=== PATIENT | female | born 1970 | race Caucasian/White ===

== ENCOUNTER 2022-05-09 20:48 | Emergency (ER) | payer BC, SELFPAY ==
[2022-05-09 20:58] VITALS: BP 167/104; PULSE 127; RESP 22; TEMP 38.8; O2SAT 99; BMI 32.3
--- NOTE | 2022-05-09 21:10 | CRLHL7_ITS ---
For Patients: As a result of the Cures Act, medical imaging exams and procedure reports are released immediately into your electronic medical record. You may view this report before your referring provider. If you have questions, please contact your health care provider. INDICATION: Shortness of breath, COVID positive.. TECHNIQUE: Chest 1 view. COMPARISON: None. FINDINGS: Cardiovascular and mediastinum: Cardiomediastinal silhouette is within normal limits. Lungs and pleural spaces: Mild bilateral interstitial opacities. No evidence of pleural effusion. No pneumothorax identified. Bones and soft tissues: Unremarkable. IMPRESSION: Mild bilateral interstitial opacities, consistent with provided history of COVID. Dictated by Akil Ashby MD @ 05/09/2022 10:47:45 PM (Electronically Signed)
[2022-05-09] MEDS: 0.9 % SODIUM CHLORIDE 500 ML 500 ML IV (21:30)
--- NOTE | 2022-05-09 21:55 | ED_ITS ---
HPI - SOB/Dyspnea General Date Seen: 05/09/22 Chief Complaint: Shortness of Breath/Dyspnea Stated Complaint: tested covid +/chills, rapid heartbeat Time Seen by Provider: 05/09/22 20:53 Source: patient and family Mode of arrival: ambulatory Limitations: no limitations History of Present Illness HPI Narrative: Patient is a miguel 51-year-old female presents here with 2 day history of a shortness of breath cough, and feeling of shortness of breath when she walks up and down the stairs she tested herself today she was positive for COVID. At home twice. She took some NyQuil at 4:00 a.m., but is not taking anything else, she talked to her friend and she has come in for an assessment. She is on no chronic medications of any sort, she has no known drug allergies she is a nonsmoker lifetime, there possibly was a history of asthma when she was young, but she has not used inhaler for many years. She finds going up the stairs worse when she will feel shortness of breath, she has no chest pain no syncope no leg swelling, no hemoptysis. MD elicited complaint: shortness of breath Related Data Previous Rx's Medication Instructions Recorded nirmatrelvir 300 mg (150 mg See Rx Instructions PO .COMPLEX 05/09/22 x2)-ritonavir 100 mg tablet,dose #30 ea pack(EUA) (Paxlovid) Allergies Allergy/AdvReac Type Severity Reaction Status Date / Time No Known Drug Allergies Allergy Verified 05/09/22 21:00 Review of Systems Status of ROS: Reports: 10 or more systems reviewed and unremarkable except as noted in History and below [facility] Social History Smoking Status: Current some day smoker What tobacco products do you use: cigarettes Do you use any of these nicotine containing products: None How often do you have a drink containing alcohol: monthly or less AUDIT-C Alcohol total score: 1 Non-prescribed substance use: denies use Exam Narrative: Exam Narrative: Patient is peaking normally, problem with slurring words, oriented x3. Head eyes ears nose and throat exam show equal pupils, no scleral icterus, extraocular muscles are normal, no facial droop, speech is normal, trachea normal and midline. Thyroid normal midline palpable not enlarged. Chest shows symmetrical rise bilaterally, normal auscultation with no wheezes, no increased work of breathing, no overt bruising or lesions seen, no tenderness is noted on auscultation. Heart sounds normal with no S3-S4 no murmurs clicks or gallops. Abdomen shows no obvious masses or hepatosplenomegaly, no organomegaly, bowel sounds are normal in all quadrants. No tenderness is noted also in all qu adrants. Upper and lower extremities show normal power, normal range of motion, pulses are normal, sensations normal, fine motor movements are normal, pelvis is stable to rocking. Cervical spine shows normal range of motion, and palpably not tender. Thoracic spine shows normal range of motion, and palpably not tender, lumbar spine shows no tenderness to palpation percussion and is otherwise normal range of motion. Skin shows no rashes, petechiae or eccymosis. No evidence of any swelling of her lower extremities, and her Homans signs are negative. Const: Vital Signs, click to edit/add: Vital Signs - 24 hr 05/09/22 20:58 05/09/22 22:02 Temperature 102 F H 102.5 F H Pulse Rate [Right Pulse Oximeter] 127 H 109 H Respiratory Rate 22 22 Blood Pressure [Le ft Upper Arm] 167/104 H 158/87 H Pulse Oximetry 99 98 Oxygen Delivery Me thod Room Air Room Air Documenting provider has reviewed patient's vital signs: yes Course Course Hospital Course: Patient is negative on the D-dimer, her chest x-ray by my review shows no acute findings, her EKG looks normal troponins normal, given she is at increased risk of complications secondary to COVID with her elevated BMI, and potential history of did asthma in the past, I discussed with her Paxlovid, the risks benefits and side effects and she would like to try it, prescription sent to the pharmacy of her choice. Vital Signs Vital signs: Initial Vital Signs Temperature 102 F H 05/09/22 20:58 Temperature Source Temporal Artery Scan 05/09/22 20:58 Pulse Rate 127 H 05/09/22 20:58 Respiratory Rate 22 05/09/22 20:58 Blood Pressure 167/104 H 05/09/22 20:58 Blood Pressure Mean 125 05/09/22 20:58 Blood Pressure Position Sitting 05/09/22 20:58 Pulse Oximetry 99 05/09/22 20:58 Oxygen Delivery Method 05/09/22 20:58 Vital Signs Temperature 102 F H 05/09/22 20:58 Pulse Rate 127 H 05/09/22 20:58 Respiratory Rate 22 05/09/22 20:58 Blood Pressure 167/104 H 05/09/22 20:58 Pulse Oximetry 99 05/09/22 20:58 Oxygen Delivery Method 05/09/22 20:58 Temperature 102.5 F H 05/09/22 22:02 Pulse Rate 109 H 05/09/22 22:02 Respiratory Rate 22 05/09/22 22:02 Blood Pressure 158/87 H 05/09/22 22:02 Pulse Oximetry 98 05/09/22 22:02 Oxygen Delivery Method 05/09/22 22:02 MDM - SOB/Dyspnea MDM Narrative Medical decision making narrative: Life-threatening differential diagnosis includes occluded COPD exacerbation, pulmonary edema, acute coronary syndromes, pulmonary embolism, pneumonia, and pneumothorax. Other differential diagnosis considerations include asthma, bronchitis as well as other etiologies Medical Records Attestation: I reviewed the patient's medical records. Lab Data Attestation: I reviewed the patient's lab results. Labs: Lab Results 05/09/22 05/09/22 05/09/22 Range/Units 21:32 21:32 21:32 D-Dimer Quant (PE/DVT) < 0.27 (0.00-0.50) ug/ml Sodium 136 (135-149) mmol/L Potassium 3.8 (3.6-5.1) mmol/L Chloride 106 (96-114) mmol/L Carbon Dioxide 21 (20-32) mmol/L BUN 7 (5-24) mg/dL Creatinine 0.6 (0.5-1.5) mg/dL Estimated Creat Clear 106.18 Estimated GFR 110 ml/min Glucose 117 H (60-115) mg/dL Calcium 8.7 (8.4-10.6) mg/dL POC Troponin I 0.00 L (0.01-0.04) ng/ml ECG Data Attestation: I personally reviewed and interpreted this ECG as follows: ECG interpretation date: 05/09/22 Prior ECG tracings: not available for review Interpretation: EKG shows sinus tachycardia, no acute ST wave changes, otherwise normal. Discharge Plan Discharge Clinical Impression: COVID-19 Patient Disposition: Home w/ Parent or Adult Condition: Stable Instructions: COVID-19 (Coronavirus Disease 2019) (ED) Additional Instructions: Use of Tylenol 1 g p.o. t.i.d. and or ibuprofen 800 mg p.o. t.i.d. for the fevers and chills and feeling otherwise crappy, prescription given for Paxlovid I would suggest taking this as were in increased risk category. Increasing chest pain, shortness of breath, then he should follow up, a TeleMed patient is to by an oxygen saturation monitor to monitor their oxygen, return here if less than 90%. Prescriptions: New Paxlovid (EUA) 300 mg (150 mg x 2)-100 mg tablets,dose pack See Rx Instructions .ROUTE .COMPLEX Qty: 30 0RF Rx Instructions: take TWO 150 mg tablets of nirmatrelvir with ONE 100 mg tablet of ritonavir twice daily for 5 days Follow Up/Referrals: Devi Rubin DO [Primary Care Provider] - Stand Alone Forms: [facility] Info Instructions
[2022-05-09 21:58] LABS: Chloride* 106 mmol/L (96-114); Potassium* 3.8 mmol/L (3.6-5.1); Sodium* 136 mmol/L (135-149)
[2022-05-09 22:01] LABS: Blood Urea Nitrogen* 7 mg/dL (5-24); Calcium* 8.7 mg/dL (8.4-10.6); Carbon Dioxide* 21 mmol/L (20-32); Creatinine* 0.6 mg/dL (0.5-1.5); Est. Creatinine Clearance* 106.18; Estimated Glomerular Filt Rate 110 ml/min; Glucose* 117 mg/dL (60-115)
[2022-05-09] MEDS: IBUPROFEN 400 MG TABLET 800 MG PO (22:01)
[2022-05-09 22:02] VITALS: BP 158/87; PULSE 109; RESP 22; TEMP 39.2; O2SAT 98
[2022-05-09 22:04] LABS: D Dimer Quantitative* < 0.27 ug/ml (0.00-0.50)
[2022-05-09 22:25] VITALS: BP 158/87; PULSE 109; RESP 22
== END 2022-05-09 22:49 | disposition home or self-care (01) ==
PROVIDERS: Emergency Provider Family Medicine; PCP Family Medicine
DX: U07.1 COVID-19 (principal)
CPT/HCPCS: 36415; 71045; 80048; 84484; 85379; 93005; 99284; 99285; A9270; J7120

== ENCOUNTER 2023-04-20 09:56 | Outpatient (CLI) | payer BC, SELFPAY ==
--- NOTE | 2023-04-20 10:15 | CRLHL7_ITS ---
For Patients: As a result of the Century Cures Act, medical imaging exams and procedure reports are released immediately into your electronic medical record. You may view this report before your referring provider. If you have questions, please contact your health care provider. ULTRASOUND-GUIDED BREAST BIOPSY AND POST-BIOPSY DIGITAL MAMMOGRAM FOR BIOPSY MARKER PLACEMENT CLINICAL HISTORY: Suspicious mass. COMPARISON STUDIES: 04/13/2023. TECHNIQUE: Real-time ultrasound with image documentation was used for targeting the breast lesion. Core biopsy specimens were obtained using an automated gun with a 18-gauge biopsy needle. Post-biopsy CC and ML digital mammograms were obtained to document position of the biopsy marker. CONSENT and TIME OUT: The procedure, risks, and alternatives were explained to the patient and a consent was signed. [place] Protocol was followed including pre-procedure verification that relevant information/documentation was available, reviewed and properly matched to the patient; consent accurate and complete; and equipment and supplies available. Time Out was conducted just prior to starting procedure to verify the four required elements: patient identity, correct side/site marked (if applicable), procedure, relevant images/results properly labeled and displayed (if applicable). PROCEDURE: The patient was positioned supine on the ultrasound table. The breast was prepped with Betadine or ChloraPrep. 8 cc of 1 percent lidocaine used for local anesthesia. Core samples were obtained. A sterile metal biopsy clip was placed percutaneously to yuriy the lesion position within the breast. The specimens were placed in 10% formalin and sent to the pathology department. Pressure was held on the biopsy site until all bleeding subsided. The skin incision was closed with Steri-Strips. An ice pack was positioned over the biopsy site. Post-biopsy instructions were reviewed with the patient, and a written copy was given to her. LATERALITY: LEFT breast. LESION: Hypoechoic angular solid mass measuring 9 x 10 x 10 millimeters at 1 o`clock 13 cm from the nipple. SUSPICION FOR MALIGNANCY: High. NUMBER OF SAMPLES: 5. BIOPSY CLIP SHAPE: Oval. PROXIMITY OF CLIP TO TARGET: Within the lesion. IMPRESSION: Ultrasound-guided breast biopsy. When the pathology report is available, an addendum to this report will be made. ACR not applicable Dictated by Kelvin Galo MD @ 04/20/2023 11:34:45 AM jj/Dictated by: Kelvin Galo MD @ 04/20/2023 11:34:00 AM ADDENDUM: Pathology consistent with grade II/III invasive ductal carcinoma. This is concordant. Appropriate action recommended. Dictated by: Kelvin Galo MD @04/22/2023 12:17:59 PM / [email or web address] (Electronically Signed)
--- NOTE | 2023-04-20 10:15 | CRLHL7_ITS ---
For Patients: As a result of the Century Cures Act, medical imaging exams and procedure reports are released immediately into your electronic medical record. You may view this report before your referring provider. If you have questions, please contact your health care provider. ULTRASOUND-GUIDED LEFT AXILLARY LYMPH NODE BIOPSY AND MARKER PLACEMENT CLINICAL HISTORY: ENLARGED LEFT AXILLARY LYMPH NODE COMPARISON STUDIES: 04/13/2023 TECHNIQUE: Real-time ultrasound with image documentation was used for targeting the left axillary lesion. Core biopsy specimens were obtained using an automated gun with a 18-gauge biopsy needle. CONSENT and TIME OUT: The procedure, risks, and alternatives were explained to the patient and a consent was signed. [place] Protocol was followed including pre-procedure verification that relevant information/documentation was available, reviewed and properly matched to the patient; consent accurate and complete; and equipment and supplies available. Time Out was conducted just prior to starting procedure to verify the four required elements: patient identity, correct side/site marked (if applicable), procedure, relevant images/results properly labeled and displayed (if applicable). PROCEDURE: The patient was positioned supine on the ultrasound table. The left axilla was prepped with ChloraPrep. 6 cc of 1 percent lidocaine used for local anesthesia. Core samples were obtained. A sterile metal biopsy clip was placed percutaneously to yuriy the lesion position within the left axilla. The specimens were placed in 10% formalin and sent to the pathology department. Pressure was held on the biopsy site until all bleeding subsided. The skin incision was closed with Steri-Strips. An ice pack was positioned over the biopsy site. Post-biopsy instructions were reviewed with the patient, and a written copy was given to her. LATERALITY: Left axilla LESION: Enlarged hypoechoic lymph node measuring 2.0 x 1.5 x 2.5 cm in the left axilla. SUSPICION FOR MALIGNANCY: High NUMBER OF SAMPLES: 5 BIOPSY CLIP SHAPE: HydroMARK PROXIMITY OF CLIP TO TARGET: Within the lesion IMPRESSION: Ultrasound-guided left axillary lymph node biopsy. When the pathology report is available, an addendum to this report will be made. ACR not applicable Dictated by Kelvin Galo MD @ 04/20/2023 11:37:02 AM ADDENDUM: Pathology consistent with metastatic carcinoma. This is concordant. Appropriate action recommended. Dictated by: Kelvin Galo MD @04/22/2023 12:18:42 PM / [email or web address] (Electronically Signed)
--- NOTE | 2023-04-20 11:00 | CRLHL7_ITS ---
For Patients: As a result of the Century Cures Act, medical imaging exams and procedure reports are released immediately into your electronic medical record. You may view this report before your referring provider. If you have questions, please contact your health care provider. PLEASE SEE ULTRASOUND-GUIDED LEFT BREAST BIOPSY PERFORMED SAME DAY [email or web address] groves/Dictated by: Kelvin Galo MD @ 04/20/2023 11:34:00 AM (Electronically Signed)
== END 2023-04-20 09:57 | disposition home or self-care (01) ==
LOC: US 09:57
PROVIDERS: PCP Family Medicine; Visit Provider Family Medicine
DX: N63.20 Unspecified lump in the left breast, unspecified quadrant (principal); C50.912 Malignant neoplasm of unspecified site of left female breast; R92.8 Other abnormal and inconclusive findings on diagnostic imaging of breast
CPT/HCPCS: 19083; 38505; 76942; 77065; 88305; 88360; 88361; 88377; A4648; A4649

== ENCOUNTER 2023-04-27 14:07 | Outpatient (CLI) | payer BC, SELFPAY ==
--- NOTE | 2023-04-27 14:30 | CRLHL7_ITS ---
For Patients: As a result of the 21st Century Cures Act, medical imaging exams and procedure reports are released immediately into your electronic medical record. You may view this report before your referring provider. If you have questions, please contact your health care provider. BILATERAL BREAST MRI WITHOUT AND WITH GADOLINIUM, 04/27/2023 CLINICAL HISTORY: 52-year-old female with recently diagnosed LEFT breast cancer. INDICATION FOR BREAST MRI: Staging of newly diagnosed breast cancer and screening of contralateral breast. Regional lymph nodes will also be assessed. COMPARISON STUDIES: Mammogram 03/30/2023, additional mammographic views of the LEFT breast, LEFT breast ultrasound an axillary ultrasound 04/13/2023. CONTRAST: 18 cc of Dotarem. TECHNIQUE: The patient was positioned prone using a breast coil. Multiple imaging sequences were obtained using 1-1.5 mm thick slices with no gap. The image sequences include T2-weighted STIR in the axial plane, T1-weighted nonfat-saturated gradient echo in the axial plane, pre- and post-contrast T1-weighted FLASH 3D with fat suppression in the axial plane, and T1-weighted FLASH high resolution 3D with fat suppression in the sagittal plane. Image post-processing was performed on a [employer] workstation. Complex 3D rendering including maximum intensity projections (MIPS) and volumetric renderings were obtained to optimize visualization of the extent of pathology and relationship to the nipple, skin, and chest wall. This aids in determining feasibility of breast conservation surgery. Subtraction, multiplanar reconstruction, mean curve determination, and angiogenesis mapping were also performed. The study was technically adequate. FINDINGS: Amount of Fibroglandular Tissue: Scattered fibroglandular tissue. Breast Background Enhancement: Mild. RIGHT Breast: No suspicious areas of enhancement. LEFT Breast: At 1 o`clock, posterior depth, approximately 11 cm from the nipple there is an irregular mass with irregular margins and heterogeneous internal enhancement measuring 2.0 x 1.4 x 2.5 cm. This demonstrates fast initial enhancement with washout. Artifact from a biopsy marker clip is seen within the mass. This is consistent with the site of biopsy-proven malignancy. Lymph Nodes: There is an abnormal level 1 LEFT axillary lymph node with eccentric cortical thickening, measuring up to 1.5 cm, which is consistent with the biopsy-proven filiberto metastasis. There are at least two additional deeper level 1 lymph nodes with cortical thickening. Normal RIGHT axillary lymph nodes. IMPRESSIONS AND RECOMMENDATIONS: LEFT Breast: 1. Mass at 1 o`clock, posterior depth measuring up to 2.5 cm on MRI is consistent with the biopsy-proven malignancy. No additional suspicious areas of enhancement. Surgical/oncologic follow-up for continued management. 2. Abnormal LEFT axillary lymph nodes, consistent with biopsy-proven filiberto metastasis. RIGHT Breast: Negative, there is no MRI evidence of contralateral malignancy. BI-RADS Category 6: Known Biopsy-Proven Malignancy Dictated by Elisa Nolan MD @ 04/29/2023 4:30:57 PM /Dictated by: Elisa Nolan MD @ 04/29/2023 4:30:00 PM (Electronically Signed)
== END 2023-04-27 14:08 | disposition home or self-care (01) ==
LOC: MRI 14:07
PROVIDERS: PCP Family Medicine; Visit Provider Surgery
DX: C50.912 Malignant neoplasm of unspecified site of left female breast (principal); C77.3 Secondary and unspecified malignant neoplasm of axilla and upper limb lymph nodes
CPT/HCPCS: 77049; A9575

== ENCOUNTER 2023-05-04 10:54 | Day surgery (SDC) | payer BC, SELFPAY ==
[2023-05-04] MEDS: SODIUM CHLORIDE 0.9 % (FLUSH) 10 ML SYRINGE IVF (11:15)
[2023-05-04] MEDS: LACTATED RINGERS 1000 ML 1,000 ML 100 ML IV (11:15)
[2023-05-04 11:19] VITALS: BP 148/91; PULSE 89; RESP 20; TEMP 36.6; O2SAT 96; BMI 30.5
--- NOTE | 2023-05-04 12:42 | W.PM.H&PU ---
History & Physical Update History & Physical Update H&P Reviewed and patient assessed: No changes noted
[2023-05-04] MEDS: CEFAZOLIN 2 GM INJ IVP (12:51)
--- NOTE | 2023-05-04 12:53 | CRLHL7_ITS ---
For Patients: As a result of the Century Cures Act, medical imaging exams and procedure reports are released immediately into your electronic medical record. You may view this report before your referring provider. If you have questions, please contact your health care provider. Fluoroscopy was provided intraoperatively during Port-A-Cath placement by the surgical service. Please see their report for full procedural details. 40.7 seconds fluoroscopy time was utilized. Chest radiograph reported separately. Dictated by Jamal Harris MD @ 05/05/2023 6:38:29 AM (Electronically Signed)
[2023-05-04] MEDS: BUPIVACAINE 0.5% 30 ML INJECTION (13:13)
[2023-05-04] MEDS: LIDOCAINE 1% MDV 20 ML INJECTION (13:13)
--- NOTE | 2023-05-04 13:19 | CRLHL7_ITS ---
For Patients: As a result of the Century Cures Act, medical imaging exams and procedure reports are released immediately into your electronic medical record. You may view this report before your referring provider. If you have questions, please contact your health care provider. INDICATION: Port placement. TECHNIQUE: Chest 1 views. COMPARISON: None. FINDINGS: Cardiovascular and mediastinum: Heart size and vasculature are normal in caliber and appearance. Right chest wall port with catheter terminating in the lower SVC. Lungs and pleural spaces: Lungs are clear. No sign of infiltrate or mass. No sign of pleural effusion. No pneumothorax. Bones and soft tissues: No significant findings. IMPRESSION: Right chest wall port with catheter terminating in the lower SVC. Dictated by Dimitri Feng MD @ 05/04/2023 3:20:13 PM (Electronically Signed)
[2023-05-04] MEDS: 0.9% SODIUM CHL 50 ML VIAL INJECTION (13:30)
[2023-05-04] MEDS: HEPARIN 500 UNIT/5 ML SYRINGE IVF (13:34)
--- NOTE | 2023-05-04 13:46 | PM.GSPRC ---
Operative Note Pre-op diagnosis: Left triple positive, invasive ductal carcinoma breast cancer metastatic to axillary lymph node Post-op diagnosis: Same Type of Procedure: Right IJ power port placement with ultrasound and fluoroscopic guided Indications: The patient is a 52-year-old female who was found on routine screening mammogram to have an invasive ductal carcinoma of the left breast. There was also a suspicious lymph node in the left axilla. These were both biopsied and found to be positive for invasive ductal carcinoma. She was recommended to undergo neoadjuvant chemotherapy. She presents today for port placement. Procedure Description: After discussing the risks and benefits of the procedure, the patient signed informed consent.? The operative site was marked and the patient was brought to the operating room and placed on the operating table in supine position.? Care was taken to pad the patient's pressure points.?? The patient was then given sedation by anesthesia.?? The operative site was then prepped and draped in the usual sterile fashion.? A time-out was then performed. The patient's right internal jugular vein was visualized using ultrasound. Local anesthetic was injected into the skin overlying the vein. This was accessed percutaneously using ultrasound guidance. Using Seldinger technique, a guidewire was threaded through the needle. A skin jelena was made around the wire. Next, local anesthetic was injected into the skin below the clavicle and along the proposed tract to the neck incision. A skin incision was then made with a 15 blade and a pocket created in the subcutaneous tissue with cautery. A tunneler was then used to thread the catheter from the chest wall pocket to the neck incision. Once this was done fluoroscopy was brought into the field. Over the wire the tract was dilated using fluoroscopy. The wire and the dilator were then removed leaving the sheath in the vein. Through this, the catheter was threaded. Using fluoroscopy, the catheter was positioned into the distal SVC. The catheter was noted to flush and aspirate easily. The catheter was then connected to the port. The port was placed in the pocket and secured in place with 2 0 Prolene sutures. It was noted to flush and aspirate easily. This was then locked with heparinized saline. The skin was closed with absorbable suture. Sterile dressings were applied. Instrument sponge and needle counts were correct at the end of the case. The patient was woken and taken to the PACU in stable condition. The patient tolerated the procedure well. Findings: Right IJ power port placed in the low SVC Implants: PowerPort Anesthesia: MAC Surgeon: Oriana Davis MD Estimated blood loss (mL): 5 Condition: stable Disposition: same day Date of procedure: 05/04/23
[2023-05-04 13:50] VITALS: BP 113/72; PULSE 96; RESP 16; TEMP 36.6; O2SAT 98
--- NOTE | 2023-05-04 13:54 | W.ANESCHARGE ---
Anesthesia Charges Start Date/Time Anesthesia Start Date: 05/04/23 Anesthesia Start Time: 12:42 Stop Date/Time Anesthesia Stop Date: 05/04/23 Anesthesia Stop Time: 13:52
[2023-05-04 14:00] VITALS: BP 123/82; PULSE 79; RESP 16; O2SAT 100
[2023-05-04 14:15] VITALS: BP 145/97; PULSE 72; RESP 16; O2SAT 100
--- NOTE | 2023-05-04 14:53 | W.ANESCHARGE ---
Anesthesia Charges Start Date/Time Anesthesia Start Date: 05/04/23 Anesthesia Start Time: 12:42 Stop Date/Time Anesthesia Stop Date: 05/04/23 Anesthesia Stop Time: 13:52
== END 2023-05-04 14:37 | disposition home or self-care (01) ==
PROVIDERS: PCP Family Medicine; Visit Provider Surgery
PROC: (CPT 36561; principal; 2023-05-04 13:15)
DX: Z45.2 Encounter for adjustment and management of vascular access device (principal); C50.412 Malignant neoplasm of upper-outer quadrant of left female breast; C77.3 Secondary and unspecified malignant neoplasm of axilla and upper limb lymph nodes; Z17.0 Estrogen receptor positive status [ER+]
CPT/HCPCS: 36561; 00532; 71045; 76000; C1788; J0665; J0690; J1642; J2250; J2405; J2704; J3010; J7120

== ENCOUNTER 2023-05-11 07:05 | Outpatient (CLI) | payer BC, SELFPAY ==
--- NOTE | 2023-05-11 07:15 | CRLHL7_ITS ---
For Patients: As a result of the Century Cures Act, medical imaging exams and procedure reports are released immediately into your electronic medical record. You may view this report before your referring provider. If you have questions, please contact your health care provider. INDICATION: Breast cancer. TECHNIQUE: Multiplanar multisequence MR images acquired through the brain prior to and following intravenous contrast. COMPARISON: None. FINDINGS: Prominence of the ventricles and sulci compatible with minimal diffuse cerebral volume loss. No mass effect or midline shift. No parenchymal signal abnormalities. No intracranial hemorrhage or pathologic extra-axial fluid collection. No diffusion restriction to suggest acute infarction. No pathologic intracranial enhancement. Partially empty sella may represent an anatomic variant. The major arterial flow voids of the skullbase are the globes are symmetric. Mgef-it-mmwemlud left and mild right maxillary sinus mucosal thickening. Trace right mastoid fluid. IMPRESSION: No acute intracranial abnormality or evidence for intracranial metastatic disease. Dictated by Kareem Peres MD @ 05/11/2023 11:35:38 AM (Electronically Signed)
[2023-05-11] MEDS: PERFLUTREN LIPID MICROSPHERES 2 ML VIAL IV (16:21)
== END 2023-05-11 07:06 | disposition home or self-care (01) ==
PROVIDERS: PCP Family Medicine; Visit Provider Internal Medicine Hematology & Oncology
DX: C50.919 Malignant neoplasm of unspecified site of unspecified female breast (principal)
CPT/HCPCS: 70553; 93306; A9575; Q9957

== ENCOUNTER 2023-06-08 12:52 | Outpatient (CLI) | payer BC, SELFPAY ==
--- OUTSIDE RECORDS SUMMARY | 2023-06-08 12:58 | XMS_ITS | Clinical Summary ---
Author Name Unknown Organization [facility] Address [place], [place] [address] Care Team Providers Care Vice President Of Compliance Name Role Phone Devi Rubin Primary Care Provider [phone] Allergies No known active allergies Medications Medication Sig Dispensed Refills Start Date End Date Status Graduated Compression StockingsIndica tions:Uncomplic ated varicose veins For personal use. Length: thigh Strength: 20-30 mmHg Circumference in cm: For thigh: Ankle 25cm, Calf 37cm, Thigh 51cm, Thigh to Ankle length 54cm. 1 Packet 0 3 Active folic acid 1 mg tabletIndicatio ns:Low folic acid Take 1 Tablet (1 mg) by mouth once daily. 90 Tablet 3 3 Active hydrOXYzine HCL (ATARAX) 25 mg tabletIndicatio ns:Anxiety Take 1 Tablet (25 mg) by mouth every 6 hours if needed for Anxiety. 30 Tablet 0 3 Active LORazepam (ATIVAN) 0.5 mg tabIndications: REYNALDO (generalized anxiety disorder),Diffi culty sleeping,Feelin g worried Take 1 Tablet (0.5 mg) by mouth at bedtime if needed for Anxiety. 20 Tablet 0 3 Active multivitamin capsule Take 1 Capsule by mouth once daily. 0 Active escitalopram oxalate (LEXAPRO) 5 mg tabletIndicatio ns:REYNALDO (generalized anxiety disorder) Take 1 Tablet (5 mg) by mouth every morning. 30 Tablet 0 4 Active cyanocobalamin (Vitamin B-12) 1,000 mcg tabletIndicatio ns:Vitamin B12 deficiency Take 1 Tablet (1,000 mcg) by mouth once daily. 90 Tablet 3 3 06/04/19 24 Discontinued(*P atient states no longer taking) FLUoxetine 10 mg tabletIndicatio ns:REYNALDO (generalized anxiety disorder) Take 0.5 Tablets (5 mg) by mouth every morning for 7 days, THEN 1 Tablet (10 mg) every morning. 33.5 Tablet 0 3 05/26/20 23 Discontinued FLUoxetine 10 mg tabletIndicatio ns:REYNALDO (generalized anxiety disorder) Take 1 Tablet (10 mg) by mouth every morning. Needs appointment for refills. 30 Tablet 0 3 06/04/19 24 Discontinued(*P atient states no longer taking) Active Problems Problem Noted Date Diagnosed Date REYNALDO (generalized anxiety disorder) 06/04/2023 Invasive ductal carcinoma of breast, left 2022 Pap smear for cervical cancer screening 03/31/20 Overview: 03/2023 NIL/HPV negative Plan: Pap/HPV due 03/2028 Anxiety 04/28/2021 Hypertriglyceridemia 04/28/2021 Overview: ASCVD 10 year risk 5%. Alcohol abuse 03/19/2019 Overview: 8-10 beers weekends Uncomplicated varicose veins 09/16/2013 Overview: Identified By: Mariya Paul Resolved Problems Problem Noted Date Diagnosed Date Resolved Date Abdominal pain, RUQ (right upper quadrant) 09/17/2017 04/28/2021 ETOH abuse 03/16/2009 09/17/2017 Major depressive disorder, r ecurrent episode, unspecified 09/08/2008 09/17/2017 Overview: On celexa and effexor in the past Encounters Date Type Department Care Team Description 06/04/2023 3:00 PM SHOTGUN SHELL REPRINTING UNIT OPERATOR [place] [facility] [address] [place] [address] Devi Rubin, Concerns (Discuss daily anxiety medication and care during chemo. If she has a fever will need an antibiotic) 06/04/2023 Travel 06/03/2023 Telephone [facility] [address] [place] [phone] Susie Cuellar, MS, CGC Results 06/03/2023 Telephone [facility] [address] [place] [address] Susie Cuellar, MS, CGC Results 05/24/2023 Telephone [facility] [address] [place] [address] Marina Harris PA Refill Request (Fluoxetine) 05/20/2023 3:30 PM SHOTGUN SHELL REPRINTING UNIT OPERATOR Orders Only [facility] [address] [place] [address] Lab, [facility] 05/20/2023 Travel 05/18/2023 1:00 PM SHOTGUN SHELL REPRINTING UNIT OPERATOR Telemedicine [facility] [address] [place] [address] Susie Cuellar MS, [facility] Counseling (Cancer genetic counseling); Telehealth 05/18/2023 Telephone [facility] [address] [place] [address] Vera Carrasco Cancer Genetics 05/18/2023 Telephone [facility] [address] [place] [address] Vera Carrasco Cancer Genetics 05/11/2023 3:00 PM SHOTGUN SHELL REPRINTING UNIT OPERATOR Orders Only [facility] [address] [place] [address] 2 scans: (2-Ord) ECHO TTE COMPLETE W CONTRAST ([id number]) 05/11/2023 Orders Only [facility] Scanner 1 scan: (1-Ord) [facility], HEAD/BRAIN WO/W CON, 05/11/2023 05/11/2023 Travel 05/08/2023 6:27 AM SHOTGUN SHELL REPRINTING UNIT OPERATOR - 05/08/2023 11:59 PM SHOTGUN SHELL REPRINTING UNIT OPERATOR Hospital Encounter [facility] [address] [place] [address] Dina Quigley MD Breast cancer (HC); Malignant neoplasm of upper-outer quadrant of right female breast (HC) 05/08/2023 Travel 05/04/2023 8:00 AM SHOTGUN SHELL REPRINTING UNIT OPERATOR Office Visit [facility] [address] [place] [address] Oriana Davis MD 05/04/2023 Orders Only [facility] Scanner 1 scan: (1-Ord) [facility], CHEST IV, 05/04/2023 05/04/2023 Orders Only [facility] Scanner 1 scan: (1-Ord) [facility], CHEST 1VIEW, 05/04/2023 05/04/2023 Orders Only [facility] Scanner 1 scan: (1-Ord) [facility], PORT PLACEMENT, 05/04/2023 05/04/2023 Travel 04/30/2023 Chart Update [facility] [address] [place] [address] Bishnu Segura MD 04/29/2023 Telephone [facility] [address] [place] [address] Vera Carrasco Cancer Genetics 04/29/2023 Telephone [facility] [address] [place] [phone] Vera Carrasco Cancer Genetics 04/27/2023 12:15 PM SHOTGUN SHELL REPRINTING UNIT OPERATOR Office Visit [facility] [address] [place] [address] Bishnu Segura MD Consult (Left breast cancer) 04/27/2023 8:45 AM SHOTGUN SHELL REPRINTING UNIT OPERATOR Office [place] [facility] [address] [place] [address] Marina Harris PA Anxiety; Depression 04/27/2023 Orders Only [facility] Scanner 1 scan: (1-Ord) [facility], BREAST MEHUL W/WO CONTRAST, 04/27/2023 04/27/2023 Travel 04/21/2023 Telephone [facility] [address] [place] [address] Marina Harris PA Appointment (APPT REQUEST ) 04/21/2023 Orders Only [facility] [address] [facility] [address] Devi Rubin, 1 scan: (1-Ord) [facility], US GUIDED BREAST BIOPSY LT, 04/20/2023 04/20/2023 Orders Only [facility] Scanner 1 scan: (1-Ord) [place], US GUIDED BREAST BIOPSY LT, 04/20/2023 04/20/2023 Orders Only [facility] Scanner 1 scan: (1-Ord) [place], US GIUDED LEFT AXILLARY LYMPH NODE BIOPSY AND MARKER PLACEMENT, 04/20/2023 04/20/2023 Orders Only [facility] Scanner 1 scan: (1-Ord) [facility], MM CLIP PLACEMENT LT, 04/20/2023 04/20/2023 Lab Requisition [facility] [phone] Unknown, Doctor 04/20/2023 Lab Requisition [facility] [phone] Unknown, Doctor 04/16/2023 3:50 PM SHOTGUN SHELL REPRINTING UNIT OPERATOR Telemedicine [facility] [address] [place] [address] Marina Harris PA Anxiety 04/15/2023 Travel 04/13/2023 2:30 PM SHOTGUN SHELL REPRINTING UNIT OPERATOR Ancillary Procedure [facility] [address] [facility] [place] [address] 04/13/2023 2:00 PM SHOTGUN SHELL REPRINTING UNIT OPERATOR Ancillary Procedure [facility] [address] [facility] [address] 04/13/2023 Telephone [facility] [address] [place] [address] Devi Rubin, New Med Request 04/13/2023 Travel 03/30/2023 11:00 AM CDT Ancillary Procedure [facility] [address] [place] [address] 03/30/2023 Travel 03/23/2023 10:50 AM CDT Office [place] [facility] [address] [place] [address] Devi Rubin, Physical; Immunization/Injec tion (COVID-19 vaccine) 03/23/2023 Travel from Last 3 Months Immunizations Name Administration Dates Next Due COVID-19 vaccine (Moderna 100mcg/0.5mL) PF, MDV 09/28/2020,08/20/2020 COVID-19 vaccine (Moderna 50 mcg/0.5mL) 12YO+ BIVALENT PF, MDV 08/25/2022 Pneumococcal Conj 20-valent (Prevnar 20) 023 Tdap 10/25/2021 Zoster (Shingrix-RZV, recombinant) 03/23/2023 Family History Medical History Relation Name Comments Heart Disease Father Cancer-breast Maternal Aunt 1 x4 Cancer-colon Maternal Aunt 2 Dx ~ 70 Alcoholism Mother Hypertension Mother Other Mother CEA bilaterally - 2t clog Unknown Paternal Grandfather Unknown Paternal Grandmother Cancer-ovarian No Family History Relation Name Status Comments Father Maternal Aunt 1 Maternal Aunt 2 Mother Paternal Grandfather Paternal Grandmother Social History Tobacco Use Types Packs/Day Years Used Date Smoking Tobacco: Former Cigarettes 0.3 24 S tarted: 06/01/1999 Smokeless Tobacco: Never Tobacco Cessation:Counseling Given: Not Answered Comments:some on weekends, 1/2 pack Alcohol Use Standard Drinks/Week Comments Yes 0 (1 standard drink = 0.6 oz pur e alcohol) 6-16 drinks on weekends PHQ-2 Answer Date Recorded PHQ-2 TOTAL SCORE 2 06/04/2023 Social Connections Answer Date Recorded Frequency of Communication with Friends and Fami ly 0 08/25/2022 Financial Resource Strain Answer Date R ecorded Difficulty of Paying Living Expenses 3 08/25/2022 Difficulty of Paying Living Expenses Not on file 08/25/2022 Food Insecurity Answer Date Recorded Worried About Running Out of Food in the Last Ye ar 1 08/25/2022 Transportation Needs Answer Date Record ed Lack of Transportation (Medical) 1 08/25/2022 Housing Stability Answer Date Recorded Unable to Pay for Housing in the Last Year 1 08/25/2022 Sex and Gender Information Value Date Recorded Sex Assigned at Not on file Gender Identity Not on file Sexual Orientation Not on file Obstetrics History Para Term AB IAB SAB Ectopic Multiple Livin g Live Births 0 0 0 0 0 0 0 0 0 0 0 Last Filed Vital Signs Vital Sign Reading Time Taken Comments Blood Pressure 128/72 06/04/2023 3:06 PM SHOTGUN SHELL REPRINTING UNIT OPERATOR Pulse 96 06/04/2023 3:06 PM SHOTGUN SHELL REPRINTING UNIT OPERATOR Temperature 36.8 ??C (98.3 ??F) 07/30/2021 8:21 AM CS T Respiratory Rate 16 04/27/2023 8:52 AM SHOTGUN SHELL REPRINTING UNIT OPERATOR Oxygen Saturation 99% 04/27/2023 12:13 PM SHOTGUN SHELL REPRINTING UNIT OPERATOR Inhaled Oxygen Concentration - - Weight 87.6 kg (193 lb 3.2 oz) 06/04/2023 3:06 P M SHOTGUN SHELL REPRINTING UNIT OPERATOR Height 170.2 cm (5' 7) 06/04/2023 3:06 PM SHOTGUN SHELL REPRINTING UNIT OPERATOR Body Mass Index 30.26 06/04/2023 3:06 PM SHOTGUN SHELL REPRINTING UNIT OPERATOR Plan of Treatment Upcoming Encounters Date Type Department Care Team (Late st Contact Info) Description 06/29/2023 11:15 AM SHOTGUN SHELL REPRINTING UNIT OPERATOR Telemedicine [facility] [address] [place], [place] [phone] [place] [address] [place] [address] Health Maintenance Due Date Last Done Comments HIV for age 15-65 11/25/1987 Colonoscopy through age 75 2017 Influenza for age 50-64 01/30/2023 Zoster (shingles) series for age 50+ (2 of 2) 05/18/2023 03/23/2023 COVID-19 vaccine series (2022- season) 2023 05/02/2023, 08/25/2022, 05/23/2021, Additional history exists Mammogram for age 45-75 04/13/2024 04/13/2023, 03/30 BMI (ht and wt on same day) for age 18+ 06/04/2024 06/04/2023, 03/23/2023, 08/25/2022, Additional history exists Depression screening for age 12+ 06/04/2024 06/04/2023, 05/08/2023, 04/30/2023, Additional history exists Lipids for age 45-75 03/23/2028 03/23/2023, 04/26/20 Pap test for age 21-65 03/23/2028 03/23/2023, 2022 Tetanus booster 10/26/2031 10/25/2021 Tdap Completed 10/25/2021 Hepatitis C screening for ag e 18-79 Completed 03/23/2023 Pneumococcal series for age 6-64 Completed 03/23/20 23 Procedures Procedure Name Priority Date/Time Associated Diagnosis Comments ECHO TTE COMPLETE W CONTRAST Routine 05/11/2023 4:25 PM SHOTGUN SHELL REPRINTING UNIT OPERATOR Encounter for therapeutic drug level monitoring SCAN-MRI INTERPRETATION 05/11/2023 12:00 AM SHOTGUN SHELL REPRINTING UNIT OPERATOR PET CT SKULL BASE TO MID THIGH INITIAL TREAT Routine 05/08/2023 8:00 AM SHOTGUN SHELL REPRINTING UNIT OPERATOR Breast cancer (HC) Malignant neoplasm of upper-outer quadrant of right female breast (HC) GLUCOSE METER Routine 05/08/2023 6:48 AM SHOTGUN SHELL REPRINTING UNIT OPERATOR SCAN-RADIOLOGY REPORT 05/04/2023 12:00 AM SHOTGUN SHELL REPRINTING UNIT OPERATOR SCAN-RADIOLOGY REPORT 05/04/2023 12:00 AM SHOTGUN SHELL REPRINTING UNIT OPERATOR SCAN-OPERATIVE/PROCEDU RE REPORT 05/04/2023 12:00 AM SHOTGUN SHELL REPRINTING UNIT OPERATOR SCAN-MRI INTERPRETATION 04/27/2023 12:00 AM SHOTGUN SHELL REPRINTING UNIT OPERATOR LAB TRACKING EVENT Routine 04/20/2023 10 :50 AM SHOTGUN SHELL REPRINTING UNIT OPERATOR LAB TRACKING EVENT Routine 04/20/2023 10 :45 AM SHOTGUN SHELL REPRINTING UNIT OPERATOR PATH BREAST CORE BIOPSY Routine 04/20/2023 10:45 AM SHOTGUN SHELL REPRINTING UNIT OPERATOR CG HER2 BREAST Routine 04/20/2023 10:45 AM SHOTGUN SHELL REPRINTING UNIT OPERATOR CYTOGENETICS MALIGNANT TISSUE Routine 04/20/2023 10:45 AM SHOTGUN SHELL REPRINTING UNIT OPERATOR US BIOPSY BREAST NEEDLE W WINDY W GUIDE LEFT ALESSANDRA 04/20/2023 12:00 AM SHOTGUN SHELL REPRINTING UNIT OPERATOR Abnormal mammogram SCAN-OPERATIVE/PROCEDU RE REPORT 04/20/2023 12:00 AM SHOTGUN SHELL REPRINTING UNIT OPERATOR SCAN-OPERATIVE/PROCEDU RE REPORT 04/20/2023 12:00 AM SHOTGUN SHELL REPRINTING UNIT OPERATOR SCAN-OPERATIVE/PROCEDU RE REPORT 04/20/2023 12:00 AM SHOTGUN SHELL REPRINTING UNIT OPERATOR US BREAST UNILATERAL LEFT LIMITED ALESSANDRA 04/13/2023 2:21 PM SHOTGUN SHELL REPRINTING UNIT OPERATOR Abnormal mammogram XR MAMMO JASIEL UNI ADDL VIEWS LEFT ALESSANDRA 04/13/2023 2:09 PM SHOTGUN SHELL REPRINTING UNIT OPERATOR Abnormal mammogram XR MAMMO BILAT SCREENING Routine 03/30/2023 11:10 AM CDT Visit for screening mammogram ANTI HCV Routine 03/23/2023 11:48 AM CDT Need for hepatitis C screening test LIPID PANEL W REFLEX MEASURED LDL Routine 03/23/2023 11:48 AM CDT Screening cholesterol level FOLIC ACID Routine 03/23/2023 11:48 AM CDT Low folic acid VITAMIN B12 Routine 03/23/2023 11:48 AM CDT Vitamin B12 deficiency LOGISTICS MANAGER THIN PREP PAP SCREEN IMAGED Routine 03/23/2023 11:19 AM CDT Screening for cervical cancer HPV THIN PREP Routine 03/23/2023 11:19 AM CDT Screening for cervical cancer from Last 3 Months Results * ECHO TTE COMPLETE W CONTRAST (05/11/2023 4:25 PM SHOTGUN SHELL REPRINTING UNIT OPERATOR) AORTIC VALVE MEAN PG 4 mmHg EJECTION FRACTION 60 % LVEDD 4.2 cm EJECTION FRACTION 65 - 70% Anatomical Region Laterality Modality Ultrasound 05/11/2023 3:16 PM SHOTGUN SHELL REPRINTING UNIT OPERATOR Narrative 05/11/2023 4:39 PM SHOTGUN SHELL REPRINTING UNIT OPERATOR ECHOCARDIOGRAM ALANIS LORA ? Accession#: ?? [id number] : ?1970 52 years Study Date: ?? 05/11/2023 3:16:07 PM Gender: F ?BP: ? 149/86 mmHg Height: 170.00 cm ?BSA: ?2.01 m? ? ? Weight: 90.00 kg ? Tech: ? MTS ? Referring MD: DINA QUIGLEY Site: ? [facility] Reading Location: MOBILE OP Patient Location: Outpatient. Procedure: 2D w/ Contrast, Color Doppler and Spectral Doppler. Indication for study: Encounter for therapeutic drug level monitoring Cardiac Rhythm: Normal sinus.Study quality: Fair. Imaging limitations: This study was subject to imaging limitations due to a prominent lung artifact and body habitus. Final Impressions: 1. Echo contrast was administered to enhance visualization of all left ventricular segments. 2. Normal LV size, normal wall thickness, normal global systolic function with an estimated EF of 65 - 70%. 3. Right ventricular cavity size is normal, global systolic RV function is normal. 4. No significant functional valve disease detected. Chamber Sizes and Function Normal left ventricular size, normal wall thickness, normal global systolic function with an estimated EF of 65 - 70%. Left atrial size is normal. Right ventricular cavity size is normal, global systolic RV function is normal. RV wall thickness is normal. The right atrium is normal. The pulmonary artery is of normal size and origin. The sinus of Valsalva is normal sized. The ascending aorta is normal sized. Valves, RV Pressures and Diastolic Function The aortic valve is trileaflet, no stenosis and no regurgitation. The mitral valve is normal in structure, no mitral regurgitation. Normal diastolic function. The tricuspid valve is normal in structure. Tricuspid regurgitation is regurgitation is not evident. Unable to assess right ventricular systolic pressure. The pulmonic valve is normal. No pulmonary regurgitation. Masses, Effusion, Shunts There is no pericardial effusion. The inferior vena cava is normal sized, respiratory size variation greater than 50%. No left to right shunting was detected by limited color flow Doppler interrogation of the interatrial septum. MEASUREMENTS AND CALCULATIONS 2-D Measurements and LV Function: LVID (d) 4.2 cm LV FS% (2D) ?? 34 % LVID (s) 2.7 cm LVOT diameter 2.0 cm IVS (d) ??1.0 cm HR ?66 bpm LVPW (d) 1.0 cm Ao Sinus 3.7 cm Asc Ao ?? 3.0 cm LA ? 3.6 cm Diastology: Mitral ?Tissue Doppler ?Pulmonary veins E Peak 1.0 m/s ??e', Septum ? 0.09 m/s Pulm s ?64.5 cm/s A Peak 0.9 m/s ??e', Lateral ?0.13 m/s Pulm d ?52.3 cm/s E/A ?1.1 ?E/e' Average ?? 9.24 ? Pulm s/d ratio ??1.23 DT ? 202 msec Aortic Valve: Vmax ? 1.4 m/s ??PRISCILA (V) ?? 2.34 cm? ? ? VTI ?0.30 m ?? PRISCILA (I) ?? 2.40 cm? ? ? LVOT V max 1.0 m/s ??Max PG ?8 mmHg LVOT VTI ?? 0.22 m ?? Mean PG ?? 4 mmHg SV ? 71 ml ?Dim Index 0.73 SV index ?? 35 ml/m? ? ? CO ?4.7 l/min ?CI ?2.3 l/min/m? ? ? Mitral Valve: MVA ?3.8 cm? ? ? MV P 1/2 59 msec Contrast documentation: 4 ml diluted Definity, lot #[id number], [facility]# [id number] was administered peripherally to enhance visualization of all left ventricular segments. . This study was interpreted by an [facility] accredited facility. CC: HIM (med records) [facility]. ??Final ?? Procedure Note Arsalan Jang MD - 05/11/2023 ECHOCARDIOGRAM ALANIS LORA : 1970 52 years Study Date: 05/11/2023 3:16:07 PM Gender: F BP: 149/86 mmHg Height: 170.00 cm BSA: 2.01 m? ? ? Weight: 90.00 kg Tech: [facility] Referring MD: DINA QUIGLEY Site: [facility] Reading Location: MOBILE OP Patient Location: Outpatient. Procedure: 2D w/ Contrast, Color Doppler and Spectral Doppler. Indication for study: Encounter for therapeutic drug level monitoring Cardiac Rhythm: Normal sinus.Study quality: Fair. Imaging limitations: This study was subject to imaging limitations due toa prominent lung artifact and body habitus. Final Impressions: 1. Echo contrast was administered to enhance visualization of all leftventricular segments. 2. Normal LV size, normal wall thickness, normal global systolic functionwith an estimated EF of 65 - 70%. 3. Right ventricular cavity size is normal, global systolic RV functionis normal. 4. No significant functional valve disease detected. Chamber Sizes and Function Normal left ventricular size, normal wall thickness, normal globalsystolic function with an estimated EF of 65 - 70%. Left atrial size isnormal. Right ventricular cavity size is normal, global systolic RVfunction is normal. RV wall thickness is normal. The right atrium isnormal. The pulmonary artery is of normal size and origin. The sinus ofValsalva is normal sized. The ascending aorta is normal sized. Valves, RV Pressures and Diastolic Function The aortic valve is trileaflet, no stenosis and no regurgitation. Themitral valve is normal in structure, no mitral regurgitation. Normaldiastolic function. The tricuspid valve is normal in structure. Tricuspidregurgitation is regurgitation is not evident. Unable to assess rightventricular systolic pressure. The pulmonic valve is normal. No pulmonaryregurgitation. Masses, Effusion, Shunts There is no pericardial effusion. The inferior vena cava is normal sized,respiratory size variation greater than 50%. No left to right shunting wasdetected by limited color flow Doppler interrogation of the interatrialseptum. MEASUREMENTS AND CALCULATIONS 2-D Measurements and LV Function: LVID (d) 4.2 cm LV FS% (2D) 34 % LVID (s) 2.7 cm LVOT diameter 2.0 cm IVS (d) 1.0 cm HR 66 bpm LVPW (d) 1.0 cm Ao Sinus 3.7 cm Asc Ao 3.0 cm LA 3.6 cm Diastology: Mitral Tissue Doppler Pulmonary veins E Peak 1.0 m/s e', Septum 0.09 m/s Pulm s 64.5 cm/s A Peak 0.9 m/s e', Lateral 0.13 m/s Pulm d 52.3 cm/s E/A 1.1 E/e' Average 9.24 Pulm s/d ratio 1.23 DT 202 msec Aortic Valve: Vmax 1.4 m/s PRISCILA (V) 2.34 cm? ? ? VTI 0.30 m PRISCILA (I) 2.40 cm? ? ? LVOT V max 1.0 m/s Max PG 8 mmHg LVOT VTI 0.22 m Mean PG 4 mmHg SV 71 ml Dim Index 0.73 SV index 35 ml/m? ? ? CO 4.7 l/min CI 2.3 l/min/m? ? ? Mitral Valve: MVA 3.8 cm? ? ? MV P 1/2 59 msec Contrast documentation: 4 ml diluted Definity, lot #[id number], [facility]#[id number] was administered peripherally to enhance visualization of allleft ventricular segments. . This study was interpreted by an [facility] accredited facility. CC: [facility] ([facility]) [facility]. Final Dina Quigley MD ECHO ORD * SCAN-MRI INTERPRETATION (05/11/2023 12:00 AM SHOTGUN SHELL REPRINTING UNIT OPERATOR) Only the most recent of2 resultswithin the time period is included. Anatomical Region Laterality Modality Other Scanner OTHER * PET CT SKULL BASE TO MID THIGH INITIAL TREAT (05/08/2023 8:00 AM SHOTGUN SHELL REPRINTING UNIT OPERATOR) Anatomical Region Laterality Modality Positron Emissio n Tomography (PET) 05/11/2023 11:1 0 AM SHOTGUN SHELL REPRINTING UNIT OPERATOR Impressions 05/11/2023 11:10 AM SHOTGUN SHELL REPRINTING UNIT OPERATOR 1. Small avid mass upper outer quadrant left breast with irregular margins and moderate uptake is consistent with biopsy proven primary breast malignancy. Enlarged, moderately avid left axillary lymph node with asymmetric cortical thickening is consistent with biopsy-proven metastatic filiberto disease. Smaller less avid left axillary lymph nodes with mild uptake are considered nonspecific. 2. Partially calcified right lower lobe nodule with mild uptake is nonspecific. Not likely secondary to metastatic disease. ??Comparison with prior cross-sectional imaging of the chest could confirm stability. No enlarged or hypermetabolic mediastinal lymphadenopathy. Attention on follow-up. 3. No abnormal uptake within the neck, solid organs of the upper abdomen or abdominopelvic lymph nodes. Small lymph node/nodule left upper quadrant bordering the tail of the pancreas demonstrates no suspicious uptake. 4. Small bilateral parotid/periparotid nodules or lymph nodes with very mild uptake. Attention on follow-up. 5. Left adnexal cyst with no suspicious uptake may represent a small ovarian or paratubal cyst. Consider directed ultrasound for further characterization as indicated. 6. Other nonacute findings as detailed in the body of the report . Dictated by Nitin King MD @ 05/11/2023 11:10:58 AM (Electronically Signed) Narrative 05/11/2023 11:10 AM SHOTGUN SHELL REPRINTING UNIT OPERATOR For Patients: ??As a result of the 21st Century Cures Act, medical imaging exams and procedure reports are released immediately into your electronic medical record. ??You may view this report before your referring provider. ??If you have questions, please contact your health care provider. EXAM: PET-CT SKULL BASE TO THIGH CLINICAL INFORMATION: 52-yo female with newly diagnosed invasive ductal carcinoma of the upper outer left breast. Positive left axillary lymph node biopsy. Patient is referred for further characterization. TECHNIQUE: Radiopharmaceutical: 9.6 mCi of 18F-FDG Intravenous injection site: LAC Uptake time: 50 minutes Blood glucose level at the time of injection: 101 mg/dL Field of view: Skull base to mid-thighs CT protocol: The low-dose, free-breathing, noncontrast CT performed as part of this study is designed for the purposes of attenuation correction and lesion localization, and it is neither sufficient, nor it should be substituted for diagnostic purposes. COMPARISON: Diagnostic left breast mammogram and ultrasound 04/13/2023. FINDINGS: Physiologic background liver standardized uptake value (SUV mean and SUV max) reported for comparison between PET studies: 3.2 and 4.4. Visualized head and neck: Physiologic uptake in the visualized portions of the brain. Small bilateral parotid/periparotid lymph nodes or nodules demonstrate mild uptake. For example: Right parotid nodule/lymph node, 0.7 cm, SUV max 1.7 (fused image 218). Left parotid nodule/lymph node, 0.6 cm, SUV max 1.2 (fused image 219). Head and neck lymph nodes: Nonenlarged bilateral upper cervical chain lymph nodes with mild uptake are nonspecific, possibly reactive/inflammatory. For example: Left level 2 lymph node, 0.7 cm short axis, SUV max 2.2. Lungs: Right lower lobe partially calcified nodule demonstrates very mild uptake, 1.2 cm, SUV max 1.4 (fused image 164). No hypermetabolic left lung nodules. Tiny micro nodules in the posterior right lower lobe (fused image 167) and posteromedial left upper lobe nodule (fused image 184) are considered too small to definitively characterize. Thoracic lymph nodes: No enlarged or hypermetabolic mediastinal or right axillary lymph nodes. Mild uptake in nonenlarged right hilar/perihilar lymph nodes evident. Variable uptake within left axillary lymph nodes. For example: Right perihilar lymph node, 0.5 cm short axis, SUV max 3.4. Left axillary lymph node with asymmetric cortical thickening, 1.1 cm short axis, SUV max 7.0 (fused image 169). Most likely represents biopsy-proven filiberto metastasis. Less avid superior left axillary lymph node, 0.6 cm short axis, SUV max 2.0 (fused image 180). Nonspecific. Other chest findings: Physiologic myocardial uptake. Right chest port with central catheter tip positioned at the caval atrial junction. -Upper-outer quadrant left breast mass with biopsy clip is moderately avid, 1.1 cm, SUV max 4.9 (fused image 160). Biopsy-proven malignancy. Tiny nodular opacity posterior inferior right breast posterior depth with mild uptake is nonspecific, 0.6 cm, SUV max 1.5 (fused image 144). Too small to characterize. Hepatobiliary: Background heterogeneous hepatic activity with no definite tracer avid liver lesions or measurable noncontrast CT abnormality. Spleen: No abnormal uptake. No splenomegaly. Pancreas: No abnormal uptake. Adrenal glands: No abnormal uptake. Kidneys and bladder: No abnormal uptake or obstruction. Distended urinary bladder. Bowel and peritoneum: No suspicious gastric, small bowel or colon uptake. Unremarkable appendix. Distal colonic diverticulosis without inflammatory change. Pelvic organs: No abnormal uptake. Left adnexal/ovarian cyst with no suspicious uptake, 2.8 cm, SUV max 1.1 (fused image 70). Nonspecific, possible ovarian or paratubal cyst. Abdominopelvic lymph nodes: No enlarged or hypermetabolic abdominal, retroperitoneal or pelvic lymphadenopathy. Small lymph node/nodule left upper quadrant borders the tail the pancreas with no suspicious uptake, 0.6 cm short axis, SUV max 1.2 (fused image 135). Musculoskeletal, soft tissues, skin: No suspicious tracer avid osseous lesions. Degenerative type uptake within the spine. Bilateral soft tissue uptake bordering each greater trochanter with no associated bony changes is nonspecific, possibly reactive/inflammatory or posttraumatic. Procedure Note Nitin King, DO - 05/11/2023 For Patients: As a result of the 21st Century Cures Act, medical imagingexams and procedure reports are released immediately into your electronicmedical record. You may view this report before your referring provider.If you have questions, please contact your health care provider. EXAM: PET-CT SKULL BASE TO THIGH CLINICAL INFORMATION: 52-yo female with newly diagnosed invasive ductal carcinoma of the upperouter left breast. Positive left axillary lymph node biopsy. Patient isreferred for further characterization. TECHNIQUE: Radiopharmaceutical: 9.6 mCi of 18F-FDG Intravenous injection site: LAC Uptake time: 50 minutes Blood glucose level at the time of injection: 101 mg/dL Field of view: Skull base to mid-thighs CT protocol: The low-dose, free-breathing, noncontrast CT performed aspart of this study is designed for the purposes of attenuation correctionand lesion localization, and it is neither sufficient, nor it should besubstituted for diagnostic purposes. COMPARISON: Diagnostic left breast mammogram and ultrasound 04/13/2023. FINDINGS: Physiologic background liver standardized uptake value (SUV mean and SUVmax) reported for comparison between PET studies: 3.2 and 4.4. Visualized head and neck: Physiologic uptake in the visualized portions ofthe brain. Small bilateral parotid/periparotid lymph nodes or nodulesdemonstrate mild uptake. For example: Right parotid nodule/lymph node, 0.7cm, SUV max 1.7 (fused image 218). Left parotid nodule/lymph node, 0.6 cm,SUV max 1.2 (fused image 219). Head and neck lymph nodes: Nonenlarged bilateral upper cervical chainlymph nodes with mild uptake are nonspecific, possiblyreactive/inflammatory. For example: Left level 2 lymph node, 0.7 cm shortaxis, SUV max 2.2. Lungs: Right lower lobe partially calcified nodule demonstrates very milduptake, 1.2 cm, SUV max 1.4 (fused image 164). No hypermetabolic left lungnodules. Tiny micro nodules in the posterior right lower lobe (fused [id number]) and posteromedial left upper lobe nodule (fused image 184) areconsidered too small to definitively characterize. Thoracic lymph nodes: No enlarged or hypermetabolic mediastinal or rightaxillary lymph nodes. Mild uptake in nonenlarged right hilar/perihilarlymph nodes evident. Variable uptake within left axillary lymph nodes. Forexample: Right perihilar lymph node, 0.5 cm short axis, SUV max 3.4. Leftaxillary lymph node with asymmetric cortical thickening, 1.1 cm shortaxis, SUV max 7.0 (fused image 169). Most likely represents biopsy-provennodal metastasis. Less avid superior left axillary lymph node, 0.6 cmshort axis, SUV max 2.0 (fused image 180). Nonspecific. Other chest findings: Physiologic myocardial uptake. Right chest port withcentral catheter tip positioned at the caval atrial junction. -Upper-outer quadrant left breast mass with biopsy clip is moderatelyavid, 1.1 cm, SUV max 4.9 (fused image 160). Biopsy-proven malignancy.Tiny nodular opacity posterior inferior right breast posterior depth withmild uptake is nonspecific, 0.6 cm, SUV max 1.5 (fused image 144). Toosmall to characterize. Hepatobiliary: Background heterogeneous hepatic activity with no definitetracer avid liver lesions or measurable noncontrast CT abnormality. Spleen: No abnormal uptake. No splenomegaly. Pancreas: No abnormal uptake. Adrenal glands: No abnormal uptake. Kidneys and bladder: No abnormal uptake or obstruction. Distended urinarybladder. Bowel and peritoneum: No suspicious gastric, small bowel or colon uptake.Unremarkable appendix. Distal colonic diverticulosis without inflammatorychange. Pelvic organs: No abnormal uptake. Left adnexal/ovarian cyst with nosuspicious uptake, 2.8 cm, SUV max 1.1 (fused image 70). Nonspecific,possible ovarian or paratubal cyst. Abdominopelvic lymph nodes: No enlarged or hypermetabolic abdominal,retroperitoneal or pelvic lymphadenopathy. Small lymph node/nodule leftupper quadrant borders the tail the pancreas with no suspicious uptake,0.6 cm short axis, SUV max 1.2 (fused image 135). Musculoskeletal, soft tissues, skin: No suspicious tracer avid osseouslesions. Degenerative type uptake within the spine. Bilateral soft tissueuptake bordering each greater trochanter with no associated bony changesis nonspecific, possibly reactive/inflammatory or posttraumatic. IMPRESSION: 1. Small avid mass upper outer quadrant left breast with irregular marginsand moderate uptake is consistent with biopsy proven primary breastmalignancy. Enlarged, moderately avid left axillary lymph node withasymmetric cortical thickening is consistent with biopsy-proven metastaticnodal disease. Smaller less avid left axillary lymph nodes with milduptake are considered nonspecific. 2. Partially calcified right lower lobe nodule with mild uptake isnonspecific. Not likely secondary to metastatic disease. Comparison withprior cross-sectional imaging of the chest could confirm stability. Noenlarged or hypermetabolic mediastinal lymphadenopathy. Attention onfollow-up. 3. No abnormal uptake within the neck, solid organs of the upper abdomenor abdominopelvic lymph nodes. Small lymph node/nodule left upper quadrantbordering the tail of the pancreas demonstrates no suspicious uptake. 4. Small bilateral parotid/periparotid nodules or lymph nodes with verymild uptake. Attention on follow-up. 5. Left adnexal cyst with no suspicious uptake may represent a smallovarian or paratubal cyst. Consider directed ultrasound for furthercharacterization as indicated. 6. Other nonacute findings as detailed in the body of the report . Dictated by Nitin King MD @ 05/11/2023 11:10:58 AM (Electronically Signed) Dina Quigley MD PET * (ABNORMAL) GLUCOSE METER (05/08/2023 6:48 AM SHOTGUN SHELL REPRINTING UNIT OPERATOR) GLUCOSE METER 101(H) 65 - 100 mg/dL 05/08/2023 6:53 AM [employer]OTGUN SHE[employer] REPRINTING UNIT OPERATOR [facility] Blood BLOOD SPECIMEN / Unknown 05/08/2023 6:48 AM [employer] SHE[employer] REPRINTING UNIT OPERATOR 05/08/2023 6:53 AM [employer] SHE[employer] REPRINTING UNIT OPERATOR Dina Quigley MD CHEMISTRY Performing Organization Address City/[facility]/ZIP Co de Phone Number [facility] [address] [place] [address], [place] * SCAN-RADIOLOGY REPORT (05/04/2023 12:00 AM [employer] SHE[employer] REPRINTING UNIT OPERATOR) Only the most recent of2 resultswithin the time period is included. Anatomical Region Laterality Modality Other Scanner OTHER * SCAN-OPERATIVE/PROCEDURE REPORT (05/04/2023 12:00 AM [employer]GUN SHE[employer] REPRINTING UNIT OPERATOR) Scanner OTHER * LAB TRACKING EVENT (04/20/2023 10:50 AM [employer] SHE[employer] REPRINTING UNIT OPERATOR) Only the most recent of2 resultswithin the time period is included. Other (Other) Client Collect / Unknown 04/20/2023 10:50 AM [employer] SHE[employer] REPRINTING UNIT OPERATOR 04/20/2023 9:27 PM [employer] SHE[employer] REPRINTING UNIT OPERATOR Doctor Unknown LAB BILL ONLY Performing Organization Address City/[facility]/ZIP Co de Phone Number [facility] [address] [place] [address], * PATH BREAST CORE BIOPSY (04/20/2023 10:45 AM SHOTGUN SHE[employer] REPRINTING UNIT OPERATOR) Case Report Pathology Report ?Case: [id number] ? Authorizing Provider: ??Unknown, Doctor ?Collected: ? 04/20/2023 1045 ? Ordering Location: ? [facility] ?Received: ?04/21/2023 0544 ? Pathologist: ? Allyssa Bolden MD ? Specimens: ?? A) - Left Breast Core Ultrasound Biopsy ? B) - Left Axillary Lymph Node ? 04/27/2023 5:05 PM SHOTGUN SHE[employer] REPRINTING UNIT OPERATOR Owned it LABORATORY-C [facility] Amendment 04/22/2023 - Amendment issued to incorporate ancillary studies. 04/27/2023 - Amendment issued to incorporate ancillary HER2 FISH studies. 04/27/2023 5:05 PM SHOTGUN SHELL REPRINTING UNIT OPERATOR Owned it LABORATORY-C [facility] Final Diagnosis A) LEFT BREAST, 1:00, 13 CM FROM NIPPLE, ULTRASOUND-GUIDED CORE BIOPSY: 1. Invasive ductal carcinoma ?? a. Mirian grade: II of III; Mirian score: 7 of 9 ?? b. Angio-lymphatic invasion: Absent ?? c. Associated DCIS: Focally present ?? d. Subtype: Solid ? e. Grade of DCIS: 3 of 3 2. Breast Ancillary Testing: ?a. Hormone Receptors: ?Estrogen receptor: Positive (98%, strong staining) ?Progesterone receptor: Positive (68%, moderate staining) ?b. HER2 by IHC: Positive (3+), by manual morphometry, confirmed with FISH ?c. HER2 by FISH: Positive ?HER2/CEP17 ratio: 4.28 ?HER2 signals/cell: 6.86 ?CEP17 signals/cell: 1.60 B) LEFT AXILLA, LYMPH NODE, ULTRASOUND-GUIDED CORE BIOPSY: 1. Metastatic carcinoma to a lymph node, characterized by: ?? a. Metastatic carcinoma measures at least 6 mm ?? b. Negative for extracapsular extension in this biopsy 04/27/2023 5:05 PM SHOTGUN SHELL REPRINTING UNIT OPERATOR [facility] Amendment electronically signed by Allyssa Bolden MD on 04/27/2023 at 5:05 PM Amendment electronically signed by Allyssa Bolden MD on 04/22/2023 at 1:23 PM Comment B) The metastatic carcinoma is morphologically similar to the patient's primary breast carcinoma (Part A) so breast ancillary testing is performed only on Part A, but can also be performed on the metastatic tumor, upon clinical request. A,B) These are image-guided breast biopsies. The pathologic findings should be correlated with radiologic and clinical findings prior to treatment decisions. Case seen in consultation with Dr. Goodson. 04/27/2023 5:05 PM [email or web address] Clinical Information A) 1.2 cm, irregular, circumscribed, spiculated, solid and hypoechoic left breast mass at 1:00, 13 cm from the nipple. B) 2.5 cm, oval, circumscribed, solid and hypoechoic left axillary mass. 04/27/2023 5:05 PM [facility] Gross Description A) Label: Patient's name and Left Description: 4 fibrofatty core biopsies Size: 2.4 cm in length by 0.2 cm in diameter Ink color: Green The specimen is submitted in toto in one cassette. Cold ischemic time: Less than 60 minutes, meets current ASCO/CAP guidelines. ?? The specimen was fixed in formalin for a minimum of 6 hours and not longer than 72 hours. TRS 04/21/2023 B) Label: Patient's name and Left Description: 4 Fibrofatty core biopsies Size: 1.8 cm in length by 0.2 cm in diameter Ink color: Black The specimen is submitted in toto in one cassette. Cold ischemic time: Less than 60 minutes, meets current ASCO/CAP guidelines. ?? The specimen was fixed in formalin for a minimum of 6 hours and not longer than 72 hours. TRS 04/21/2023 04/27/2023 5:05 PM [facility] Microscopic Description The final diagnosis is based on microscopic examination of appropriate sections of all specimens. A) The presence of green ink is confirmed on tissue sections. B) The presence of black ink is confirmed on tissue sections. 04/27/2023 5:05 PM [facility] [employer] [facility] Cytogenetics Summary Cytogenetic testing has been ordered and will be reported separately. 04/27/2023 5:05 PM [facility] [employer] [facility] SYNOPTIC REPORTING Breast Biomarker Reporting Template BREAST: BIOMARKER REPORTING TEMPLATE - A Protocol posted: 08/20/2022 ?? Test(s) Performed: ? Estrogen Receptor (ER) Status: ?Positive (greater than 10% of cells demonstrate nuclear positivity) ? Percentage of Cells with Nuclear Positivity: ?98 % ? Average Intensity of Staining: ?Strong ? Test Type: ?Laboratory-deve loped test ? Primary Antibody: ?SP1 ?? Test(s) Performed: ? Progesterone Receptor (PgR) Status: ?Positive ? Percentage of Cells with Nuclear Positivity: ?68 % ? Average Intensity of Staining: ?Moderate ? Test Type: ?Laboratory-deve loped test ? Primary Antibody: ?636 ?? Test(s) Performed: ? HER2 by Immunohistochemis try: ?Positive (Score 3+) ? Percentage of Cells with Uniform Intense Complete Membrane Staining: ?60 % ? Test Type: ?Food and Drug Administration (FDA) cleared (test / vendor): [employer] ? Primary Antibody: ?4B5 ?? Test(s) Performed: ? HER2 by in situ Hybridization: ?Positive (amplified) ? Number of Observers: ?2 ? Number of Invasive Tumor Cells Counted: ?25 cells ? Method: ?Dual probe assay ? Average Number of HER2 Signals per Cell: ?6.86 ? Average Number of CEP17 Signals per Cell: ?1.6 ? HER2 / CEP17 Ratio: ?4.28 ? Aneusomy: ?Not identified ? Heterogeneous Signals: ?Not identified ? Test Type: ?Food and Drug Administration (FDA) cleared (test / vendor): [employer] HER2/Kaila ?? Cold Ischemia and Fixation Times: ?Meet requirements specified in latest version of the ASCO / CAP Guidelines ?? Testing Performed on Block Number(s): ?A1 METHODS ?? Fixative: ?Formalin ?? Image Analysis: ?Performed ? Method: ?[employer]io morphometric analysis ? Biomarkers Scored by Image Analysis: ?ER ? Biomarkers Scored by Image Analysis: ?PgR ?? Comment(s): ?The FDA approved Vysis PathVysion DNA Probe Kit was developed and its performance characteristics determined by [employer]. ??This test incorporates minor modifications to protocol and validated by the [employer] [facility] and [facility] to yield equivocal or superior performance. This FISH test uses a multiplex probe stain procedure. 04/27/2023 5:05 PM SHOTGUN SHELL REPRINTING UNIT OPERATOR Owned it LABORATORY-C [facility] Additional Information Patients with breast cancers that are HER2 IHC 3+ or IHC 2+/CHRISTINA amplified may be eligible for several therapies that disrupt HER2 signaling pathways. Invasive breast cancers that test 'HER2-negative' (IHC 0, 1+ or 2+/CHRISTINA not-amplified) are more specifically considered 'HER2-negative for protein overexpression/ge ne amplification' since non-overexpressed levels of the HER2 protein may be present in these cases. Patients with breast cancers that are HER2 IHC 1+ or IHC 2+/CHRISTINA not amplified may be eligible for a treatment that targets non-amplified/non -overexpressed levels of HER2 expression for cytotoxic drug delivery (IHC 0 results do not result in eligibility currently). Interpreted at 1,2,3 [facility], [facility] - [address] [place] [address] 04/27/2023 5:05 PM SHOTGUN SHELL REPRINTING UNIT OPERATOR [facility] Other (Left Breast Core Ultrasound Biopsy) 04/20/2023 10:45 AM SHOTGUN SHELL REPRINTING UNIT OPERATOR 04/21/2023 5:44 AM SHOTGUN SHELL REPRINTING UNIT OPERATOR Specimen (specimen) (Left Axillary Lymph Node) 04/20/2023 10:50 AM SHOTGUN SHELL REPRINTING UNIT OPERATOR 04/21/2023 7:56 AM SHOTGUN SHELL REPRINTING UNIT OPERATOR Doctor Unknown PATHOLOGY/CYTOLOGY Performing Organization Address [facility] Co de Phone Number [facility] [address] [place] [address], [place] * CG HER2 BREAST (04/20/2023 10:45 AM SHOTGUN SHELL REPRINTING UNIT OPERATOR) Other (Left Breast Core Ultrasound Biopsy) 04/20/2023 10:45 AM SHOTGUN SHELL REPRINTING UNIT OPERATOR 04/22/2023 1:22 PM SHOTGUN SHELL REPRINTING UNIT OPERATOR Doctor Unknown LABORATORY [facility] [address] [place] [address], [place] * CYTOGENETICS MALIGNANT TISSUE STUDIES (04/20/2023 10:45 AM SHOTGUN SHELL REPRINTING UNIT OPERATOR) RFR Breast Cancer 04/27/2023 1:27 PM SHOTGUN SHELL REPRINTING UNIT OPERATOR [facility]AT[facility] TEST & RESULT SUMMARY HER2 FISH Breast: See pathology report [id number]. See comments. 04/27/2023 1:27 PM SHOTGUN SHELL REPRINTING UNIT OPERATOR [facility] _ 04/27/2023 1:27 PM SHOTGUN SHELL REPRINTING UNIT OPERATOR [facility] COMMENTS This record is used as an internal laboratory test designed for workflow purposes only. 04/27/2023 1:27 PM SHOTGUN SHELL REPRINTING UNIT OPERATOR [facility] NTRAL LABORATORY SOURCE Left Breast Core Ultrasound Biopsy (Paraffin Slides, 2 uns A1) [id number] 04/27/2023 1:27 PM SHOTGUN SHELL REPRINTING UNIT OPERATOR [facility] Other (Left Breast Core Ultrasound Biopsy) 04/20/2023 10:45 AM SHOTGUN SHELL REPRINTING UNIT OPERATOR 04/22/2023 1:22 PM SHOTGUN SHELL REPRINTING UNIT OPERATOR Doctor Unknown LABORATORY [facility] [address] [place] [id number], [place] * US BIOPSY BREAST NEEDLE W WINDY W GUIDE LEFT (04/20/2023 12:00 AM SHOTGUN SHELL REPRINTING UNIT OPERATOR) Anatomical Region Laterality Modality Breast Left Left Ultrasound Devi Rubin DO US * SCAN-OPERATIVE/PROCEDURE REPORT (04/20/2023 12:00 AM SHOTGUN SHELL REPRINTING UNIT OPERATOR) Scanner OTHER * SCAN-OPERATIVE/PROCEDURE REPORT (04/20/2023 12:00 AM SHOTGUN SHELL REPRINTING UNIT OPERATOR) Scanner OTHER * SCAN-OPERATIVE/PROCEDURE REPORT (04/20/2023 12:00 AM SHOTGUN SHELL REPRINTING UNIT OPERATOR) Scanner OTHER * US BREAST UNILATERAL LEFT LIMITED (04/13/2023 2:21 PM SHOTGUN SHELL REPRINTING UNIT OPERATOR) Anatomical Region Laterality Modality BREASTS, Breast Left, Breast Right Left Ultrasound Narrative 04/13/2023 4:00 PM SHOTGUN SHELL REPRINTING UNIT OPERATOR For Patients: As a result of the Century Cures Act, medical imaging exams and procedure reports are released immediately into your electronic medical record. ??You may view this report before your referring provider. ?? If you have questions, please contact your health care provider. LEFT BREAST ULTRASOUND, 04/13/2023 PLEASE SEE [id number] FOR DIGITAL LEFT MAMMOGRAM SAME DAY. Devi Rubin DO US * XR MAMMO JASIEL UNI ADDL VIEWS LEFT (04/13/2023 2:09 PM SHOTGUN SHELL REPRINTING UNIT OPERATOR) Anatomical Region Laterality Modality BREASTS, Breast Left Mammography 04/13/2023 2:28 PM SHOTGUN SHELL REPRINTING UNIT OPERATOR Impressions 04/13/2023 4:00 PM SHOTGUN SHELL REPRINTING UNIT OPERATOR Suspicious mass LEFT breast 1 o'clock 13 cm from the nipple measuring 1 cm and suspicious LEFT axillary lymph node measuring 2.5 cm. RECOMMENDATIONS: Ultrasound-guided biopsy of both lesions. Results and recommendations discussed with the patient. BI-RADS Category 4: Suspicious Dictated by: Kelvin Galo MD @04/13/2023 2:28:34 PM / CHAPITO:yaneli PATIENTS: You will also receive a letter with your examination results in an easy to read format. ??If you have questions about your results, please contact your referring provider. Narrative 04/13/2023 4:00 PM SHOTGUN SHELL REPRINTING UNIT OPERATOR For Patients: As a result of the Century Cures Act, medical imaging exams and procedure reports are released immediately into your electronic medical record. ??You may view this report before your referring provider. ?? If you have questions, please contact your health care provider. ADDITIONAL VIEWS LEFT DIGITAL MAMMOGRAM USING TOMOSYNTHESIS, 04/13/2023 LEFT BREAST ULTRASOUND, 04/13/2023 CLINICAL HISTORY: LEFT breast mass/asymmetry. COMPARISON: 03/30/2023. TECHNIQUE: Digital LEFT mammogram in two projections. ??Tomosynthesis utilized. Real-time ultrasound imaging of LEFT breast with imaging documentation. BREAST COMPOSITION: There are areas of scattered fibroglandular density. FINDINGS: 3D spot compression CC/MLO LEFT breast mammogram images submitted. Persistent irregular density within the upper outer quadrant LEFT breast. No suspicious calcifications. Targeted LEFT breast ultrasound performed. At 1 o'clock 13 cm from the nipple, there is an irregular hypoechoic solid nodule measuring 10 x 9 x 10 millimeters. An enlarged LEFT axillary lymph node is present measuring 2.0 x 1.6 x 2.5 cm. Devi Kinseyrandi DO MAMMO * XR MAMMO BILAT SCREENING (03/30/2023 11:10 AM CDT) Anatomical Region Laterality Modality BREASTS, Breast Left, Breast Right Bilateral Mammography 03/30/2023 1:50 PM CDT Impressions 03/30/2023 3:52 PM CDT LEFT breast asymmetry/mass. RECOMMENDATIONS: Additional mammographic views of the LEFT breast including 3D spot compression CC/MLO. LEFT breast ultrasound may also be required. BI-RADS Category 0: Incomplete: Need Additional Imaging Evaluation and/or Prior Mammograms for Comparison A member of the breast health care team will contact the patient to schedule the required additional imaging appointment(s). Dictated by: Kelvin Galo MD @03/30/2023 1:50:17 PM / [place] PATIENTS: You will also receive a letter with your examination results in an easy to read format. ??If you have questions about your results, please contact your referring provider. Narrative 03/30/2023 3:52 PM CDT For Patients: As a result of the Century Cures Act, medical imaging exams and procedure reports are released immediately into your electronic medical record. ??You may view this report before your referring provider. ?? If you have questions, please contact your health care provider. BILATERAL DIGITAL SCREENING MAMMOGRAM WITH COMPUTER-AIDED DETECTION, 03/30/2023 CLINICAL HISTORY: Routine screening exam. COMPARISON: None. TECHNIQUE: Digital mammogram in CC and MLO projections including computer-aided detection (CAD). BREAST COMPOSITION: There are areas of scattered fibroglandular density. FINDINGS: RIGHT Breast: No suspicious findings. LEFT Breast: Focal asymmetric density upper outer quadrant 13 cm from the nipple. Devi Kinseycomfortingrid DO MAMMO * (ABNORMAL) LIPID PANEL W REFLEX MEASURED LDL (03/23/2023 11:48 AM CDT) CHOLESTEROL,TOTAL 219(H) 100 - 199 mg/dL 03/23/2023 5:09 PM CDT [facility] Comment: Cholesterol, Total Reference Ranges Desirable <200 mg/dL Borderline 200-239 mg/dL High >=240 mg/dL TRIGLYCERIDES 163(H) <150 mg/dL 03/23/2023 5:09 PM CDT [facility] HDL CHOLESTEROL 60 >40 mg/dL 5:09 PM CDT [facility] NON-HDL CHOLESTEROL 159(H) <145 mg/dl 03/23/2023 5:09 PM CDT [facility] CHOL/HDL RATIO 3.65 <4.50 03/23/2023 5:09 PM CDT [facility] LDL CHOLESTEROL 126 <=130 mg/dL 03/23/2023 5:09 PM CDT [facility] VLDL CHOLESTEROL 33(H) <=30 mg/dL 03/23/2023 5:09 PM CDT [facility] PROVIDER ORDERED STATUS RANDOM 03/23/2023 5:09 PM CDT [facility] Blood BLOOD SPECIMEN / Unknown Venipuncture / Unknown 03/23/2023 11:48 AM CDT 03/23/2023 11:48 AM CDT Devi Rubin DO CHEMISTRY [facility] [address] [place] [address], * ANTI HCV (03/23/2023 11:48 AM CDT) HEPATITIS C ANTIBODY Non-Reacti ve Non-React mckay 03/23/2023 5:08 PM CDT [facility] Comment:Please note, per www .CDC.gov: If a patient is known to be at high risk of HCV infection, or is symptomatic, and the physician's suspicion of HCV infection is high, HCV RNA testing is often employed and is of diagnostic value, even after an initial negative anti-HCV test result. Blood BLOOD SPECIMEN / Unknown Venipuncture / Unknown 03/23/2023 11:48 AM CDT 03/23/2023 11:48 AM CDT Devi Rubin DO SEND OUTS Performing Organization Address City/[facility]/ZIP Co de Phone Number [facility] [address] [place] [address], [place] * FOLIC ACID (03/23/2023 11:48 AM CDT) FOLIC ACID 28.1 4.6 - 34.8 ng/mL 03/23/2023 5:42 PM CDT [facility] Blood BLOOD SPECIMEN / Unknown Venipuncture / Unknown 03/23/2023 11:48 AM CDT 03/23/2023 11:48 AM CDT Narrative [facility] - 03/23/2023 5:42 PM CDT Biotin supplements may cause clinically significant interference for this test assay. ??If interference is suspected, it is strongly recommended that biotin is discontinued for at least one week prior to retesting. Devi Rubin DO CHEMISTRY Performing Organization Address [facility] Co de Phone Number [facility] [address] [place], [place] [id number], [place] * VITAMIN B12 (03/23/2023 11:48 AM CDT) VITAMIN B12 658 232 - 1,245 pg/mL 03/23/2023 5:09 PM CDT [facility] Blood BLOOD SPECIMEN / Unknown Venipuncture / Unknown 03/23/2023 11:48 AM CDT 03/23/2023 11:48 AM CDT Narrative [facility] - 03/23/2023 5:09 PM CDT Biotin supplements may cause clinically significant interference for this test assay. ??If interference is suspected, it is strongly recommended that biotin is discontinued for at least one week prior to retesting. Devi Rubin DO CHEMISTRY Performing Organization Address City/[facility]/ZIP Co de Phone Number [facility] [address] [place] [address], [place] * LOGISTICS MANAGER THIN PREP PAP SCREEN IMAGED [[id number]] (03/23/2023 11:19 AM CDT) Case Report Gynecologic Cytology Report ? Case: [id number] ? Authorizing Provider: ??Devi Rubin, ? Collected: ? 03/23/2023 1119 ? [facility] ?? Received: ?03/23/2023 1146 ? Clinic ? First Screen: ?Jhonatan Tsang ? Specimen: ?LOGISTICS MANAGER ThinPrep Vial Screening, Cervical ? 03/30/2023 12:53 PM CDT Owned it LABORATORY-[facility] ENTRAL LABORATORY INTERPRETATION/ RESULT NEGATIVE FOR INTRAEPITHELIAL LESION OR MALIGNANCY (NIL) (none) 03/30/2023 12:53 PM CDT Owned [facility] IMEN ADEQUACY Satisfactory for evaluation Endocervical component present 03/30/2023 12:53 PM CDT [facility] HPV REQUEST HPV and PAP 03/30/2023 12:53 PM CDT [facility] Date of LMP 03/12/2023 03/30/2023 12:53 PM CDT [facility] Last Pap Date 03/13/23 03/30/2023 12:53 PM CDT [facility] Last Pap Result NIL 12:53 PM CDT [facility] Abnormal Pap or [place] Bx in last 5 years No 03/30/2023 12:53 PM CDT [facility] Menstrual Status Regular Periods 03/30/2023 12:53 PM CDT [facility] [place] Bx Done Today No 03/30/2023 12:53 PM CDT [facility] Additional Information None given 03/30/2023 12:53 PM CDT [facility] Comment: Cytology is screened at [facility] - [address], [place] [address] and [facility] - [address], [place] [address] and [facility] - [address] [place] [id number] Interpreted at [facility] - [address] [place] [id number] Automated Review Successful 03/30/2023 12:53 PM CDT [facility] Comment:Specimen processed s uccessfully by automated customer service dispatcher device, ThinPrep Imaging System, [employer] ANCILLARY TESTING LOGISTICS MANAGER HPV Ordered, Please see separate report 03/30/2023 12:53 PM CDT [facility] Note The pap test is a screening technique, not a diagnostic procedure. It is used primarily to screen for squamous cancers and precursor lesions. Published studies have shown that it is subject to both false negative and false positive results. The pap test should not be used as the sole means to diagnose or exclude pre-malignant and malignant lesions. 03/30/2023 12:53 PM CDT [facility] Other (Cervical) Non-Blood / Unknown 03/23/2023 11:19 AM CDT 03/23/2023 11:46 AM CDT Devi Bird Johningrid DO PATHOLOGY/CYTOLOGY Performing Organization Address [facility]/ZIP Co de Phone Number [facility] [address] [address], * HPV HIGH RISK (03/23/2023 11:19 AM CDT) TYPE 16 Negative Negative 03/25/2023 2:07 PM CDT [facility] TYPE 18 Negative Negative 03/25/2023 2:07 PM CDT [facility] OTHER HIGH RISK TYPES Negative Negative 03/25/2023 2:07 PM CDT [facility] Other (Cervical) Non-Blood / Unknown 03/23/2023 11:19 AM CDT 03/23/2023 4:26 PM CDT Narrative [facility] - 03/25/2023 2:07 PM CDT HPV types 16, 18, 31, 33, 35, 39, 45, 51, 52, 56, 58, 59, 66 and 68 DNA were undetectable or below the pre-set threshold. Methodology: Laly Reji 4800 HPV Test Devielana Rubin DO MICROBIOLOGY Performing Organization Address City/[facility] Co de Phone Number [facility] [address] [place] [address], from Last 3 Months Care Teams Vice President Of Compliance Relationship Specialty [place] [address] [place] [address] PCP - General Family Practice 03/30/23
--- NOTE | 2023-06-08 13:00 | CRLHL7_ITS ---
For Patients: As a result of the Century Cures Act, medical imaging exams and procedure reports are released immediately into your electronic medical record. You may view this report before your referring provider. If you have questions, please contact your health care provider. INDICATION: Left adnexal cyst seen on PET-CT TECHNIQUE: Transabdominal and transvaginal scanning was performed. Transvaginal scanning was performed to optimally evaluate the endometrium and adnexa. Ovarian blood flow was evaluated with color-flow and pulsed Doppler. COMPARISON: PET-CT of 05/08/2023 performed at [facility] FINDINGS: The uterus is normal in size and shape. The uterus measures 6.8 x 3.5 x 4.7 cm. A 9 mm intramural left uterine body fibroid is noted. The endometrial stripe is normal in thickness at 4 mm. A simple 1.8 cm left ovarian follicle is noted. The right ovary measures 2.8 x 2.0 x 1.7 cm and left 3.3 x 2.8 x 2.1 cm. Ovarian blood flow is demonstrated with color-flow and pulsed Doppler. No adnexal mass is evident. No free fluid is demonstrated. IMPRESSION: 1. Simple 1.8 cm left ovarian follicle. 2. 9 mm intramural left uterine body fibroid. Dictated by Ruddy Wu MD @ 06/11/2023 12:10:52 PM (Electronically Signed)
== END 2023-06-08 12:53 | disposition home or self-care (01) ==
LOC: US 12:54
PROVIDERS: PCP Family Medicine; Visit Provider Internal Medicine Hematology & Oncology
DX: N83.202 Unspecified ovarian cyst, left side (principal); D25.1 Intramural leiomyoma of uterus; C50.919 Malignant neoplasm of unspecified site of unspecified female breast
CPT/HCPCS: 76830; 76856

== ENCOUNTER 2023-06-15 10:32 | Emergency (ER) | payer BC, SELFPAY ==
[2023-06-15 10:49] VITALS: BP 147/96; PULSE 76; RESP 18; TEMP 36.6; O2SAT 97; BMI 29.8
--- NOTE | 2023-06-15 11:03 | CRLHL7_ITS ---
For Patients: As a result of the 21st Century Cures Act, medical imaging exams and procedure reports are released immediately into your electronic medical record. You may view this report before your referring provider. If you have questions, please contact your health care provider. INDICATION: shortness of breath for couple months since first chemo treatment, hx: breast cancer TECHNIQUE: CT chest PE was acquired with 95 cc Isovue 370 IV contrast. COMPARISON: PET-CT on 05/11/2023 FINDINGS: Heart and vasculature: Contrast opacification of the pulmonary arterial tree is adequate. No sign of pulmonary embolism. Mild cardiomegaly. Thoracic aorta and pulmonary artery are normal in caliber. Right IJ approach port catheter with tip in the right atrium. Lungs and pleura: No focal airspace consolidation, pleural effusion, or pneumothorax. Partially calcified nodule in the right lower lobe measuring 1.5 centimeters. Lymph nodes/mediastinum: No pathologically enlarged mediastinal, hilar, or axillary lymph nodes. There are few prominent right hilar lymph nodes. Chest wall: Biopsy clip in the left breast with the adjacent soft tissue density. Upper abdomen: No acute findings. Bones: Unremarkable for age. IMPRESSION: 1. No pulmonary embolism. 2. Partially calcified right lower lobe pulmonary nodule measuring 1.5 centimeters, similar in appearance compared to prior exam. Please note that all CT scans at this facility use dose modulation, iterative reconstruction, and/or weight-based dosing when appropriate to reduce radiation dose to as low as reasonably achievable. Dictated by Juarez Ha MD @ 06/15/2023 12:56:54 PM (Electronically Signed)
--- NOTE | 2023-06-15 11:06 | ED.SOB ---
HPI - SOB/Dyspnea General Chief Complaint: Shortness of Breath/Dyspnea Stated Complaint: From [facility]- rule out PE Time Seen by Provider: 06/15/23 10:34 History of Present Illness HPI Narrative: This 52-year-old female is sent over here from the infusion clinic because of her report of some shortness of breath. She is scheduled to have her 2nd dose of chemotherapy today but was sent here to rule out a pulmonary embolism. The patient arrives with normal vital signs. She did have some shortness of breath when lifting a package of water. She does not report any limb pain or swelling. She does not have any other symptoms other than that which is related to her breast cancer and chemotherapy. Related Data Home Medications Medication Instructions Recorded Confirmed ibuprofen 800 mg tablet 800 - 1,000 mg PO Q8H PRN 04/29/23 06/15/23 multivitamin 1 tab PO QAM 04/29/23 06/15/23 docusate sodium 100 mg capsule 100 mg PO DAILY PRN 05/21/23 06/15/23 (Colace) loperamide 2 mg capsule (Imodium 2 - 4 mg PO Q2-3H PRN 05/21/23 06/15/23 A-D) escitalopram oxalate 5 mg tablet 5 mg PO QDAY anxiety 06/05/23 06/15/23 (Lexapro) loratadine 10 mg tablet (Claritin) 10 mg PO DAILY PRN 06/15/23 06/15/23 Previous Rx's Medication Instructions Recorded ondansetron HCl 4 mg tablet 4 mg PO Q8H PRN nausea and 05/13/23 vomiting #60 tabs prochlorperazine maleate 10 mg 10 mg PO Q8H PRN nausea and 05/13/23 tablet (Compazine) vomiting #60 tabs lorazepam 0.5 mg tablet (Ativan) 0.5 mg PO QDAY PRN anxiety, 05/15/23 anticipatory nausea #20 tabs Allergies Allergy/AdvReac Type Severity Reaction Status Date / Time No Known Drug Allergies Allergy Verified 06/15/23 10:56 Review of Systems Status of ROS: Reports: 10 or more systems reviewed and unremarkable except as noted in History and below Narrative: Constitutional: No fevers, no weight gain or loss. Eyes: No discharge. No vision changes. HENT: No congestion, no sore throat, no ear pain. Cardiovascular: No chest pain, no palpitations. Respiratory: No wheezes, no cough. She reports some shortness of breath with exertion. Gastrointestinal: No abdominal pain, no vomiting, no diarrhea. Genitourinary: No dysuria, no hematuria. Musculoskeletal: Normal range of motion. Skin: No rashes, no pruritis. Neurological: No dizziness, weakness, sensory change, speech change. Endo/Heme/Allergies: No bruising or bleeding. No polydipsia. Pysch: no suicidality, no anxiety, no insomnia. All other systems reviewed and are negative. [facility] Medical History (Updated 06/15/23 @ 13:09 by Abhay Peacock MD) History of tobacco use disorder ?Z87.891 - Personal history of nicotine dependence (ICD-10) History of alcohol abuse ?F10.11 - Alcohol abuse, in remission (ICD-10) History of depression ?Z86.59 - Personal history of other mental and behavioral disorders (ICD-10) Social History (Updated 04/29/23 @ 11:28 by Tomasa Britt MD) Smoking Status: Former smoker What tobacco products do you use: cigarettes Smoking quit date/years: <= 15 years ago Do you use any of these nicotine containing products: None How often do you have a drink containing alcohol: monthly or less How often do you have six or more drinks on one occasion: Never AUDIT-C Alcohol total score: 1 Non-prescribed substance use: denies use Caffeine: Yes Exam Narrative: Exam Narrative: Constitutional: Well-developed, well-nourished, no acute distress. HEENT: Normocephalic, atraumatic. Neck: Normal range of motion. Nontender. Supple. Heart: Regular. No murmurs. Normal rate. Intact distal pulses. Lungs: Clear to auscultation. No chest discomfort. No wheezes, rhonchi, or rales. Abdomen: Normal bowel sounds. Nontender. No rebound tenderness. Genitalia: Deferred. Back: No midline tenderness. Normal range of motion. Extremities: Normal range of motion. No injury. Skin: Intact. No rash. Warm. No erythema or pallor. Neurologic: No altered sensation. No weakness. Alert and oriented. Psychiatric: No suicidality. No anxiety or depression. No insomnia. Nursing notes and vitals signs are reviewed. Const: Vital Signs, click to edit/add: Vital Signs - 24 hr 06/15/23 10:49 Temperature 97.9 F Pulse Rate [Right Pulse Oximeter] 76 Respiratory Rate 18 Blood Pressure [Ri ght Upper Arm] 147/96 H Pulse Oximetry 97 Oxygen Delivery Me thod Room Air Course Vital Signs Vital signs: Initial Vital Signs Temperature 97.9 F 06/15/23 10:49 Temperature Source Temporal Artery Scan 06/15/23 10:49 Pulse Rate 76 06/15/23 10:49 Respiratory Rate 18 06/15/23 10:49 Blood Pressure 147/96 H 06/15/23 10:49 Blood Pressure Mean 113 H 06/15/23 10:49 Blood Pressure Position Sitting 06/15/23 10:49 Pulse Oximetry 97 06/15/23 10:49 Oxygen Delivery Method Room Air 06/15/23 10:49 Vital Signs Temperature 97.9 F 06/15/23 10:49 Pulse Rate 76 06/15/23 10:49 Respiratory Rate 18 06/15/23 10:49 Blood Pressure 147/96 H 06/15/23 10:49 Pulse Oximetry 97 06/15/23 10:49 Oxygen Delivery Method Room Air 06/15/23 10:49 Temperature 97.9 F 06/15/23 10:49 Pulse Rate 76 06/15/23 10:49 Respiratory Rate 18 06/15/23 10:49 Blood Pressure 147/96 H 06/15/23 10:49 Pulse Oximetry 97 06/15/23 10:49 Oxygen Delivery Method Room Air 06/15/23 10:49 MDM - SOB/Dyspnea MDM Narrative Medical decision making narrative: This 52-year-old female was sent here to have a CT scan to rule out pulmonary embolism. She does have breast cancer and reported some shortness of breath with activity. She states that she has not been very active over the past few weeks and also has been undergoing chemotherapy. This probably explains some deconditioning and perhaps adverse effects of chemotherapy she causing her feeling of short of breath with exertion. CT imaging is obtained here and shows no evidence of pulmonary embolism or other new finding. She is okay to be discharged to resume current plans with the infusion clinic. Imaging Data CT scan - chest: Radiologist's impression: 1. No pulmonary embolism. 2. Partially calcified right lower lobe pulmonary nodule measuring 1.5 centimeters, similar in appearance compared to prior exam. Discharge Plan Discharge Clinical Impression: Feared condition not demonstrated, Breast cancer Patient Disposition: Home, Self-Care Condition: Stable Additional Instructions: Continue current plans. Follow up with MD return if worsening. Prescriptions: No Action ibuprofen 800 mg tablet 800 - 1,000 mg PO Q8H PRN multivitamin Tablet 1 tab PO QAM prochlorperazine maleate [Compazine] 10 mg tablet 10 mg PO Q8H PRN (Reason: nausea and vomiting) Qty: 60 0RF ondansetron HCl 4 mg tablet 4 mg PO Q8H PRN (Reason: nausea and vomiting) Qty: 60 0RF docusate sodium [Colace] 100 mg capsule 100 mg PO DAILY PRN loperamide [Imodium A-D] 2 mg capsule 2 - 4 mg PO Q2-3H PRN Rx Instructions: administer after each loose stool until symptoms controlled; do not exceed 8 mg per 24 hrs loratadine [Claritin] 10 mg tablet 10 mg PO DAILY PRN lorazepam [Ativan] 0.5 mg tablet 0.5 mg PO QDAY PRN (Reason: anxiety, anticipatory nausea) Qty: 20 0RF escitalopram oxalate [Lexapro] 5 mg tablet 5 mg PO QDAY Follow Up/Referrals: Devi Rubin DO [Primary Care Provider] - Stand Alone Forms: [employer] Info Instructions
--- OUTSIDE RECORDS SUMMARY | 2023-06-15 11:30 | XMS_ITS | Clinical Summary ---
Author Name Unknown Organization [employer] [facility] Address [place], [place] [address] Care Team Providers Care Fundraising Consultant Name Role Phone Devi Rubin Primary Care Provider [phone] Allergies No known active allergies Medications Medication [...] Encounters Date Type Department Care Team Description 06/08/2023 Orders Only [facility] Scanner 1 scan: (1-Ord) [facility], PELVIC TA AND TV, 06/08/2023 06/04/2023 3:00 PM ANTENNA RIGGER Office Visit [facility] [address] [place] [address] Devi Rubin, DO Concerns (Discuss daily anxiety medication and care during chemo. If she has a fever will need an antibiotic) 06/04/2023 Travel 06/03/2023 Telephone [facility] [address] [place] [address] Susie Cuellar, MS, CGC Results 06/03/2023 Telephone [facility] [address] [place] [address] Susie Cuellar, MS, CGC Results 05/24/2023 Telephone [facility] [address] [facility] [place] [address] Marina Harris PA Refill Request (Fluoxetine) 05/20/2023 3:30 PM ANTENNA RIGGER Orders Only [facility] [address] [place] [address] Lab, Farm [facility] 05/20/2023 Travel 05/18/2023 1:00 PM ANTENNA RIGGER Telemedicine [facility] [address] [place] [address] Susie Cuellar, MS, CGC Counseling (Cancer genetic counseling); Telehealth 05/18/2023 Telephone [facility] [address] [place] [address] Vera Carrasco Cancer Genetics 05/18/2023 Telephone [place] [address] [place] [address] Vera Carrasco Cancer Genetics 05/11/2023 3:00 PM ANTENNA RIGGER Orders Only [facility] [address] [place] [address] 2 scans: (2-Ord) ECHO TTE COMPLETE W CONTRAST ([id number]) 05/11/2023 Orders Only [facility] Scanner 1 scan: (1-Ord) [facility], MR HEAD/BRAIN WO/W CON, 05/11/2023 05/11/2023 Travel 05/08/2023 6:27 AM ANTENNA RIGGER - 05/08/2023 11:59 PM ANTENNA RIGGER Hospital Encounter [facility] Outpatient Medical Imaging [address] [place] [address] Dina Quigley MD Breast cancer (HC); Malignant neoplasm of upper-outer quadrant of right female breast (HC) 05/08/2023 Travel 05/04/2023 8:00 AM ANTENNA RIGGER Office Visit [facility] [address] [place] [address] Oriana Davis MD 05/04/2023 Orders Only [facility] Scanner 1 scan: (1-Ord) [facility], CHEST IV, 05/04/2023 05/04/2023 Orders Only [facility] Scanner 1 scan: (1-Ord) [facility], CHEST 1VIEW, 05/04/2023 05/04/2023 Orders Only [facility] Scanner 1 scan: (1-Ord) [facility], PORT PLACEMENT, 05/04/2023 05/04/2023 Travel 04/30/2023 Chart Update [facility] [address] [place] [address] Bishnu Segura MD 04/29/2023 Telephone [facility] [address] [place] [address] Vera Carrasco Cancer Genetics 04/29/2023 Telephone [facility] [address] [place] [address] Vera Carrasco Cancer Genetics 04/27/2023 12:15 PM ANTENNA RIGGER Office Visit [facility] [address] [place] [address] Bishnu Segura MD Consult (Left breast cancer) 04/27/2023 8:45 AM ANTENNA RIGGER Office Visit [facility] [address] [place] [address] Marina Harris PA Anxiety; Depression 04/27/2023 Orders Only [facility] Scanner 1 scan: (1-Ord) [facility], BREAST MEHUL W/WO CONTRAST, 04/27/2023 04/27/2023 Travel 04/21/2023 Telephone [facility] [address] [place] [address] Marina Harris PA Appointment (APPT REQUEST ) 04/21/2023 Orders Only [facility] [address] [place] [address] Devi Rubin, 1 scan: (1-Ord) [facility] US GUIDED BREAST BIOPSY LT, 04/20/2023 04/20/2023 Orders Only [facility] Scanner 1 scan: (1-Ord) [facility] GUIDED BREAST BIOPSY LT, 04/20/2023 04/20/2023 Orders Only [facility] Scanner 1 scan: (1-Ord) [facility] GIUDED LEFT AXILLARY LYMPH NODE BIOPSY AND MARKER PLACEMENT, 04/20/2023 04/20/2023 Orders Only [facility] Scanner 1 scan: (1-Ord) [facility], MM CLIP PLACEMENT LT, 04/20/2023 04/20/2023 Lab Requisition [facility] C[facility] [phone] Unknown, Doctor 04/20/2023 Lab Requisition L CENTRAL LAB [phone] Unknown, Doctor 04/16/2023 3:50 PM ANTENNA RIGGER Telemedicine [facility] [address] [place] [address] Marina Harris PA Anxiety 04/15/2023 Travel 04/13/2023 2:30 PM ANTENNA RIGGER Ancillary Procedure [facility] [address] [place] [address] 04/13/2023 2:00 PM ANTENNA RIGGER Ancillary Procedure [facility] [address] [place] [address] 04/13/2023 Telephone [facility] [address] [place] [address] Devi Rubin, New Med Request 04/13/2023 Travel 03/30/2023 11:00 AM CDT Ancillary Procedure [facility] [address] [place] [address] 03/30/2023 Travel 03/23/2023 10:50 AM CDT Office Visit [facility] [address] [place] [address] Devi Rubin, Physical; Immunization/Injec tion (COVID-19 vaccine) [...] Comments Blood Pressure 128/72 06/04/2023 3:06 PM ANTENNA RIGGER Pulse 96 06/04/2023 3:06 PM ANTENNA RIGGER Temperature 36.8 ??C (98.3 ??F) 07/30/2021 8:21 AM CS T Respiratory Rate 16 04/27/2023 8:52 AM ANTENNA RIGGER Oxygen Saturation 99% 04/27/2023 12:13 PM ANTENNA RIGGER Inhaled Oxygen Concentration - - Weight 87.6 kg (193 lb 3.2 oz) 06/04/2023 3:06 P M ANTENNA RIGGER Height 170.2 cm (5' 7) 06/04/2023 3:06 PM ANTENNA RIGGER Body Mass Index 30.26 06/04/2023 3:06 PM ANTENNA RIGGER Plan of Treatment Upcoming Encounters Date Type Department Care Team (Late st Contact Info) Description 06/29/2023 11:15 AM ANTENNA RIGGER Telemedicine [facility] [address] [facility], [place] [phone] [place] [address] [place] [address] Health Maintenance Due Date Last Done Comments HIV for age 15-65 11/25/1987 Colonoscopy through age 75 2017 Influenza for age 50-64 01/30/2023 Zoster (shingles) series for age 50+ (2 of 2) 05/18/2023 03/23/2023 COVID-19 vaccine series ( season) 2023 05/02/2023, 08/25/2022, 05/23/2021, Additional history [...] Procedure Name Priority Date/Time Associated Diagnosis Comments SCAN-ULTRASOUND REPORT 12:00 AM ANTENNA RIGGER ECHO TTE COMPLETE W CONTRAST Routine 05/11/2023 4:25 PM ANTENNA RIGGER Encounter for therapeutic drug level monitoring SCAN-MRI INTERPRETATION 05/11/2023 12:[address] PET CT SKULL BASE TO MID THIGH INITIAL TREAT Routine 05/08/2023 8:00 AM ANTENNA RIGGER Breast cancer (HC) Malignant neoplasm of upper-outer quadrant of right female breast (HC) GLUCOSE METER Routine 05/08/2023 6:48 AM ANTENNA RIGGER SCAN-RADIOLOGY REPORT 05/04/2023 12:00 AM ANTENNA RIGGER SCAN-RADIOLOGY REPORT 05/04/2023 12:00 AM ANTENNA RIGGER SCAN-OPERATIVE/PROCEDU RE REPORT 05/04/2023 12:00 AM ANTENNA RIGGER SCAN-MRI INTERPRETATION 04/27/2023 12:00 AM ANTENNA RIGGER LAB TRACKING EVENT Routine 04/20/2023 10 :50 AM ANTENNA RIGGER LAB TRACKING EVENT Routine 04/20/2023 10 :45 AM ANTENNA RIGGER PATH BREAST CORE BIOPSY Routine 04/20/2023 10:45 AM ANTENNA RIGGER CG HER2 BREAST Routine 04/20/2023 10:45 AM ANTENNA RIGGER CYTOGENETICS MALIGNANT TISSUE Routine 04/20/2023 10:45 AM ANTENNA RIGGER US BIOPSY BREAST NEEDLE W WINDY W GUIDE LEFT ALESSANDRA 04/20/2023 12:00 AM ANTENNA RIGGER Abnormal mammogram SCAN-OPERATIVE/PROCEDU RE REPORT 04/20/2023 12:00 AM ANTENNA RIGGER SCAN-OPERATIVE/PROCEDU RE REPORT 04/20/2023 12:00 AM ANTENNA RIGGER SCAN-OPERATIVE/PROCEDU RE REPORT 04/20/2023 12:00 AM ANTENNA RIGGER US BREAST UNILATERAL LEFT LIMITED ALESSANDRA 04/13/2023 2:21 PM ANTENNA RIGGER Abnormal mammogram XR MAMMO JASIEL UNI ADDL VIEWS LEFT ALESSANDRA 04/13/2023 2:09 PM ANTENNA RIGGER Abnormal mammogram XR MAMMO BILAT SCREENING Routine 03/30/2023 11:10 AM CDT Visit for screening mammogram ANTI HCV Routine 03/23/2023 11:48 AM CDT Need for hepatitis C screening test LIPID PANEL W REFLEX MEASURED LDL Routine 03/23/2023 11:48 AM CDT Screening cholesterol level FOLIC ACID Routine 03/23/2023 11:48 AM CDT Low folic acid VITAMIN B12 Routine 03/23/2023 11:48 AM CDT Vitamin B12 deficiency ANTHROPOLOGY FACULTY MEMBER THIN PREP PAP SCREEN IMAGED Routine 03/23/2023 11:19 AM CDT Screening for cervical cancer HPV THIN PREP Routine 03/23/2023 11:19 AM CDT Screening for cervical cancer from Last 3 Months Results * SCAN-ULTRASOUND REPORT (06/08/2023 12:00 AM ANTENNA RIGGER) Anatomical Region Laterality Modality Other Scanner OTHER * ECHO TTE COMPLETE W CONTRAST (05/11/2023 4:25 PM ANTENNA RIGGER) AORTIC VALVE MEAN PG 4 mmHg EJECTION FRACTION 60 % LVEDD 4.2 cm EJECTION FRACTION 65 - 70% Anatomical Region Laterality Modality Ultrasound 05/11/2023 3:16 PM ANTENNA RIGGER Narrative 05/11/2023 4:39 PM ANTENNA RIGGER ECHOCARDIOGRAM ALANIS LORA ? Accession#: ?? [id number] : ?1970 52 years Study Date: ?? 05/11/2023 3:16:07 PM Gender: F ?BP: ? 149/86 mmHg Height: 170.00 cm ?BSA: ?2.01 m? ? ? Weight: 90.00 kg ? Tech: ? MTS ? Referring MD: DINA QUIGLEY Site: ? [facility] Reading Location: MOBILE OP Patient Location: Outpatient. [...] Definity, lot #[id number], [facility]# [id number] was administered peripherally to enhance visualization of all left ventricular segments. . This study was interpreted by an [facility] accredited facility. CC: [facility] ([facility]) [facility]. ??Final ?? Procedure Note Arsalan Jang MD - 05/11/2023 ECHOCARDIOGRAM ALANIS LORA : 1970 52 years Study Date: 05/11/2023 3:16:07 PM Gender: F BP: 149/86 mmHg Height: 170.00 cm BSA: 2.01 m? ? ? Weight: 90.00 kg Tech: [facility] Referring MD: DINA QUIGLEY Site: [facility] Reading Location: MOBILE OP Patient [...] diluted Definity, lot #[id number], [facility]#[id number] was administered peripherally to enhance visualization of allleft ventricular segments. . This study was interpreted by an [facility] accredited facility. CC: [facility] ([facility]) [facility]. Final Dina Quigley MD ECHO ORD * SCAN-MRI INTERPRETATION (05/11/2023 12:00 AM ANTENNA RIGGER) Only the most recent of2 resultswithin the time period is included. Anatomical Region Laterality Modality Other Scanner OTHER * PET CT SKULL BASE TO MID THIGH INITIAL TREAT (05/08/2023 8:00 AM ANTENNA RIGGER) Anatomical Region Laterality Modality Positron Emissio n Tomography (PET) 05/11/2023 11:1 0 AM ANTENNA RIGGER Impressions 05/11/2023 11:10 AM ANTENNA RIGGER 1. Small avid mass upper outer quadrant [...] AM (Electronically Signed) Narrative 05/11/2023 11:10 AM ANTENNA RIGGER For Patients: ??As a result of the [...] result of the Century Cures Act, medical imagingexams and procedure [...] in the posterior right lower lobe (fused ) and posteromedial left upper lobe nodule (fused [...] * (ABNORMAL) GLUCOSE METER (05/08/2023 6:48 AM ANTENNA RIGGER) GLUCOSE METER 101(H) 65 - 100 mg/dL 05/08/2023 6:53 AM ANTENNA RIGGER [facility] Blood BLOOD SPECIMEN / Unknown 05/08/2023 6:48 AM ANTENNA RIGGER 05/08/2023 6:53 AM ANTENNA RIGGER Dina Quigley MD [facility]STRY [facility] [address] [place] [address], * SCAN-RADIOLOGY REPORT (05/04/2023 12:00 AM ANTENNA RIGGER) Only the most recent of2 resultswithin the time period is included. Anatomical Region Laterality Modality Other Scanner OTHER * SCAN-OPERATIVE/PROCEDURE REPORT (05/04/2023 12:00 AM ANTENNA RIGGER) Scanner OTHER * LAB TRACKING EVENT (04/20/2023 10:50 AM ANTENNA RIGGER) Only the most recent of2 resultswithin the time period is included. Other (Other) Client Collect / Unknown 04/20/2023 10:50 AM ANTENNA RIGGER 04/20/2023 9:27 PM ANTENNA RIGGER Doctor Unknown LAB BILL ONLY [facility]-CENTRAL LABORATORY [address] [place] [address], [place] * PATH BREAST CORE BIOPSY (04/20/2023 10:45 AM ANTENNA RIGGER) Case Report Pathology Report ?Case: [id number] ? Authorizing Provider: ??Unknown, Doctor ?Collected: ? 04/20/2023 1045 ? Ordering Location: ? [facility] C[facility] ?Received: ?04/21/2023 0544 ? Pathologist: ? Allyssa Bodlen MD ? Specimens: ?? A) - Left Breast Core Ultrasound Biopsy ? B) - Left Axillary Lymph Node ? 04/27/2023 5:05 PM ANTENNA RIGGER [facility]-C ENTRAL LABORATORY Amendment 04/22/2023 - Amendment issued to incorporate ancillary studies. 04/27/2023 - Amendment issued to incorporate ancillary HER2 FISH studies. 04/27/2023 5:05 PM ANTENNA RIGGER [facility]OR[facility]-C ENTRAL LABORATORY Final Diagnosis A) LEFT BREAST, 1:00, 13 CM FROM NIPPLE, ULTRASOUND-GUIDED CORE BIOPSY: 1. Invasive ductal carcinoma ?? a. [place] grade: II of III; Mirian score: 7 [...] extension in this biopsy 04/27/2023 5:05 PM [facility]C ENTRAL LABORATORY Amendment electronically signed by Allyssa Bolden [...] decisions. Case seen in consultation with Dr. Goodsno. 04/27/2023 5:05 PM [facility] Clinical Information A) 1.2 cm, irregular, circumscribed, spiculated, solid and hypoechoic left breast mass at 1:00, 13 cm from the nipple. B) 2.5 cm, oval, circumscribed, solid and hypoechoic left axillary mass. 04/27/2023 5:05 PM [facility] Gross Description A) Label: Patient's name [...] 72 hours. TRS 04/21/2023 04/27/2023 5:05 PM [facility] Microscopic Description The final diagnosis is based on microscopic examination of appropriate sections of all specimens. A) The presence of green ink is confirmed on tissue sections. B) The presence of black ink is confirmed on tissue sections. 04/27/2023 5:05 PM [facility] [employer] [facility] Cytogenetics Summary Cytogenetic testing has been ordered and will be reported separately. 04/27/2023 5:05 PM [facility] [employer] REPORTING Breast Biomarker Reporting Template BREAST: [...] Drug Administration (FDA) cleared (test / vendor): [place] ? Primary Antibody: ?4B5 ?? Test(s) Performed: [...] developed and its performance characteristics determined by [employer]. ??This test incorporates minor modifications to protocol and validated by the [facility] to yield equivocal or superior performance. This FISH test uses a multiplex probe stain procedure. 04/27/2023 5:05 PM ANTENNA RIGGER [facility] [employer] LABORATORY-C ENTRAL LABORATORY Additional Information Patients with breast cancers [...] not result in eligibility currently). Interpreted at [facility] Central Laboratory - [address] [facility] [address] [address] 04/27/2023 5:05 PM ANTENNA RIGGER [facility] LABORATORY-C ENTRAL LABORATORY Other (Left Breast Core Ultrasound Biopsy) 04/20/2023 10:45 AM ANTENNA RIGGER 04/21/2023 5:44 AM ANTENNA RIGGER Specimen (specimen) (Left Axillary Lymph Node) 04/20/2023 10:50 AM ANTENNA RIGGER 04/21/2023 7:56 AM ANTENNA RIGGER Doctor Unknown PATHOLOGY/CYTOLOGY [facility] [address] [place] [address], [place] * CG HER2 BREAST (04/20/2023 10:45 AM ANTENNA RIGGER) Other (Left Breast Core Ultrasound Biopsy) 04/20/2023 10:45 AM ANTENNA RIGGER 04/22/2023 1:22 PM ANTENNA RIGGER Doctor Unknown LABORATORY Performing Organization Address [facility] Co de Phone Number [facility] [address] [place] [id number], [place] * CYTOGENETICS MALIGNANT TISSUE STUDIES (04/20/2023 10:45 AM ANTENNA RIGGER) RFR Breast Cancer 04/27/2023 1:27 PM ANTENNA RIGGER [facility] TEST & RESULT SUMMARY HER2 FISH Breast: See pathology report [id number]. See comments. 04/27/2023 1:27 PM ANTENNA RIGGER [facility] [employer] [facility] _ 04/27/2023 1:27 PM ANTENNA RIGGER [facility] COMMENTS This record is used as an internal laboratory test designed for workflow purposes only. 04/27/2023 1:27 PM ANTENNA RIGGER [facility] SOURCE Left Breast Core Ultrasound Biopsy (Paraffin Slides, 2 uns A1) [id number] 04/27/2023 1:27 PM ANTENNA RIGGER [facility] [employer] NTRAL LABORATORY Other (Left Breast Core Ultrasound Biopsy) 04/20/2023 10:45 AM ANTENNA RIGGER 04/22/2023 1:22 PM ANTENNA RIGGER Doctor Unknown LABORATORY Performing Organization Address [facility] Co de Phone Number [facility] [address] [place] [address], [place] * US BIOPSY BREAST NEEDLE W WINDY W GUIDE LEFT (04/20/2023 12:00 AM ANTENNA RIGGER) Anatomical Region Laterality Modality Breast Left Left Ultrasound Devi Rubin DO US * SCAN-OPERATIVE/PROCEDURE REPORT (04/20/2023 12:00 AM ANTENNA RIGGER) Scanner OTHER * SCAN-OPERATIVE/PROCEDURE REPORT (04/20/2023 12:00 AM ANTENNA RIGGER) Scanner OTHER * SCAN-OPERATIVE/PROCEDURE REPORT (04/20/2023 12:00 AM ANTENNA RIGGER) Scanner OTHER * US BREAST UNILATERAL LEFT LIMITED (04/13/2023 2:21 PM ANTENNA RIGGER) Anatomical Region Laterality Modality BREASTS, Breast Left, Breast Right Left Ultrasound Narrative 04/13/2023 4:00 PM ANTENNA RIGGER For Patients: As a result of the Cures Act, medical imaging exams and procedure reports are released immediately into your electronic medical record. ??You may view this report before your referring provider. ?? If you have questions, please contact your health care provider. LEFT BREAST ULTRASOUND, 04/13/2023 PLEASE SEE [id number] FOR DIGITAL LEFT MAMMOGRAM SAME DAY. Devielana Kinseyrandi DO US * XR MAMMO JASIEL UNI ADDL VIEWS LEFT (04/13/2023 2:09 PM ANTENNA RIGGER) Anatomical Region Laterality Modality BREASTS, Breast Left Mammography 04/13/2023 2:28 PM ANTENNA RIGGER Impressions 04/13/2023 4:00 PM ANTENNA RIGGER Suspicious mass LEFT breast 1 o'clock 13 cm from the nipple measuring 1 cm and suspicious LEFT axillary lymph node measuring 2.5 cm. RECOMMENDATIONS: Ultrasound-guided biopsy of both lesions. Results and recommendations discussed with the patient. BI-RADS Category 4: Suspicious Dictated by: Kelvin Galo MD @04/13/2023 2:28:34 PM / CRL:[email or web address] PATIENTS: You will also receive a letter with your examination results in an easy to read format. ??If you have questions about your results, please contact your referring provider. Narrative 04/13/2023 4:00 PM ANTENNA RIGGER For Patients: As a result of the Cures Act, medical imaging exams and procedure [...] 2.0 x 1.6 x 2.5 cm. Devi Rubin DO MAMMO * XR MAMMO BILAT SCREENING [...] quadrant 13 cm from the nipple. Devi Rubin DO MAMMO * (ABNORMAL) LIPID PANEL W REFLEX MEASURED LDL (03/23/2023 11:48 AM CDT) CHOLESTEROL,TOTAL 219(H) 100 - 199 mg/dL 03/23/2023 5:09 PM CDT [facility] TRAL LABORATORY Comment: Cholesterol, Total Reference Ranges Desirable <200 mg/dL Borderline 200-239 mg/dL High >=240 mg/dL TRIGLYCERIDES 163(H) <150 mg/dL 03/23/2023 5:09 PM CDT [facility] TRAL LABORATORY HDL CHOLESTEROL 60 >40 mg/dL 5:09 PM CDT [facility] TR[facility] NON-HDL CHOLESTEROL 159(H) <145 mg/dl 03/23/2023 5:09 PM CDT [facility] TRAL LABORATORY CHOL/HDL RATIO 3.65 <4.50 03/23/2023 5:09 PM CDT [facility] TR[facility] LAB[facility] LDL CHOLESTEROL 126 <=130 mg/dL 03/23/2023 5:09 PM CDT [facility] TR[facility] VLDL CHOLESTEROL 33(H) <=30 mg/dL 03/23/2023 5:09 PM CDT [facility] TRAL LABORATORY PROVIDER ORDERED STATUS RANDOM 03/23/2023 5:09 PM CDT [facility] TR[facility] LAB[facility]ATORY Blood BLOOD SPECIMEN / Unknown Venipuncture / Unknown 03/23/2023 11:48 AM CDT 03/23/2023 11:48 AM CDT Devi Rubin DO CHEMISTRY [facility] [address] [place] [address], * ANTI HCV (03/23/2023 11:48 AM CDT) HEPATITIS C ANTIBODY Non-Reacti ve Non-React mckay 03/23/2023 5:08 PM [facility] Comment:Please note, per www .CDC.gov: If [...] Rubin DO SEND OUTS Performing Organization Address [facility] Co de Phone Number [facility] [address] [place] [address], * FOLIC ACID (03/23/2023 11:48 AM CDT) FOLIC ACID 28.1 4.6 - 34.8 ng/mL 03/23/2023 5:42 PM CDT [facility] Blood BLOOD SPECIMEN / Unknown Venipuncture / Unknown 03/23/2023 11:48 AM CDT 03/23/2023 11:48 AM CDT Narrative [facility] - 03/23/2023 5:42 PM CDT Biotin supplements may cause clinically significant interference for this test assay. ??If interference is suspected, it is strongly recommended that biotin is discontinued for at least one week prior to retesting. Devi Rubin DO CHEMISTRY Performing Organization Address [facility] Co de Phone Number [facility] [address] [place] [address], * VITAMIN B12 (03/23/2023 11:48 AM CDT) VITAMIN B12 658 232 - 1,245 pg/mL 03/23/2023 5:09 PM CDT [facility] Blood BLOOD SPECIMEN / Unknown Venipuncture / Unknown 03/23/2023 11:48 AM CDT 03/23/2023 11:48 AM CDT Narrative [facility] - 03/23/2023 5:09 PM CDT Biotin supplements may cause clinically significant interference for this test assay. ??If interference is suspected, it is strongly recommended that biotin is discontinued for at least one week prior to retesting. Devi Rubin DO CHEMISTRY [facility]-CENTRAL LABORATORY [address] [place] [address], * ANTHROPOLOGY FACULTY MEMBER THIN PREP PAP SCREEN IMAGED [[id number]] (03/23/2023 11:19 AM CDT) Case Report Gynecologic Cytology Report ? Case: [id number] ? Authorizing Provider: ??Devi Rubin, ? Collected: ? 03/23/2023 1119 ? Ordering Location: ? [facility] ?? Received: ?03/23/2023 1146 ? Clinic ? First Screen: ?Jhonatan Tsang ? Specimen: ?ANTHROPOLOGY FACULTY MEMBER ThinPrep Vial Screening, Cervical ? 03/30/2023 12:53 PM CDT [facility] ENTRAL LABORATORY INTERPRETATION/ RESULT NEGATIVE FOR INTRAEPITHELIAL LESION OR MALIGNANCY (NIL) (none) 03/30/2023 12:53 PM CDT [facility] LAB[facility] IMEN ADEQUACY Satisfactory for evaluation Endocervical component present 03/30/2023 12:53 PM CDT [facility] HPV REQUEST HPV and PAP 03/30/2023 12:53 PM CDT [facility] ENTRAL LABORATORY Date of LMP 03/12/2023 03/30/2023 12:53 PM CDT [facility] Last Pap Date 03/13/23 03/30/2023 12:53 PM CDT [facility] Last Pap Result NIL 12:53 PM CDT [facility] Abnormal Pap or [place] Bx in last 5 years No 03/30/2023 12:53 PM CDT [facility] Menstrual Status Regular Periods 03/30/2023 12:53 PM CDT [facility] [place] Bx Done Today No 03/30/2023 12:53 PM CDT [facility] Additional Information None given 03/30/2023 12:53 PM CDT [facility] Comment: Cytology is screened at [facility] - [address], [place] [address] and [facility] - [address], [place] [address] and [facility] - [address] [place] [id number] Interpreted at [facility] - [address] [place] [id number] Automated Review Successful 03/30/2023 12:53 PM CDT [facility] Comment:Specimen processed s uccessfully by automated manager transmission device, [employer] System, [employer] ANCILLARY TESTING ANTHROPOLOGY FACULTY MEMBER HPV Ordered, Please see separate report 03/30/2023 12:53 PM CDT [facility] Note The pap test is a [...] and malignant lesions. 03/30/2023 12:53 PM CDT [facility] Other (Cervical) Non-Blood / Unknown 03/23/2023 11:19 AM CDT 03/23/2023 11:46 AM CDT Devi Rubin DO PATHOLOGY/CYTOLOGY Performing Organization Address [facility] Co de Phone Number [facility] [address] [place] [address], * HPV HIGH RISK (03/23/2023 11:19 AM CDT) TYPE 16 Negative Negative 03/25/2023 2:07 PM CDT [facility] TYPE 18 Negative Negative 03/25/2023 2:07 PM CDT [facility] OTHER HIGH RISK TYPES Negative Negative 03/25/2023 2:07 PM CDT [facility] Other (Cervical) Non-Blood / Unknown 03/23/2023 11:19 AM CDT 03/23/2023 4:26 PM CDT Narrative [facility] - 03/25/2023 2:07 PM CDT HPV types 16, 18, 31, 33, 35, 39, 45, 51, 52, 56, 58, 59, 66 and 68 DNA were undetectable or below the pre-set threshold. Methodology: [employer] Interactive Reji 4800 HPV Test Devi Rubin DO MICROBIOLOGY Performing Organization Address City/[facility]/ZIP Co de Phone Number [facility] [address] [place] [address], from Last 3 Months Care Teams Fundraising Consultant Relationship Specialty [place] [id number] [place] [address] PCP - General Family Practice 03/30/23
== END 2023-06-15 13:20 | disposition home or self-care (01) ==
PROVIDERS: Emergency Provider Emergency Medicine Emergency Medical Services; PCP Family Medicine
DX: R06.02 Shortness of breath (principal); C50.412 Malignant neoplasm of upper-outer quadrant of left female breast
CPT/HCPCS: 71275; 99283; 99284; Q9967

== ENCOUNTER 2023-07-02 07:04 | Outpatient (CLI) | payer BC, SELFPAY ==
--- OUTSIDE RECORDS SUMMARY | 2023-07-02 07:07 | XMS_ITS | Clinical Summary ---
Author Name Unknown Organization [facility] [facility] Address [place], [place] [address] Care Team Providers Care Supervisor [employer] Name Role Phone Devi Rubin Primary Care Provider [phone] Allergies No known active allergies Medications Medication Sig Dispensed Refills Start Date End Date Status Graduated Compression StockingsIndicat ions:Uncomplicat ed varicose veins For personal use. Length: thigh Strength: 20-30 mmHg Circumference in cm: For thigh: Ankle 25cm, Calf 37cm, Thigh 51cm, Thigh to Ankle length 54cm. 1 Packet 0 08/25/2022 Active folic acid 1 mg tabletIndication s:Low folic acid Take 1 Tablet (1 mg) by mouth once daily. 90 Tablet 3 03/23/2023 Active hydrOXYzine HCL (ATARAX) 25 mg tabletIndication s:Anxiety Take 1 Tablet (25 mg) by mouth every 6 hours if needed for Anxiety. 30 Tablet 0 03/23/2023 Active LORazepam (ATIVAN) 0.5 mg tabIndications:G AD (generalized anxiety disorder),Diffic ulty sleeping,Feeling worried Take 1 Tablet (0.5 mg) by mouth at bedtime if needed for Anxiety. 20 Tablet 0 04/27/2023 Active multivitamin capsule Take 1 Capsule by mouth once daily. 0 Active escitalopram oxalate (LEXAPRO) 5 mg tabletIndication s:REYNALDO (generalized anxiety disorder) Take 1 Tablet (5 mg) by mouth every morning. 30 Tablet 0 06/04/2023 Active escitalopram oxalate (LEXAPRO) 5 mg tablet Take 5 mg by mouth every morning. 0 06/05/2023 Active prochlorperazine (COMPAZINE) 10 mg tablet Take 10 mg by mouth every 8 hours if needed for Nausea/Vomiting. 0 05/13/2023 Active ondansetron (ZOFRAN) 4 mg tablet TAKE 1 TABLET BY MOUTH EVERY 8 HOURS NEEDED FOR NAUSEA AND VOMITING 0 05/13/2023 Active prochlorperazine (COMPAZINE) 10 mg tablet Take 10 mg by mouth every 8 hours if needed. 0 05/13/2023 Active LORazepam (ATIVAN) 0.5 mg tab Take 0.5 mg by mouth. 0 04/29/2023 Active PERTUZUMAB IV Inject intravenous. 0 Active TRASTUZUMAB IV Inject 6 mg/kg intravenous. 0 Active trastuzumab-dkst (OGIVRI IV) Inject 8 mg/kg intravenous. 0 Active fosaprepitant (EMEND) 150 mg injection Inject 150 mg intravenous one time. 0 Active palonosetron HCl (PALONOSETRON IV) Inject 0.25 mg intravenous. 0 Active CARBOPLATIN IV Inject 750 mg intravenous. 0 Active DOCETAXEL IV Inject intravenous. 0 Active PEGFILGRASTIM SUBQ Inject 6 mg subcutaneous. 0 Active Dextromethorphan HBr 5 mg/5 mL syrp Take by mouth. 0 04/29/2023 Active ibuprofen (ADVIL; MOTRIN) 800 mg tablet Take 800 mg by mouth every 8 hours if needed for Pain. 0 04/29/2023 Active multivit with iron,minerals (MULTIVITAMIN AND MINERALS ORAL) Take 1 Tablet by mouth. 0 04/29/2023 Active loratadine (CLARITIN) 10 mg tablet Take 10 mg by mouth once daily. 0 06/15/2023 Active docusate (COLACE) 100 mg capsule Take 100 mg by mouth once daily if needed for Constipation. 0 05/21/2023 Active loperamide (IMODIUM) 2 mg capsule Take by mouth. 0 05/21/2023 Active venlafaxine (EFFEXOR XR) 37.5 mg Extended-Release capsuleIndicatio ns:REYNALDO (generalized anxiety disorder) Take 1 Capsule (37.5 mg) by mouth once daily with a meal. 30 Capsule 0 06/16/2023 Active hydrOXYzine HCL (ATARAX) 25 mg tabletIndication s:REYNALDO (generalized anxiety disorder),Feelin g worried,Difficul ty sleeping Take 1-2 tabs by mouth as needed for anxiety, sleep, and panic. 25 Tablet 0 06/16/2023 Active cyanocobalamin (Vitamin B-12) 1,000 mcg tabletIndication s:Vitamin B12 deficiency Take 1 Tablet (1,000 mcg) by mouth once daily. 90 Tablet 3 03/23/2023 4 Discontinue d(*Patient states no longer taking) FLUoxetine 10 mg tabletIndication s:REYNALDO (generalized anxiety disorder) Take 1 Tablet (10 mg) by mouth every morning. Needs appointment for refills. 30 Tablet 0 05/26/2023 4 Discontinue d(*Patient states no longer taking) Active Problems Problem Noted Date Diagnosed Date REYNALDO (generalized anxiety disorder) 06/04/2023 Invasive ductal carcinoma of breast, left 2022 Pap smear for cervical cancer screening 03/31/20 23 Overview: 03/2023 NIL/HPV negative Plan: Pap/HPV due [...] Encounters Date Type Department Care Team Description 06/16/2023 12:05 PM RENTAL SALES REPRESENTATIVE Telemedicine [facility] [address] [place] [address] Marina Harris PA Medication Management (REYNALDO, PHQ/) 06/16/2023 Travel 06/16/2023 Telephone [facility] [address] [place] [id number] Marina Harris PA INCOMING FAX (CURRENT CHEMOTHERAPY REGIMEN AND MEDICATION LIST) 06/15/2023 Orders Only [facility] Scanner 1 scan: (1-Ord) [facility], CT ANGIO CHEST PE PROTOCOL, 06/15/2023 06/08/2023 Orders Only [facility] Scanner 1 scan: (1-Ord) [facility], US PELVIC TA AND TV, 06/08/2023 06/04/2023 3:00 PM RENTAL SALES REPRESENTATIVE Office Visit [facility] [address] [place] [address] Devi Rubin, DO Concerns (Discuss daily anxiety medication and care during chemo. If she has a fever will need an antibiotic) 06/04/2023 Travel 06/03/[address] [facility] [address] [place] [address] Susie Cuellar MS, CGC Results 06/03/[address] [facility] [address] [place] [address] Susie Cuellar, MS, CGC Results 05/24/2023 Telephone [facility] [address] [place] [address] Marina Harris PA Refill Request (Fluoxetine) 05/20/2023 3:30 PM RENTAL SALES REPRESENTATIVE Orders Only [facility] [address] [place] [address] Lab, [facility] 05/20/2023 Travel 05/18/2023 1:00 PM RENTAL SALES REPRESENTATIVE Telemedicine [facility] [address] [place] [address] Susie Cuellar MS, CGC Counseling (Cancer genetic counseling); Telehealth 05/18/[address] [facility] [address] [place] [address] Vera Carrasco Cancer Genetics 05/18/[address] [facility] [address] [place] [address] Vera Carrasco Cancer Genetics 05/11/2023 3:00 PM RENTAL SALES REPRESENTATIVE Orders Only [place] [facility] [address] [place] [address] 2 scans: (2-Ord) ECHO TTE COMPLETE W CONTRAST ([id number]) 05/11/2023 Orders Only [facility] Scanner 1 scan: (1-Ord) [facility], MR HEAD/BRAIN WO/W CON, 05/11/2023 05/11/2023 Travel 05/08/2023 6:27 AM RENTAL SALES REPRESENTATIVE - 05/08/2023 11:59 PM RENTAL SALES REPRESENTATIVE Hospital Encounter [facility] [address] [place] [address] Dina Quigley MD Breast cancer (HC); Malignant neoplasm of upper-outer quadrant of right female breast (HC) 05/08/2023 Travel 05/04/2023 8:00 AM RENTAL SALES REPRESENTATIVE Office Visit [facility] [address] [place] [address] Oriana Davis MD 05/04/2023 Orders Only [facility] Scanner 1 scan: (1-Ord) [facility], CHEST IV, 05/04/2023 05/04/2023 Orders Only [facility] Scanner 1 scan: (1-Ord) [facility], CHEST 1VIEW, 05/04/2023 05/04/2023 Orders Only [facility] Scanner 1 scan: (1-Ord) [facility], PORT PLACEMENT, 05/04/2023 05/04/2023 Travel 04/30/2023 Chart Update [facility] [address] [place] [address] Bishnu Segura MD 04/29/2023 Telephone [facility] [place] [address] [place] [address] Vera Carrasco Cancer Genetics 04/29/2023 Telephone [facility] [place] [address] [place] [address] Vera Carrasco Cancer Genetics 04/27/2023 12:15 PM RENTAL SALES REPRESENTATIVE Office Visit [facility] [address] [place] [address] Bishnu Segura MD Consult (Left breast cancer) 04/27/2023 8:45 AM RENTAL SALES REPRESENTATIVE Office Visit [facility] [address] [place] [address] Marina Harris PA Anxiety; Depression 04/27/2023 Orders Only [facility] Scanner 1 scan: (1-Ord) [facility], BREAST MEHUL W/WO CONTRAST, 04/27/2023 04/27/2023 Travel 04/21/2023 Telephone [facility] [address] [place] [address] Marina Harris PA Appointment (APPT REQUEST ) 04/21/2023 Orders Only [facility] [address] [place] [address] Devi Rubin, DO 1 scan: (1-Ord) [facility] US GUIDED BREAST BIOPSY LT, 04/20/2023 04/20/2023 Orders Only [facility] Scanner 1 scan: (1-Ord) [facility] GUIDED BREAST BIOPSY LT, 04/20/2023 04/20/2023 Orders Only [facility] Scanner 1 scan: (1-Ord) [facility] GIUDED LEFT AXILLARY LYMPH NODE BIOPSY AND MARKER PLACEMENT, 04/20/2023 04/20/2023 Orders Only [facility] Scanner 1 scan: (1-Ord) [facility], MM CLIP PLACEMENT LT, 04/20/2023 04/20/2023 Lab Requisition [facility] [phone] Unknown, Doctor 04/20/2023 Lab Requisition [facility] CENTRAL LAB [phone] Unknown, Doctor 04/16/2023 3:50 PM RENTAL SALES REPRESENTATIVE Telemedicine [facility] [address] [place] [address] Marina Harris PA Anxiety 04/15/2023 Travel 04/13/2023 2:30 PM RENTAL SALES REPRESENTATIVE Ancillary Procedure [facility] [address] [place] [address] 04/13/2023 2:00 PM RENTAL SALES REPRESENTATIVE Ancillary Procedure [facility] [address] [place] [address] 04/13/2023 Telephone [facility] [address] [place] [address] Devi Rubin, New Med Request 04/13/2023 Travel from Last 3 Months Immunizations Name Administration Dates Next Due COVID-19 vaccine (Moderna 100mcg/0.5mL) PF, MDV 09/28/2020,08/20/2020 COVID-19 vaccine (Moderna 50 mcg/0.5mL) 12YO+ BIVALENT PF, MDV 08/25/2022 Influenza Virus, Unspecified 05/14/2023 Pneumococcal Conj 20-valent (Prevnar 20) 023 Tdap [...] Used Date Smoking Tobacco: Former Cigarettes 0.3 24.1 S tarted: 06/01/1999 Smokeless Tobacco: Never Tobacco Cessation:Counseling Given: Not Answered Comments:some on weekends, 1/2 pack Alcohol Use Standard Drinks/Week Comments Yes 0 (1 standard drink = 0.6 oz pur e alcohol) 6-16 drinks on weekends PHQ-2 Answer Date Recorded PHQ-2 TOTAL SCORE 0 06/16/2023 Social Connections Answer Date Recorded Frequency of [...] Comments Blood Pressure 128/72 06/04/2023 3:06 PM RENTAL SALES REPRESENTATIVE Pulse 96 06/04/2023 3:06 PM RENTAL SALES REPRESENTATIVE Temperature 36.8 ??C (98.3 ??F) 07/30/2021 8:21 AM CS T Respiratory Rate 16 04/27/2023 8:52 AM RENTAL SALES REPRESENTATIVE Oxygen Saturation 99% 04/27/2023 12:13 PM RENTAL SALES REPRESENTATIVE Inhaled Oxygen Concentration - - Weight 87.6 kg (193 lb 3.2 oz) 06/04/2023 3:06 P M RENTAL SALES REPRESENTATIVE Height 170.2 cm (5' 7) 06/04/2023 3:06 PM RENTAL SALES REPRESENTATIVE Body Mass Index 30.26 06/04/2023 3:06 PM RENTAL SALES REPRESENTATIVE Plan of Treatment Health Maintenance Due Date Last Done Comments HIV for age 15-65 11/25/1987 Colonoscopy through age 75 2017 Zoster (shingles) series for age 50+ (2 of 2) 05/18/2023 03/23/2023 COVID-19 vaccine series (2022- season) 2023 05/02/2023, 08/25/2022, 05/23/2021, Additional history exists Mammogram for age 45-75 04/13/2024 04/13/2023, 03/30 BMI (ht and wt on same day) for age 18+ 06/04/2024 06/04/2023, 03/23/2023, 08/25/2022, Additional history exists Depression screening for age 12+ 06/16/2024 06/16/2023, 06/04/2023, 05/08/2023, Additional history exists Lipids for age 45-75 03/23/2028 03/23/2023, 04/26/20 21 Pap test for age 21-65 03/23/2028 03/23/2023, 2022 Tetanus booster 10/26/2031 10/25/2021 Tdap Completed 10/25/2021 Hepatitis C screening for ag e 18-79 Completed 03/23/2023 Pneumococcal series for age 6-64 Completed 03/23/20 Influenza for age 50-64 Completed 05/14/2023 Procedures Procedure Name Priority Date/Time Associated Diagnosis Comments SCAN-DIAGNOSTIC REPORT 12:00 AM RENTAL SALES REPRESENTATIVE SCAN-ULTRASOUND REPORT 12:00 AM RENTAL SALES REPRESENTATIVE ECHO TTE COMPLETE W CONTRAST Routine 05/11/2023 4:25 PM RENTAL SALES REPRESENTATIVE Encounter for therapeutic drug level monitoring SCAN-MRI INTERPRETATION 05/11/2023 12:00 AM RENTAL SALES REPRESENTATIVE PET CT SKULL BASE TO MID THIGH INITIAL TREAT Routine 05/08/2023 8:00 AM RENTAL SALES REPRESENTATIVE Breast cancer (HC) Malignant neoplasm of upper-outer quadrant of right female breast (HC) GLUCOSE METER Routine 05/08/2023 6:48 AM RENTAL SALES REPRESENTATIVE SCAN-RADIOLOGY REPORT 05/04/2023 12:00 AM RENTAL SALES REPRESENTATIVE SCAN-RADIOLOGY REPORT 05/04/2023 12:00 AM RENTAL SALES REPRESENTATIVE SCAN-OPERATIVE/PROCEDU RE REPORT 05/04/2023 12:00 AM RENTAL SALES REPRESENTATIVE SCAN-MRI INTERPRETATION 04/27/2023 12:00 AM RENTAL SALES REPRESENTATIVE LAB TRACKING EVENT Routine 04/20/2023 10 :50 AM RENTAL SALES REPRESENTATIVE LAB TRACKING EVENT Routine 04/20/2023 10 :45 AM RENTAL SALES REPRESENTATIVE PATH BREAST CORE BIOPSY Routine 04/20/2023 10:45 AM RENTAL SALES REPRESENTATIVE CG HER2 BREAST Routine 04/20/2023 10:45 AM RENTAL SALES REPRESENTATIVE CYTOGENETICS MALIGNANT TISSUE Routine 04/20/2023 10:45 AM RENTAL SALES REPRESENTATIVE US BIOPSY BREAST NEEDLE W WINDY W GUIDE LEFT ALESSANDRA 04/20/2023 12:00 AM RENTAL SALES REPRESENTATIVE Abnormal mammogram SCAN-OPERATIVE/PROCEDU RE REPORT 04/20/2023 12:00 AM RENTAL SALES REPRESENTATIVE SCAN-OPERATIVE/PROCEDU RE REPORT 04/20/2023 12:00 AM RENTAL SALES REPRESENTATIVE SCAN-OPERATIVE/PROCEDU RE REPORT 04/20/2023 12:00 AM RENTAL SALES REPRESENTATIVE US BREAST UNILATERAL LEFT LIMITED ALESSANDRA 04/13/2023 2:21 PM RENTAL SALES REPRESENTATIVE Abnormal mammogram XR MAMMO JASIEL UNI ADDL VIEWS LEFT ALESSANDRA 04/13/2023 2:09 PM RENTAL SALES REPRESENTATIVE Abnormal mammogram from Last 3 Months Results * SCAN-DIAGNOSTIC REPORT (06/15/2023 12:00 AM RENTAL SALES REPRESENTATIVE) Scanner OTHER * SCAN-ULTRASOUND REPORT (06/08/2023 12:00 AM RENTAL SALES REPRESENTATIVE) Anatomical Region Laterality Modality Other Scanner OTHER * ECHO TTE COMPLETE W CONTRAST (05/11/2023 4:25 PM RENTAL SALES REPRESENTATIVE) AORTIC VALVE MEAN PG 4 mmHg EJECTION FRACTION 60 % LVEDD 4.2 cm EJECTION FRACTION 65 - 70% Anatomical Region Laterality Modality Ultrasound 05/11/2023 3:16 PM RENTAL SALES REPRESENTATIVE Narrative 05/11/2023 4:39 PM RENTAL SALES REPRESENTATIVE ECHOCARDIOGRAM ALANIS LORA ? Accession#: ?? [id number] : ?1970 52 years Study Date: ?? 05/11/2023 3:16:07 PM Gender: F ?BP: ? 149/86 mmHg Height: 170.00 cm ?BSA: ?2.01 m? ? ? Weight: 90.00 kg ? Tech: ? MTS ? Referring MD: DINA QUIGLEY Site: ? [facility] Reading Location: MOBILE OP Patient Location: Outpatient. [...] documentation: 4 ml diluted Definity, lot #[id number], [facility]# [id number] was administered peripherally to enhance visualization of all left ventricular segments. . This study was interpreted by an [facility] accredited facility. CC: [facility]. ??Final ?? Procedure Note Arsalan Jang MD - 05/11/2023 ECHOCARDIOGRAM ALANIS LORA : 1970 52 years Study Date: 05/11/2023 3:16:07 PM Gender: F BP: 149/86 mmHg Height: 170.00 cm BSA: 2.01 m? ? ? Weight: 90.00 kg Tech: MTS Referring MD: DINA QUIGLEY Site: [facility] Reading Location: MOBILE OP Patient [...] documentation: 4 ml diluted Definity, lot #[id number], [facility]#[id number] was administered peripherally to enhance visualization of allleft ventricular segments. . This study was interpreted by an [facility] accredited facility. CC: [facility]. Final Dina Quigley MD ECHO ORD * SCAN-MRI INTERPRETATION (05/11/2023 12:00 AM RENTAL SALES REPRESENTATIVE) Only the most recent of2 resultswithin the time period is included. Anatomical Region Laterality Modality Other Scanner OTHER * PET CT SKULL BASE TO MID THIGH INITIAL TREAT (05/08/2023 8:00 AM RENTAL SALES REPRESENTATIVE) Anatomical Region Laterality Modality Positron Emissio n Tomography (PET) 05/11/2023 11:1 0 AM RENTAL SALES REPRESENTATIVE Impressions 05/11/2023 11:10 AM RENTAL SALES REPRESENTATIVE 1. Small avid mass upper outer quadrant [...] AM (Electronically Signed) Narrative 05/11/2023 11:10 AM RENTAL SALES REPRESENTATIVE For Patients: ??As a result of the Century Cures Act, [...] a result of the Cures Act, medical imagingexams and procedure reports [...] in the posterior right lower lobe (fused [id number]) and posteromedial left upper lobe nodule (fused [...] * (ABNORMAL) GLUCOSE METER (05/08/2023 6:48 AM RENTAL SALES REPRESENTATIVE) GLUCOSE METER 101(H) 65 - 100 mg/dL 05/08/2023 6:53 AM RENTAL SALES REPRESENTATIVE [facility] Blood BLOOD SPECIMEN / Unknown 05/08/2023 6:48 AM RENTAL SALES REPRESENTATIVE 05/08/2023 6:53 AM RENTAL SALES REPRESENTATIVE Dina Quigley MD CHEMISTRY Performing Organization Address [facility] de Phone Number [facility] [address] [place] [address], * SCAN-RADIOLOGY REPORT (05/04/2023 12:00 AM RENTAL SALES REPRESENTATIVE) Only the most recent of2 resultswithin the time period is included. Anatomical Region Laterality Modality Other Scanner OTHER * SCAN-OPERATIVE/PROCEDURE REPORT (05/04/2023 12:00 AM RENTAL SALES REPRESENTATIVE) Scanner OTHER * LAB TRACKING EVENT (04/20/2023 10:50 AM RENTAL SALES REPRESENTATIVE) Only the most recent of2 resultswithin the time period is included. Other (Other) Client Collect / Unknown 04/20/2023 10:50 AM RENTAL SALES REPRESENTATIVE 04/20/2023 9:27 PM RENTAL SALES REPRESENTATIVE Doctor Unknown LAB BILL ONLY Performing Organization Address [facility] de Phone Number [facility] [employer] [address] [place] [address], * PATH BREAST CORE BIOPSY (04/20/2023 10:45 AM RENTAL SALES REPRESENTATIVE) Case Report Pathology Report ?Case: [id number] ? Authorizing Provider: ??Unknown, Doctor ?Collected: ? 04/20/2023 1045 ? Ordering Location: ? [facility] ?Received: ?04/21/2023 0544 ? Pathologist: ? Allyssa Bolden MD ? Specimens: ?? A) - Left Breast Core Ultrasound Biopsy ? B) - Left Axillary Lymph Node ? 04/27/2023 5:05 PM RENTAL SALES REPRESENTATIVE [facility]-C ENTRAL LABORATORY Amendment 04/22/2023 - Amendment issued to incorporate ancillary studies. 04/27/2023 - Amendment issued to incorporate ancillary HER2 FISH studies. 04/27/2023 5:05 PM RENTAL SALES REPRESENTATIVE [facility] Final Diagnosis A) LEFT [...] extension in this biopsy 04/27/2023 5:[address] [facility]AL LAB[facility]AT[facility] Amendment electronically signed by [...] consultation with Dr. Goodson. 04/27/2023 5:05 PM [facility] [employer] LABORATORY-C ENTRAL LABORATORY Clinical Information A) 1.2 cm, irregular, circumscribed, spiculated, solid and hypoechoic left breast mass at 1:00, 13 cm from the nipple. B) 2.5 cm, oval, circumscribed, solid and hypoechoic left axillary mass. 04/27/2023 5:05 PM [facility] [employer] LABORATORY-C ENTRAL LABORATORY Gross Description A) Label: Patient's name [...] 72 hours. TRS 04/21/2023 04/27/2023 5:05 PM [facility] [facility] Microscopic Description The final diagnosis is based on microscopic examination of appropriate sections of all specimens. A) The presence of green ink is confirmed on tissue sections. B) The presence of black ink is confirmed on tissue sections. 04/27/2023 5:05 PM [facility] Cytogenetics Summary Cytogenetic testing has been ordered and will be reported separately. 04/27/2023 5:[address] [facility] [employer] REPORTING Breast Biomarker Reporting Template BREAST: [...] Drug Administration (FDA) cleared (test / vendor): [facility] ? Primary Antibody: ?4B5 ?? Test(s) Performed: [...] developed and its performance characteristics determined by [employer]. ??This test incorporates minor modifications to protocol and validated by the [facility] to yield equivocal or superior performance. This FISH test uses a multiplex probe stain procedure. 04/27/2023 5:05 PM RENTAL SALES REPRESENTATIVE [facility] [employer] LABORATORY-C ENTRAL LABORATORY Additional Information Patients with [...] not result in eligibility currently). Interpret[facility] at [facility] - [address] [address] 04/27/2023 5:05 PM RENTAL SALES REPRESENTATIVE [facility]-C ENTRAL LABORATORY Other (Left Breast Core Ultrasound Biopsy) 04/20/2023 10:45 AM RENTAL SALES REPRESENTATIVE 04/21/2023 5:44 AM RENTAL SALES REPRESENTATIVE Specimen (specimen) (Left Axillary Lymph Node) 04/20/2023 10:50 AM RENTAL SALES REPRESENTATIVE 04/21/2023 7:56 AM RENTAL SALES REPRESENTATIVE Doctor Unknown PATHOLOGY/CYTOLOGY Performing Organization Address [facility] Co de Phone Number [facility] [address] [place] [address], [place] * CG HER2 BREAST (04/20/2023 10:45 AM RENTAL SALES REPRESENTATIVE) Other (Left Breast Core Ultrasound Biopsy) 04/20/2023 10:45 AM RENTAL SALES REPRESENTATIVE 04/22/2023 1:22 PM RENTAL SALES REPRESENTATIVE Doctor Unknown LABORATORY Performing Organization Address [facility] Co de Phone Number [facility] [address] [place] [address], [place] * CYTOGENETICS MALIGNANT TISSUE STUDIES (04/20/2023 10:45 AM RENTAL SALES REPRESENTATIVE) RFR Breast Cancer 04/27/2023 1:27 PM RENTAL SALES REPRESENTATIVE [facility] TEST & RESULT SUMMARY HER2 FISH Breast: See pathology report [id number]. See comments. 04/27/2023 1:27 PM RENTAL SALES REPRESENTATIVE [facility] _ 04/27/2023 1:27 PM RENTAL SALES REPRESENTATIVE [facility] [employer]- NTRAL LABORATORY COMMENTS This record is used as an internal laboratory test designed for workflow purposes only. 04/27/2023 1:27 PM RENTAL SALES REPRESENTATIVE [facility] SOURCE Left Breast Core Ultrasound Biopsy (Paraffin Slides, 2 uns A1) [id number] 04/27/2023 1:27 PM RENTAL SALES REPRESENTATIVE [facility] LABORATORY-CE NTRAL LABORATORY Other (Left Breast Core Ultrasound Biopsy) 04/20/2023 10:45 AM RENTAL SALES REPRESENTATIVE 04/22/2023 1:22 PM RENTAL SALES REPRESENTATIVE Doctor Unknown LABORATORY [facility] LABORATORY-CENTRAL LABORATORY [address] [place] [address], [place] * US BIOPSY BREAST NEEDLE W WINDY W GUIDE LEFT (04/20/2023 12:00 AM RENTAL SALES REPRESENTATIVE) Anatomical Region Laterality Modality Breast Left Left Ultrasound Devi Rubin DO US * SCAN-OPERATIVE/PROCEDURE REPORT (04/20/2023 12:00 AM RENTAL SALES REPRESENTATIVE) Scanner OTHER * SCAN-OPERATIVE/PROCEDURE REPORT (04/20/2023 12:00 AM RENTAL SALES REPRESENTATIVE) Scanner OTHER * SCAN-OPERATIVE/PROCEDURE REPORT (04/20/2023 12:00 AM RENTAL SALES REPRESENTATIVE) Scanner OTHER * US BREAST UNILATERAL LEFT LIMITED (04/13/2023 2:21 PM RENTAL SALES REPRESENTATIVE) Anatomical Region Laterality Modality BREASTS, Breast Left, Breast Right Left Ultrasound Narrative 04/13/2023 4:00 PM RENTAL SALES REPRESENTATIVE For Patients: As a result of the Century Cures Act, medical imaging exams and procedure reports are released immediately into your electronic medical record. ??You may view this report before your referring provider. ?? If you have questions, please contact your health care provider. LEFT BREAST ULTRASOUND, 04/13/2023 PLEASE SEE [id number] FOR DIGITAL LEFT MAMMOGRAM SAME DAY. Devi Rubin DO US * XR MAMMO JASIEL UNI ADDL VIEWS LEFT (04/13/2023 2:09 PM RENTAL SALES REPRESENTATIVE) Anatomical Region Laterality Modality BREASTS, Breast Left Mammography 04/13/2023 2:28 PM RENTAL SALES REPRESENTATIVE Impressions 04/13/2023 4:00 PM RENTAL SALES REPRESENTATIVE Suspicious mass LEFT breast 1 o'clock 13 [...] your referring provider. Narrative 04/13/2023 4:00 PM RENTAL SALES REPRESENTATIVE For Patients: As a result of the [...] x 2.5 cm. Devi Rubin DO MAMMO from Last 3 Months Care Teams Supervisor [employer] Relationship Specialty [place] [id number] [place] [address] PCP - General Family Practice 03/30/23
--- NOTE | 2023-07-02 07:15 | CRLHL7_ITS ---
For Patients: As a result of the Century Cures Act, medical imaging exams and procedure reports are released immediately into your electronic medical record. You may view this report before your referring provider. If you have questions, please contact your health care provider. INDICATION: elevated LFTS COMPARISON: none TECHNIQUE: Real time farmer scale imaging and color Doppler analysis was performed of the right upper quadrant. FINDINGS: Hyperechoic focus within the left hepatic lobe measures 8 x 9 x 10 millimeters consistent with incidental hemangioma. No suspicious intrahepatic mass. The liver is not enlarged. There is a normal appearance of the hepatic IVC and proximal abdominal aorta. There is no evidence of ascites. The gallbladder is of normal size and there is no evidence of intraluminal stones or sludge. The gallbladder wall measures 2.0 mm in thickness. The common bile duct is of normal size and measures 4.5 mm in diameter at the level of the stephy hepatis. The pancreas appears normal. There is no evidence of a stone or hydronephrosis within the right kidney. The right kidney measures 10.8 cm in length. IMPRESSION: Incidental intrahepatic hemangioma measuring 1 cm. The remainder of the exam is unremarkable. Dictated by Kelvin Galo MD @ 07/02/2023 8:59:25 AM (Electronically Signed)
== END 2023-07-02 07:05 | disposition home or self-care (01) ==
PROVIDERS: PCP Family Medicine; Visit Provider Internal Medicine Hematology & Oncology
DX: R74.01 Elevation of levels of liver transaminase levels (principal); D18.09 Hemangioma of other sites; C50.919 Malignant neoplasm of unspecified site of unspecified female breast
CPT/HCPCS: 76705

== ENCOUNTER 2023-08-12 17:43 | Emergency (ER) | payer BC, SELFPAY ==
[2023-08-12 17:52] VITALS: BP 128/81; PULSE 111; TEMP 36.3; O2SAT 99; BMI 29.9
[2023-08-12 18:44] LABS: Basophils Absolute Auto 0.02 K/uL (0.00-0.30); Basophils Percent Auto 0.4 % (0.0-3.0); Eosinophils Absolute Auto 0.01 K/uL (0.00-0.50); Eosinophils Percent Auto 0.2 % (0.0-7.0); Hematocrit 22.3 % (33.0-51.0); Immature Granulocytes Abs Auto 0.02 K/uL (0.00-0.30); Immature Granulocytes Pct Auto 0.4 %; Lymphocytes Percent Auto 11.8 % (20-44); Mean Corpuscular HGB Conc 34 gm/dL (32-36); Mean Corpuscular Hemoglobin 33 pg (26-34); Mean Corpuscular Volume 95 fL (80-100); Monocytes Percent Auto 11.3 % (0.0-11.0); Neutrophils Percent Auto 75.9 % (42.0-72.0); Platelet Count* 126 K/uL (140-440); RDW Coefficient of Variation % 16.8 % (11.5-15.5); Red Blood Count 2.34 m/uL (4.00-5.20); White Blood Count* 5.57 K/uL (4.50-11.00)
--- NOTE | 2023-08-12 18:47 | ED_ITS ---
HPI - General Adult General Date Seen: 08/12/23 Chief complaint: Weakness Stated complaint: weak, low blood pressure Time Seen by Provider: 08/12/23 17:46 Source: patient, RN notes reviewed and old records reviewed Mode of arrival: ambulatory Limitations: no limitations History of Present Illness HPI narrative: Patient is a 52-year-old who is currently undergoing chemotherapy for breast ca ncer. She says that her blood counts have been progressively lower ring with each course of chemotherapy, and she had blood work done today and her hemoglobin was 7.7. It was 9 last time it was checked. She does not know whether her other cell counts are low today or not. She says that she went to her primary doctor today because she had been feeling poorly starting yesterday, she did have some chills and sweats, she says her temperature briefly was 101 although not for very long. She had several episodes of vomiting yesterday as well. No diarrhea. Vomiting is unusual for her although she does have significant nausea associated with her chemotherapy. She has felt fatigued and weak, dizzy when she sits up although this does not appear to be an entirely new symptom, and also short of breath which is not a new symptom. She has not had a cough or chest pain. She says that her primary doctor was concerned about the fact that she was lightheaded when she sat up and referred her here. Related Data Home Medications Medication Instructions Recorded Confirmed ibuprofen 800 mg tablet 800 - 1,000 mg PO Q8H PRN 04/29/23 07/27/23 docusate sodium 100 mg capsule 100 mg PO DAILY PRN 05/21/23 07/27/23 (Colace) loperamide 2 mg capsule (Imodium 2 - 4 mg PO Q2-3H PRN 05/21/23 07/27/23 A-D) loratadine 10 mg tablet (Claritin) 10 mg PO DAILY PRN 06/15/23 07/27/23 venlafaxine 37.5 mg 37.5 mg PO QDAY 07/06/23 07/27/23 capsule,extended release 24 hr (Effexor XR) Previous Rx's Medication Instructions Recorded ondansetron HCl 4 mg tablet 4 mg PO Q8H PRN nausea and 05/13/23 vomiting #60 tabs lorazepam 0.5 mg tablet (Ativan) 0.5 mg PO QDAY PRN anxiety, 12/15/23 anticipatory nausea #20 tabs prochlorperazine maleate 10 mg 10 mg PO Q8H PRN nausea and 07/27/23 tablet (Compazine) vomiting #60 tabs minocycline 100 mg capsule 100 mg PO BID #14 caps 08/05/23 Allergies Allergy/AdvReac Type Severity Reaction Status Date / Time No Known Drug Allergies Allergy Verified 07/27/23 08:19 Review of Systems Status of ROS: Reports: 10 or more systems reviewed and unremarkable except as noted in History and below [facility] Medical History History of tobacco use disorder ?Z87.891 - Personal history of nicotine dependence (ICD-10) History of alcohol abuse ?F10.11 - Alcohol abuse, in remission (ICD-10) History of depression ?Z86.59 - Personal history of other mental and behavioral disorders (ICD-10) Social History Smoking Status: Former smoker What tobacco products do you use: cigarettes Smoking quit date/years: <= 15 years ago Do you use any of these nicotine containing products: None How often do you have a drink containing alcohol: monthly or less How often do you have six or more drinks on one occasion: Never AUDIT-C Alcohol total score: 1 Non-prescribed substance use: denies use Caffeine: Yes service: No Exam Narrative: Exam Narrative: Vital signs as noted above. In general, an alert, nontoxic woman. She does look fatigued. Head: Normocephalic, atraumatic. Eyes: Pupils are equal reactive. Extraocular movements are full. Conjunctivae are normal. ENT: Mucous membranes are moist. Throat is normal. Neck: Supple without lymphadenopathy. Heart: Mildly tachycardic and regular, no murmur. Lungs: Clear bilaterally. No increased work of breathing, crackles or wheezes. No CVA tenderness. Abdomen: Soft and nontender. No organomegaly. Extremities: Well perfused. No edema. No calf tenderness. Pulses intact. Neurologic: Patient is alert and oriented to person and place. Speech is fluent. Face is symmetric. Moves all extremities equally. Affect: Normal. Skin: Warm and dry. Well perfused. Const: Vital Signs, click to edit/add: Vital Signs - 24 hr 08/12/23 17:52 Temperature 97.4 F L Pulse Rate [Pulse Oximeter] 111 H Blood Pressure [Ri ght Upper Arm] 128/81 Pulse Oximetry 99 Oxygen Delivery Me thod Room Air Documenting provider has reviewed patient's vital signs: yes Course Course ED Course: Patient presents with weakness, some vomiting, perhaps a brief fever yesterday although she is afebrile here. She is anemic, which has been gradually worsening secondary to her chemotherapy presumably. Other blood counts unknown as blood work was done at [facility]. Diagnostic considerations include neutropenic fever, sepsis, pneumonia, UTI, viral infection, anemia, gastroenteritis among others. Patient had a L of normal saline, she does feel better in terms of the dizziness that she has when standing up. Influenza, COVID and RSV are negative. Her hemoglobin is low, 7.6, but she has a white count of 5.6 and platelets of a [id number]. Metabolic panel is unremarkable. LFTs show an ALT of 63 but are otherwise normal. CRP is very minimally elevated at 1.7. Urinalysis is negative, no ketones, 0-2 red cells and 0-2 white cells. I have discussed all this with her. She is not neutropenic, she is afebrile here, without significant findings on exam or workup to suggest focal infection. She is anemic, I do not think requires transfusion emergently, but given that she seems to be progressively symptomatic as her hemoglobin drops lower, recommended that she talk with her oncologist and see if they feel a transfusion might be helpful for her in terms of symptoms of fatigue, weakness, orthostasis. Otherwise, I think it is reasonable to let her go home. Continue work on hydration, return any time for acute worsening or new symptoms such as significant shortness of breath, high fevers, vomiting etcetera. She is comfortable with that plan. Vital Signs Vital signs: Initial Vital Signs Temperature 97.4 F L 08/12/23 17:52 Temperature Source Temporal Artery Scan 08/12/23 17:52 Pulse Rate 111 H 08/12/23 17:52 Blood Pressure 128/81 08/12/23 17:52 Blood Pressure Mean 96 08/12/23 17:52 Blood Pressure Position Sitting 08/12/23 17:52 Pulse Oximetry 99 08/12/23 17:52 Oxygen Delivery Method Room Air 08/12/23 17:52 Vital Signs Temperature 97.4 F L 08/12/23 17:52 Pulse Rate 111 H 08/12/23 17:52 Blood Pressure 128/81 08/12/23 17:52 Pulse Oximetry 99 08/12/23 17:52 Oxygen Delivery Method Room Air 08/12/23 17:52 Temperature 97.4 F L 08/12/23 17:52 Pulse Rate 111 H 08/12/23 17:52 Blood Pressure 128/81 08/12/23 17:52 Pulse Oximetry 99 08/12/23 17:52 Oxygen Delivery Method Room Air 08/12/23 17:52 Medications Administered Medications: Discontinued Medications Generic Name Dose Route Start Last Admin Trade Name Freq PRN Reason Stop Dose Admin Sodium Chloride 1,000 mls @ 1,000 mls/hr 08/12/23 18:15 08/12/23 20:10 0.9 % Sodium Chloride 1000 Ml IV 08/12/23 19:14 Infused .Q1H JEFF Infusion Ondansetron HCl 4 mg 08/12/23 18:14 08/12/23 18:58 Ondansetron Odt 4 Mg Tab PO 08/12/23 18:15 4 mg ONCE ONE Administration Medical Decision Making Lab Data Labs: Lab Results 08/12/23 08/12/23 08/12/23 Range/Units 18:14 18:47 20:05 WBC 5.57 (4.50-11.00) K/uL RBC 2.34 L (4.00-5.20) m/uL Hgb 7.6 L* (12.0-16.0) gm/dL Hct 22.3 L (33.0-51.0) % MCV 95 (80-100) fL MCH 33 (26-34) pg MCHC 34 (32-36) gm/dL RDW Coeff of Siva 16.8 H (11.5-15.5) % Plt Count 126 L (140-440) K/uL Neut % (Auto) 75.9 H (42.0-72.0) % Lymph % (Auto) 11.8 L (20-44) % Stanly % (Auto) 11.3 H (0.0-11.0) % Eos % (Auto) 0.2 (0.0-7.0) % Baso % (Auto) 0.4 (0.0-3.0) % Neut # (Auto) 4.20 (1.7-7.0) K/uL Lymph # (Auto) 0.70 L (0.90-2.90) K/uL Stanly # (Auto) 0.60 (0.00-0.90) K/UL Eos # (Auto) 0.01 (0.00-0.50) K/uL Baso # (Auto) 0.02 (0.00-0.30) K/uL Abs Immat Gran (auto) 0.02 (0.00-0.30) K/uL Imm/Tot Granulo (auto) 0.4 % Sodium 135 (135-149) mmol/L Potassium 3.5 L (3.6-5.1) mmol/L Chloride 99 (96-114) mmol/L Carbon Dioxide 27 (20-32) mmol/L Anion Gap 9 (7-15) mEq/L BUN 20 (7-30) mg/dL Creatinine 1.0 (0.5-1.5) mg/dL Estimated Creat Clear 65.45 Estimated GFR 69 ml/min Glucose 111 (60-115) mg/dL Calcium 8.9 (8.4-10.6) mg/dL Total Bilirubin 0.3 (0.1-1.5) mg/dL Direct Bilirubin 0.2 (0.0-0.5) mg/dL AST 33 (12-35) U/L ALT 63 H (4-35) U/L Alkaline Phosphatase 93 (40-150) U/L C-Reactive Protein 1.7 H (0.5-1.0) mg/dL Total Protein 7.4 (6.0-8.3) g/dL Albumin 4.0 (3.3-5.0) g/dL Urine Color Yellow (Yellow) Urine Appearance Clear (Clear) Urine pH 5.5 (5.0-8.5) Ur Specific Cyrus <= 1.005 (1.000-1.030) Urine Protein Negative (Negative) Urine Glucose (UA) Negative (Negative) Urine Ketones Negative (Negative) Urine Blood Trace-lysed A (Negative) Urine Nitrite Negative (Negative) Urine Bilirubin Negative (Negative) Urine Urobilinogen 0.2 (0.2-1.0) Ur Leukocyte Esterase 1+ A (Negative) Urine RBC 0-2 (0-2) Urine WBC 0-2 (0-5) Ur Squamous Epith Cells Moderate A (None-Few) Urine Bacteria None (None) SARS-CoV-2 (PCR) Negative SARS-CoV-2 (Negative) Influenza Type A (PCR) Negative PCR FLU A (Negative) Influenza Type B (PCR) Negative PCR FLU B (Negative) RSV (PCR) Negative PCR RSV (Negative) Blood Type O Positive Antibody Screen NEGATIVE Discharge Plan Discharge Clinical Impression: Anemia, Breast cancer, Dehydration Patient Disposition: Home, Self-Care Condition: Improved Instructions: Dehydration (DC), Anemia (ED) Additional Instructions: Continue to maintain hydration as much as possible. I would recommend calling your oncology team tomorrow, your hemoglobin here today was 7.6, may be slightly lower after giving IV fluids. It is reasonable to ask if your oncologist feels that a transfusion might be helpful for you symptomatically. It is possible that they will not think so, but it is reasonable to ask. For acute worsening, fainting, significant shortness of breath, protracted vomiting or other worsen ing, return any time to the emergency department. FYI, your blood type is O- positive. Prescriptions: No Action ibuprofen 800 mg tablet 800 - 1,000 mg PO Q8H PRN venlafaxine [Effexor XR] 37.5 mg capsule,extended release 24hr 37.5 mg PO QDAY prochlorperazine maleate [Compazine] 10 mg tablet 10 mg PO Q8H PRN (Reason: nausea and vomiting) Qty: 60 0RF ondansetron HCl 4 mg tablet 4 mg PO Q8H PRN (Reason: nausea and vomiting) Qty: 60 0RF docusate sodium [Colace] 100 mg capsule 100 mg PO DAILY PRN loperamide [Imodium A-D] 2 mg capsule 2 - 4 mg PO Q2-3H PRN Rx Instructions: administer after each loose stool until symptoms controlled; do not exceed 8 mg per 24 hrs loratadine [Claritin] 10 mg tablet 10 mg PO DAILY PRN lorazepam [Ativan] 0.5 mg tablet 0.5 mg PO QDAY PRN (Reason: anxiety, anticipatory nausea) Qty: 20 0RF minocycline 100 mg capsule 100 mg PO BID Qty: 14 0RF Follow Up/Referrals: Devi Rubin DO [Primary Care Provider] - Stand Alone Forms: MyHealth Info Instructions
[2023-08-12 18:55] LABS: Hemoglobin* 7.6 gm/dL (12.0-16.0); Slide Review Reflex No
[2023-08-12 18:56] LABS: Chloride* 99 mmol/L (96-114)
[2023-08-12 18:57] LABS: Potassium* 3.5 mmol/L (3.6-5.1); Sodium* 135 mmol/L (135-149)
[2023-08-12] MEDS: 0.9 % SODIUM CHLORIDE 1000 ml 1,000 ML IV (18:58)
[2023-08-12] MEDS: ONDANSETRON ODT 4 MG TAB PO (18:58)
[2023-08-12 18:59] LABS: Est. Creatinine Clearance* 65.45; Estimated Glomerular Filt Rate 69 ml/min
[2023-08-12 19:00] LABS: Alanine Aminotransferase* 63 U/L (4-35); Alkaline Phosphatase* 93 U/L (40-150); Anion Gap 9 mEq/L (7-15); Aspartate Amino Transferase* 33 U/L (12-35); Bilirubin Direct* 0.2 mg/dL (0.0-0.5); Bilirubin Total* 0.3 mg/dL (0.1-1.5); Blood Urea Nitrogen* 20 mg/dL (7-30); Calcium* 8.9 mg/dL (8.4-10.6); Carbon Dioxide* 27 mmol/L (20-32); Glucose* 111 mg/dL (60-115); Total Protein* 7.4 g/dL (6.0-8.3)
[2023-08-12 19:02] LABS: C Reactive Protein* 1.7 mg/dL (0.5-1.0)
[2023-08-12 19:41] LABS: PCR FLU A Negative PCR FLU A (Negative); PCR FLU B Negative PCR FLU B (Negative); PCR RSV Negative PCR RSV (Negative); SARS PCR* Negative SARS-CoV-2 (Negative)
[2023-08-12 20:19] LABS: Appearance Urine Clear (Clear); Bilirubin Urine Negative (Negative); Blood Urine Trace-lysed (Negative); Color Urine Yellow (Yellow); Glucose Urine Negative (Negative); Ketones Urine Negative (Negative); Leukocyte Esterase Urine 1+ (Negative); Nitrite Urine Negative (Negative); Protein Urine Negative (Negative); Specific Gravity Urine <= 1.005 (1.000-1.030); Urobilinogen Urine 0.2 (0.2-1.0); pH Urine 5.5 (5.0-8.5)
[2023-08-12 20:50] LABS: RBC Urine 0-2 (0-2); Squamous Epithelial Cell Urine Moderate (None-Few); WBC Urine 0-2 (0-5)
== END 2023-08-12 21:04 | disposition home or self-care (01) ==
PROVIDERS: Emergency Provider Emergency Medicine; PCP Family Medicine
DX: D64.9 Anemia, unspecified (principal); E86.0 Dehydration; C50.912 Malignant neoplasm of unspecified site of left female breast
CPT/HCPCS: 36415; 80048; 80076; 81001; 85025; 86140; 86850; 86900; 86901; 87040; 87086; 87631; 99284; A9270; J7030

== ENCOUNTER 2023-08-14 08:49 | Outpatient (CLI) | payer BC, SELFPAY | END 2023-08-14 08:50 | disposition home or self-care (01) | LOC: RAD 08:49 | PROVIDERS: PCP Family Medicine; Visit Provider Physician Assistant | DX: C50.912 Malignant neoplasm of unspecified site of left female breast (principal); Z51.81 Encounter for therapeutic drug level monitoring; Z79.899 Other long term (current) drug therapy | CPT/HCPCS: 93306 ==

== ENCOUNTER 2023-08-30 12:48 | Emergency (ER) | payer BC, SELFPAY ==
[2023-08-30 12:59] VITALS: BP 146/76; PULSE 104; RESP 20; TEMP 37.3; O2SAT 98; BMI 30.2
--- NOTE | 2023-08-30 13:32 | ED_ITS ---
HPI - General Adult General Chief complaint: Weakness Stated complaint: feels miserable tingly arms/lips, cancer pt Time Seen by Provider: 08/30/23 13:21 History of Present Illness HPI narrative: Patient is a 52-year-old who has breast cancer. She is working with Dr. Andrea salas. The patient is getting Taxol every 3 weeks. She has been running borderline low anemic but her white count has been good. She reports taking some minocycline for and acneiform type dermatitis prior and got sick from the medicine stopped it, and restarted it yesterday and felt sick right away again. She describes some body aches does not feel well, mild GI distress, no rigors no cough. She describes some muscle aching as well. Presents to the ER for evaluation. She denies rigors, denies dysuria denies sore throat, denies cough as mention denies chest pain. Related Data Home Medications Medication Instructions Recorded Confirmed ibuprofen 800 mg tablet 800 - 1,000 mg PO Q8H PRN 04/29/23 08/17/23 docusate sodium 100 mg capsule 100 mg PO DAILY PRN 05/21/23 08/17/23 (Colace) loperamide 2 mg capsule (Imodium 2 - 4 mg PO Q2-3H PRN 05/21/23 08/17/23 A-D) loratadine 10 mg tablet (Claritin) 10 mg PO DAILY PRN 06/15/23 08/17/23 venlafaxine 37.5 mg 37.5 mg PO QDAY 07/06/23 08/17/23 capsule,extended release 24 hr (Effexor XR) Previous Rx's Medication Instructions Recorded ondansetron HCl 4 mg tablet 4 mg PO Q8H PRN nausea and 05/13/23 vomiting #60 tabs lorazepam 0.5 mg tablet (Ativan) 0.5 mg PO QDAY PRN anxiety, 05/15/23 anticipatory nausea #20 tabs prochlorperazine maleate 10 mg 10 mg PO Q8H PRN nausea and 07/27/23 tablet (Compazine) vomiting #60 tabs minocycline 100 mg capsule 100 mg PO BID #14 caps 08/05/23 Allergies Allergy/AdvReac Type Severity Reaction Status Date / Time No Known Drug Allergies Allergy Verified 08/17/23 08:15 Review of Systems Status of ROS: Reports: 6 or more systems reviewed and unremarkable except as noted in History and below [facility] Medical History Anemia ?D64.9 - Anemia, unspecified (ICD-10) History of tobacco use disorder ?Z87.891 - Personal history of nicotine dependence (ICD-10) History of alcohol abuse ?F10.11 - Alcohol abuse, in remission (ICD-10) History of depression ?Z86.59 - Personal history of other mental and behavioral disorders (ICD-10) Social History Smoking Status: Former smoker What tobacco products do you use: cigarettes Smoking quit date/years: <= 15 years ago Do you use any of these nicotine containing products: None Second hand tobacco smoke exposure: No How often do you have a drink containing alcohol: monthly or less How many standard drinks containing alcohol do you have on a typical day: 1 or 2 How often do you have six or more drinks on one occasion: Never AUDIT-C Alcohol total score: 1 Non-prescribed substance use: denies use Caffeine: Yes service: No Exam Narrative: Exam Narrative: Objective: Patient is drinking fluids adequately, able to drink Powerade without difficulty or nausea Temperature 99?, blood pressure systolic is 146, O2 sat 90% on room air Alert orient x3 Noncyanotic HEENT shows no facial asymmetry mouth clear neck is supple Chest is clear Pulse regular Abdomen benign soft nontender Extremities are no edema neurologic nonfocal. Const: Vital Signs, click to edit/add: Vital Signs - 24 hr 08/30/23 12:59 Temperature 99.1 F Pulse Rate [Pulse Oximeter] 104 H Respiratory Rate 20 Blood Pressure [Ri ght Upper Arm] 146/76 H Pulse Oximetry 98 Oxygen Delivery Me thod Room Air Course Vital Signs Vital signs: Initial Vital Signs Temperature 99.1 F 08/30/23 12:59 Temperature Source Oral 08/30/23 12:59 Pulse Rate 104 H 08/30/23 12:59 Pulse Rhythm Regular 08/30/23 12:59 Respiratory Rate 20 08/30/23 12:59 Blood Pressure 146/76 H 08/30/23 12:59 Blood Pressure Mean 99 08/30/23 12:59 Blood Pressure Position Left Lateral 08/30/23 12:59 Pulse Oximetry 98 03/31/24 12:59 Oxygen Delivery Method Room Air 08/30/23 12:59 Vital Signs Temperature 99.1 F 08/30/23 12:59 Pulse Rate 104 H 08/30/23 12:59 Respiratory Rate 20 08/30/23 12:59 Blood Pressure 146/76 H 08/30/23 12:59 Pulse Oximetry 98 08/30/23 12:59 Oxygen Delivery Method Room Air 08/30/23 12:59 Temperature 99.1 F 08/30/23 12:59 Pulse Rate 104 H 08/30/23 12:59 Respiratory Rate 20 08/30/23 12:59 Blood Pressure 146/76 H 08/30/23 12:59 Pulse Oximetry 98 08/30/23 12:59 Oxygen Delivery Method Room Air 08/30/23 12:59 Medical Decision Making MDM Narrative Medical decision making narrative: 52-year-old female with breast cancer, currently under care with Taxol for chemotherapy and several other agents. She has had recently normal white counts. However today she does have a low-grade fever, she does not feel well. I think ruling out COVID/influenza/RSV would be appropriate in this will be ordered. Will also do a blood culture. She has had no dysuria frequency I do not think a urine as necessary and she has had no cough of significance I do not think we need to do an x-ray given her reassuring clinical examination. She certainly could also be manifesting reaction to the minocycline, which sometimes has some significant affects on people and she had a similar effect taking it prior. She has stop the medication. Will review lab studies as above and then disposition pending findings. Addendum 2:35 p.m. patient's hemoglobin is proximally within lab error where typically is about 8 at 7.8 today. She has not had any obvious bleeding. She has a white count of 7350, and early viral studies are all negative. At this point I think this may be due largely to the minocycline I would recommend observation, follow the blood culture as needed, update the [facility] with symptomology. Return if problems or concerns. Continue to push p.o. fluids Tylenol as needed. The patient has a plan to call the infusion center tomorrow I think that is a great idea to see when they want her to get a transfusion. At this time today I do not think she needs that done emergently as she is about 8 now. Would recommend preps recheck the hemoglobin in a few days but that she can consult with her primary oncologist team. Lab Data Labs: Lab Results 08/30/23 08/30/23 Range/Units 13:44 Unknown WBC 7.35 (4.50-11.00) K/uL RBC 2.35 L (4.00-5.20) m/uL Hgb 7.8 L* (12.0-16.0) gm/dL Hct 23.3 L (33.0-51.0) % MCV 99 (80-100) fL MCH 33 (26-34) pg MCHC 34 (32-36) gm/dL RDW Coeff of Siva 17.1 H (11.5-15.5) % Plt Count 166 (140-440) K/uL Neut % (Auto) 75.2 H (42.0-72.0) % Lymph % (Auto) 11.4 L (20-44) % [place] % (Auto) 12.5 H (0.0-11.0) % Eos % (Auto) 0.1 (0.0-7.0) % Baso % (Auto) 0.1 (0.0-3.0) % Neut # (Auto) 5.50 (1.7-7.0) K/uL Lymph # (Auto) 0.80 L (0.90-2.90) K/uL [place] # (Auto) 0.90 (0.00-0.90) K/UL Eos # (Auto) 0.01 (0.00-0.50) K/uL Baso # (Auto) 0.01 (0.00-0.30) K/uL Abs Immat Gran (auto) 0.05 (0.00-0.30) K/uL Imm/Tot Granulo (auto) 0.7 % Sodium 136 (135-149) mmol/L Potassium 3.4 L (3.6-5.1) mmol/L Chloride 99 (96-114) mmol/L Carbon Dioxide 27 (20-32) mmol/L Anion Gap 10 (7-15) mEq/L BUN 18 (7-30) mg/dL Creatinine 0.9 (0.5-1.5) mg/dL Estimated Creat Clear 72.72 Estimated GFR 78 ml/min Glucose 123 H (60-115) mg/dL Calcium 8.4 (8.4-10.6) mg/dL SARS-CoV-2 (PCR) Negative SARS-CoV-2 (Negative) Influenza Type A (PCR) Negative PCR FLU A (Negative) Influenza Type B (PCR) Negative PCR FLU B (Negative) RSV (PCR) Negative PCR RSV (Negative) Discharge Plan Discharge Clinical Impression: Influenza-like illness, Breast cancer Patient Disposition: Home w/ Parent or Adult Condition: Stable Additional Instructions: Update [facility] in the next couple of days, light activity, fluids to continue, Tylenol as needed, continue home medications. Return to ED problems concerns worsening. Activity Level: Light activity Discharge Diet: Regular Prescriptions: No Action ibuprofen 800 mg tablet 800 - 1,000 mg PO Q8H PRN venlafaxine [Effexor XR] 37.5 mg capsule,extended release 24hr 37.5 mg PO QDAY prochlorperazine maleate [Compazine] 10 mg tablet 10 mg PO Q8H PRN (Reason: nausea and vomiting) Qty: 60 0RF ondansetron HCl 4 mg tablet 4 mg PO Q8H PRN (Reason: nausea and vomiting) Qty: 60 0RF docusate sodium [Colace] 100 mg capsule 100 mg PO DAILY PRN loperamide [Imodium A-D] 2 mg capsule 2 - 4 mg PO Q2-3H PRN Rx Instructions: administer after each loose stool until symptoms controlled; do not exceed 8 mg per 24 hrs loratadine [Claritin] 10 mg tablet 10 mg PO DAILY PRN lorazepam [Ativan] 0.5 mg tablet 0.5 mg PO QDAY PRN (Reason: anxiety, anticipatory nausea) Qty: 20 0RF minocycline 100 mg capsule 100 mg PO BID Qty: 14 0RF Follow Up/Referrals: Devi Rubin DO [Primary Care Provider] - Stand Alone Forms: [facility] Info Instructions
[2023-08-30 13:58] LABS: Basophils Absolute Auto 0.01 K/uL (0.00-0.30); Basophils Percent Auto 0.1 % (0.0-3.0); Eosinophils Absolute Auto 0.01 K/uL (0.00-0.50); Eosinophils Percent Auto 0.1 % (0.0-7.0); Hematocrit 23.3 % (33.0-51.0); Immature Granulocytes Abs Auto 0.05 K/uL (0.00-0.30); Immature Granulocytes Pct Auto 0.7 %; Lymphocytes Percent Auto 11.4 % (20-44); Mean Corpuscular HGB Conc 34 gm/dL (32-36); Mean Corpuscular Hemoglobin 33 pg (26-34); Mean Corpuscular Volume 99 fL (80-100); Monocytes Percent Auto 12.5 % (0.0-11.0); Neutrophils Percent Auto 75.2 % (42.0-72.0); Platelet Count* 166 K/uL (140-440); RDW Coefficient of Variation % 17.1 % (11.5-15.5); Red Blood Count 2.35 m/uL (4.00-5.20); White Blood Count* 7.35 K/uL (4.50-11.00)
[2023-08-30 14:00] LABS: Hemoglobin* 7.8 gm/dL (12.0-16.0)
[2023-08-30 14:01] LABS: Slide Review Reflex No
[2023-08-30 14:09] LABS: Chloride* 99 mmol/L (96-114); Potassium* 3.4 mmol/L (3.6-5.1); Sodium* 136 mmol/L (135-149)
[2023-08-30 14:12] LABS: Anion Gap 10 mEq/L (7-15); Blood Urea Nitrogen* 18 mg/dL (7-30); Calcium* 8.4 mg/dL (8.4-10.6); Carbon Dioxide* 27 mmol/L (20-32); Creatinine* 0.9 mg/dL (0.5-1.5); Est. Creatinine Clearance* 72.72; Estimated Glomerular Filt Rate 78 ml/min; Glucose* 123 mg/dL (60-115)
[2023-08-30 14:32] LABS: PCR FLU A Negative PCR FLU A (Negative); PCR FLU B Negative PCR FLU B (Negative); PCR RSV Negative PCR RSV (Negative); SARS PCR* Negative SARS-CoV-2 (Negative)
== END 2023-08-30 14:53 | disposition home or self-care (01) ==
LOC: ED 14:02
PROVIDERS: Emergency Provider Family Medicine; PCP Family Medicine
DX: J10.89 Influenza due to other identified influenza virus with other manifestations (principal); C50.912 Malignant neoplasm of unspecified site of left female breast
CPT/HCPCS: 36415; 80048; 85025; 87040; 87631; 99283; 99284

== ENCOUNTER 2023-10-06 06:37 | Inpatient (IN) | payer BC, SELFPAY ==
[2023-10-06] VITALS (20 sets, daily range): BP systolic 121–139; BP diastolic 71–81; PULSE 70–105; RESP 12–18; TEMP 36.1–36.9; O2SAT 91–98; BMI 31.1
--- OUTSIDE RECORDS SUMMARY | 2023-10-06 06:39 | XMS_ITS | Clinical Summary ---
Author Name Unknown Organization [facility] Address [place], [place] [address] Care Team Providers Care Tile Classifier Name Role Phone Devi Rubin Primary Care Provider [phone] Allergies Active Allergy Reactions Criticality Noted Date Comments Minocycline Other - Describe In Comment Field 09/14/2023 [place] like she had the flu Medications Medication Sig Dispensed Refills Start Date End Date Status Graduated Compression StockingsIndicatio ns:Uncomplicated varicose veins For personal use. Length: thigh Strength: 20-30 mmHg Circumference in cm: For thigh: Ankle 25cm, Calf 37cm, Thigh 51cm, Thigh to Ankle length 54cm. 1 Packet 08/25/2022 Active LORazepam (ATIVAN) 0.5 mg tabIndications:REYNALDO (generalized anxiety disorder),Difficul ty sleeping,Feeling worried Take 1 Tablet (0.5 mg) by mouth at bedtime if needed for Anxiety. 20 Tablet 04/27/2023 Active prochlorperazine (COMPAZINE) 10 mg tablet Take 10 mg by mouth every 8 hours if needed for Nausea/Vomiting. 05/13/2023 Active ondansetron (ZOFRAN) 4 mg tablet TAKE 1 TABLET BY MOUTH EVERY 8 HOURS NEEDED FOR NAUSEA AND VOMITING 05/13/2023 Active prochlorperazine (COMPAZINE) 10 mg tablet Take 10 mg by mouth every 8 hours if needed. 05/13/2023 Active PERTUZUMAB IV Inject intravenous. Ac tive TRASTUZUMAB IV Inject 6 mg/kg intravenous. Active trastuzumab-dkst (OGIVRI IV) Inject 8 mg/kg intravenous. Active fosaprepitant (EMEND) 150 mg injection Inject 150 mg intravenous one time. Active palonosetron HCl (PALONOSETRON IV) Inject 0.25 mg intravenous. Active CARBOPLATIN IV Inject 750 mg intravenous. Active DOCETAXEL IV Inject intravenous. Act mckay PEGFILGRASTIM SUBQ Inject 6 mg subcutaneous. Active Dextromethorphan HBr 5 mg/5 mL syrp Take by mouth. 04/29/2023 Ac tive ibuprofen (ADVIL; MOTRIN) 800 mg tablet Take 800 mg by mouth every 8 hours if needed for Pain. 04/29/2023 Active loratadine (CLARITIN) 10 mg tablet Take 10 mg by mouth once daily. 06/15/2023 Active docusate (COLACE) 100 mg capsule Take 100 mg by mouth once daily if needed for Constipation. 05/21/2023 Active loperamide (IMODIUM) 2 mg capsule Take by mouth. 05/21/2023 Active venlafaxine (EFFEXOR XR) 37.5 mg Extended-Release capsuleIndications :REYNALDO (generalized anxiety disorder) Take 1 Capsule (37.5 mg) by mouth once daily with a meal. 90 Capsule 07/09/2023 Active Active Problems Problem Noted Date Diagnosed Date [...] Encounters Date Type Department Care Team Description 09/23/2023 Telephone [facility] [address] [place] [address] Bishnu Segura MD Surgery Scheduled 09/22/2023 1:45 PM CDT Preop Visit [facility] [id number] [place] [address] Marina Harris PA Preoperative Exam (10/06/2023 ) 09/22/2023 Travel 09/14/2023 1:00 PM CDT Office Visit [facility] [address] [place] [address] Bishnu Segura MD Follow Up (Left breast cancer) 09/14/2023 Travel 09/12/2023 Travel 08/14/2023 9:00 AM CDT Ancillary Procedure [facility] [address] [place] [address] 08/12/2023 4:10 PM CDT Office Visit [address] [address] Devi Rubin DO Throat Problem (Sore throat started yesterday); Vomiting (5 times over night. None this morning, able to keep food and liquids down) 08/12/2023 Travel 08/12/2023 Nurse Triage [facility] [id number] [place] [address] Devi Rubin DO Appointment (SORE THROAT/THROWING UP); Vomiting 07/08/[address] [address] Marina Harris PA Refill Request from Last 3 Months Immunizations Name Administration Dates Next Due COVID-19 vaccine (Moderna 100mcg/0.5mL) JEFF MONTELONGO 09/28/2020,08/20/2020 COVID-19 vaccine (Moderna 50 mcg/0.5mL) 12YO+ BIVALENT PF, MDV 08/25/2022 Influenza Virus, Unspecified 05/14/2023 Influenza, IIV4 05/14/2023 Pneumococcal Conj 20-valent (Prevnar 20) 023 [...] Used Date Smoking Tobacco: Former Cigarettes 0.3 24.3 S tarted: 06/01/1999 Smokeless Tobacco: Never Tobacco Cessation:Counseling Given: Not Answered Comments:some on weekends, 1/2 pack Alcohol Use Standard Drinks/Week Comments Not Currently 0 (1 standard drink = 0.6 oz pur e alcohol) 6-16 drinks on weekends PHQ-2 Answer Date Recorded PHQ-2 TOTAL SCORE 0 07/09/2023 Social Connections Answer Date Recorded Frequency of Communication with Friends and Fami ly 0 09/22/2023 Financial Resource Strain Answer Date R ecorded Difficulty of Paying Living Expenses 3 09/22/2023 Difficulty of Paying Living Expenses Not on file 09/22/2023 Food Insecurity Answer Date Recorded Worried About Running Out of Food in the Last Ye ar 1 09/22/2023 Transportation Needs Answer Date Record ed Lack of Transportation (Medical) 1 09/22/2023 Housing Stability Answer Date Recorded Unable to Pay for Housing in the Last Year 1 09/22/2023 Sex and Gender Information Value Date Recorded Sex Assigned at Not on file Gender Identity Not on file Sexual Orientation Not on file Obstetrics History Para Term AB IAB SAB Ectopic Multiple Livin g Live Births 0 0 0 0 0 0 0 0 0 0 0 Last Filed Vital Signs Vital Sign Reading Time Taken Comments Blood Pressure 112/64 09/22/2023 1:45 PM CDT Pulse 99 09/14/2023 1:03 PM CDT Temperature 36.6 ??C (97.8 ??F) 08/12/2023 4:18 PM CD T Respiratory Rate 16 04/27/2023 8:52 AM TRADING MANAGER Oxygen Saturation 98% 09/14/2023 1:03 PM CDT Inhaled Oxygen Concentration - - Weight 90.3 kg (199 lb) 09/22/2023 1:45 PM CDT Height 170.2 cm (5' 7) 09/22/2023 1:45 PM CDT Body Mass Index 31.17 09/22/2023 1:45 PM CDT Plan of Treatment Health Maintenance Due Date Last Done Comments HIV for age 15-65 11/25/1987 Colonoscopy through age 75 2017 Zoster (shingles) series for age 50+ (2 of 2) 05/18/2023 03/23/2023 COVID-19 vaccine series (2022- season) 2023 05/02/2023, 08/25/2022, 05/23/2021, Additional history exists Influenza for age 50-64 01/31/2024 05/14/2023, 05/14 Mammogram for age 45-75 04/13/2024 04/13/2023, 03/30 Depression screening for age 12+ 07/09/2024 07/09/2023, 07/08/2023, 06/16/2023, Additional history exists BMI (ht and wt on same day) for age 18+ 09/21/2024 09/22/2023, 06/04/2023, 03/23/2023, Additional history exists Lipids for age 45-75 03/23/2028 03/23/2023, 04/26/20 21 Pap test for age 21-65 03/23/2028 03/23/2023, 2022 Tetanus booster 10/26/2031 10/25/2021 Tdap Completed 10/25/2021 Hepatitis C screening for ag e 18-79 Completed 03/23/2023 Pneumococcal series for age 6-64 Completed 03/23/20 23 Procedures Procedure Name Priority Date/Time Associated Diagnosis Comments ECHO TTE COMPLETE WO CONTRAST Routine 08/14/2023 9:22 AM CDT Malignant neoplasm (HC) PERIPHERAL BLD MORPHOLOGY Routine 08/12/2023 4:52 PM CDT Other iron deficiency anemia Adverse effect of chemotherapy, initial encounter Thrombocytopenia (HC) RETICULOCYTES Add On 08/12/2023 4:52 PM CDT Other iron deficiency anemia Adverse effect of chemotherapy, initial encounter Thrombocytopenia (HC) CBC WITH AUTO DIFFERENTIAL Routine 08/12/2023 4:44 PM CDT Other iron deficiency anemia COMP METABOLIC PANEL Routine 08/12/2023 4:44 PM CDT Other iron deficiency anemia IRON PLUS IRON BINDING CAP Routine 08/12/2023 4:44 PM CDT Other iron deficiency anemia FERRITIN Routine 08/12/2023 4:44 PM CDT Other iron deficiency anemia CBC WITH AUTO DIFFERENTIAL Routine 08/12/2023 4:44 PM CDT Other iron deficiency anemia XR MAMMO JASIEL UNI ADDL VIEWS LEFT ALESSANDRA 04/13/2023 2:09 PM TRADING MANAGER Abnormal mammogram ANTI HCV Routine 03/23/2023 11:48 AM CDT Need for hepatitis C screening test LIPID PANEL W REFLEX MEASURED LDL Routine 03/23/2023 11:48 AM CDT Screening cholesterol level HPV THIN PREP Routine 03/23/2023 11:19 AM CDT Screening for cervical cancer from Last 3 Months or Most Recently Relevant to Health Maintenance Results * ECHO TTE COMPLETE WO CONTRAST (08/14/2023 9:22 AM CDT) AORTIC VALVE MEAN PG 4 mmHg EJECTION FRACTION 62 % LVEDD 4.3 cm EJECTION FRACTION 60 - 65% Anatomical Region Laterality Modality Ultrasound 08/14/2023 9:06 AM CDT Narrative 08/14/2023 10:08 AM CDT ECHOCARDIOGRAM ALANIS LORA ? Accession#: ?? [id number] : ?1970 52 years Study Date: ?? 08/14/2023 9:06:19 AM Gender: F ?BP: ? 118/70 mmHg Height: 170.00 cm ?BSA: ?1.98 m? ? ? Weight: 87.00 kg ? Tech: ? NWA ? Referring MD: ARGENTINA ALFREDO Site: ? [facility] Reading Location: Mobile-OP Patient Location: Outpatient. Procedure: 2D, Color Doppler and Spectral Doppler. Indication for study: Malignant neoplasm Cardiac Rhythm: Regular.Study quality: Fair. Final Impressions: 1. Normal LV size, borderline wall thickness, estimated EF of 60 - 65%. 2. No pericardial effusion. 3. No significant valve disease detected. Comparison Compared to prior exam of 05/11/23, there has been no significant change. Chamber Sizes and Function Normal left ventricular size, borderline wall thickness, normal global systolic function with an estimated EF of 60 - 65%. Left atrial size is normal. Right ventricular cavity size is normal, global systolic RV function is normal. RV wall thickness is normal. The right atrium is normal. Right atrial volume index is 13 ml/m? ? ?. Right atrial area is 12 cm? ? ?. The pulmonary artery is of normal size and origin. The sinus of Valsalva is normal sized. The ascending aorta is normal sized. Valves, RV Pressures and Diastolic Function The aortic valve is normal in structure and trileaflet, no stenosis and no regurgitation. The mitral valve is normal in structure, no mitral regurgitation. Normal diastolic function. The tricuspid valve is normal in structure. Tricuspid regurgitation is regurgitation is not evident. The pulmonic valve is normal. No pulmonary regurgitation. Masses, Effusion, Shunts There is no pericardial effusion. The inferior vena cava is normal sized, respiratory size variation greater than 50%. No left to right shunting was detected by limited color flow Doppler interrogation of the interatrial septum. MEASUREMENTS AND CALCULATIONS 2-D Measurements and LV Function: LVID (d) 4.3 cm LV FS% (2D) ?? 40 % LVID (s) 2.6 cm LVOT diameter 1.9 cm IVS (d) ??1.1 cm HR ?90 bpm LVPW (d) 1.2 cm LA Vol index ??24 ml/m2 Ao Sinus 3.6 cm RA Vol index ??13 ml/m2 Asc Ao ?? 3.3 cm RA area ? 12 cm? ? ? LA ? 3.1 cm RV Max 4C (d) 2.1 cm Diastology: Mitral ?Tissue Doppler ?Pulmonary veins E Peak 1.0 m/s ??e', Septum ? 0.12 m/s Pulm s ?63.1 cm/s A Peak 0.8 m/s ??e', Lateral ?0.14 m/s Pulm d ?50.1 cm/s E/A ?1.2 ?E/e' Average ?? 7.73 ? Pulm s/d ratio ??1.26 DT ? 243 msec Aortic Valve: Vmax ? 1.5 m/s ??PRISCILA (V) ?? 2.05 cm? ? ? VTI ?0.30 m ?? PRISCILA (I) ?? 2.08 cm? ? ? LVOT V max 1.1 m/s ??Max PG ?9 mmHg LVOT VTI ?? 0.22 m ?? Mean PG ?? 4 mmHg SV ? 63 ml ?Dim Index 0.73 SV index ?? 32 ml/m? ? ? CO ?5.7 l/min ?CI ?2.9 l/min/m? ? ? Mitral Valve: MVA ?3.1 cm? ? ? MV P 1/2 70 msec Tricuspid Valve and estimated PA pressures: TAPSE 1.9 cm Pulmonic Valve: PV Vmax 1.2 m/s . This study was interpreted by an [facility] accredited facility. CC: [facility] (med records) [facility]. ??Final ?? Procedure Note Piotr Carrizales MD - 08/14/2023 ECHOCARDIOGRAM ALANIS LORA : 1970 52 years Study Date: 08/14/2023 9:06:19 AM Gender: F BP: 118/70 mmHg Height: 170.00 cm BSA: 1.98 m? ? ? Weight: 87.00 kg Tech: NWA Referring MD: ARGENTINA ALFREDO Site: [facility] Reading Location: Mobile-OP Patient Location: Outpatient. Procedure: 2D, Color Doppler and Spectral Doppler. Indication for study: Malignant neoplasm Cardiac Rhythm: Regular.Study quality: Fair. Final Impressions: 1. Normal LV size, borderline wall thickness, estimated EF of 60 - 65%. 2. No pericardial effusion. 3. No significant valve disease detected. Comparison Compared to prior exam of 05/11/23, there has been no significantchange. Chamber Sizes and Function Normal left ventricular size, borderline wall thickness, normal globalsystolic function with an estimated EF of 60 - 65%. Left atrial size isnormal. Right ventricular cavity size is normal, global systolic RVfunction is normal. RV wall thickness is normal. The right atrium isnormal. Right atrial volume index is 13 ml/m? ? ?. Right atrial area is 12cm? ? ?. The pulmonary artery is of normal size and origin. The sinus ofValsalva is normal sized. The ascending aorta is normal sized. Valves, RV Pressures and Diastolic Function The aortic valve is normal in structure and trileaflet, no stenosis and noregurgitation. The mitral valve is normal in structure, no mitralregurgitation. Normal diastolic function. The tricuspid valve is normal instructure. Tricuspid regurgitation is regurgitation is not evident. Thepulmonic valve is normal. No pulmonary regurgitation. Masses, Effusion, Shunts There is no pericardial effusion. The inferior vena cava is normal sized,respiratory size variation greater than 50%. No left to right shunting wasdetected by limited color flow Doppler interrogation of the interatrialseptum. MEASUREMENTS AND CALCULATIONS 2-D Measurements and LV Function: LVID (d) 4.3 cm LV FS% (2D) 40 % LVID (s) 2.6 cm LVOT diameter 1.9 cm IVS (d) 1.1 cm HR 90 bpm LVPW (d) 1.2 cm LA Vol index 24 ml/m2 Ao Sinus 3.6 cm RA Vol index 13 ml/m2 Asc Ao 3.3 cm RA area 12 cm? ? ? LA 3.1 cm RV Max 4C (d) 2.1 cm Diastology: Mitral Tissue Doppler Pulmonary veins E Peak 1.0 m/s e', Septum 0.12 m/s Pulm s 63.1 cm/s A Peak 0.8 m/s e', Lateral 0.14 m/s Pulm d 50.1 cm/s E/A 1.2 E/e' Average 7.73 Pulm s/d ratio 1.26 DT 243 msec Aortic Valve: Vmax 1.5 m/s PRISCILA (V) 2.05 cm? ? ? VTI 0.30 m PRISCILA (I) 2.08 cm? ? ? LVOT V max 1.1 m/s Max PG 9 mmHg LVOT VTI 0.22 m Mean PG 4 mmHg SV 63 ml Dim Index 0.73 SV index 32 ml/m? ? ? CO 5.7 l/min CI 2.9 l/min/m? ? ? Mitral Valve: MVA 3.1 cm? ? ? MV P 1/2 70 msec Tricuspid Valve and estimated PA pressures: TAPSE 1.9 cm Pulmonic Valve: PV Vmax 1.2 m/s . This study was interpreted by an [facility] accredited facility. CC: [facility] (med records) [facility]. Final [place] Alfredo PA-C ECHO ORD * PERIPHERAL BLD MORPHOLOGY (08/12/2023 4:52 PM CDT) Case Report Special Hematology Report ? Case: [id number] ? Authorizing Provider: ??Devi Rubin, DO ? Collected: ? 08/12/2023 165 ? Ordering Location: ? [facility] [place] ?? Received: ?08/12/20231651 ? Clinic ? Pathologist: ? Tristan Stokes, ? Specimen: ?Blood ? 08/13/2023 1:12 PM CDT [facility] Final Diagnosis PERIPHERAL BLOOD: 1. Moderate normocytic anemia 2. Mild thrombocytopenia 3. Mild lymphocytopenia, nonspecific 4. See comment 08/13/2023 1:12 PM CDT [facility] Comment The specific etiology of the anemia and thrombocytopenia are not apparent from the blood smear findings. It is unclear whether they are related or independent of one another. Normocytic anemia may be associated with a variety of conditions, including anemia of chronic disease, anemia of renal insufficiency, hypothyroidism, active bleeding, early iron deficiency and medication effect. There are no features to suggest hemolysis. Thrombocytopenia may be secondary to medication effect, immune-mediated processes, hypersplenism and may be transient in settings of infection (bacterial or viral). There is no evidence of platelet clumping. There are no features to suggest a primary bone marrow disorder on this smear review. This case was also reviewed by Marifer Madsen MT, MS ([facility]). 08/13/2023 1:12 PM CDT [facility] Clinical Information The patient is a 52-year-old female. Pertinent clinical information: Chemotherapy for breast cancer. ??Currently receiving neoadjuvant TCHP. Peripheral blood morphology 2007 ([id number]) was within normal limits. 08/12/23 16:44 CREATININE: ?1.13 (H) eGFR: ?59 (L) FERRITIN: ?458.0 (H) IRON: ?62 IRON BINDING CAPACITY ?: 265 IRON,% SATURATION ?: 23 UIBC (UNSATURATED) ? : 203 08/13/2023 1:12 PM CDT [facility] CBC and Differential HEMATOLOGY PARAMETERS Tested at: ??[facility] ? RESULTS ??EXPECTED VALUES WBC: ? 5.2 ?4.5-32a1876/cumm ? RBC: ? 2.36 ? 4.00-5.20 mil/cumm ??DECREASED HGB: ? 7.7 ?12-16 gm/dl ? DECREASED HCT: ? 22.7 ? 33-51% ?DECREASED MCV: ? 96.0 ? 80-100 fl ? NORMOCYTIC MCH: ? 32.6 ? 26-34 pg ? MCHC: ?33.9 ? 32-36 gm/dl ? NORMOCHROMIC RDW: ? 17.1 ? 11.5-15.5% ?ELEVATED PLT: ? 126 ?140-434k4296/uL ? DECREASED MPV: ? 7.7 ?6.5-11 fl ? Retic: ?? 2.7 ?0.5-1.5% ?ELEVATED Differential ?Absolute (%) ?Expected (%) ?(x10*9/L) ? (x10*9/L) Neutrophils: ?3.5 (67.3) ?1.7-7.0 (42-72%) ? Lymphocytes: ?0.8 (15.4) ?0.9-2.9 (20-44%) ??DECREASED Monocytes: ?0.9 (17.3) ? <0.9 (0-11%) ? ELEVATED 08/13/2023 1:12 PM CDT [facility] Microscopic Description The final diagnosis is based on microscopic examination of an appropriately stained blood smear. 08/13/2023 1:12 PM CDT [facility] Additional Information Interpreted at [facility] - [address] [facility] [address] [address] 08/13/2023 1:12 PM CDT [facility] Blood BLOOD SPECIMEN / Unknown Add On / Unknown 08/12/2023 4:52 PM CDT 08/12/2023 4:52 PM CDT Comment:CURRENT MEDICATIONSC urrent Outpatient Medications: ? ? CARBOPLATIN IV, Inject 750 mg intravenous., Disp: , Rfl: ? ? Dextromethorphan HBr 5 mg/5 mL syrp, Take by mouth., Disp: , Rfl: ? ? DOCETAXEL IV, Inject intravenous., Disp: , Rfl: ? ? docusate (COLACE) 100 mg capsule, Take 100 mg by mouth once daily if needed for Constipation., Disp: , Rfl: ? ? fosaprepitant (EMEND) 150 mg injection, Inject 150 mg intravenous one time., Disp: , Rfl: ? ? Graduated Compression Stockings, For personal use. Length: thigh Strength: 20- 30 mmHg Circumference in cm: For thigh: Ankle 25cm, Calf 37cm, Thigh 51cm, Thigh to Ankle length 54cm., Disp: 1 Packet, Rfl: 0? ? ibuprofen (ADVIL; MOTRIN) 800 mg tablet, Take 800 mg by mouth every 8 hours if needed for Pain., Disp: , Rfl: ? ? loperamide (IMODIUM) 2 mg capsule, Take by mouth., Disp: , Rfl: ? ? loratadine (CLARITIN) 10 mg tablet, Take 10 mg by mouth once daily., Disp: , Rfl: ? ? LORazepam (ATIVAN) 0.5 mg tab, Take 1 Tablet (0.5 mg) by mouth at bedtime if needed for Anxiety., Disp: 20 Tablet, Rfl: 0? ? LORazepam (ATIVAN) 0.5 mg tab, Take 0.5 mg by mouth., Disp: , Rfl: ? ? ondansetron (ZOFRAN) 4 mg tablet, TAKE 1 TABLET BY MOUTH EVERY 8 HOURS NEEDED FOR NAUSEA AND VOMITING, Disp: , Rfl: ? ? palonosetron HCl (PALONOSETRON IV), Inject 0.25 mg intravenous., Disp: , Rfl: ? ? PEGFILGRASTIM SUBQ, Inject 6 mg subcutaneous., Disp: , Rfl: ? ? PERTUZUMAB IV, Inject intravenous., Disp: , Rfl: ? ? prochlorperazine (COMPAZINE) 10 mg tablet, Take 10 mg by mouth every 8 hours if needed for Nausea/Vomiting., Disp: , Rfl: ? ? prochlorperazine (COMPAZINE) 10 mg tablet, Take 10 mg by mouth every 8 hours if needed., Disp: , Rfl: ? ? TRASTUZUMAB IV, Inject 6 mg/kg intravenous., Disp: , Rfl: ? ? trastuzumab-dkst (OGIVRI IV), Inject 8 mg/kg intravenous., Disp: , Rfl: ? ? venlafaxine (EFFEXOR XR) 37.5 mg Extended-Release capsule, Take 1 Capsule (37.5 mg) by mouth once daily with a meal., Disp: 90 Capsule, Rfl: 0 Devi Rubin DO HEMATOLOGY Performing Organization Address [facility] Co de Phone Number [facility] [address] [place] [address], * (ABNORMAL) RETICULOCYTES (08/12/2023 4:52 PM CDT) RETIC% 2.7(H) 0.5 - 1.5 % 08/12/2023 9:30 PM CDT [facility] RETIC (ABSOLUTE) 0.07 0.03 - 0.08 mil/cu mm 08/12/2023 9:30 PM CDT [facility] Blood BLOOD SPECIMEN / Unknown Add On / Unknown 08/12/2023 4:52 PM CDT 08/12/2023 4:52 PM CDT Devi Rubin DO HEMATOLOGY Performing Organization Address City/[facility]/ZIP Co de Phone Number [facility] [address] [place] [id number], [place] * (ABNORMAL) CBC WITH AUTO DIFFERENTIAL (08/12/2023 4:44 PM CDT) WHITE BLOOD COUNT 5.2 4.5 - 11.0 thou/cu mm 08/12/2023 4:47 PM CDT [facility] RED BLOOD COUNT 2.36(L) 4.00 - 5.20 mil/cu mm 08/12/2023 4:47 PM CDT [facility] HEMOGLOBIN 7.7(L) 12.0 - 16.0 g/dL 08/12/2023 4:47 PM CDT [facility] HEMATOCRIT 22.7(L) 33.0 - 51.0 % 08/12/2023 4:47 PM CDT [facility] MCV 96 80 - 100 fL 08/12/2023 4:47 PM CDT [facility] MCH 32.6 26.0 - 34.0 pg 08/12/2023 4:47 PM CDT [facility] MCHC 33.9 32.0 - 36.0 g/dL 08/12/2023 4:47 PM CDT [facility] RDW 17.1(H) 11.5 - 15.5 % 08/12/2023 4:47 PM CDT [facility] PLATELET COUNT 126(L) 140 - 440 thou/cu mm 08/12/2023 4:47 PM CDT [facility] MPV 7.7 6.5 - 11.0 fL 08/12/2023 4:47 PM CDT [facility] % NEUT 66.8 % 08/12/2023 4:47 PM CDT [facility] % LYMPH 15.9 % 08/12/2023 4:47 PM CDT [facility] % MONO 16.5 % 08/12/2023 4:47 PM CDT [facility] % EOS 0.4 % 08/12/2023 4:47 PM CDT [facility] % BASO 0.4 % 08/12/2023 4:47 PM CDT [facility] ABSOLUTE NEUTROPHILS 3.5 1.7 - 7.0 thou/cu mm 08/12/2023 4:47 PM CDT [facility] ABSOLUTE LYMPHOCYTES 0.8(L) 0.9 - 2.9 thou/cu mm 08/12/2023 4:47 PM CDT [facility] ABSOLUTE MONOCYTES 0.9(H) <0.9 thou/cu mm 08/12/2023 4:47 PM CDT [facility] ABSOLUTE EOSINOPHILS 0.0 <0.5 thou/cu mm 08/12/2023 4:47 PM CDT [facility] ABSOLUTE BASOPHILS 0.0 <0.3 thou/cu mm 08/12/2023 4:47 PM CDT [facility] Blood BLOOD SPECIMEN / Unknown Venipuncture / Unknown 08/12/2023 4:44 PM CDT 08/12/2023 4:44 PM CDT Devi Rubin DO HEMATOLOGY [facility] [address] [place] [address], * IRON PLUS IRON BINDING CAP (08/12/2023 4:44 PM CDT) IRON 62 37 - 145 ug/dL 08/12/2023 10:38 PM CDT [facility] UIBC (UNSATURATED) 203 112 - 347 ug/dL 08/12/2023 10:38 PM CDT [facility] IRON BINDING CAPACITY 265 250 - 400 ug/dL 08/12/2023 10:38 PM CDT [facility] IRON,% SATURATION 23 14 - 50 % 08/12/2023 10:38 PM CDT [facility] Blood BLOOD SPECIMEN / Unknown Venipuncture / Unknown 08/12/2023 4:44 PM CDT 08/12/2023 4:44 PM CDT Devi Rubin DO CHEMISTRY [facility] [address] [place] [address], [place] * (ABNORMAL) FERRITIN (08/12/2023 4:44 PM CDT) FERRITIN 458.0(H) 15.0 - 150.0 ng/mL 08/12/2023 11:00 PM CDT [facility] Blood BLOOD SPECIMEN / Unknown Venipuncture / Unknown 08/12/2023 4:44 PM CDT 08/12/2023 4:44 PM CDT Devi Rubin DO CHEMISTRY [facility] [address] [place] [address], * (ABNORMAL) COMP METABOLIC PANEL (08/12/2023 4:44 PM CDT) SODIUM 140 136 - 145 mmol/L 08/12/2023 10:38 PM CDT [facility] POTASSIUM 3.4(L) 3.5 - 5.1 mmol/L 08/12/2023 10:38 PM CDT [facility] CHLORIDE 101 98 - 107 mmol/L 08/12/2023 10:38 PM CDT [facility] CO2,TOTAL 25 22 - 29 mmol/L 08/12/2023 10:38 PM CDT [facility] ANION GAP 14 5 - 18 08/12/2023 10:38 PM CDT [facility] GLUCOSE 129(H) 70 - 99 mg/dL 08/12/2023 10:38 PM CDT [facility] CALCIUM 8.7 8.6 - 10.0 mg/dL 08/12/2023 10:38 PM CDT [facility] BUN 18 6 - 20 mg/dL 08/12/2023 10:38 PM T [facility] CREATININE 1.13(H) 0.50 - 0.90 mg/dL 08/12/2023 10:38 PM T [facility] BUN/CREAT RATIO 16 10 - 20 10:38 PM CDT [facility] eGFR 59(L) >90 mL/min/1.7 3m2 08/12/2023 10:38 PM CDT [facility] Comment:As of 2021, eG FR is calculated by the CKD-EPI creatinine equation without race adjustment. ??eGFR can be influenced by muscle mass, exercise, and diet. ??The reported eGFR is an estimation only and is only applicable if the renal function is stable. ALBUMIN 4.0 4.0 - 4.9 g/dL 08/12/2023 10:38 PM CDT [facility] PROTEIN,TOTAL 6.4 6.0 - 8.0 g/dL 08/12/2023 10:38 PM CDT [facility] BILIRUBIN,TOTAL 0.3 0.0 - 1.2 mg/dL 08/12/2023 10:38 PM CDT [facility] ALK PHOSPHATASE 104 35 - 104 IU/L 08/12/2023 10:38 PM [facility]T [facility] ALT (SGPT) 62(H) 10 - 35 IU/L 08/12/2023 10:38 PM CDT [facility] AST (SGOT) 29 10 - 35 IU/L 08/12/2023 10:38 PM CDT [facility] Blood BLOOD SPECIMEN / Unknown Venipuncture / Unknown 08/12/2023 4:44 PM CDT 08/12/2023 4:44 PM CDT Devi Rubin DO [facility] [address] [place] [address], * XR MAMMO JASIEL UNI ADDL VIEWS LEFT (04/13/2023 2:09 PM TRADING MANAGER) Anatomical Region Laterality Modality BREASTS, Breast Left Mammography 04/13/2023 2:28 PM TRADING MANAGER Impressions 04/13/2023 4:00 PM TRADING MANAGER Suspicious mass LEFT breast 1 o'clock 13 cm from the nipple measuring 1 cm and suspicious LEFT axillary lymph node measuring 2.5 cm. RECOMMENDATIONS: Ultrasound-guided biopsy of both lesions. Results and recommendations discussed with the patient. BI-RADS Category 4: Suspicious Dictated by: Kelvin Galo MD @04/13/2023 2:28:34 PM / Damon PATIENTS: You will also receive a letter with your examination results in an easy to read format. ??If you have questions about your results, please contact your referring provider. Narrative 04/13/2023 4:00 PM TRADING MANAGER For Patients: As a result of the [...] 2.0 x 1.6 x 2.5 cm. Devi Reneee Caryn DO MAMMO * (ABNORMAL) LIPID PANEL W REFLEX MEASURED LDL (03/23/2023 11:48 AM CDT) CHOLESTEROL,TOTAL 219(H) 100 - 199 mg/dL 03/23/2023 5:09 PM CDT [facility] Comment: Cholesterol, Total Reference Ranges Desirable <200 mg/dL Borderline 200-239 mg/dL High >=240 mg/dL TRIGLYCERIDES 163(H) <150 mg/dL 03/23/2023 5:09 PM CDT [facility] HDL CHOLESTEROL 60 >40 mg/dL 5:09 PM CDT [facility] NON-HDL CHOLESTEROL 159(H) <145 mg/dl 03/23/2023 5:09 PM CDT [facility] CHOL/HDL RATIO 3.65 <4.50 03/23/2023 5:09 PM CDT [facility] LDL CHOLESTEROL 126 <=130 mg/dL 03/23/2023 5:09 PM CDT [facility] VLDL CHOLESTEROL 33(H) <=30 mg/dL 03/23/2023 5:09 PM CDT [facility] TRA [facility]ORATORY PROVIDER ORDERED STATUS RANDOM 03/23/2023 5:09 PM CDT [facility] Blood BLOOD SPECIMEN / Unknown Venipuncture / Unknown 03/23/2023 11:48 AM CDT 03/23/2023 11:48 AM CDT Devi Rubin DO CHEMISTRY Performing Organization Address [facility] Co de Phone Number [facility] [address] [place] [address], * ANTI HCV (03/23/2023 11:48 AM CDT) Pathologist [facility] HEPATITIS C ANTIBODY Non-Reacti ve Non-React mckay 03/23/2023 5:08 PM CDT [facility] Comment:Please note, per www .CDC.gov: [...] Rubin DO SEND OUTS Performing Organization Address City/[facility]/ZIP Co de Phone Number [facility] [address] [place] [address], * HPV HIGH RISK (03/23/2023 11:19 AM CDT) TYPE 16 Negative Negative 03/25/2023 2:07 PM CDT [facility] TYPE 18 Negative Negative 03/25/2023 2:07 PM CDT [facility] OTHER HIGH RISK TYPES Negative Negative 03/25/2023 2:07 PM CDT [facility] Other (Cervical) Non-Blood / Unknown 03/23/2023 11:19 AM CDT 03/23/2023 4:26 PM CDT Narrative [facility] - 03/25/2023 2:07 PM CDT HPV types 16, 18, 31, 33, 35, 39, 45, 51, 52, 56, 58, 59, 66 and 68 DNA were undetectable or below the pre-set threshold. Methodology: Laly Reji 4800 HPV Test Devi Rubin DO MICROBIOLOGY [facility] [address] [place] [address], from Last 3 Months or Most Recently Relevant to Health Maintenance Care Teams Tile Classifier Relationship Specialty [place] [address] [address] [place], [place] [id number] PCP - General Family Practice 03/30/23
[2023-10-06 07:46] LABS: Ur HCG Qualitative* Negative (Negative)
[2023-10-06] MEDS: LACTATED RINGERS 1000 ML 1,000 ML 100 ML IV ×3 (07:55→18:25)
[2023-10-06] MEDS: SODIUM CHLORIDE 0.9 % (FLUSH) 10 ML SYRINGE IVF (07:55)
--- NOTE | 2023-10-06 08:00 | NM_ITS ---
Patient: MARCEL LORA Facility:?[facility] Patient ID:?[id number] Site Patient ID:?[id number] Site :?1970 Study:?NM-Breast Procedure Lymphangioscintigraphy-10/06/2023 8:08:01 AM Ordering Physician:?NAVNEET JOSEPH Final Report: INDICATION Left-sided breast cancer. Injection for sentinel lymph node scintigraphy. PROCEDURE Informed consent was obtained by the on-site staff. The on-site staff discussed the risks and benefits of the procedure. The patient agreed to proceed. Utilizing sterile technique, 860 microcuries of technetium-filtered sulfur colloid was injected within an intradermal location along the left periareolar soft tissues. The patient tolerated the injection well. No immediate complications documented. No subsequent images obtained. IMPRESSION Technically successful left breast injection for sentinel lymph node scintigraphy. EDNA CARBAJAL M.D. Diagnostic/Nuclear Medicine Radiologist [email or web address] [place]:chapis D& Transcribed: 11:[address]/Dictated by: Edna Carbajal MD @ 10/06/2023 9:16:00 AM Signed by:?Edna Carbajal MD @10/06/2023 11:47:58 AM (Electronic Signature)
[2023-10-06 08:04] LABS: Hemoglobin* 8.8 gm/dL (12.0-16.0)
--- NOTE | 2023-10-06 08:05 | SUR.PREOP ---
Patient requests gege Martines be present during all education and discharge information.
--- NOTE | 2023-10-06 08:08 | SUR.PREOP ---
[facility] [place] inject [place] 0745.
--- NOTE | 2023-10-06 08:09 | SUR.PREOP ---
Patient taken to Ultrasound by tech at 0815 for wire localization.
--- NOTE | 2023-10-06 08:15 | US_ITS ---
Patient: MARCEL LORA Facility:?[facility] Patient ID:?[id number] Site Patient ID:?[id number] Site :?1970 Study:?US-Breast Procedure Dr. Galo to read-10/06/2023 8:55:24 AM Ordering Physician:?Bishnu Segura Final Report: LEFT AXILLARY LYMPH NODE WIRE LOCALIZATION USING ULTRASOUND GUIDANCE CLINICAL HISTORY: Biopsy-proven LEFT breast cancer with metastatic lymph node involvement in the axilla. LATERALITY: LEFT breast. LESION: Elongated lymph node containing a clip in the LEFT axilla, decreased in size from the prior exams. LOCALIZATION WIRE: [place] hookwire. TECHNIQUE: The localization wire was placed using real-time ultrasound guidance with image documentation. Postprocedure mammogram images not taken as the lymph node was not visualized on prior mammography. CONSENT and TIME OUT: The procedure, risks, and alternatives were explained to the patient and a consent was signed. [place] Protocol was followed including pre-procedure verification that relevant information/documentation was available, reviewed and properly matched to the patient; consent accurate and complete; and equipment and supplies available. Time Out was conducted just prior to starting procedure to verify the four required elements: patient identity, correct side/site marked (if applicable), procedure, relevant images/results properly labeled and displayed (if applicable). PROCEDURE: The skin was prepped with ChloraPrep and 8 cc of 1 percent lidocaine used for local anesthesia. The localization wire was placed within or near the targeted left axillary lymph node lesion using ultrasound guidance. The patient tolerated the procedure well. PROXIMITY OF WIRE TO LESION: Within the lesion. IMPRESSION: Successful LEFT axillary lymph node wire localization. ACR not applicable Dictated by Kelvin Galo MD @ 10/06/2023 9:33:14 AM jj/Dictated by: Kelvin Galo MD @ 10/06/2023 9:33:00 AM Signed by:?Kelvin Galo MD @10/06/2023 11:10:03 AM (Electronic Signature)
--- NOTE | 2023-10-06 09:15 | MM_ITS ---
Patient: MARCEL LORA Facility:?[facility] Patient ID:?[id number] Site Patient ID:?[id number] Site :?1970 Study:?XRay-Breast Left SPECIMEN-10/06/2023 11:49:01 AM Ordering Physician:Laura Final Report: CLINICAL HISTORY: Left breast cancer COMPARISON: 04/13/2023 FINDINGS: Specimen film of the pathology specimens demonstrates no clip present. IMPRESSION: No clip is present. ACR not applicable. Dictated by Kelvin Galo MD @ 10/08/2023 1:35:36 PM Signed by:?Kelvin Galo MD @10/08/2023 8:30:20 PM (Electronic Signature)
--- NOTE | 2023-10-06 09:25 | P.GSOP_ITS ---
Operative Note Date of procedure: 10/06/23 Pre-op diagnosis: 1. Left invasive ductal carcinoma with biopsy-proven metastatic left axillary lymph nodes s/p neoadjuvant chemotherapy. Post-op diagnosis: Same Type of Procedure: 1. Right prophylactic mastectomy. 2. Left therapeutic mastectomy. 3. Left axillary sentinel lymph node biopsy. 4. Excision of previously biopsied left axillary lymph node. Indications: 52-year-old female was seen in clinic to discuss surgical treatment of her left breast invasive ductal carcinoma. 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 She had a biopsy-proven metastatic left axillary lymph node. Patient was initiated on neoadjuvant chemotherapy with the last treatment completed on 09/07/2023. Patient was continued to be treated with Herceptin. She had genetic testing and did not have genetic mutations predisposing her to breast cancer. On clinical exam her left breast was not palpable. There was no palpable left axillary lymphadenopathy. Given patient's clinical history and her pathology results surgical treatment options were discussed with the patient. Patient elected to proceed with bilateral mastectomy and left sentinel lymph node biopsy. We also discussed excising the left axillary node that was previously biopsied. Patient is aware that if any of those nodes buffing turner and counter to be positive, we would need to proceed with axillary lymph node dissection. The procedure was discussed in detail. The risks associated procedure including infection, bleeding, need for additional surgeries, possible need for axillary node dissection were all discussed with the patient, and she agreed to proceed. Procedure Description: After discussing the risks and benefits of the procedure, the patient signed informed consent.? The operative site was marked and the patient was brought to the operating room and placed on the operating table in supine position.? Care was taken to pad the patient's pressure points.?? The patient was then intubated by anesthesia.?? The operative site was then prepped and draped in the usual sterile fashion.? A time-out was then performed. I first proceeded with right?mastectomy. An elliptical skin incision was made around the nipple-areolar complex using a scalpel.? Dermis was divided with cautery.? Rakes and Yasemin retractors were used for retraction throughout the case.? Skin flaps were developed circumferentially in a relatively avascular placed between subcutaneous fat and breast tissue using manual traction between the skin flaps and breast tissue.? Dissection was performed to just below the clavicle superiorly, to the lateral border of pectoralis major muscle laterally, to the sternal border medially, and to the inframammary fold inferiorly.? This was all done with cautery.? Hemostasis throughout the case was achieved with cautery and Vicryl ties. ? When the breast tissue was dissected circumferentially, it was then removed in a medial to lateral fashion from Pectoralis using electrocautery. The pectoralis m ajor fascia was included with the specimen. The specimen was labeled for orientation with a single stitch at 12:00 and sent to pathology for margins.? Mastectomy cavity was irrigated with normal saline.? Hemostasis was achieved with cautery.? A 15F Drew drain was placed inferior and lateral to the breast through a small stab incision and secured in place with nylon suture. The edges of surgical incision were re-approximated using interrupted 2-0 and 3-0 Vicryl sutures.? The skin was closed with a running subcuticular 4-0 Monocryl stitch. I then proceeded with left?mastectomy. An elliptical skin incision was made around the nipple-areolar complex using a scalpel.? Dermis was divided with cautery.? Rakes and Yasemin retractors were used for retraction throughout the case.? Skin flaps were developed circumferentially in a relatively avascular placed between subcutaneous fat and breast tissue using manual traction between the skin flaps and breast tissue.? Dissection was performed to just below the clavicle superiorly, to the lateral border of pectoralis major muscle laterally, to the sternal border medially, and to the inframammary fold inferiorly.? This was all done with cautery.? Hemostasis throughout the case was achieved with cautery and Vicryl ties. ? When the breast tissue was dissected circumferentially, I proceeded with the left axillary sentinel node biopsy. Three ml (milliliters) of Lymphazurin blue was personally injected by me near the left nipple prior to making surgical incision on the right side for sentinel lymph node identification. Radioactive tracer was also injected personally by me near the left nipple in same-day surgery at least 1 hour prior to bringing the patient to the operating room. A [place] counter was brought onto the field in the left axilla. A green lymph node was identified and appeared to have radioactive signal. Axillary tissue was dissected around this node and this note appeared to be the same node as the wire localized lymph node. This node was excised with cautery. The distal part of the lymph node near the tip of the wire did not have radioactive signal and this was removed with Metzenbaum scissors. The distal tissue without radioactive signal was then set aside to be sent to pathology as additional left axillary filiberto tissue. The lymph node had a count of 1242. This was first sent to mammography and then to pathology for frozen section. Axillary filiberto tissue was examined again and 2 additional green lymph nodes that were more proximal in the axilla were removed. [place] lymph node #2 had a count of 693 and sentinel lymph node #3 had a count of 481. Both of those nodes were sent to pathology for frozen section. The [place] counter was then placed into the axilla and and no additional significant signal was identified. Mammography of the wire localized lymph node did not show presence of the clip. Additional filiberto tissue that was removed from the sentinel lymph node #1 was sent to mammography as well and no clip was seen in that tissue. All the tissue from sentinel lymph node 2 and 3 was placed in the cassettes and sent to mammography however, no clip was identified. Since the previously biopsied lymph node was wire localized and removed, I elected not to look further for the clip. Hemostasis in the left axilla was achieved with cautery. We then proceeded with removal of the left breast of the pectoralis muscle. The breast was then removed in a medial to lateral fashion from Pectoralis using electrocautery. The pectoralis major fascia was included with the specimen. The specimen was labeled for orientation with a single stitch at 12:00 and sent to pathology for margins.? Mastectomy cavity was irrigated with normal saline.? Hemostasis was achieved with cautery.? A 15F Drew drain was placed inferior and lateral to the breast through a small stab incision and secured in place with nylon suture. The edges of surgical incision were re-approximated using interrupted 2-0 and 3-0 Vicryl sutures.? The skin was closed with a running subcuticular 4-0 Monocryl stitch. Steri strips and sterile fluffs were applied over both incisions.?Drain sponges were placed under the drains.? The chest was wrapped with an Tunde wrap.? All counts were correct at the end of the case. The patient tolerated this procedure well and was transferred to the?PACU in stable condition. Anesthesia: GETA Surgeon: Bishnu Segura MD Estimated blood loss (mL): 40 Additional Specimen Information: 1. Right breast. 2. Left axillary sentinel node #1, the same as wire localized lymph node. 3. Left axillary sentinel lymph node # 2. 4. Left axillary sentinel lymph node #3. 5. Additional left axillary filiberto tissue. 6. Left breast. Condition: stable Disposition: PACU [place] Node Biopsy for Breast Cancer Operation Performed with Curative Intent: Yes Tracers used to identify sentinel nodes in the neoadjuvant setting: Dye and Radioactive Tracer All nodes (colored or non-colored) present at the end of a dye filled lymphatic channel were removed: Yes All significantly radioactive nodes were removed: Yes All palpably suspicious nodes were removed: Yes Biopsy proven positive nodes marked with clips prior to chemotherapy were identified and removed: Yes
--- NOTE | 2023-10-06 09:25 | W.PM.H&PU ---
History & Physical Update History & Physical Update H&P Reviewed and patient assessed: No changes noted
[2023-10-06] MEDS: CEFAZOLIN 2 GM INJ IVP (09:50)
[2023-10-06] MEDS: ISOSULFAN BLUE 5 ML VIAL INJECTION (09:50)
--- NOTE | 2023-10-06 11:33 | P.NB_ITS ---
Nerve Block Nerve Block Time Seen by Provider: 09:48 Date Seen: 10/06/23 Type of block requested by surgeon for post-operative analgesia: intercostal and intercostal add on Side: bilateral Time out performed: Yes Verification of patient name: Yes Verification of date of : Yes Site marking: site marked Continuous monitoring Was continuous monitoring of O2 sat, B/P, surveillance monitor, recorded every 15 minutes?: Yes Procedure Checklist: sterile prep, needles and gloves Ultrasound guided. Images saved: Yes Medications given in 5ml increments after negative aspiration: Marcaine %: 0.25 mL: 40 Needle gauge: 20 and Exparel mL: 20 Patient tolerated procedure well: Yes Block Charges Block Charge (with Pro Fee): Intercostal Nerve Block Use of Ultrasound Machine for Block: Yes- US Guidance/pain block
--- NOTE | 2023-10-06 11:34 | W.ANESCHARGE ---
Anesthesia Charges Start Date/Time Anesthesia Start Date: 10/06/23 Anesthesia Start Time: 09:33 Stop Date/Time Anesthesia Stop Date: 10/06/23 Anesthesia Stop Time: 13:05
--- NOTE | 2023-10-06 12:01 | MM_ITS ---
Patient: MARCEL LORA Facility:?[facility] Patient ID:?[id number] Site Patient ID:?[id number] Site :?1970 Study:?XRay-Breast Left SPECIMEN-10/06/2023 12:35:41 PM Ordering Physician:Laura Final Report: LEFT BREAST SPECIMEN RADIOGRAPH CLINICAL HISTORY: LEFT breast cancer. COMPARISON: 04/13/2023. FINDINGS: Specimen contains a lymph node and a portion of a second lymph node. No clip or wire. IMPRESSION: Lymph nodes in the specimen. ACR not applicable Dictated by Kelvin Galo MD @ 10/08/2023 10:45:55 AM jj/Dictated by: Kelvin Galo MD @ 10/08/2023 10:45:00 AM Signed by:?Kelvin Galo MD @10/08/2023 12:58:22 PM (Electronic Signature)
--- NOTE | 2023-10-06 12:24 | MM_ITS ---
Patient: MARCEL LORA Facility:?[facility] Patient ID:?[id number] Site Patient ID:?[id number] Site :?1970 Study:?XRay-Breast Left SPECIMEN-10/06/2023 12:10:43 PM Ordering Physician:Laura Final Report: LEFT BREAST SPECIMEN RADIOGRAPH CLINICAL HISTORY: LEFT breast cancer. COMPARISON: 04/13/2023. FINDINGS: Specimen film contains the proximal aspect of the localization wire without lymph node or clip present. IMPRESSION: No clip or lymph node is present. ACR not applicable Dictated by Kelvin Galo MD @ 10/08/2023 10:44:50 AM jj/Dictated by: Kelvin Galo MD @ 10/08/2023 10:44:00 AM Signed by:?Kelvin Galo MD @10/08/2023 12:58:21 PM (Electronic Signature)
--- NOTE | 2023-10-06 13:12 | W.ANESCHARGE ---
Anesthesia Charges Start Date/Time Anesthesia Start Date: 10/06/23 Anesthesia Start Time: 09:33 Stop Date/Time Anesthesia Stop Date: 10/06/23 Anesthesia Stop Time: 13:05
--- NOTE | 2023-10-06 13:30 | SUR.PHASEI ---
patient meets pacu d/c criteria
--- NOTE | 2023-10-06 18:49 | PC.NURSE ---
Pt arrived from surgery at 1338. Pt alert and oriented. VSS. Pt had no complaints of pain just slight pressure. Pt advanced to regular diet and tolerated well. Pt up with assist of 1-2 and voided. Pt had friends at bedside during most of shift.?
--- NOTE | 2023-10-06 18:50 | PC.NURSE ---
Pt has jean paul wrap in place and bilateral ILIANA drains; total output during shift ([id number]) Right 40cc and Left 30cc.
[2023-10-06] MEDS: BENZOCAINE/MENTHOL 1 EACH LOZENGE MUCOUS MEM ×2 (20:41→23:18)
[2023-10-07] VITALS (8 sets, daily range): BP systolic 114–136; BP diastolic 67–96; PULSE 78–88; RESP 16–18; TEMP 36.4–36.9; O2SAT 95–97
[2023-10-07] MEDS: BENZOCAINE/MENTHOL 1 EACH LOZENGE MUCOUS MEM (01:03)
[2023-10-07] MEDS: HYDROCODONE-ACETAMIN 5-325 MG 1 TAB PO ×2 (04:41→11:30)
--- NOTE | 2023-10-07 06:44 | PC.NURSE ---
End of shift report [id number]: Pain to left chest wall into axilla reported at 0415, patient received norco with effective results. Tunde bandage wrap to chest intact, right lateral chest wall dressing clean dry and intact, ILIANA drain to right and left chest patent, patient had 54ml total from right chest wall drain and 45ml total from left chest wall during this shift. ILIANA drainage thin and bloody in appearance. Reported throat pain post surgical, call placed to stone rougher surgeon, new order to use house standing orders, also received order to saline lock when oral intake adequate. Benzocaine/menthol lozenges used with effective results. Up independent in room until patient used narcotics, instructed patient to use call light and ask for assistance with ambulation and toileting after medication used d/t patient has never had any narcotics and unsure how she will react.
[2023-10-07 07:15] LABS: Basophils Absolute Auto 0.02 K/uL (0.00-0.30); Basophils Percent Auto 0.3 % (0.0-3.0); Eosinophils Absolute Auto 0.04 K/uL (0.00-0.50); Eosinophils Percent Auto 0.6 % (0.0-7.0); Hematocrit 23.9 % (33.0-51.0); Immature Granulocytes Abs Auto 0.01 K/uL (0.00-0.30); Immature Granulocytes Pct Auto 0.2 %; Lymphocytes Absolute Auto 1.52 K/uL (0.90-2.90); Lymphocytes Percent Auto 22.8 % (20-44); Mean Corpuscular HGB Conc 33 gm/dL (32-36); Mean Corpuscular Hemoglobin 34 pg (26-34); Mean Corpuscular Volume 104 fL (80-100); Monocytes Percent Auto 14.3 % (0.0-11.0); Neutrophils Absolute Auto 4.12 K/uL (1.7-7.0); Neutrophils Percent Auto 61.8 % (42.0-72.0); Platelet Count* 245 K/uL (140-440); RDW Coefficient of Variation % 20.1 % (11.5-15.5); Red Blood Count 2.31 m/uL (4.00-5.20); White Blood Count* 6.66 K/uL (4.50-11.00)
[2023-10-07 07:16] LABS: Chloride* 107 mmol/L (96-114)
[2023-10-07 07:17] LABS: Potassium* 3.7 mmol/L (3.6-5.1); Sodium* 140 mmol/L (135-149)
[2023-10-07 07:20] LABS: Anion Gap 5 mEq/L (7-15); Blood Urea Nitrogen* 15 mg/dL (7-30); Calcium* 8.6 mg/dL (8.4-10.6); Carbon Dioxide* 28 mmol/L (20-32); Creatinine* 0.9 mg/dL (0.5-1.5); Est. Creatinine Clearance* 72.72; Estimated Glomerular Filt Rate 78 ml/min; Glucose* 111 mg/dL (60-115)
[2023-10-07 07:21] LABS: Hemoglobin* 7.8 gm/dL (12.0-16.0); Slide Review Reflex No
--- NOTE | 2023-10-07 09:11 | P.DS_ITS ---
DS: Providers Provider Date Seen: 10/07/23 Date of admission: 10/06/23 06:37 Primary care physician: Devi Rubin DO Admitting Clinician: Bishnu Segura MD Attending Physician on discharge: Bishnu Segura MD DS: Diagnosis Discharge Diagnosis (1) S/P bilateral mastectomy: Status: Acute Problem details: with Left SLNB DS: Summary Hospital Course Hospital Course: 52-year-old female was admitted to the hospital after she underwent bilateral mastectomy and left sentinel lymph node biopsy. Patient did well postoperatively. Her drains were putting out minimal amount of serosanguineous bloody fluid. Her pain is controlled with p.o. medications. Patient's hemoglobin dropped to 7.8 postoperatively from 8.8 preoperatively. Given patient's history with recent anemia is requiring blood transfusion and her shortness of breath when she is anemic, 1 unit of blood was given to the patient prior to discharge. Time Spent with Patient Time attestation: Total time spent providing and/or coordinating discharge services: Exam Const: Vital Signs, click to edit/add: Vital Signs - 24 hr 10/06/23 13:00 10/06/23 13:05 10/06/23 13:10 Temperature 97.1 F L Pulse Rate 87 84 83 Pulse Rate [Left P ulse Oximeter] Respiratory Rate 16 14 12 Blood Pressure 135/73 129/75 128/74 Blood Pressure [Ri ght Arm] Pulse Oximetry 93 91 92 Oxygen Delivery Me thod Room Air 10/06/23 13:15 10/06/23 13:20 10/06/23 13:25 Temperature Pulse Rate 80 84 70 Pulse Rate [Left P ulse Oximeter] Respiratory Rate 14 12 14 Blood Pressure 124/77 128/73 124/71 Blood Pressure [Ri ght Arm] Pulse Oximetry 94 96 94 Oxygen Delivery Me thod 10/06/23 13:30 10/06/23 13:38 10/06/23 13:45 Temperature 97.0 F L 97.0 F L 97.0 F L Pulse Rate 71 79 77 Pulse Rate [Left P ulse Oximeter] Respiratory Rate 12 14 14 Blood Pressure 127/73 135/78 129/80 Blood Pressure [Ri ght Arm] Pulse Oximetry 96 93 93 Oxygen Delivery Me thod Room Air Room Air 10/06/23 14:00 10/06/23 14:15 05/07/24 14:30 Temperature 97.2 F L 97.6 F 97.6 F Pulse Rate 86 78 81 Pulse Rate [Left P ulse Oximeter] Respiratory Rate 16 16 16 Blood Pressure 127/81 126/80 127/74 Blood Pressure [Ri ght Arm] Pulse Oximetry 94 94 95 Oxygen Delivery Me thod Room Air Room Air Room Air 10/06/23 15:00 10/06/23 15:30 10/06/23 16:00 Temperature 97.5 F L 97.6 F 97.6 F Pulse Rate 82 84 87 Pulse Rate [Left P ulse Oximeter] Respiratory Rate 16 16 16 Blood Pressure 126/78 129/71 126/77 Blood Pressure [Ri ght Arm] Pulse Oximetry 97 97 98 Oxygen Delivery Sc thod Room Air Room Air Room Air 10/06/23 17:00 10/06/23 18:00 10/06/23 19:00 Temperature 97.8 F 98.3 F 98.4 F Pulse Rate 91 92 105 H Pulse Rate [Left P ulse Oximeter] Respiratory Rate 16 16 16 Blood Pressure 130/77 132/76 135/75 Blood Pressure [Ri ght Arm] Pulse Oximetry 95 98 97 Oxygen Delivery Sc thod Room Air Room Air Room Air 10/06/23 23:00 10/06/23 23:00 10/07/23 03:00 Temperature 97.5 F L 98.4 F Pulse Rate Pulse Rate [Left P ulse Oximeter] 93 93 84 Respiratory Rate 18 18 16 Blood Pressure Blood Pressure [Ri ght Arm] 121/71 129/81 Pulse Oximetry 96 96 Oxygen Delivery Sc thod Room Air Room Air DS: Data Data Completed and Pending Labs on day of discharge: Labs from last 24 hours 10/07/23 10/06/23 06:35 07:56 WBC 6.66 RBC 2.31 L Hgb 7.8 L* Hct 23.9 L MCV 104 H MCH 34 MCHC 33 RDW Coeff of Siva 20.1 H Plt Count 245 Neut % (Auto) 61.8 Lymph % (Auto) 22.8 [place] % (Auto) 14.3 H Eos % (Auto) 0.6 Baso % (Auto) 0.3 Neut # (Auto) 4.12 Lymph # (Auto) 1.52 [place] # (Auto) 1.00 H Eos # (Auto) 0.04 Baso # (Auto) 0.02 Abs Immat Gran (auto) 0.01 Imm/Tot Granulo (auto) 0.2 Sodium 140 Potassium 3.7 Chloride 107 Carbon Dioxide 28 Anion Gap 5 L BUN 15 Creatinine 0.9 Estimated Creat Clear 72.72 Estimated GFR 78 Glucose 111 Calcium 8.6 Blood Type O Positive Antibody Screen NEGATIVE Discharge Plan Discharge Disposition: Home, Self-Care Date of Admission: 10/06/23 06:37 Attending Provider on Discharge: Bishnu Segura Primary Care Provider: Devi Rubin Condition: Stable Anticipated Discharge Date/Time: 10/07/23 12:07 Discharge Medications: New hydrocodone-acetaminophen 5-325 mg tablet 1 tab PO Q6H PRN (Reason: pain) Qty: 25 0RF Continued ibuprofen 800 mg tablet 800 - 1,000 mg PO Q8H PRN venlafaxine [Effexor XR] 37.5 mg capsule,extended release 24hr 37.5 mg PO DAILY prochlorperazine maleate [Compazine] 10 mg tablet 10 mg PO Q8H PRN (Reason: nausea and vomiting) Qty: 60 0RF ondansetron HCl 4 mg tablet 4 mg PO Q8H PRN (Reason: nausea and vomiting) Qty: 60 0RF lorazepam [Ativan] 0.5 mg tablet 0.5 mg PO DAILY PRN (Reason: anxiety, anticipatory nausea) clindamycin phosphate 1 % lotion 1 applic topical DAILY docusate sodium [Colace] 100 mg capsule 100 mg PO DAILY PRN loperamide [Imodium A-D] 2 mg capsule 2 - 4 mg PO Q2-3H PRN Rx Instructions: administer after each loose stool until symptoms controlled; do not exceed 8 mg per 24 hrs loratadine [Claritin] 10 mg tablet 10 mg PO DAILY PRN Discharge Orders: Discharge Order (Routine); Ordered 10/07/23 Ordered By: Bishnu Segura Patient Education: Hydrocodone/Acetaminophen (By mouth), Deep Sedation (DC), Post-Operative Instructions: Breast Surgery Additional Instructions: Please teach the patient drain cares. Patient's family should strip the drains 3 times a day and record output per day per each drain. Please give her enough gauze and ABD pads for dressing changes daily for the first week. Activity Level: No strenuous activity Activity Detail: No strenuous activity or lifting more than 15 lbs with left arm for 4 weeks. Take laxative such as MiraLax or senna daily for the first 7-10 days after surgery to prevent constipation. Discharge Diet: Regular Follow Up Appointments: Bishnu Segura MD [Staff Physician] - 10/12/23 3:30 pm ([facility] for follow[facility]up. Second appointment September @2:00pm.) Forms: [employer] Info Instructions Discharge Comments: After patient ambulates, if she is feeling well and not sure breath, okay to discharge. If she is feeling short of breath, will give her 1 unit of blood prior to discharge.
[2023-10-07] MEDS: VENLAFAXINE HCL ER 37.5 MG CAPSULE PO (10:16)
--- NOTE | 2023-10-07 15:56 | PC.NURSE ---
End of Shift: Patient pleasant and cooperative, A&O. VSS, afebrile. Blood transfusion finished, no adverse reactions, VSS. ILIANA drains stripped and measured, education to patient and caregiver/roommate given, all questions answered on ILIANA?s and dressing changes. Dressings dry and intact, some scant dried blood on dressings. Patient reports some pain on op site this shift, managed with PRN meds, see MAR.
--- NOTE | 2023-10-07 17:40 | PC.NURSE ---
Discharge - Pt alert, oriented, cooperative. Up independently in room, tolerating RA. Denies pain and SOB. Discharge instruction given to pt and caregiver, understanding verbalized with all questions addressed b RN. Pt d/c'd to home with caregiver via wheelchair at approximately 1630.
== END 2023-10-07 16:30 | disposition home or self-care (01) | DRG 362 ==
PROVIDERS: Anesthesiology; Admitting Provider Surgery; PCP Surgery; Visit Provider Surgery
PROC: 0HTV0ZZ Resection of Bilateral Breast, Open Approach (ICD-10-PCS; CPT 19305; principal; 2023-10-06 09:15)
PROC: 0HTV0ZZ Resection of Bilateral Breast, Open Approach (ICD-10-PCS; CPT 19305; 2023-10-06 09:15)
PROC: 0HTV0ZZ Resection of Bilateral Breast, Open Approach (ICD-10-PCS; CPT 19305; 2023-10-06 09:15)
DX: C50.912 Malignant neoplasm of unspecified site of left female breast (principal); D62 Acute posthemorrhagic anemia; G89.18 Other acute postprocedural pain; C77.3 Secondary and unspecified malignant neoplasm of axilla and upper limb lymph nodes; Z17.0 Estrogen receptor positive status [ER+]; F41.1 Generalized anxiety disorder
CPT/HCPCS: 19305; 19303; 01610; 10035; 36415; 36430; 38792; 64420; 64421; 76942; 80048; 81025; 85018; 85025; 86850; 86900; 86901; 86922; 88307; 88309; 88341; 88342; 88360; 88377; A9270; A9541; C1769; C9290; J0665; J0690; J1100; J1170; J1885; J2250; J2371; J2405; J2704; J2710; J3010; J3490; J7120; P9016

== ENCOUNTER 2023-10-21 11:30 | Outpatient (RCR) | payer BC, SELFPAY ==
--- NOTE | 2023-05-13 13:35 | ONC.NURNOTE ---
I met with patient and her friend Bobbi. Contents of the chemotherapy binder were reviewed. Side effects of treatment regimen were reviewed. Patient instructed what to report to provider and how to reach the provider after hours. Baseline labs obtained. Patient verbalizes understanding for plan to begin treatment 05/19.
--- NOTE | 2023-05-20 10:10 | URNOTE ---
Received request for prior authorization for the following: Docetaxel (J9171) Date range: 05/19/2023 to 11/14/2023 Carboplatin (J9045) Date range: 05/19/2023 to 11/14/2023 Trastuzumab-dkst ([id number]) Date range: 05/19/2023 to 05/17/2024 Pertuzumab (J9306) Date range: 05/19/2023 to 05/17/2024 Pegfilgrastin ([id number]) Date range: 05/19/2023 to 11/14/2023 Fosaprepitant ([id number]) Date range: 05/19/2023 to 11/14/2023 Palonosetron ([id number]) Date range: 05/19/2023 to 11/14/2023 Per [facility] Fed Program, Ref# [id number], per Rep. Jami Mcneill (Ref # [id number]) approved for the quantity needed during the above date range.
[2023-05-21 08:41] VITALS: BP 142/98; PULSE 92; RESP 16; TEMP 36.6; O2SAT 96
[2023-05-21 09:07] LABS: Basophils Absolute Auto 0.05 K/uL (0.00-0.30); Basophils Percent Auto 0.7 % (0.0-3.0); Eosinophils Percent Auto 1.4 % (0.0-7.0); Hematocrit 41.8 % (33.0-51.0); Hemoglobin* 13.8 gm/dL (12.0-16.0); Immature Granulocytes Abs Auto 0.01 K/uL (0.00-0.30); Immature Granulocytes Pct Auto 0.1 %; Lymphocytes Absolute Auto 1.49 K/uL (0.90-2.90); Lymphocytes Percent Auto 20.8 % (20-44); Mean Corpuscular HGB Conc 33 gm/dL (32-36); Mean Corpuscular Hemoglobin 30 pg (26-34); Mean Corpuscular Volume 91 fL (80-100); Monocytes Percent Auto 7.5 % (0.0-11.0); Neutrophils Absolute Auto 4.97 K/uL (1.7-7.0); Neutrophils Percent Auto 69.5 % (42.0-72.0); Platelet Count* 331 K/uL (140-440); RDW Coefficient of Variation % 11.7 % (11.5-15.5); Red Blood Count 4.59 m/uL (4.00-5.20); White Blood Count* 7.16 K/uL (4.50-11.00)
[2023-05-21 09:29] LABS: Chloride* 103 mmol/L (96-114)
[2023-05-21 09:30] LABS: Albumin* 4.5 g/dL (3.3-5.0); Potassium* 3.9 mmol/L (3.6-5.1); Sodium* 134 mmol/L (135-149)
[2023-05-21 09:33] LABS: Alanine Aminotransferase* 31 U/L (4-35); Alkaline Phosphatase* 58 U/L (40-150); Anion Gap 11 mEq/L (7-15); Aspartate Amino Transferase* 23 U/L (12-35); Bilirubin Total* 0.4 mg/dL (0.1-1.5); Blood Urea Nitrogen* 10 mg/dL (7-30); Carbon Dioxide* 20 mmol/L (20-32); Creatinine* 0.6 mg/dL (0.5-1.5); Est. Creatinine Clearance* 109.08; Estimated Glomerular Filt Rate 109 ml/min; Glucose* 115 mg/dL (60-115); Total Protein* 7.8 g/dL (6.0-8.3)
[2023-05-21 09:54] LABS: HCG Quantitative* < 2.39 mIU/mL; Slide Review Reflex No
[2023-05-21] MEDS: PERTUZUMAB 840 MG, TUBING SECONDARY 1 EACH in 0.9 % SODIUM CHLORIDE 250 ml 250 ML 278 MG IV (10:38)
[2023-05-21] MEDS: dexAMETHasone 10 MG in 0.9 % SODIUM CHLORIDE 100 ml 100 ML 404 MG IVPB (13:33)
[2023-05-21] MEDS: PALONOSETRON 0.25 MG/5 ML inj IV (13:34)
[2023-05-21] MEDS: FOSAPREPITANT 150 MG inj 150 MG in 0.9 % SODIUM CHLORIDE 250 ml 250 ML 780 MG IVPB (13:52)
[2023-05-21] MEDS: CARBOplatin 750 MG, TUBING SECONDARY 1 EACH in 0.9 % SODIUM CHLORIDE 250 ml 250 ML 650 MG IVPB (15:25)
[2023-06-12 15:44] LABS: Basophils Absolute Auto 0.09 K/uL (0.00-0.30); Basophils Percent Auto 1.2 % (0.0-3.0); Eosinophils Absolute Auto 0.08 K/uL (0.00-0.50); Hematocrit 36.2 % (33.0-51.0); Hemoglobin* 12.5 gm/dL (12.0-16.0); Immature Granulocytes Abs Auto 0.01 K/uL (0.00-0.30); Immature Granulocytes Pct Auto 0.1 %; Lymphocytes Percent Auto 20.7 % (20-44); Mean Corpuscular HGB Conc 35 gm/dL (32-36); Mean Corpuscular Hemoglobin 31 pg (26-34); Mean Corpuscular Volume 89 fL (80-100); Monocytes Percent Auto 13.3 % (0.0-11.0); Neutrophils Absolute Auto 4.92 K/uL (1.7-7.0); Neutrophils Percent Auto 63.7 % (42.0-72.0); Platelet Count* 352 K/uL (140-440); RDW Coefficient of Variation % 11.6 % (11.5-15.5); Red Blood Count 4.06 m/uL (4.00-5.20); White Blood Count* 7.73 K/uL (4.50-11.00)
[2023-06-12 16:11] LABS: Albumin* 4.3 g/dL (3.3-5.0); Chloride* 105 mmol/L (96-114)
[2023-06-12 16:12] LABS: Potassium* 3.8 mmol/L (3.6-5.1); Sodium* 136 mmol/L (135-149)
[2023-06-12 16:14] LABS: Alkaline Phosphatase* 74 U/L (40-150); Anion Gap 10 mEq/L (7-15); Aspartate Amino Transferase* 35 U/L (12-35); Bilirubin Total* 0.2 mg/dL (0.1-1.5); Blood Urea Nitrogen* 19 mg/dL (7-30); Carbon Dioxide* 21 mmol/L (20-32); Creatinine* 0.9 mg/dL (0.5-1.5); Est. Creatinine Clearance* 72.72; Estimated Glomerular Filt Rate 78 ml/min; Total Protein* 7.5 g/dL (6.0-8.3)
[2023-06-12 16:15] LABS: Alanine Aminotransferase* 68 U/L (4-35); Calcium* 8.9 mg/dL (8.4-10.6); Glucose* 102 mg/dL (60-115)
[2023-06-12 16:18] LABS: Slide Review Reflex No
--- NOTE | 2023-06-12 17:18 | ONC.NURNOTE ---
came in very anxious. stating she doesnt feel good at all. bp sl elevated. enc relaxation. blood draw peripherally. sat with her then Sylvia visited with her. Pt has a history of anxiety and states has been taking ativan 0.5mg daily for anxiety since Apr. states quit taking 5 days ago. states started on Lexapro yesturday. Talked with Jerrica FONSECA. Pt to contact her primary for refill on Ativan. and take 0.25 to 0.5 if needed daily and wean. pt agrees and states has 12 tabs at home.
[2023-06-15 08:40] LABS: HCG Qualitative Serum* Negative (Negative)
[2023-06-15 09:15] VITALS: BP 160/96; PULSE 74
[2023-06-15 09:17] VITALS: BP 161/87; PULSE 74
[2023-06-15 09:19] VITALS: BP 140/95; PULSE 86; O2SAT 97
[2023-06-15 09:25] VITALS: O2SAT 98
--- NOTE | 2023-06-15 10:55 | ONC.NURNOTE ---
Pt seen by Mirta Alfredo PA-C prior to cycle 2 TCHP today. Orders written for EKG and Chest CT PE protocol today prior to chemotherapy. [employer] called radiology and they are not able to do the CT today due to inability to obtain insurance approval. Discussed with Mirta Alfredo PA-C and pt then sent to Emergency room for eval and to rule out PE. Report given to Dr. Peacock. Pt transported to ED in wheelchair.
[2023-06-16 09:03] VITALS: BP 167/99; PULSE 82; RESP 16; TEMP 36; O2SAT 99
[2023-06-16] MEDS: 0.9 % SODIUM CHLORIDE 250 ml IV (09:50)
[2023-06-16] MEDS: SODIUM CHLORIDE 0.9 % (FLUSH) 10 ML SYRINGE IVF ×2 (09:50→14:24)
[2023-06-16] MEDS: PERTUZUMAB 420 MG, TUBING SECONDARY 1 EACH in 0.9 % SODIUM CHLORIDE 250 ml 250 ML 528 MG IV (09:57)
[2023-06-16] MEDS: dexAMETHasone 10 MG in 0.9 % SODIUM CHLORIDE 100 ml 100 ML 420 MG IVPB (11:18)
[2023-06-16] MEDS: PALONOSETRON 0.25 MG/5 ML inj IV (11:19)
[2023-06-16] MEDS: FOSAPREPITANT 150 MG inj 150 MG in 0.9 % SODIUM CHLORIDE 250 ml 250 ML 780 MG IVPB (11:48)
[2023-06-16] MEDS: DOCEtaxeL 140 MG, TUBING SECONDARY 1 EACH in 0.9 % SODIUM CHL 250 ml Excel 250 ML 257 MG IVPB (12:15)
[2023-06-16] MEDS: HEPARIN 500 UNIT/5 ML SYRINGE IVF (14:24)
[2023-06-22 09:27] LABS: Albumin* 4.5 g/dL (3.3-5.0)
[2023-06-22 09:30] LABS: Alanine Aminotransferase* 99 U/L (4-35); Alkaline Phosphatase* 111 U/L (40-150); Aspartate Amino Transferase* 49 U/L (12-35); Bilirubin Direct* 0.1 mg/dL (0.0-0.5); Bilirubin Total* 0.4 mg/dL (0.1-1.5)
[2023-06-22] MEDS: HEPARIN 500 UNIT/5 ML SYRINGE IVF (09:46)
[2023-06-22] MEDS: SODIUM CHLORIDE 0.9 % (FLUSH) 10 ML SYRINGE IVF (09:46)
--- NOTE | 2023-06-22 14:45 | ONC.NURNOTE ---
Lab results reviewed with VIVIEN Hurst. Patient informed that her LFTs are increased from last check. Patient denies Tylenol or alcohol use. She is taking a multi-vitamin. Patient instructed to avoid Tylenol, alcohol and to stop her multi-vitamin. We will plan to recheck LFTs in one week. Patient verbalizes understanding. Patient states she is overall doing better this cycle but she still feels crummy. She has had intermittent headaches and fatigue. She started to have diarrhea today but has not used Imodium because she doesn't want to get constipated. Patient will take a dose if she has another loose stool today. Patient is pushing fluids and eating adequate amounts. In regards to her anxiety, patient continues to feel anxious. She doesn't like how she feels with the hydroxyzine, it makes her feel loopy and only takes the edge off of her anxiety. She doesn't feel like it works nearly as well as Ativan. She reports taking the Effexor as directed. I talked to her about CBT but the patient states she can't focus on that right now. She explains it is taking all of her energy to focus on her physical well being right now. I encouraged the patient to call with questions or concerns.
[2023-06-29 08:51] LABS: Alanine Aminotransferase* 155 U/L (4-35); Alkaline Phosphatase* 96 U/L (40-150); Aspartate Amino Transferase* 77 U/L (12-35); Bilirubin Total* 0.1 mg/dL (0.1-1.5); Total Protein* 7.1 g/dL (6.0-8.3)
--- NOTE | 2023-06-29 17:07 | ONC.NURNOTE ---
Lab results reviewed with Dr. Britt. Patient informed of LFT results and plan for US to further evaluate. Patient scheduled for 07/02 at 715 AM. Patient instructed to be NPO for 6 hours prior.
[2023-07-06 08:16] LABS: Albumin* 4.2 g/dL (3.3-5.0); Chloride* 104 mmol/L (96-114)
[2023-07-06 08:17] LABS: Potassium* 3.7 mmol/L (3.6-5.1); Sodium* 136 mmol/L (135-149)
[2023-07-06 08:19] LABS: Alkaline Phosphatase* 93 U/L (40-150); Anion Gap 7 mEq/L (7-15); Aspartate Amino Transferase* 49 U/L (12-35); Bilirubin Total* 0.5 mg/dL (0.1-1.5); Blood Urea Nitrogen* 16 mg/dL (7-30); Carbon Dioxide* 25 mmol/L (20-32); Creatinine* 1.1 mg/dL (0.5-1.5); Est. Creatinine Clearance* 57.28; Estimated Glomerular Filt Rate 61 ml/min; Total Protein* 7.6 g/dL (6.0-8.3)
[2023-07-06 08:20] LABS: Alanine Aminotransferase* 113 U/L (4-35); Calcium* 9.2 mg/dL (8.4-10.6); Glucose* 110 mg/dL (60-115)
[2023-07-06 08:36] LABS: HCG Quantitative* 4.39 mIU/mL
[2023-07-06] MEDS: 0.9 % SODIUM CHLORIDE 1000 ml 1,000 ML IV (09:09)
[2023-07-06 09:20] LABS: Basophils Percent Auto 1.2 % (0.0-3.0); Eosinophils Percent Auto 0.2 % (0.0-7.0); Hematocrit 29.8 % (33.0-51.0); Immature Granulocytes Pct Auto 0.2 %; Lymphocytes Percent Auto 26.3 % (20-44); Mean Corpuscular HGB Conc 34 gm/dL (32-36); Mean Corpuscular Hemoglobin 30 pg (26-34); Mean Corpuscular Volume 90 fL (80-100); Monocytes Percent Auto 12.5 % (0.0-11.0); Neutrophils Percent Auto 59.6 % (42.0-72.0); Platelet Count* 262 K/uL (140-440); RDW Coefficient of Variation % 12.3 % (11.5-15.5); White Blood Count* 4.33 K/uL (4.50-11.00)
[2023-07-06 09:33] LABS: Slide Review Reflex No
[2023-07-06] MEDS: PERTUZUMAB 420 MG, TUBING SECONDARY 1 EACH in 0.9 % SODIUM CHLORIDE 250 ml 250 ML 528 MG IV (10:22)
[2023-07-06] MEDS: dexAMETHasone 10 MG in 0.9 % SODIUM CHLORIDE 100 ml 100 ML 404 MG IVPB (11:32)
[2023-07-06] MEDS: PALONOSETRON 0.25 MG/5 ML inj IV (11:32)
[2023-07-06] MEDS: FOSAPREPITANT 150 MG inj 150 MG in 0.9 % SODIUM CHLORIDE 250 ml 250 ML 780 MG IVPB (11:53)
[2023-07-06] MEDS: SODIUM CHLORIDE 0.9 % (FLUSH) 10 ML SYRINGE IVF (14:12)
[2023-07-06] MEDS: HEPARIN 500 UNIT/5 ML SYRINGE IVF (14:12)
--- NOTE | 2023-07-15 13:41 | ONC.NURNOTE ---
Patient called and reports she is not going to do the breast MRI. She states that she originally thought that it would get her out of chemotherapy if the cancer was gone. After thinking about it, she wants to continue with the recommended 6 cycles of negrita adjuvant chemotherapy.
[2023-07-27 07:57] LABS: Basophils Absolute Auto 0.03 K/uL (0.00-0.30); Basophils Percent Auto 0.6 % (0.0-3.0); Eosinophils Absolute Auto 0.02 K/uL (0.00-0.50); Eosinophils Percent Auto 0.4 % (0.0-7.0); Hematocrit 26.9 % (33.0-51.0); Hemoglobin* 9.1 gm/dL (12.0-16.0); Immature Granulocytes Abs Auto 0.01 K/uL (0.00-0.30); Immature Granulocytes Pct Auto 0.2 %; Mean Corpuscular HGB Conc 34 gm/dL (32-36); Mean Corpuscular Hemoglobin 31 pg (26-34); Mean Corpuscular Volume 92 fL (80-100); Monocytes Percent Auto 13.4 % (0.0-11.0); Neutrophils Absolute Auto 3.25 K/uL (1.7-7.0); Neutrophils Percent Auto 62.4 % (42.0-72.0); Platelet Count* 201 K/uL (140-440); RDW Coefficient of Variation % 14.4 % (11.5-15.5); Red Blood Count 2.94 m/uL (4.00-5.20); White Blood Count* 5.21 K/uL (4.50-11.00)
[2023-07-27 07:58] LABS: Slide Review Reflex No
[2023-07-27 08:25] LABS: Albumin* 4.2 g/dL (3.3-5.0); Chloride* 104 mmol/L (96-114); Potassium* 3.4 mmol/L (3.6-5.1); Sodium* 139 mmol/L (135-149)
[2023-07-27 08:28] LABS: Alanine Aminotransferase* 118 U/L (4-35); Alkaline Phosphatase* 86 U/L (40-150); Anion Gap 9 mEq/L (7-15); Aspartate Amino Transferase* 45 U/L (12-35); Bilirubin Total* 0.5 mg/dL (0.1-1.5); Blood Urea Nitrogen* 18 mg/dL (7-30); Carbon Dioxide* 26 mmol/L (20-32); Creatinine* 0.9 mg/dL (0.5-1.5); Est. Creatinine Clearance* 70.01; Estimated Glomerular Filt Rate 78 ml/min; Glucose* 98 mg/dL (60-115); Total Protein* 7.7 g/dL (6.0-8.3)
[2023-07-27 08:29] LABS: Calcium* 9.4 mg/dL (8.4-10.6)
[2023-07-27] MEDS: 0.9 % SODIUM CHLORIDE 1000 ml 1,000 ML IV (10:00)
[2023-07-27] MEDS: PERTUZUMAB 420 MG, TUBING SECONDARY 1 EACH in 0.9 % SODIUM CHLORIDE 250 ml 250 ML 528 MG IV (10:17)
[2023-07-27] MEDS: PALONOSETRON 0.25 MG/5 ML inj IV (11:29)
[2023-07-27] MEDS: dexAMETHasone 10 MG in 0.9 % SODIUM CHLORIDE 100 ml 100 ML 404 MG IVPB (11:30)
[2023-07-27] MEDS: FOSAPREPITANT 150 MG inj 150 MG in 0.9 % SODIUM CHLORIDE 250 ml 250 ML 700 MG IVPB (11:51)
[2023-07-27] MEDS: SODIUM CHLORIDE 0.9 % (FLUSH) 10 ML SYRINGE IVF (14:14)
[2023-07-27] MEDS: HEPARIN 500 UNIT/5 ML SYRINGE IVF (14:14)
--- NOTE | 2023-08-05 13:45 | ONC.NURNOTE ---
Patient called to report a sore on her nose since Thursday. She states it is the tip of her nose and is very red and sore. Patient sent pictures via email that were reviewed by Dr. Britt. The pictures show an area of pus at the center of the reddened area. Patient denies fevers or chills. Patient informed that Dr. Britt recommends trying OTC salicylic acid, such as CereVe acne wash. If her symptoms do not improve in 2 days or if they worsen, patient is to start the minocycline prescribed by Dr. Britt. Patient verbalizes understanding.
--- NOTE | 2023-08-11 09:52 | W.PM.EKGINT ---
EKG Interpretation EKG Data Date of EKG Tracin06/15/23 EKG interpretation date: 08/11/23 EKG interpretation time: 09:53 Prior EKG tracings: available for review Interpretation: EKG dated 06/15/2023. This is compared to EKG from 05/09/2022. Patient is in normal sinus rhythm, there is no tachycardia. No acute ST wave changes. [place] remains normal. QT interval has increased 80 milliseconds. QTC is slightly increased at 14 milliseconds Impression: Normal EKG, with slight increasing QT and QTC.
--- NOTE | 2023-08-12 09:00 | ONC.NURNOTE ---
Call from patients friend Bobbi. Patient had to reschedule her ECHO from today because she isn't feeling well. Starting yesterday, she complains of sore throat. At midnight, she developed chills, nausea and vomiting. Her t max was 101 but she was bundled at the time and it came down quickly. Her temperature hovered between 99 and 100 the rest of the night. She continues to not feel well. I encouraged Bobbi to have Alanis evaluated today to assess her immune system and monitor for any signs of infection. Bobbi verbalizes understanding. They will call PCP for appointment.
--- NOTE | 2023-08-13 09:33 | ONC.NURNOTE ---
Call from patients friend Bobbi with an update on Alanis's condition. She states her PCP directed them to the ED last night for symptomatic anemia. The ED gave her fluids and told them to call oncology this morning for next steps. Reviewed with Jerrica Pennington APRN who recommends 1 unit PRBC. Patient had type and screen done in the ED last night. Patient will come to clinic today for transfusion. Patient and friend both verbalize understanding of plan.
[2023-08-13 11:59] VITALS: BP 119/82; PULSE 91; RESP 16; TEMP 36.6; O2SAT 97
[2023-08-13 12:17] VITALS: BP 117/81; PULSE 87; RESP 18; TEMP 36.2; O2SAT 98
[2023-08-13 13:10] VITALS: BP 114/78; PULSE 84; RESP 16; TEMP 36.2; O2SAT 96
[2023-08-13 13:48] VITALS: BP 115/79; PULSE 85; RESP 16; TEMP 36.5; O2SAT 97
[2023-08-13] MEDS: HEPARIN 500 UNIT/5 ML SYRINGE IVF (14:26)
[2023-08-13] MEDS: 0.9 % SODIUM CHLORIDE 250 ml IV (14:26)
[2023-08-13] MEDS: SODIUM CHLORIDE 0.9 % (FLUSH) 10 ML SYRINGE IVF (14:26)
[2023-08-13 14:34] VITALS: BP 114/80; PULSE 82; RESP 16; TEMP 36.8; O2SAT 97
[2023-08-17 08:09] LABS: Basophils Absolute Auto 0.01 K/uL (0.00-0.30); Basophils Percent Auto 0.2 % (0.0-3.0); Eosinophils Absolute Auto 0.08 K/uL (0.00-0.50); Eosinophils Percent Auto 1.8 % (0.0-7.0); Hemoglobin* 8.4 gm/dL (12.0-16.0); Immature Granulocytes Abs Auto 0.01 K/uL (0.00-0.30); Immature Granulocytes Pct Auto 0.2 %; Lymphocytes Absolute Auto 1.06 K/uL (0.90-2.90); Lymphocytes Percent Auto 23.4 % (20-44); Mean Corpuscular HGB Conc 34 gm/dL (32-36); Mean Corpuscular Hemoglobin 32 pg (26-34); Mean Corpuscular Volume 96 fL (80-100); Monocytes Percent Auto 10.2 % (0.0-11.0); Neutrophils Absolute Auto 2.91 K/uL (1.7-7.0); Neutrophils Percent Auto 64.2 % (42.0-72.0); Platelet Count* 159 K/uL (140-440); RDW Coefficient of Variation % 16.4 % (11.5-15.5); Red Blood Count 2.61 m/uL (4.00-5.20); White Blood Count* 4.53 K/uL (4.50-11.00)
[2023-08-17 08:11] LABS: Slide Review Reflex No
[2023-08-17 08:27] LABS: Albumin* 3.9 g/dL (3.3-5.0)
[2023-08-17 08:28] LABS: Chloride* 104 mmol/L (96-114); Potassium* 3.8 mmol/L (3.6-5.1); Sodium* 137 mmol/L (135-149)
[2023-08-17 08:30] LABS: Anion Gap 7 mEq/L (7-15); Aspartate Amino Transferase* 39 U/L (12-35); Bilirubin Total* 0.4 mg/dL (0.1-1.5); Carbon Dioxide* 26 mmol/L (20-32); Creatinine* 0.9 mg/dL (0.5-1.5); Est. Creatinine Clearance* 70.01; Estimated Glomerular Filt Rate 78 ml/min; Total Protein* 7.3 g/dL (6.0-8.3)
[2023-08-17 08:31] LABS: Alanine Aminotransferase* 59 U/L (4-35); Alkaline Phosphatase* 92 U/L (40-150); Blood Urea Nitrogen* 15 mg/dL (7-30); Calcium* 9.1 mg/dL (8.4-10.6); Glucose* 114 mg/dL (60-115)
[2023-08-17 08:56] LABS: HCG Quantitative* 4.03 mIU/mL
[2023-08-17] MEDS: SODIUM CHLORIDE 0.9 % (FLUSH) 10 ML SYRINGE IVF ×2 (09:30→13:30)
[2023-08-17] MEDS: 0.9 % SODIUM CHLORIDE 250 ml IV (09:30)
[2023-08-17] MEDS: PERTUZUMAB 420 MG, TUBING SECONDARY 1 EACH in 0.9 % SODIUM CHLORIDE 250 ml 250 ML 528 MG IV (09:42)
[2023-08-17] MEDS: dexAMETHasone 10 MG in 0.9 % SODIUM CHLORIDE 100 ml 100 ML 420 MG IVPB (10:58)
[2023-08-17] MEDS: PALONOSETRON 0.25 MG/5 ML inj IV (10:59)
[2023-08-17] MEDS: FOSAPREPITANT 150 MG inj 150 MG in 0.9 % SODIUM CHLORIDE 250 ml 250 ML 780 MG IVPB (11:19)
[2023-08-17] MEDS: HEPARIN 500 UNIT/5 ML SYRINGE IVF (13:30)
--- NOTE | 2023-08-18 10:18 | W.ED.EKGINT ---
EKG Interpretation EKG Data Attestation: I personally reviewed and interpreted this ECG as follows: EKG interpretation date: 08/18/23 Prior EKG tracings: available for review Interpretation: EKG reviewed, compared to previous EKG of 06/15/2023, rhythm remains sinus, rate is 83, no acute ST wave changes, normal QRS interval. QT and QTC are decreased from previous EKG. Impression: Normal EKG, no acute changes
[2023-08-21 09:45] VITALS: BP 111/74; PULSE 130; RESP 17; TEMP 36.7; O2SAT 98
[2023-08-21] MEDS: SODIUM CHLORIDE 0.9 % (FLUSH) 10 ML SYRINGE IVF ×2 (10:17→12:59)
[2023-08-21 10:30] VITALS: BP 113/79; PULSE 121
[2023-08-21 11:19] LABS: Hemoglobin* 8.9 gm/dL (12.0-16.0)
[2023-08-21 11:35] VITALS: BP 122/86; PULSE 104
[2023-08-21 11:36] VITALS: BP 121/80; PULSE 115
[2023-08-21] MEDS: 0.9 % SODIUM CHLORIDE 1000 ml 1,000 ML IV (11:50)
--- NOTE | 2023-08-21 12:46 | PC.NURSE ---
Pt present at [facility] for hgb check and possible transfusion. Hgb 8.9. No blood transfusion indicated. Pt does, however, report that she has been feeling lightheaded and dizzy at times. Discussed case with Jerrica Pennington APRN TELEMEDICINE PHYSICIAN, and 1L of NS was ordered to be given. Please see Vital Signs flowsheet for details. Pt's BP a little low and HR elevated. We talked through orthostatic avoiding practices (getting up slowly, no hot showers, hydrate, increase salt intake) and pt verbalized understanding. NS given as ordered. Pt will be back next week for another hgb check.
[2023-08-21 12:57] VITALS: BP 118/79; PULSE 93
[2023-08-21] MEDS: HEPARIN 500 UNIT/5 ML SYRINGE IVF (12:59)
--- NOTE | 2023-08-26 14:38 | ONC.NURNOTE ---
Patients friend Bobbi called on her behalf to report that the redness has returned to the tip of Alanis's nose. It is very sore, rates the pain a 12 out of 10. Patient denies fever. We reviewed supportive care that was previously discussed, salicylic acid such as CereVe. Patient also has Minocycline on hand that was prescribed last month by Dr. Britt that she did not use. Patient will begin taking today. If her symptoms worsen or do not improve, she needs to be evaluated. Otherwise, patient has labs and infusion scheduled in [facility] Sunday 08/27 and we can assess at that time. Bobbi verbalizes understanding.
[2023-08-28 08:12] VITALS: BP 135/85; PULSE 110; RESP 16; TEMP 36.2; O2SAT 98
[2023-08-28] MEDS: HEPARIN 500 UNIT/5 ML SYRINGE IVF (09:25)
[2023-08-28] MEDS: SODIUM CHLORIDE 0.9 % (FLUSH) 10 ML SYRINGE IVF (09:25)
--- NOTE | 2023-08-28 10:04 | AT.DPN ---
Reports no symptoms of anemia- deinies SOB, palpitations Reports feeling much better than last week eating per baseline drinking 64 plus oz of fluids/day- water and gatorade no diarrhea since Thursday when she had 3 episodes alternates with loose stools and constipation discussed symptoms of low hg and to call clinic if devlop and will recheck lab if continues to do well next lab appt is next Thursdayla in agreement and states understanding
--- NOTE | 2023-08-31 09:00 | ONC.NURNOTE ---
Call from patients friend Bobbi with an update on Alanis's condition. Patient was in the ER yesterday not feeling well. It was decided that she was possibly having a reaction to the monocycline and it was discontinued. Her Hgb was 7.8 but the ER did not feel that she needed a transfusion. Patients friend shares that Alanis is very anxious about many things right now and this is likely contributing to her symptoms. Patient is seeing a dentist tomorrow for tooth pain that is worsening over the past week. She has not been to a dentist for years and has a history of needing several teeth extracted. We will plan to see Alanis on Thursday as previous planned for repeat labs and possible transfusion. If her anemia symptoms worsen or do not improve, they are to call [facility] to discuss further. Bobbi verbalizes understanding.
--- NOTE | 2023-09-01 14:47 | ONC.NURNOTE ---
Pt saw Dentist today for ongoing left tooth pain x 1-2 weeks. Per patient, Dental exam reveals left upper wisdom tooth has a cavity; no active infections or urgent situations. Recommendation is to see an Oral Surgeon for removal of both upper wisdom teeth. Pt hopes to have last chemotherapy next Mon 09/06 before resolving cavity issue; pt sees Dr. Britt, will discuss risk/benefit at that appt. Pt had tried Minocycline for significant acneiform nose sores. She attributes flu-like?symptoms to Minocycline, from the 1st?time she took it and had stopped, then when she re-attempted it; she verbalizes she is not going to take it. Pt also talked about possibility of POTS, saying she's always had light-headedness/going down to a knee with position changes, i.e. with standing up after a 30 [address] car ride, her baseline prior to chemo, noting its just more severe/significant now. She notes she discussed this concern with PCP previously. Encouraged pt to increase electrolyte drinks to her daily fluid intake. Pt also notes Jerrica Ngo APRN recommended increasing her salt intake; she will try this.
[2023-09-04 08:10] VITALS: BP 124/80; PULSE 96; RESP 16; TEMP 36.6; O2SAT 100
[2023-09-04 10:12] VITALS: PULSE 91; RESP 16; TEMP 36.6; O2SAT 98
[2023-09-04 10:34] VITALS: BP 115/74; PULSE 89; RESP 16; TEMP 36.6; O2SAT 97
[2023-09-04 11:19] VITALS: BP 115/74; PULSE 91; RESP 16; TEMP 36.6; O2SAT 97
[2023-09-04 13:25] VITALS: BP 123/73; PULSE 91; RESP 16; TEMP 36.8; O2SAT 96
[2023-09-04 14:03] VITALS: PULSE 85; RESP 16; O2SAT 97
[2023-09-07 08:27] LABS: Basophils Absolute Auto 0.04 K/uL (0.00-0.30); Basophils Percent Auto 0.8 % (0.0-3.0); Eosinophils Absolute Auto 0.08 K/uL (0.00-0.50); Eosinophils Percent Auto 1.6 % (0.0-7.0); Hematocrit 30.2 % (33.0-51.0); Hemoglobin* 9.9 gm/dL (12.0-16.0); Immature Granulocytes Abs Auto 0.01 K/uL (0.00-0.30); Immature Granulocytes Pct Auto 0.2 %; Lymphocytes Absolute Auto 1.05 K/uL (0.90-2.90); Mean Corpuscular HGB Conc 33 gm/dL (32-36); Mean Corpuscular Hemoglobin 32 pg (26-34); Mean Corpuscular Volume 97 fL (80-100); Monocytes Percent Auto 11.6 % (0.0-11.0); Neutrophils Absolute Auto 3.23 K/uL (1.7-7.0); Neutrophils Percent Auto 64.8 % (42.0-72.0); Platelet Count* 217 K/uL (140-440); RDW Coefficient of Variation % 18.9 % (11.5-15.5); Red Blood Count 3.13 m/uL (4.00-5.20); White Blood Count* 4.99 K/uL (4.50-11.00)
[2023-09-07 08:29] LABS: Slide Review Reflex No
[2023-09-07 08:51] LABS: Albumin* 4.1 g/dL (3.3-5.0); Chloride* 103 mmol/L (96-114); Potassium* 4.2 mmol/L (3.6-5.1); Sodium* 137 mmol/L (135-149)
[2023-09-07 08:54] LABS: Alanine Aminotransferase* 63 U/L (4-35); Alkaline Phosphatase* 96 U/L (40-150); Anion Gap 7 mEq/L (7-15); Aspartate Amino Transferase* 41 U/L (12-35); Bilirubin Total* 0.4 mg/dL (0.1-1.5); Blood Urea Nitrogen* 14 mg/dL (7-30); Carbon Dioxide* 27 mmol/L (20-32); Creatinine* 0.9 mg/dL (0.5-1.5); Est. Creatinine Clearance* 70.01; Estimated Glomerular Filt Rate 78 ml/min; Glucose* 120 mg/dL (60-115)
[2023-09-07 08:55] LABS: Calcium* 9.2 mg/dL (8.4-10.6)
[2023-09-07 09:12] LABS: HCG Quantitative* 4.16 mIU/mL
[2023-09-07] MEDS: PERTUZUMAB 420 MG, TUBING SECONDARY 1 EACH in 0.9 % SODIUM CHLORIDE 250 ml 250 ML 528 MG IV (10:11)
[2023-09-07] MEDS: dexAMETHasone 10 MG in 0.9 % SODIUM CHLORIDE 100 ml 100 ML 404 MG IVPB (11:23)
[2023-09-07] MEDS: PALONOSETRON 0.25 MG/5 ML inj IV (11:23)
[2023-09-07] MEDS: FOSAPREPITANT 150 MG inj 150 MG in 0.9 % SODIUM CHLORIDE 250 ml 250 ML 800 MG IVPB (11:44)
[2023-09-07] MEDS: SODIUM CHLORIDE 0.9 % (FLUSH) 10 ML SYRINGE IVF (13:57)
[2023-09-07] MEDS: HEPARIN 500 UNIT/5 ML SYRINGE IVF (13:57)
[2023-09-14 11:46] LABS: Hemoglobin* 9.7 gm/dL (12.0-16.0)
--- NOTE | 2023-09-14 12:19 | ONC.NURNOTE ---
Patient informed her Hgb is 9.7 today. No transfusion needed. Patient confirms plan for recheck on 09/20.
[2023-09-14] MEDS: HEPARIN 500 UNIT/5 ML SYRINGE IVF (12:21)
[2023-09-14] MEDS: SODIUM CHLORIDE 0.9 % (FLUSH) 10 ML SYRINGE IVF (12:23)
[2023-09-21 10:55] LABS: Hemoglobin* 9.5 gm/dL (12.0-16.0)
[2023-09-28 08:35] VITALS: BP 129/81; PULSE 95; RESP 16; TEMP 35.8; O2SAT 96
[2023-09-28 08:52] LABS: Basophils Percent Auto 0.5 % (0.0-3.0); Hemoglobin* 8.6 gm/dL (12.0-16.0); Lymphocytes Percent Auto 29.1 % (20-44); Mean Corpuscular HGB Conc 33 gm/dL (32-36); Mean Corpuscular Hemoglobin 33 pg (26-34); Mean Corpuscular Volume 99 fL (80-100); Monocytes Percent Auto 15.7 % (0.0-11.0); Neutrophils Percent Auto 53.7 % (42.0-72.0); Platelet Count* 140 K/uL (140-440); RDW Coefficient of Variation % 19.4 % (11.5-15.5); Red Blood Count 2.63 m/uL (4.00-5.20); White Blood Count* 4.13 K/uL (4.50-11.00)
[2023-09-28 08:56] LABS: Slide Review Reflex No
[2023-09-28 09:03] LABS: Albumin* 3.9 g/dL (3.3-5.0); Chloride* 102 mmol/L (96-114)
[2023-09-28 09:04] LABS: Potassium* 3.6 mmol/L (3.6-5.1); Sodium* 138 mmol/L (135-149)
[2023-09-28 09:06] LABS: Alkaline Phosphatase* 81 U/L (40-150); Anion Gap 8 mEq/L (7-15); Aspartate Amino Transferase* 51 U/L (12-35); Bilirubin Total* 0.3 mg/dL (0.1-1.5); Blood Urea Nitrogen* 20 mg/dL (7-30); Carbon Dioxide* 28 mmol/L (20-32); Creatinine* 0.8 mg/dL (0.5-1.5); Est. Creatinine Clearance* 78.76; Estimated Glomerular Filt Rate 90 ml/min; Total Protein* 7.2 g/dL (6.0-8.3)
[2023-09-28 09:07] LABS: Alanine Aminotransferase* 103 U/L (4-35); Calcium* 8.8 mg/dL (8.4-10.6); Glucose* 101 mg/dL (60-115)
[2023-09-28] MEDS: SODIUM CHLORIDE 0.9 % (FLUSH) 10 ML SYRINGE IVF (10:14)
[2023-09-28] MEDS: HEPARIN 500 UNIT/5 ML SYRINGE IVF (10:14)
[2023-09-28] MEDS: 0.9 % SODIUM CHLORIDE 250 ml IV (10:14)
[2023-09-28] MEDS: PERTUZUMAB 420 MG, TUBING SECONDARY 1 EACH in 0.9 % SODIUM CHLORIDE 250 ml 250 ML 528 MG IV (10:14)
== END 2023-10-26 23:59 | disposition home or self-care (01) ==
LOC: CCIC 11:30
PROVIDERS: Clinical Nurse Specialist; Internal Medicine Hematology & Oncology; PCP Family Medicine; Referring Provider Family Medicine; Visit Provider Physician Assistant
DX: C50.912 Malignant neoplasm of unspecified site of left female breast (principal); Z17.0 Estrogen receptor positive status [ER+]; Z51.81 Encounter for therapeutic drug level monitoring; Z79.899 Other long term (current) drug therapy; F41.9 Anxiety disorder, unspecified; Z90.13 Acquired absence of bilateral breasts and nipples
CPT/HCPCS: 36415; 36430; 36591; 80053; 80076; 84702; 84703; 85018; 85025; 86850; 86900; 86901; 86922; 93005; 93010; 96360; 96366; 96376; 96377; 96413; 96415; 96417; 99202; 99205; 99211; 99212; 99215; G0463; J2506; J1100; J1453; J1642; J2469; J7030; J7050; J9045; J9171; J9306; P9016; Q5114

== ENCOUNTER 2023-11-24 16:15 | Outpatient (RCR) | payer BC, SELFPAY ==
--- NOTE | 2023-11-05 16:40 | OT.OPLE2 ---
OT Outpatient Lymphedema Eval* OT Outpatient Lymphedema Eval* Start: 11/05/23 14:34 Freq: Status: Active Protocol: Document 11/05/23 14:35 DONAVAN (Rec: 11/05/23 16:40 DONAVAN [id number]) E-signed By Elsa Singh, OTR/L, CLT OT Outpatient Evaluation Details Type Type Eval Complexity Medium Insurance Information Insurance Information Insurance Information Blue [employer]/Blue [employer] Height and Weight Weight Weight 89.698 kg Weight Measurement Method Standing Scale OT OP Lymphedema Evaluation Current Condition/Medical Diagnosis Referring Provider Dr. 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 (these restrictions/ precautions were up on 11/04/23) . No other precautions listed in the chart/provider note/ therapy order. Medical History Medical History Cancer Treatment/Surgery Medical History Comments Past medical history is positive for anxiety, possibly hypertension hyperlipidemia. Social History: positive for smoking up to 2 packs per day over the weekends. Drinking/ binge drinking over the weekends. This has been ongoing for the last 30 years. She has currently quit smoking and drinking. She has worked at the [employer] for 24 years. Family history is positive for more than 3 blood relatives having breast cancer. More than 3 blood relatives having other different kind of malignancies. Malignancies are on the maternal side as history on the paternal side is unclear since her father was adopted. Surgical History Surgical History 10/06/2023: Underwent bilateral mastectomy and left sentinel lymph node dissection Right breast mastectomy consistent with atypical lobular hyperplasia Left breast mastectomy yp T1b N0, 0/4 lymph nodes, 2 foci of residual invasive cancer: Tumor 110 in to 7 mm grade 1, tumor 2-1 mm, ER positive CO positive HER2 positive Left-sided invasive ductal carcinoma of the breast, triple positive, T1 N1 MX at the time of initial consultation Consult date: 10/21/23 Oncology Hx: 52-year-old very pleasant lady with new diagnosis of left- sided invasive ductal carcinoma, triple positive, T1 N1 MX at the time of initial consultation, stage II anatomic, stage IB prognostic, comes in for medical oncology evaluation on 04/29/2023 at [facility]. 03/30/2023 routine screening mammogram done at [facility] consistent with left breast asymmetry BI-RADS 0 04/14/2023 diagnostic mammogram consistent with 1 cm lesion in the left breast at 1 o'clock position 13 cm 4, left axillary lymph node 2.5 cm. 04/20/2023 left breast lesion hypoechoic angular solid mass 9-10 to 10 mm at 1:00 a.m. 13 cm from nipple/ clip placement . 04/20/2023 ultrasound-guided left axillary lymph node biopsy done. left axilla, hypoechoic lymph node measuring 2.0-1.5 to 2.5 cm in the left axilla. Pathology consistent with invasive ductal carcinoma, grade 2, ER positive 98%, CO positive 68%; HER2 positive by IHC 3+ and by fish Left axilla lymph node biopsy positive for metastatic carcinoma to a lymph node. Measuring 6 mm. Negative for extracapsular extension in the biopsy. 04/27/23: MRI BREAST: LEFT Breast: 1. Mass at 1 o`clock, posterior depth measuring up to 2.5 cm on MRI is consistent with the biopsy- proven malignancy. No additional suspicious areas of enhancement. Surgical /oncologic follow-up for continued management. 2. Abnormal LEFT axillary lymph nodes, consistent with biopsy-proven filiberto metastasis RIGHT Breast: Negative, there is no MRI evidence of contralateral malignancy. BI-RADS Category 6: Known Biopsy-Proven Malignancy 05/08/2023 PET scan consistent with bilateral parotid and periparotid lymph nodes 0.7 cm SUV 1.7 and left parotid nodule or lymph node 0.6 cm SUV 1.2. Possibly reactive or inflammatory. Right lower lobe calcified nodule mild uptake 1.2 cm SUV 1.4. Thoracic lymph nodes right perihilar lymph node 0.5 cm short axis SUV 3.4. Left axillary lymph node with asymmetric cortical thinning with thickening 1.1 cm SUV 7.0 most likely representing biopsy-proven filiberto metastases . Less avid superior left axillary lymph node 0.6 cm SUV 2.0. Upper outer left breast with biopsy takes 1.1 cm SUV 4.9. Biopsy-proven malignancy. Tiny nodular opacity in the right breast posterior left and mild uptake nonspecific 0. 6 cm SUV 1.5. Left adnexal ovarian cyst with no suspicious uptake, 2.8 cm SUV 1.1. Small lymph node/nodule left upper quadrant borders the tail of the pancreas with no suspicious uptake 0.6 cm short axis SUV 1.2. Medications Medications ibuprofen 800 mg tablet 800 - 1,000 mg PO Q8H PRN venlafaxine [Effexor XR] 37.5 mg capsule,extended release 24hr 37.5 mg PO DAILY prochlorperazine maleate [ Compazine] 10 mg tablet 10 mg PO Q8H PRN (Reason: nausea and vomiting) Qty: 60 0RF ondansetron HCl 4 mg tablet 4 mg PO Q8H PRN (Reason: nausea and vomiting) Qty: 60 0RF lorazepam [Ativan] 0.5 mg tablet 0.5 mg PO DAILY PRN (Reason: anxiety, anticipatory nausea) clindamycin phosphate 1 % lotion 1 applic topical DAILY docusate sodium [Colace] 100 mg capsule 100 mg PO DAILY PRN loperamide [Imodium A-D] 2 mg capsule 2 - 4 mg PO Q2-3H PRN Rx Instructions: administer after each loose stool until symptoms controlled; do not exceed 8 mg per 24 hrs loratadine [Claritin] 10 mg tablet 10 mg PO DAILY PRN Contraindications Contraindications General Family History Family History of Lymphedema No Current Work Status Current Work Status Fashion [employer] Current Work Status Comments She has worked at the post office for 24 years (currently not working, hoping to return to work soon, would prefer not to be on light duty-wants to be able to do her regular job demands which includes lifting up to 70 lbs). Subjective Subjective 10/06/2023: Underwent bilateral mastectomy and left sentinel lymph node dissection Right breast mastectomy consistent with atypical lobular hyperplasia Living Situation Current Living Situation Private Home/Apartment (Alone) Current Living Situation Comments Lives with a roommate in [place] Impairments Impairments Loss of Mobility,Limb Heaviness Problem List Problem List Limited Knowledge of Lymphedema Treatment/Condition /Precautions,Limited Knowledge of Skin Care & Infection Precautions,Significant Risk For Infection For Lymphedema Related Complications,Does Not Have a HEP,Does Not Have Appropriate Compression Garments For LT Management, Presents With Increased Fall Risk Secondary To Lymphedema, Presents With Impaired Mobility/ROM Exercise History Does Patient Exercise Regularly No Pain Pain Yes Pain Comments tightness fullness in the L upper chest cavity 4/10 with reaching and carrying/lifting No pain/discomfort at rest ROM/Strength ROM/Strength Comments Bilateral UE 4+/5, WFL Compression History Does Patient Currently Wear Compression No During Daytime Does Patient Currently Wear Compression No At Night Current Swelling (Location/Pitting/Texture) Pitting Scale: 0 = No pitting 1+ Tissue returns to normal almost immediately 2+ Tissue returns after 15-30 seconds 3+ Tissue returns after 1-1/2 minutes 4+ Tissue returns after 2-3 minutes N/A Tissue no longer pits due to induration Tissue texture: Soft or indurated Clinical Presentation Area Pt demonstrates presence of fluid in her left upper chest cavity. Very tight/ shiny skin , significant pressure noted. Pt does have thick scarring in the incision lines bilaterally, adherence is present and could be affecting lymph drainage. There are no s/ s of infection. Circumferential measurements of BUE do not indicate concern for lymphedema. Pt does have axillary cording bilaterally with L worse than R which will be addressed with PT, fluid present (patient reports feeling swollen in the L upper chest cavity). Triggering Event & Start Date of Post Surgery/Cancer Swelling/Lymphedema Skin Changes Limited Skin Mobility Positive Stemmer's Sign No Capillary Refill Brisk Type of Swelling Post Surgery/Traumatic Edema Circumferential Measurements Upper Extremity Left Upper Extremity Base of Third Finger (in cm) 7 MCP (in cm) 20 Palm (in cm) 21.1 Smallest Wrist Measurement (in cm) 17.6 10 cm Above Smallest Wrist Measurement 22.5 20 cm Above Smallest Wrist Measurement 28.2 30 cm Above Smallest Wrist Measurement 30.2 40 cm Above Smallest Wrist Measurement 35.1 Total Girth in cm 181.7 UE Volume C 321.49 UE Volume D 513.53 UE Volume E 678.77 UE Volume F 849.90 Upper Extremity Volume Total in cm 2,363.69 Right Upper Extremity Base of Third Finger (in cm) 6.8 MCP (in cm) 20.5 Palm (in cm) 22.1 Smallest Wrist Measurement (in cm) 17.5 10 cm Above Smallest Wrist Measurement 22.3 20 cm Above Smallest Wrist Measurement 28 30 cm Above Smallest Wrist Measurement 29.3 40 cm Above Smallest Wrist Measurement 36 Total Girth in cm 182.5 UE Volume C 316.66 UE Volume D 505.50 UE Volume E 653.30 UE Volume F 851.29 Upper Extremity Volume Total in cm 2,326.75 Assessment Assessment 52-year-old very pleasant lady with new diagnosis of left- sided invasive ductal carcinoma, triple positive, T1 N1 MX at the time of initial consultation, stage II anatomic, stage IB prognostic, comes in for medical oncology evaluation on 04/29/2023 at [facility]-started with cycle 1 TCHP-- cycle 6 of TCHP on 09/07/2023-- bilateral mastectomy and left- sided sentinel lymph node dissection on 10/06/2023-- residual multifocal invasive disease, yp T1b N0, 2 tumor foci at 10 mm and 1 mm, margin negative, 0/4 lymph nodes, ER positive CO positive HER2 positive -ECOG 0. Patient had her f/u apt on 10/21/23 with provider and discussed possible consideration of postmastectomy radiation due to positive lymph node at the time of diagnosis; discussed adjuvant TDM 1/Kadcyla for 14 cycles based on Sara trial; fda package insert for TDM1 was reviewed and discussed; once radiation consultation is done, we can determine when to commence endocrine therapy; will need CBC CMP and hcg; will need echocardiogram with return visit to provider in 3-4 weeks for status post bilateral mastectomy. Pt demonstrates presence of fluid in her left upper chest cavity. Very tight / shiny skin, significant pressure noted. Pt does have thick scarring in the incision lines bilaterally, adherence is present and could be affecting lymph drainage. There are no s/ s of infection . Circumferential measurements of BUE do not indicate concern for lymphedema. Pt does have axillary cording bilaterally with L worse than R which will be addressed with PT, fluid present (patient reports feeling swollen in the L upper chest cavity). Patient will be on a surveillance program for OT and actively work with PT for addressing UE HEP and scarring . Patient Goals Patient Goals 1. Pt will be compliant with home program including compression, scar mobilization and exercise. 2. Pt will verbalize basic understanding of the lymphatic system, s/s of lymphedema and what to do if she suspects issues in her left upper quadrant. 3. Band Scroll Saw Operator will note softening of fibrotic tissue and scar tissue in order to improve lymph drainage from the breast and reduce risk for infection . Treatment Plan Treatment Plan Evaluation,Edema Control,Joint Mobilization,Manual Therapy, Therapeutic Exercise,Self-Care /Home Management,Education Expected Frequency 1-2x Week Expected Duration 1 year Certification Certification Statement I Certify That: Therapy Services Provided, Therapy Plan Established, Therapy Plan Reviewed Certification Information Clinic ID # [id number] Initial Certification Date 11/05/23 Recertification Due Date 10/30/24 Provider Signature Required Yes Provider Signature Shows Agreement With POC & Medical Necessity Physician NPI Number Write NPI# Here Physician Comment/Change Comment or Changes Physician Signature & Date Requested Please Sign/Date Here
== END 2024-03-23 23:59 | disposition home or self-care (01) ==
PROVIDERS: PCP Family Medicine; Visit Provider Surgery
DX: Z90.13 Acquired absence of bilateral breasts and nipples (principal); C50.919 Malignant neoplasm of unspecified site of unspecified female breast; I89.8 Other specified noninfective disorders of lymphatic vessels and lymph nodes; M25.612 Stiffness of left shoulder, not elsewhere classified; M40.00 Postural kyphosis, site unspecified; M79.603 Pain in arm, unspecified; R07.89 Other chest pain; R53.1 Weakness; R53.83 Other fatigue; Z51.89 Encounter for other specified aftercare
CPT/HCPCS: 97110; 97140; 97162; 97164; 97166; 97535

== ENCOUNTER 2023-12-31 15:09 | Outpatient (CLI) | payer BC, SELFPAY ==
--- OUTSIDE RECORDS SUMMARY | 2023-12-31 15:12 | XMS_ITS | Clinical Summary ---
Author Organization [facility] Address [address] [place] [address] Care Team Providers Care Senior Information Security Architect Name Role Phone Unavailable Primary Care Provider Unavailabl e Source Comments Patient records contain information from all sites at [facility]. For routine questions regarding patient records, call [phone] during business hours, M-F 8:00 AM - 5:00 PM Central Time. Record requests for emergency care only can be directed to [phone] at any time.[facility] Allergies Active Allergy Reactions Criticality Noted Date Comments Minocycline Other (see comments) 09/14/2023 [place] like she had the flu Medications Medication Sig Dispensed Refills Start Date End Date Status venlafaxine XR (EFFEXOR-XR) 37.5 mg 24 hr capsule Take by mouth. 10/14/2023 Active mometasone (Elocon) 0.1 % cream Apply 1 Application topically 2 (two) times a day. Apply to areas of exposed skin outside of the Mepitel on the left-sided chest wall. 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 12/25/2023 3:13 PM CDT Hospital Encounter Department of Radiation Oncology in [address] [address] Kerry Morris M.D. 12/24/2023 3:04 PM CDT Hospital Encounter Department of Radiation Oncology in [address] [address] Kerry Morris M.D. 12/23/2023 3:30 PM CDT Hospital Encounter Department of Radiation Oncology in [address] [address] Kerry Morris M.D. 12/23/2023 2:50 PM CDT - 12/23/2023 3:29 PM CDT Hospital Encounter Department of Radiation Oncology in [address] [address] Kerry Morris M.D. 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 12/21/2023 3:08 PM CDT Hospital Encounter Department of Radiation Oncology in [address] [address] Kerry Morris M.D. 12/21/2023 2:49 PM CDT - 12/21/2023 3:07 PM CDT Hospital Encounter Department of Radiation Oncology in [address] [address] Kerry Morris M.D. 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 12/17/2023 3:08 PM CDT Hospital Encounter Department of Radiation Oncology in [address] [address] Kerry Morris M.D. 12/16/2023 3:01 PM CDT - 12/16/2023 4:16 PM CDT Hospital Encounter Department of Radiation Oncology in [address] [address] Kerry Morris M.D. 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 12/15/2023 3:19 PM CDT Hospital Encounter Department of Radiation Oncology in [address] [address] Kerry Morris M.D. 12/15/2023 2:48 PM CDT - 12/15/2023 3:18 PM CDT Hospital Encounter Department of Radiation Oncology in [address] [address] Kerry Morris M.D. 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 12/11/2023 1:37 PM CDT Hospital Encounter Department of Radiation Oncology in [address] [address] Kerry Morris M.D. 12/10/2023 3:33 PM CDT - 12/10/2023 4:45 PM CDT Hospital Encounter Department of Radiation Oncology in [address] [address] M[address] 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 12/09/2023 3:05 PM CDT - 12/09/2023 4:21 PM CDT Hospital Encounter Department of Radiation Oncology in [address] [address] Kerry Morris M.D. Retterath, Chelsey A, R.N. 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 12/08/2023 2:00 PM CDT Hospital Encounter Department of Radiation Oncology in [address] [address] Kerry Morris M.D. 12/02/2023 Orders Only Department of Radiation Oncology in [address] [address] Kerry Morris M.D. 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) 11/25/2023 1:06 PM CDT - 11/25/2023 1:59 PM CDT Hospital Encounter Department of Radiation Oncology in [place], [place] [address] [place] [phone] Kerry Morris M.D. 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 Alcohol Use Standard Drinks/Week Comments Not Currently 0 (1 standard drink = 0.6 oz pure alcohol) Previous binge drinking on the weekends. Dental Answer Date Recorded Dental: Regular Dentist Unknown 05/10/20 23 Sex and Gender Information Value Date Recorded Sex Assigned at Not on file Gender Identity Not on file Sexual Orientation Not on file Last Filed Vital Signs Vital Sign Reading Time Taken Comments Blood Pressure 134/78 11/25/2023 1:20 PM CDT Pulse 89 11/25/2023 1:20 PM CDT Temperature 35.3 ??C (95.6 ??F) 12/23/2023 3:08 PM CD T Respiratory Rate - - Oxygen Saturation - - Inhaled Oxygen Concentration - - Weight 93 kg (205 lb 0.4 oz) 12/23/2023 3:08 PM CDT Height - - Body Mass Index - - Plan of Treatment Health Maintenance Due Date Last Done Comments CT Colonography 1972 Cervical Cancer Screening 1972 Cologuard 1972 Colonoscopy 1972 Colorectal Cancer Screening 1972 FIT 1972 HIV Screening 1972 Hepatitis C Screening 1972 Hepatitis B Vaccines (1 of 3 - 19+ 3-dose series) 11/25/1991 Zoster Vaccines (2 of 2) 05/18/2023 03/23/2023 Depression Screening (Annual PHQ-2) 06/01/2023 Influenza Vaccine (#1) 2024 05/14/2023 Fasting Glucose for Diabetes Screening 08/11/2026 08/12/2023, 10/25/2021, 04/26/2021 Lipid (Cholesterol) Screening 03/23/2028 03/23/2023, 04/26/2021 DTaP,Tdap,and Td Vaccines (2 - Td or Tdap) 10/26/2031 10/25/2021 Pneumococcal vaccine (0-64 years) Completed 03/23/2023 COVID-19 Vaccine Completed 05/02/2023, , 05/23/2021, Additional history exists Mammogram Discontinued 10/06/2023, 05/0 11/2023, 10/06/2023, Additional history exists HPV Vaccines Aged Out No longer eligi ble based on patient's age to complete this topic Procedures Procedure Name Priority Date/Time Associated Diagnosis Comments ARIA DAILY TREATMENT INFORMATION Routine 12/28/2023 3:34 PM CDT ARIA DAILY TREATMENT INFORMATION Routine 12/25/2023 3:51 PM CDT ARIA DAILY TREATMENT INFORMATION Routine 12/24/2023 3:21 PM CDT ARIA DAILY TREATMENT INFORMATION Routine 12/23/2023 3:49 PM CDT ARIA DAILY TREATMENT INFORMATION Routine 12/22/2023 3:59 PM CDT ARIA DAILY TREATMENT INFORMATION Routine 12/21/2023 3:45 PM CDT ARIA DAILY TREATMENT INFORMATION Routine 12/18/2023 3:22 PM CDT ARIA DAILY TREATMENT INFORMATION Routine 12/17/2023 3:27 PM CDT ARIA DAILY TREATMENT INFORMATION Routine 12/16/2023 3:28 PM CDT ARIA DAILY TREATMENT INFORMATION Routine 12/15/2023 3:46 PM CDT ARIA DAILY TREATMENT INFORMATION Routine 12/14/2023 3:27 PM CDT ARIA DAILY TREATMENT INFORMATION Routine 12/11/2023 1:55 PM CDT ARIA DAILY TREATMENT INFORMATION Routine 12/10/2023 3:52 PM CDT ARIA DAILY TREATMENT INFORMATION Routine 12/09/2023 3:38 PM CDT ARIA DAILY TREATMENT INFORMATION Routine 12/08/2023 2:38 PM CDT INITIAL RAD ONC TREATMENT PLANNING CT SIMULATION Routine 11/25/2023 2:00 PM CDT 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 Course ID [id number] JOHNSON ARIA Course Start Date 4 16:05 CDT JOHNSON ARIA First Treatment Date 4 14:30 CDT JOHNSON ARIA Last Treatment Date 4 15:34 CDT JOHNSON ARIA Treatment Elapsed Days 20 JOHNSON ARIA Reference Point [id number] JOHNSON ARIA Dosage Given to Date cGy 4005 JOHNSON ARIA Session Dosage Given 267 JOHNSON ARIA Plan ID [id number] JOHNSON ARIA Fractions Treated to Date 5 JOHNSON ARIA Planned Total Fractions 5 JOHNSON ARIA Prescribed Dose Per Fraction 267 JOHNSON ARIA Prescription Dose in cGy 1335 JHONSON ARIA Plan Primary Reference Point [id number] JOHNSON ARIA 12/28/2023 3:34 PM CDT Provider Not In System RADIATION ONCOLOG Y ORDERABLES Performing Organization Address City/[facility] Co de Phone Number ALEX VARGAS na * Initial Rad Onc Treatment Planning CT Simulation (11/25/2023 2:00 PM CDT) Narrative [facility] - 11/25/2023 2:00 PM CDT Mayda Cuello, RTT ? 11/25/2023 ??2:58 PM Initial Rad Onc Treatment Planning CT Simulation Performed by: Kerry Morris M.D. Authorized by: Kerry Morris M.D. ?? Kerry Morris M.D. RADIATION ONCOLOG Y ORDERABLES Performing Organization Address City/[facility]/ZIP Co de Phone Number ALEX VARGAS na * MM surgical specimen LT-Outside Mammogram (10/06/2023 12:30 PM CDT) Only the most recent of3 resultswithin the time period is included. Narrative [facility] - 10/28/2023 8:19 AM CDT This order has been created and auto-finalized to support the import of outside images. If available, original interpretation can be found on the Media Tab in Chart Review, in Document Viewer, or as an image in QREADS. If a re-interpretation or overread is required please follow defined workflow. ?? Provider Not In System IMG BI PROCEDURES Performing Organization Address [facility] de Phone Number [facility] NA * US wire loc soft tissue 1st-Outside US (10/06/2023 8:15 AM CDT) Narrative [facility] - 10/28/2023 8:18 AM CDT This order has been created and auto-finalized to support the import of outside images. If available, original interpretation can be found on the Media Tab in Chart Review, in Document Viewer, or as an image in QREADS. If a re-interpretation or overread is required please follow defined workflow. ?? Provider Not In System IMG US PROCEDURES Performing Organization Address [facility] de Phone Number [facility] NA * NM sentinel node inject only-Outside Other (10/06/2023 8:00 AM CDT) Narrative [facility] - 10/28/2023 8:18 AM CDT This order has been created and auto-finalized to support the import of outside images. If available, original interpretation can be found on the Media Tab in Chart Review, in Document Viewer, or as an image in QREADS. If a re-interpretation or overread is required please follow defined workflow. ?? Provider Not In System IMG DIAGNOSTIC IM AGING PROCEDURES Performing Organization Address [facility] de Phone Number [facility] NA from Last 3 Months
--- OUTSIDE RECORDS SUMMARY | 2023-12-31 15:13 | XMS_ITS | Encounter Summary ---
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 [address] [place] [phone] [facility] Referral ID Status Reason Start Date Expiration Date V isits Requested Visits Authorized [id number] Authorized 12/07/2023 12/01/2024 15 15 Encounter Details Date Type Department Care Team (Late st Contact Info) Description 12/15/2023 3:19 PM CDT Hospital Encounter Department of Radiation Oncology in [place], [place] [address] [place] [phone] Kerry Morris M.D. [address] [place] [phone] Social History Tobacco Use Types Packs/Day Years Used Date Smoking Tobacco: Former Cigarettes Q uit: 05/2023 Comments:Smoked up to 2 pack s per weekend for 30 years. Alcohol Use Standard Drinks/Week Comments Not Currently 0 (1 standard drink = 0.6 oz pure alcohol) Previous binge drinking on the weekends. Dental Answer Date Recorded Dental: Regular Dentist Unknown 05/10/20 23 Sex and Gender Information Value Date Recorded Sex Assigned at Not on file Gender Identity Not on file Sexual Orientation Not on file documented as of this encounter Plan of Treatment Not on file documented as of this encounter Visit Diagnoses Not on filedocumented in this encounter
--- OUTSIDE RECORDS SUMMARY | 2023-12-31 15:13 | XMS_ITS | Encounter Summary ---
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 [address] [place] [address] [facility] Region Referral ID Status Reason Start Date Expiration Date V isits Requested Visits Authorized [id number] Authorized 10/28/2023 10/27/2024 10 10 Encounter Details Date Type Department Care Team (Latest Contact Info) Description 12/16/2023 3:01 PM CDT - 12/16/2023 4:16 PM CDT Hospital Encounter Department of Radiation Oncology in [place] [address] [place] [phone] Kerry Morris M.D. 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) Social History Tobacco Use Types Packs/Day Years [...] on file documented as of this encounter Last Filed Vital Signs Vital Sign Reading Time Taken Comments Blood Pressure - - Pulse - - Temperature 36.3 ??C (97.3 ??F) 12/16/2023 3:42 PM CD T Respiratory Rate - - Oxygen Saturation - - Inhaled Oxygen Concentration - - Weight 91.9 kg (202 lb 9.6 oz) 12/16/2023 3:42 P M CDT Height - - Body Mass Index - - documented in this encounter Medications at Time of Discharge Medication Sig Dispensed Refills Start Date End Date mometasone (Elocon) 0.1 % cream Apply 1 Application topically 2 (two) times a day. Apply to areas of exposed skin outside of the Mepitel on the left-sided chest wall. 45 g 11/25/2023 venlafaxine XR (EFFEXOR-XR) 37.5 mg 24 hr capsule Take by mouth. 10/14/2023 documented as of this encounter Progress Notes * Kerry Morris M.D. - 12/16/2023 4:00 PM CDT ATTESTATION FOR MANAGEMENT VISIT I saw and evaluated the patient and participated in the aragon portions of the service as noted below.I reviewed the documentation of Ms. Polly Moon RN and agree with the findings and plan. Thepatient appears well on exam. We will continue with radiation as planned and monitor weekly. Kerry Morris M.D., 12/16/2023 SUBJECTIVE CHIEF COMPLAINT/REASON FOR VISIT Evaluation for side effects while receiving radiation treatment for 1. 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 HISTORY OF PRESENT ILLNESS Miss Alanis Gates is a 53 y.o. female with Clinical stage IB (cT2, cN1, cM0, G2, ER+, IA+, HER2+)invasive ductal carcinoma of the left breast s/p neoadjuvant TCHP followed by bilateral mastectomies and left axillary sentinel lymph node biopsy on October 06, 2023, ypT1b, pN0 who is now undergoing radiation therapy. Treatment Course: 1xBreast Plan ID Fractions Dose / Fraction (cGy) Dose Treated (cGy) Dose Planned (cGy) First Treatment Last Treatment Elapsed Days [id number] 12/08/2023 12/16/2023 8 Course Summary 12/08/2023 12/16/2023 8 The patient was seen and examined today with Dr. Morris. The patient reports to be feeing well overall. She did note some heartburn a couple times over the past week but didn't need to take anything for it and resolved on its own. She notes mild intermittent chest wall discomfort. She reports it is tolerable. She is applying Mometasone and lotion to areas in the treatment field that are not covered by Mepitel. She has no other issues or concerns at this time. PATIENT REPORTED SYMPTOM SCREEN: FATIGUE (Scale: 0 = no fatigue; 10 = worst fatigue you can imagine): PAIN (Scale: 0 = no pain; 10 = worst pain you can imagine): OVERALL QUALITY OF LIFE (Scale: 0 = as bad as can be; 10 = as good as can be): OBJECTIVE Temp 36.3 ??C (Temporal) Wt 91.9 kg PHYSICAL EXAMINATION General: Alert and oriented, in no apparent distress. Skin: Mild pink toned skin to left upper chest. Mepitel intact ASSESSMENT / PLAN #1 Clinical stage IB (cT2, cN1, cM0, G2, ER+, IA+, HER2+) invasive ductal carcinoma of the left breast s/p neoadjuvant TCHP followed by bilateral mastectomies and left axillary sentinel lymph node biopsy on October 06, 2023, ypT1b, pN0 #2 Adjuvant TDM1/Kadcyla initiated on November 02, 2023 #3 Radiation therapy to left chest wall initiated on December 08, 2023; anticipated date of completion December 28, 2023. The patient is tolerating radiation treatment well overall. She is using Mepitel as her skin care. She can continue with lotion and Mometasone application to areas within the treatment field that areoutside the Mepitel border. If discomfort becomes more persistent over the next week she can trial an OTC analgesic such as Tylenol or Ibuprofen. She will continue with radiation treatment as planned. She can contact our care team with any questions or concerns. Signed by: Polly Moon R.N. 12/16/2023 3:52 PM CDT documented in this encounter Plan of Treatment Scheduled Orders Name Type Priority Associated Diagnoses Orde r Schedule Management Visit Radiation Oncology Routine 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) Once for 1 Occurrences starting 12/16/2023 until 12/16/2023 documented as of this encounter Visit Diagnoses Diagnosis 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) documented in this encounter
--- OUTSIDE RECORDS SUMMARY | 2023-12-31 15:13 | XMS_ITS ---
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 Past Plans No past plan information found. Radiation Treatments * Plan Last Treated On Elapsed Days Fractions Treated Prescribed Fraction Dose Prescribed Total Dose [id number] 12/28/2023 20 5 of 5 267 cGy 1,335 cGy [id number] 12/21/2023 13 10 of 10 267 cGy 2,670 cGy Reference Point Last Treated On Elapsed Days Session Dose Total Dose [id number] 12/28/2023 20 267 cGy 4,005 cGy
--- OUTSIDE RECORDS SUMMARY | 2023-12-31 15:13 | XMS_ITS | Encounter Summary ---
Author Organization [facility] Address [address] [place] [address] Care Team Providers Care Flarer Name Role Phone Unavailable Primary Care Provider Unavailabl e Reason for Referral * Radiation Therapy (Routine) - Authorized Specialty Diagnoses / Procedures Referred By Lizet moyer Referred To Contact Diagnoses 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) Procedures Prior Auth Rad Tx [place] IMRT SIMPLE [place] GUIDANCE FOR LOC RAD TX [place] IMRT RADIOTHERAPY PLAN IMRT Kerry Morris M.D. [address] [place] [phone] [facility] Referral ID Status Reason Start Date Expiration Date V isits Requested Visits Authorized [id number] Authorized 12/07/2023 12/01/2024 15 15 Encounter Details Date Type Department Care Team (Late st Contact Info) Description 12/02/2023 Orders Only Department of Radiation Oncology in [place], [place] [address] [place] [phone] Kerry Morris M.D. [address] [place] [phone] 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) (Primary Dx) Social History Tobacco Use Types Packs/Day Years [...] as of this encounter Plan of Treatment Scheduled Orders Name Type Priority Associated Diagnoses Orde r Schedule Prior Auth Rad Tx Radiation Oncology Routine 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) Ordered: 12/02/2023 documented as of this encounter Visit Diagnoses Diagnosis 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)- Primary documented in this encounter
--- OUTSIDE RECORDS SUMMARY | 2023-12-31 15:13 | XMS_ITS | Encounter Summary ---
Author Organization [facility] Address [address] [place] [address] Care Team Providers Care Brokerage Clerk Name Role Phone Unavailable Primary Care Provider Unavailabl e Encounter Details Date Type Department Care Team (Late st Contact Info) Description 12/08/2023 2:00 PM CDT Hospital Encounter Department of Radiation Oncology in [place], [place] [address] [place] [phone] Kerry Morris M.D. [address] [place] [phone] Social History Tobacco Use Types Packs/Day Years [...]
--- OUTSIDE RECORDS SUMMARY | 2023-12-31 15:13 | XMS_ITS | Encounter Summary ---
Author Organization [facility] Address [address] [place] [address] Care Team Providers Care Boom Supervisor Name Role Phone Unavailable Primary Care Provider Unavailabl e Reason for Referral * Radiation Therapy (Routine) - Authorized Specialty Diagnoses / Procedures Referred By Lizet moyer Referred To Contact Diagnoses 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) Procedures Management Visit Kerry Morris M.D. [address] [place] [phone] [facility] Region Referral ID Status Reason Start Date Expiration Date V isits Requested Visits Authorized [id number] Authorized 10/28/2023 10/27/2024 10 10 Reason for Visit * Radiation Therapy (Routine) - Authorized Specialty Diagnoses / Procedures Referred By Lizet moyer Referred To Contact Diagnoses 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) Procedures Management Visit Kerry Morris M.D. [address] [place] [phone] [facility] Region Referral ID Status Reason Start Date Expiration Date V isits Requested Visits Authorized [id number] Authorized 10/28/2023 10/27/2024 10 10 Encounter Details Date Type Department Care Team (Latest Contact Info) Description 12/23/2023 2:50 PM CDT - 12/23/2023 3:29 PM CDT Hospital Encounter Department of Radiation Oncology in [place] [id number] [place] [phone] Kerry Morris M.D. [address] [place] [phone] Malignant Neoplasm Of Breast Upper Outer Quadrant [...] Pressure - - Pulse - - Temperature 35.3 ??C (95.6 ??F) 12/23/2023 3:08 [...] Progress Notes * Kerry Morris M.D. - 12/23/2023 3:15 PM CDT ATTESTATION FOR MANAGEMENT VISIT I saw and evaluated the patient and participated in the aragon portions of the service as noted below.I reviewed the documentation of Ms. Polly Moon RN and agree with the findings and plan. Thepatient appears well on exam. We will continue with radiation as planned and we anticipate that janiyawialexandro complete treatments this coming Thursday. We anticipate that Miss Alanis Gates will complete radiation treatment as planned without interruptions. The course of treatment was tolerated well. The patient experienced toxicities of grade 1 dermatitis and esophagitis during radiation treatment. Follow-up will be with Dr. Britt and I will see her again as needed. Kerry Morris M.D., 12/23/2023 SUBJECTIVE CHIEF COMPLAINT/REASON FOR VISIT Evaluation for side effects while receiving radiation treatment for 1. 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 HISTORY OF PRESENT ILLNESS Miss Alanis Gates is a 53 y.o. female with Clinical stage IB (cT2, cN1, cM0, G2, ER+, OR+, HER2+)invasive ductal carcinoma of the left breast s/p neoadjuvant TCHP followed by bilateral mastectomies and left axillary sentinel lymph node biopsy on October 06, 2023, ypT1b, pN0 who is now undergoing radiation therapy. Treatment Course: 1xBreast Plan ID Fractions Dose / Fraction (cGy) Dose Treated (cGy) Dose Planned (cGy) First Treatment Last Treatment Elapsed Days [id number] 12/08/2023 12/21/2023 13 [id number] 12/22/2023 12/22/2023 0 Treatment Site Summary [id number] 12/08/2023 12/22/2023 14 Course Summary 12/08/2023 12/22/2023 14 The patient was seen and examined today with Dr. Morris. The patient reports to be feeing well overall. She does note a sore throat over the past week. She reports needing to take small bites and chew her food well. She notes an overall achiness but deniesspecific chest discomfort. She take Ibuprofen occasionally She is applying Mometasone and lotion toareas in the treatment field that are not [...] as good as can be): OBJECTIVE Temp (!) 35.3 ??C (Temporal) Wt 93 kg PHYSICAL EXAMINATION General: Alert and oriented, in no apparent distress. Skin: Mild pink toned skin to left upper chest. Mepitel intact. No dryness or desquamation noted. ASSESSMENT / PLAN #1 Clinical stage IB (cT2, cN1, cM0, G2, ER+, OR+, HER2+) invasive ductal carcinoma of the left breast s/p neoadjuvant TCHP followed by bilateral mastectomies and left axillary sentinel lymph node biopsy on October 06, 2023, ypT1b, pN0 #2 Adjuvant TDM1/Kadcyla initiated on November 02, 2023 #3 Radiation therapy to left chest wall initiated on December 08, 2023; anticipated date of completion December 28, 2023. The patient is tolerating radiation treatment well overall. Patient will leave Mepitel in place for1-2 weeks post completion of radiation therapy. Discussed the use of Mometasone and lotion to treatment field once Mepitel falls off. I reviewed Moist Skin Reaction pamphlet in detail with patient today. I have provided her samples of Pro Net, Xeroform and Telfa today. Radiation related side effects should start to resolve in the coming weeks. She will follow up Dr. Britt at [facility] on January 04, 2024. Follow up with Dr. Morris will be on an as needed basis. She will continue with radiation treatment as planned. She can contact our care team with any questions or concerns. Toxicities reviewed with Dr. Morris. Signed by: Polly Moon R.N. 12/23/2023 3:10 PM CDT documented in this encounter Plan of Treatment Scheduled Orders Name Type Priority Associated Diagnoses Orde r Schedule Management Visit Radiation Oncology Routine 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) Once for 1 Occurrences starting 12/23/2023 until 12/23/2023 documented as of this encounter Visit Diagnoses Diagnosis 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) documented in this encounter
--- OUTSIDE RECORDS SUMMARY | 2023-12-31 15:13 | XMS_ITS | Encounter Summary ---
Author Organization [facility] Address [address] [place] [address] Care Team Providers Care Bicycle Ii Assembler Name Role Phone Unavailable Primary Care Provider Unavailabl e Reason for Visit * Radiation Therapy (Routine) - Authorized Specialty Diagnoses / Procedures Referred By Lizet moyer Referred To Contact Diagnoses 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) Procedures Prior Auth Rad Tx DC IMRT SIMPLE DC GUIDANCE FOR LOC RAD TX DC IMRT RADIOTHERAPY PLAN IMRT Kerry Morris M.D. [address] [place] [phone] [facility] Referral ID Status Reason Start Date Expiration Date V isits Requested Visits Authorized [id number] Authorized 12/07/2023 12/01/2024 15 15 Encounter Details Date Type Department Care Team (Late st Contact Info) Description 12/22/2023 3:28 PM CDT Hospital Encounter Department of Radiation Oncology in [place], [place] [address] [place] [phone] Kerry Morris M.D. [address] [place] [phone] Social History Tobacco Use Types Packs/Day Years Used Date Smoking Tobacco: Former Cigarettes Q uit: 05/2023 Comments:Smoked up to 2 pack s per weekend for 30 years. Alcohol Use Standard Drinks/Week Comments Not Currently 0 (1 standard drink = 0.6 oz pure alcohol) Previous binge drinking on the weekends. Dental Answer Date Recorded Dental: Regular Dentist Unknown 05/10/20 Sex and Gender Information Value Date Recorded Sex Assigned at Not on file Gender Identity Not on file Sexual Orientation Not on file documented as of this encounter Plan of Treatment Not on file documented as of this encounter Visit Diagnoses Not on filedocumented in this encounter
--- OUTSIDE RECORDS SUMMARY | 2023-12-31 15:13 | XMS_ITS | Encounter Summary ---
Author Organization [facility] Address [address] [place] [phone] Care Team Providers Care [employer] Social Science Teacher Name Role Phone Unavailable Primary Care Provider Unavailabl e Reason for Visit * Radiation Therapy (Routine) - Authorized Specialty Diagnoses / Procedures Referred By Lizet moyer Referred To Contact Diagnoses 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) Procedures Prior Auth Rad Tx PA IMRT SIMPLE PA GUIDANCE FOR LOC RAD TX PA IMRT RADIOTHERAPY PLAN IMRT Kerry Morris M.D. [address] [place] [phone] [facility] Referral ID Status Reason Start Date Expiration Date V isits Requested Visits Authorized [id number] Authorized 12/07/2023 12/01/2024 15 15 Encounter Details Date Type Department Care Team (Late st Contact Info) Description 12/25/2023 3:13 PM CDT Hospital Encounter Department of Radiation Oncology in [place], [place] [address] [place] [phone] Kerry Morris M.D. [address] [place] [phone] Social History Tobacco Use Types Packs/Day Years [...]
--- OUTSIDE RECORDS SUMMARY | 2023-12-31 15:13 | XMS_ITS | Encounter Summary ---
Author Organization [facility] Address [address] [place] [address] Care Team Providers Care Accounts Payable Accountant Name Role Phone Unavailable Primary Care Provider Unavailabl e Reason for Referral * Outpatient (Routine) - Closed Specialty Diagnoses / Procedures Referred By Contac t Referred To Contact Radiation Oncology Hollie Vaughan P.A.-C., M.SHolly [address] [place] [phone] Kerry Morris M.D. [address] [place] [phone] Referral ID Status Reason Start Date Expiration Date Visits Re quested Visits Authorized [id number] Closed 11/04/2023 05/05/2025 1 1 Scheduling Instructions with sim Reason for Visit * Outpatient (Routine) - Closed Specialty Diagnoses / Procedures Referred By Contac t Referred To Contact Radiation Oncology Hollie Vaughan P.A.-C., M.SHolly [address] [place] [phone] Kerry Morris M.D. [address] [place] [phone] Referral ID Status Reason Start Date Expiration Date Visits Re quested Visits Authorized [id number] Closed 11/04/2023 05/05/2025 1 1 Encounter Details Date Type Department Care Team (Latest Contact Info) Description 11/25/2023 1:06 PM CDT - 11/25/2023 1:59 PM CDT Hospital Encounter Department of Radiation Oncology in [place], [place] [address] [place] [phone] Kerry Morris M.D. [address] [place] [phone] Malignant Neoplasm Of Breast Upper Outer Quadrant [...] Pulse 89 11/25/2023 1:20 PM CDT Temperature 35.7 ??C (96.3 ??F) 11/25/2023 1:20 PM CD T Respiratory Rate - - Oxygen Saturation - - Inhaled Oxygen Concentration - - Weight 91.6 kg (201 lb 15.1 oz) 11/25/2023 1:20 PM CDT Height - - Body Mass Index - - documented in this encounter Medications at Time of Discharge Medication Sig Dispensed Refills Start Date End Date venlafaxine XR (EFFEXOR-XR) 37.5 mg 24 hr capsule Take by mouth. 10/14/2023 documented as of this encounter Progress Notes * Tuyet Ivy M.D. - 11/25/2023 1:30 PM CDT RADIATION ONCOLOGY FOLLOW UP VISIT Supervising Graduate Teaching Associate: Dr. Kerry Morris CHIEF COMPLAINT/REASON FOR VISIT Visit prior to simulation scan SUBJECTIVE VISIT DIAGNOSIS #Clinical stage IB (cT2, cN1, cM0, G2, ER+, ND+, HER2+) invasive ductal carcinoma of the left breast s/p neoadjuvant TCHP followed by bilateral mastectomies and left axillary sentinel lymph node biopsy on October 06, 2023, ypT1b, pN0 #Adjuvant TDM1/Kadcyla initiated on November 02, 2023 INTERVAL HISTORY: Miss Gates is a 53 y.o. female with LEFT-sided node-positive IDC, who presents today prior to simulation scan. Oncology History 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) 03/30/2023 Critical Imaging Bilateral screening mammogram Impression: LEFT breast asymmetry/mass. 04/13/2023 Critical Imaging Diagnostic left breast mammogram and target left breast ultrasound Impression: Suspicious mass LEFT breast 1 o'clock 13 cm from the nipple measuring 1 cm and suspicious LEFT axillary lymph node measuring 2.5 cm. RECOMMENDATIONS: Ultrasound-guided biopsy of both lesions. BI-RADS Category 4: Suspicious 04/20/2023 Biopsy/Pathology A) LEFT BREAST, 1:00, 13 CM FROM NIPPLE, ULTRASOUND-GUIDED CORE BIOPSY: 1. Invasive ductal carcinoma a. Mirian grade: II of III; Mirian score: 7 of 9 b. Angio-lymphatic invasion: Absent c. Associated DCIS: Focally present d. Subtype: Solid e. Grade of DCIS: 3 of 3 2. Breast Ancillary Testing: a. Hormone Receptors: Estrogen receptor: Positive (98%, strong staining) Progesterone receptor: Positive (68%, moderate staining) b. HER2 by IHC: Positive (3+), by manual morphometry, confirmed with FISH c. HER2 by FISH: Positive HER2/CEP17 ratio: 4.28 HER2 signals/cell: 6.86 CEP17 signals/cell: 1.60 B) LEFT AXILLA, LYMPH NODE, ULTRASOUND-GUIDED CORE BIOPSY: 1. Metastatic carcinoma to a lymph node, characterized by: a. Metastatic carcinoma measures at least 6 mm b. Negative for extracapsular extension in this biopsy 04/27/2023 Critical Imaging MRI bilateral breasts Impressions and Recommendations: 1. Mass at 1 o'clock, posterior depth measuring up to 2.5 cm on MRI is consistent with the biopsy-proven malignancy. No additional suspicious areas of enhancement. Surgical/oncologic follow-up for continued management. 2. Abnormal left axillary lymph nodes, consistent with biopsy-proven jonathan metastasis. (There were at least 3 left axillary lymph nodes with cortical thickening). Right breast: Negative, there is no MRI evidence of contralateral malignancy. BI-RADS Category 6: Known Biopsy-Proven Malignancy 04/29/2023 Other Medical Oncology consultation with Dr. Tomasa Britt who reviewed overall management recommendations including systemic treatment with chemotherapy and anti HER2 therapy + surgery + radiation + endocrine therapy for 5-10 years + bisphosphonates for bone health. Recommended systemic imaging with a PET scan and MRI brain. 05/08/2023 Critical Imaging PET-CT scan Impression: 1. Small avid mass upper outer quadrant left breast with irregular margins and moderate uptake is consistent with biopsy proven primary breast malignancy. Enlarged, moderately avid left axillary lymph node with asymmetric cortical thickening is consistent with biopsy-proven metastatic jonathan disease. Smaller less avid left axillary lymph nodes with mild uptake are considered nonspecific. 2. Partially calcified right lower lobe nodule with mild uptake is nonspecific. Not likely secondary to metastatic disease. Comparison with prior cross- sectional imaging of the chest could confirm stability. [...] as detailed in the body of the report. 05/11/2023 Critical Imaging MRI brain Impression: No acute intracranial abnormality or evidence for intracranial metastatic disease. 05/21/2023 - 09/07/2023 Chemotherapy Neoadjuvant TCHP with Neulasta support x 6 cycles. Dose reduced Taxotere starting with cycle 3. 06/08/2023 Critical Imaging Transvaginal ultrasound demonstrated a benign simple ovarian follicle and uterine fibroid. 06/15/2023 Genetic Testing and Tumor Genotyping Genetics 48 gene [employer] panel with negative results, no actionable mutations or VUS. 09/14/2023 Other Surgery consultation with Dr. Bishnu Segura who discussed surgical treatment options. The patient wished to proceed with bilateral mastectomy. She was not interested in reconstruction. 10/06/2023 Surgery and Procedures Procedure: Bilateral mastectomy, left sentinel lymph node biopsy, excision of wire localized previously biopsied left lymph node Surgeon: Bishnu Segura MD A) RIGHT BREAST, MASTECTOMY: 1. Atypical lobular hyperplasia (ALH) 2. Breast parenchyma with fibrocystic change 3. Negative for invasive carcinoma 4. Benign nipple skin B) LEFT AXILLARY SENTINEL LYMPH NODE, 1, BIOPSY: 1. Negative for malignancy in 1 lymph node (0/1) 2. Area of fibrosis adjacent to capsule (negative for biopsy site cavity, see comment) C) LEFT AXILLARY SENTINEL LYMPH NODE, 2, BIOPSY: 1. Negative for malignancy in 1 lymph node (0/1) 2. Negative for scar D) LEFT AXILLARY SENTINEL LYMPH NODE, 3, BIOPSY: 1. Negative for malignancy in 1 lymph node (0/1) 2. Negative for scar E) LEFT AXILLARY LYMPH NODES, EXCISION: 1. Negative for malignancy in 4 lymph nodes (0/4) 2. Negative for scar F) LEFT BREAST, MASTECTOMY STATUS POST NEOADJUVANT THERAPY: 1. Multifocal invasive ductal carcinoma a. Tumor #1: Invasive ductal carcinoma - Size: 10 x 7 mm - Mirian grade I of III - Breast Ancillary Testing Hormone Receptors (per [id number]): Estrogen receptor: Positive (98%, strong staining) Progesterone receptor: Positive (68%, moderate staining) HER2 by IHC (per [id number]): Positive (3+) HER2 by FISH (per [id number]): Positive HER2/CEP17 ratio: 4.28 HER2 signals/cell: 6.86 CEP17 signals/cell: 1.60 Repeat HER2 IHC (F8): HER2 by IHC: Equivocal (2+ by manual morphometry) HER2 by FISH (F8): Positive, see comment HER2/CEP17 ratio: 3.76 HER2 signals/cell: 5.64 CEP17 signals/cell: 1.50 - Biopsy site is associated with tumor b. Tumor #2: Microinvasive carcinoma (location lateral to main mass) - Size: 1 mm - Mirian grade: Deferred - Breast Ancillary Testing: Deferred 2. DCIS: Not identified 3. Margins: Negative see synoptic 4. Surrounding breast with atypical lobular hyperplasia (ALH) SPECIMEN Procedure: Total mastectomy Specimen Laterality: Left TUMOR Tumor Site: Clock position : 1 o'clock Tumor Site: Distance from nipple (Centimeters): 13 cm Histologic Type: Invasive carcinoma of no special type (ductal) Histologic Grade (Mirian Histologic Score): Glandular (Acinar) / Tubular Differentiation: Score 2 Nuclear Pleomorphism: Score 2 Mitotic Rate: Score 1 Overall Grade: Grade 1 (scores of 3, 4 or 5) Tumor Size: Greatest dimension of largest invasive focus (Millimeters): 10 mm Additional Dimension (Millimeters): 7 mm Tumor Focality: Multiple foci of invasive carcinoma Number of Foci: 2 Sizes of Individual Foci in Millimeters (mm): Tumor #1: 10 mm, tumor #2: 1 mm Ductal Carcinoma In Situ (DCIS): Not identified Lymphatic and / or Vascular Invasion: Not identified Dermal Lymphatic and / or Vascular Invasion: Not identified Treatment Effect in the Breast: Probable or definite response to presurgical therapy in the invasive carcinoma Treatment Effect in the Lymph Nodes: No lymph node metastases. Fibrous scarring or histiocytic aggregates, possibly related to prior lymph node metastases with pathologic complete response Residual Cancer [place] (RCB) Calculation: Primary Tumor Bed: Greatest Dimension of Primary Tumor Bed Area (Millimeters): 13 mm Second Greatest Dimension of Primary Tumor Bed Area (Millimeters): 10 mm Percentage of Overall Cancer Cellularity: 1 % Percentage of Cancer that is in situ Disease: 0 % Lymph Nodes: Number of Positive Lymph Nodes: 0 Diameter of Largest Jonathan Metastasis (Millimeters): 0 mm RCB Calculations: Residual Cancer [place]: 0.86 Residual Cancer [place] Class: RCB-I MARGINS Margin Status for Invasive Carcinoma: All margins negative for invasive carcinoma Distance from Invasive Carcinoma to Closest Margin: Greater than: 10 mm Closest Margin(s) to Invasive Carcinoma: >10 mm from all margins REGIONAL LYMPH NODES Regional Lymph Node Status: : All regional lymph nodes negative for tumor Total Number of Lymph Nodes Examined (sentinel and non-sentinel): 7 Number of [place] Nodes Examined: 3 pTNM CLASSIFICATION (AJCC 8th Edition) Modified Classification: y pT Category: pT1b T Suffix: (m) pN Category: pN0 Test(s) Performed: HER2 by Immunohistochemistry: Equivocal (Score 2+) Percentage of Cells with Uniform Intense Complete Membrane Stainin % Test Type: Laboratory-developed test Primary Antibody: 4B5 Test(s) Performed: HER2 by in situ Hybridization: Positive (amplified) 10/21/2023 Other Follow-up appointment with Dr. Britt. Discussed possible consideration of post- mastectomy radiation due to positive lymph node at the time of diagnosis. Discussed adjuvant TDM 1/Kadcyla for 14 cycles. Can determine when to commence endocrine therapy after radiation consultation is done. Return visit in 3-4 weeks. 11/02/2023 - Biological/Targeted/Hormone Therapy Adjuvant TDM 1/Kadcyla We last saw her in consultation on 04 November 2023, at which time she was healing very well after surgery and exercising every day. She had started TDM1. Today, Miss Gates continues to do very well. She has had two cycles of TDM1 so far and is tolerating this well. Physical therapy is going well although she does notice cording in her left axilla. Range of motion continues to improve and is quite good today. No concerns about the surgical incision and no pain today, although she does get zingers of pain occasionally. No fevers although Miss Gates is experiencing hot flashes. She is planning to go back to work at the [employer] on December 08. OBJECTIVE BP 134/78 (BP Location: Right arm, Patient Position: Sitting, Cuff Size: Regular) Pulse 89 Temp(!) 35.7 ??C (Temporal) Wt 91.6 kg PHYSICAL EXAMINATION ECOG score: 1 - Restricted in physically strenuous activity but ambulatory and able to carry out work of a light or sedentary nature General: Well-appearing, sitting comfortably in clinic in no acute distress Chest Wall: Bilateral breasts are absent. Mastectomy scars bilaterally, skin has gathered around the scars to a moderate degree, there is some concavity of the chest in the center of the left mastectomy scar, in particular. No tenderness to palpation. No masses palpated. Musculoskeletal: Near-normal range of motion with bilateral arm abduction, left side is limited more than normal right side. Psychiatric: Euthymic mood and appropriate affect. Extremities: No significant edema Most recent imagin29 Oct 2023: Echocardiogram Final Impressions: 1. Normal LV size, normal wall thickness, normal global systolic function with an estimated EF of 60 - 65%. 2. Right ventricular cavity size is normal, global systolic RV function is normal. 3. No significant valve disease detected. 4. Echo contrast was administered to enhance visualization of all left ventricular segments. ASSESSMENT / PLAN #Clinical stage IB (cT2, cN1, cM0, G2, ER+, ND+, HER2+) invasive ductal carcinoma of the left breast s/p neoadjuvant TCHP followed by bilateral mastectomies and left axillary sentinel lymph node biopsy on October 06, 2023, ypT1b, pN0 #Adjuvant TDM1/Kadcyla initiated on November 02, 2023 Miss Gates is doing well, experiencing occasional zingers of pain and cording in the left axilla. Despite this, her range of motion continues to improve with physical therapy. We discussed the radiation plan laid out by Dr. Morris a few weeks ago, and the patient feels ready to go ahead with simulation scan today as planned. We reviewed the acute and chronic toxicities of chest wall and regional lymph node irradiation as detailed by Hollie in her previous note. We discussed using Mepitel and will send a prescription for mometasone cream to her pharmacy. We will tentatively plan to start radiation on December 06. We are still planning for a total of 4005 cGy in 15 fractions to the chest wall and lymph nodes. Bolus will be used for approximately 2/3 of the treatment time, and DIBH will be used to minimize dose to the heart. If an excellent plan cannot be achieved with photons, we will refer her to [place] for proton therapy. Miss Gates will meet the rest of our team as she goes through simulation, daily treatments, and weekly management visits. Patient seen for the service of Dr. Kerry Morris Signed by: Tuyet Ivy MD Resident Physician Department of Radiation Oncology Please don't hesitate to contact me with questions or discussion! Text Pager: [phone] Associated attestation - Kerry Morris M.D. - 11/25/2023 4:02 PM CDT RADIATION ONCOLOGY FOLLOW-UP VISIT I saw and evaluated the patient and participated in the aragon portions of the service. I reviewed thedocumentation of Dr. Tuyet Ivy and agree with the findings and plan. Please see Dr. Ivy's detailed note for the patient's initial presentation and work-up. Briefly,Miss Gates is a very pleasant 53 year old who underwent neoadjuvant chemotherapy and bilateral mastectomies for her ER/ND and HER2 positive left sided breast cancer. She returns now to discuss radiation options after having had her PT and lymphedema education and therapy. Please see my consultation note from 11/04/2023 for her details. We discussed the findings above and below in this note with the patient and her friend. We discussed her treatment alternatives. We discussed the rationale, risks, side effects and goals of radiationtherapy. We discussed the rationale, risks, side effects and adjuvant goals of radiation therapy. 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 We discussed possibly utilizing a breath hold technique for treatment if this is better and she is able. They understood and their questions were answered. She wished to proceed with treatment. We tentatively plan on delivering 4005 cGy in 15 fractions starting December 07, 2023. We discussed mepitel and mometasone. She understands that protons might be needed if we cannot treat her with photons. My thanks to Waldemar Lo Meland, and Argentina Alfredo PA-C for the opportunity to participate in this patient's care. EDUCATION Ready to learn, no apparent learning barriers were identified; learning preferences include listening. Explained diagnosis and treatment plan; patient expressed understanding of the content. CONSENT Discussed the risks, benefits, alternatives, and the necessity of other members of the healthcare team participating in the procedure. All questions answered and consent given. DIAGNOSIS #1 Clinical stage IB (cT2, cN1, cM0, G2, ER+, ND+, HER2+) invasive ductal carcinoma of the left breast s/p neoadjuvant TCHP followed by bilateral mastectomies and left axillary sentinel lymph node biopsy on October 06, 2023, ypT1b, pN0 #2 Adjuvant TDM1/Kadcyla initiated on November 02, 2023 I personally spent 20 minutes in care of the patient today. Time includes both non face to face andface to face patient care. Signed by: Kerry Morris M.D. 11/25/2023 3:48 PM CDT Radiation Oncology [facility] [address] [place], [place] [phone] documented in this encounter Plan of Treatment Scheduled Referrals Name Type Priority Associated Diagnoses Order Schedule Radiation Oncology office visit (clinic) Outpatient Referral Routine Once for 1 Occurrences starting 11/25/2023 until 11/25/2023 documented as of this encounter Visit Diagnoses Diagnosis 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)- Primary documented in this encounter
--- OUTSIDE RECORDS SUMMARY | 2023-12-31 15:13 | XMS_ITS | Encounter Summary ---
Author Organization [facility] Address [address] [place] [address] Care Team Providers Care Fan Blade Truer Name Role Phone Unavailable Primary Care Provider Unavailabl e Reason for Visit * Radiation Therapy (Routine) - Authorized Specialty Diagnoses / Procedures Referred By Lizet moyer Referred To Contact Diagnoses 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) Procedures Prior Auth Rad Tx MD IMRT SIMPLE MD GUIDANCE FOR LOC RAD TX MD IMRT RADIOTHERAPY PLAN IMRT Kerry Morris M.D. [address] [place] [phone] [facility] Referral ID Status Reason Start Date Expiration Date V isits Requested Visits Authorized [id number] Authorized 12/07/2023 12/01/2024 15 15 Encounter Details Date Type Department Care Team (Late st Contact Info) Description 12/18/2023 3:03 PM CDT Hospital Encounter Department of Radiation Oncology in [place], [place] [address] [place] [phone] Kerry Morris M.D. [address] [place] [phone] Social History Tobacco Use Types Packs/Day Years [...]
--- OUTSIDE RECORDS SUMMARY | 2023-12-31 15:13 | XMS_ITS | Encounter Summary ---
Author Organization [facility] Address [address] [place] [address] Care Team Providers Care Landman Name Role Phone Unavailable Primary Care Provider Unavailabl e Reason for Referral * Specialty Diagnoses / Procedures Referred By Lizet moyer Referred To Contact Hollie Vaughan P.A.-C., M.S. [address] [place] [phone] [facility] Region Referral ID Status Reason Start Date Expiration Date Visits Re quested Visits Authorized Encounter Details Date Type Department Care Team (Latest Contact Info) Description 12/15/2023 2:48 PM CDT - 12/15/2023 3:18 PM CDT Hospital Encounter Department of Radiation Oncology in [place], [place] [address] [place] [phone] Kerry Morris M.D. [address] [place] [phone] Shanda Thurston RBoni [address] [place] [phone] 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) Discharge Disposition: Home or Self Care Social History Tobacco Use Types Packs/Day Years [...] on file documented as of this encounter Medications at Time of Discharge [...] as of this encounter Progress Notes * Shanda Thurston RShan. - 12/15/2023 3:00 PM CDT Patient was educated on side effects of radiation therapy. Their questions were answered to the best of my ability. The patient was encouraged to contact the team at any point, with questions or concerns. I re applied Mepitel today. documented in this encounter Plan of Treatment Scheduled Referrals Name Type Priority Associated Diagnoses Order Schedule Radiation Oncology - Nurse education visit (clinic) Outpatient Referral Routine 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) Once for 1 Occurrences starting 12/15/2023 until 12/15/2023 documented as of this encounter Visit Diagnoses Diagnosis 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) documented in this encounter
--- OUTSIDE RECORDS SUMMARY | 2023-12-31 15:13 | XMS_ITS | Encounter Summary ---
Author Organization [facility] Address [address] [place] [address] Care Team Providers Care Lip Reading Teacher Name Role Phone Unavailable Primary Care Provider Unavailabl e Reason for Visit * Radiation Therapy (Routine) - Authorized Specialty Diagnoses / Procedures Referred By Lizet moyer Referred To Contact Diagnoses 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) Procedures Prior Auth Rad Tx NC IMRT SIMPLE [place] GUIDANCE FOR LOC RAD TX [place] IMRT RADIOTHERAPY PLAN IMRT Kerry Morris M.D. [address] [place] [phone] [facility] Referral ID Status Reason Start Date Expiration Date V isits Requested Visits Authorized [id number] Authorized 12/07/2023 12/01/2024 15 15 Encounter Details Date Type Department Care Team (Late st Contact Info) Description 12/14/2023 3:02 PM CDT Hospital Encounter Department of Radiation Oncology in [place], [place] [address] [place] [phone] Kerry Morris M.D. [address] [place] [phone] Social History Tobacco Use Types Packs/Day Years [...]
--- OUTSIDE RECORDS SUMMARY | 2023-12-31 15:13 | XMS_ITS | Encounter Summary ---
Author Organization [facility] Address [address] [place] [address] Care Team Providers Care Assistant Program Manager Name Role Phone Unavailable Primary Care Provider Unavailabl e Reason for Visit * Radiation Therapy (Routine) - Authorized Specialty Diagnoses / Procedures Referred By Lizet moyer Referred To Contact Diagnoses 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) Procedures Prior Auth Rad Tx PA IMRT SIMPLE PA GUIDANCE FOR LOC RAD TX PA IMRT RADIOTHERAPY PLAN IMRT Kerry Morris M.D. [address] [place] [phone] [facility] Referral ID Status Reason Start Date Expiration Date V isits Requested Visits Authorized [id number] Authorized 12/07/2023 12/01/2024 15 15 Encounter Details Date Type Department Care Team (Late st Contact Info) Description 12/16/2023 3:01 PM CDT Hospital Encounter Department of Radiation Oncology in [place], [place] [address] [place] [phone] Kerry Morris M.D. [address] [place] [phone] Social History Tobacco Use Types Packs/Day Years [...]
--- OUTSIDE RECORDS SUMMARY | 2023-12-31 15:13 | XMS_ITS | Encounter Summary ---
Author Organization [facility] Address [address] [place] [address] Care Team Providers Care Tile Erector Name Role Phone Unavailable Primary Care Provider Unavailabl e Reason for Referral * Outpatient (Routine) - Closed Specialty Diagnoses / Procedures Referred By Lizet moyer Referred To Contact Radiation Oncology Kerry Morris M.D. 200 [place] [address] [facility] Referral ID Status Reason Start Date Expiration Date Visits Re quested Visits Authorized [id number] Closed 10/28/2023 04/28/2025 1 1 Reason for Visit * Outpatient (Routine) - Closed Specialty Diagnoses / Procedures Referred By Lizet moyer Referred To Contact Radiation Oncology Kerry Morris M.D. 200 [place] [address] [facility] Region Referral ID Status Reason Start Date Expiration Date Visits Re quested Visits Authorized [id number] Closed 10/28/2023 04/28/2025 1 1 Encounter Details Date Type Department Care Team (Latest Contact Info) Description 12/09/2023 3:05 PM CDT - 12/09/2023 4:21 PM CDT Hospital Encounter Department of Radiation Oncology in [place], [place] [address] [place] [phone] Kerry Morris M.D. [address] [place] [phone] Polly Moon R.N. [address] [place] [address] Malignant Neoplasm Of Breast Upper Outer Quadrant [...] as of this encounter Progress Notes * Polly Moon R.N. - 12/09/2023 4:00 PM CDT Miss Alanis Gates is being seen today to have her Mepitel film applied Skin: Skin color, texture, turgor normal. No rashes or lesions. Mepitel film was applied to the left chest wall. she understands that she may contact our department for any questions or concerns. documented in this encounter Plan of Treatment Scheduled Referrals Name Type Priority Associated Diagnoses Order Schedule Radiation Oncology nurse visit (clinic) Outpatient Referral Routine Once for 1 Occurrences starting 12/09/2023 until 12/09/2023 documented as of this encounter Visit Diagnoses Diagnosis 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)- Primary documented in this encounter
--- OUTSIDE RECORDS SUMMARY | 2023-12-31 15:13 | XMS_ITS | Encounter Summary ---
Author Organization [facility] Address [address] [place] [address] Care Team Providers Care Jewel Inserter Name Role Phone Unavailable Primary Care Provider Unavailabl e Reason for Visit * Radiation Therapy (Routine) - Authorized Specialty Diagnoses / Procedures Referred By Lizet moyer Referred To Contact Diagnoses 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) Procedures Prior Auth Rad Tx [place] IMRT SIMPLE [place] GUIDANCE FOR LOC RAD [place] IMRT RADIOTHERAPY PLAN IMRT Kerry Morris M.D. [address] [place] [phone] [facility] Referral ID Status Reason Start Date Expiration Date V isits Requested Visits Authorized [id number] Authorized 12/07/2023 12/01/2024 15 15 Encounter Details Date Type Department Care Team (Late st Contact Info) Description 12/21/2023 3:08 PM CDT Hospital Encounter Department of Radiation Oncology in [place], [place] [address] [place] [phone] Kerry Morris M.D. [address] [place] [phone] Social History Tobacco Use Types Packs/Day Years [...]
--- OUTSIDE RECORDS SUMMARY | 2023-12-31 15:13 | XMS_ITS | Encounter Summary ---
Author Organization [facility] Address [address] [place] [address] Care Team Providers Care Neurology Professor Name Role Phone Unavailable Primary Care Provider Unavailabl e Reason for Visit * Radiation Therapy (Routine) - Authorized Specialty Diagnoses / Procedures Referred By Lizet moyer Referred To Contact Diagnoses 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) Procedures Prior Auth Rad Tx [place] IMRT SIMPLE [place] GUIDANCE FOR LOC RAD TX [place] IMRT RADIOTHERAPY PLAN IMRT Kerry Morris M.D. [address] [place] [phone] [facility] Referral ID Status Reason Start Date Expiration Date V isits Requested Visits Authorized [id number] Authorized 12/07/2023 12/01/2024 15 15 Encounter Details Date Type Department Care Team (Late st Contact Info) Description 12/23/2023 3:30 PM CDT Hospital Encounter Department of Radiation Oncology in [place], [place] [address] [place] [phone] Kerry Morris M.D. [address] [place] [phone] Social History Tobacco Use Types Packs/Day Years [...]
--- OUTSIDE RECORDS SUMMARY | 2023-12-31 15:13 | XMS_ITS | Encounter Summary ---
Author Organization [facility] Address [address] [place] [address] Care Team Providers Care Margin Analyst Name Role Phone Unavailable Primary Care Provider Unavailabl e Reason for Visit * Radiation Therapy (Routine) - Authorized Specialty Diagnoses / Procedures Referred By Lizet moyer Referred To Contact Diagnoses 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) Procedures Prior Auth Rad Tx [place] IMRT SIMPLE [place] GUIDANCE FOR LOC RAD [place] IMRT RADIOTHERAPY PLAN IMRT Kerry Morris M.D. [address] [place] [phone] [facility] Referral ID Status Reason Start Date Expiration Date V isits Requested Visits Authorized [id number] Authorized 12/07/2023 12/01/2024 15 15 Encounter Details Date Type Department Care Team ([facility] st Contact Info) Description 12/11/2023 1:37 PM CDT Hospital Encounter Department of Radiation Oncology in [place], [place] [address] [place] [address] Kerry Morris M.D. [address] [place] [phone] Social History Tobacco Use Types Packs/Day Years [...]
--- OUTSIDE RECORDS SUMMARY | 2023-12-31 15:13 | XMS_ITS | Referral Summary ---
Author Organization [facility] Address [address] [place] [address] Care Team Providers Care Exhibitor Sales Name Role Phone Unavailable Primary Care Provider Unavailabl e Source Comments Patient records contain information from all sites at [facility]. For routine questions regarding patient records, call [phone] during business hours, M-F 8:00 AM - 5:00 PM Central Time. Record requests for emergency care only can be directed to [phone] at any time.[facility] Encounters Date Type Department Care Team Description 12/28/2023 3:12 PM CDT Hospital Encounter Department of Radiation Oncology in [address] [phone] Kerry Morris M.D. 12/25/2023 3:13 PM CDT Hospital Encounter Department of Radiation Oncology in [address] [address] Kerry Morris M.D. 12/24/2023 3:04 PM CDT Hospital Encounter Department of Radiation Oncology in [address] [address] Kerry Morris M.D. 12/23/2023 2:50 PM CDT - 12/23/2023 3:29 PM CDT Hospital Encounter Department of Radiation Oncology in [address] [address] Kerry Morris M.D. 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) 12/23/2023 3:30 PM CDT Hospital Encounter Department of Radiation Oncology in [address] [address] Kerry Morris M.D. 12/22/2023 3:28 PM CDT Hospital Encounter Department of Radiation Oncology in [address] [address] Kerry Morris M.D. 12/21/2023 2:49 PM CDT - 12/21/2023 3:07 PM CDT Hospital Encounter Department of Radiation Oncology in [address] [address] Kerry Morris M.D. Grieman, Kari A, RHollyNHolly 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) (Primary Dx) 12/21/2023 3:08 PM CDT Hospital Encounter Department of Radiation Oncology in [address] [address] Kerry Morris M.D. 12/18/2023 3:03 PM CDT Hospital Encounter Department of Radiation Oncology in [address] [address] Kerry Morris M.D. 12/17/2023 3:08 PM CDT Hospital Encounter Department of Radiation Oncology in [address] [address] Kerry Morris M.D. 12/16/2023 3:01 PM CDT - 12/16/2023 4:16 PM CDT Hospital Encounter Department of Radiation Oncology in [address] [address] Kerry Morris M.D. 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) 12/16/2023 3:01 PM CDT Hospital Encounter Department of Radiation Oncology in [address] [address] Kerry Morris M.D. 12/15/2023 2:48 PM CDT - 12/15/2023 3:18 PM CDT Hospital Encounter Department of Radiation Oncology in [address] [address] Kerry Morris M.D. Grieman, Kari A RBoni 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) Discharge Disposition: Home or Self Care 12/15/2023 3:19 PM CDT Hospital Encounter Department of Radiation Oncology in [address] [address] Kerry Mroris M.D. 12/14/2023 3:02 PM CDT Hospital Encounter Department of Radiation Oncology in [address] [address] Kerry Morris M.D. 12/11/2023 1:37 PM CDT Hospital Encounter Department of Radiation Oncology in [address] [address] Kerry Morris M.D. 12/10/2023 3:33 PM CDT - 12/10/2023 4:45 PM CDT Hospital Encounter Department of Radiation Oncology in [address] [address] M[address] 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) 12/10/2023 3:30 PM CDT Hospital Encounter Department of Radiation Oncology in [address] [address] Kerry Morris M.D. 12/09/2023 3:05 PM CDT - 12/09/2023 4:21 PM CDT Hospital Encounter Department of Radiation Oncology in [address] [address] Alexandra, KerryRomina Brito Chelsey A, R.N. 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) (Primary Dx) 12/09/2023 3:05 PM CDT Hospital Encounter Department of Radiation Oncology in [address] [address] Kerry Morris M.D. 12/08/2023 2:00 PM CDT Hospital Encounter Department of Radiation Oncology in [address] [address] Kerry Morris M.D. 12/02/2023 Orders Only Department of Radiation Oncology in [address] [address] Kerry Morris M.D. 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) (Primary Dx) 11/25/2023 2:00 PM CDT - 11/25/2023 4:56 PM CDT Hospital Encounter Department of Radiation Oncology in [address] [address] Kerry Morris M.D. 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) 11/25/2023 1:06 PM CDT - 11/25/2023 1:59 PM CDT Hospital Encounter Department of Radiation Oncology in [address] [address] Kerry Morris M.D. 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) (Primary Dx) 11/04/2023 1:00 PM CDT - 11/04/2023 3:45 PM CDT Hospital Encounter Department of Radiation Oncology in [address] [address] Kerry Morris M.D. 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) (Primary Dx) 10/28/2023 Orders Only Department of Radiation Oncology in [address] [address] Hollie Vaughan P.A.-C., M.S. 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) (Primary Dx) from Last 3 Months Allergies Active Allergy Reactions Criticality Noted Date Comments Minocycline Other (see comments) 09/14/2023 Wallula like she had the flu Medications Medication [...] from 04/20/2023:Stage IB(cT2, cN1, cM0, G2, ER+, ND+, HER2+) - Unsigned Pathologic stage from 10/06/2023: ypT1b, pN0(sn), cM0, G1, ER+, ND+, HER2+ - Unsigned Social History Tobacco Use Types Packs/Day Years [...] Mass Index - - Plan of Treatment Not on file Procedures Procedure Name Priority Date/Time Associated Diagnosis [...] time period is included. Course ID [id number] [facility] Course Start Date 4 16:05 CDT [facility] First Treatment Date 4 14:30 CDT [facility] Last Treatment Date 4 15:34 CDT JOHNSON ARIA Treatment Elapsed Days 20 JOHNSON ARIA Reference Point [id number] [facility] Dosage Given to Date cGy 4005 [facility]A Session Dosage Given 267 JOH[facility]ON ARIA Plan ID [id number] [facility]A Fractions Treated to Date 5 JOHNSON ARIA Planned Total Fractions 5 JOHNSON ARIA Prescribed Dose Per Fraction 267 [facility] Prescription Dose in cGy 1335 [facility] Plan Primary Reference Point [id number] [facility] 12/28/2023 3:34 PM CDT Provider Not In System RADIATION ONCOLOG Y ORDERABLES JOHNSON ALICIA na * Initial Rad Onc Treatment Planning CT Simulation (11/25/2023 2:00 PM CDT) Narrative [facility] - 11/25/2023 2:00 PM CDT Mayda Cuello, RTT ? 11/25/2023 ??2:58 PM Initial Rad Onc Treatment Planning CT Simulation Performed by: Kerry Morris M.D. Authorized by: Kerry Morris M.D. ?? Kerry Morris M.D. RADIATION ONCOLOG Y ORDERABLES Performing Organization Address [facility] Co de Phone Number ALEX VARGAS na * MM surgical specimen LT-Outside Mammogram (10/06/2023 12:30 PM CDT) Only the most recent of3 resultswithin the time period is included. Narrative [facility] - 10/28/2023 8:19 AM CDT This order [...] System IMG BI PROCEDURES Performing Organization Address [facility] de Phone Number II NA * US wire loc soft tissue 1st-Outside US (10/06/2023 8:15 AM CDT) Narrative [facility] - 10/28/2023 8:18 AM CDT This order has been created and auto-finalized to support the import of outside images. If available, original interpretation can be found on the Media Tab in Chart Review, in Document Viewer, or as an image in QREADS. If a re-interpretation or overread is required please follow defined workflow. ?? Provider Not In System IM US PROCEDURES Performing Organization Address [facility] de Phone Number IIMS NA * NM sentinel node inject only-Outside Other (10/06/2023 8:00 AM CDT) Narrative [facility] - 10/28/2023 8:18 AM CDT This order has been created and auto-finalized to support the import of outside images. If available, original interpretation can be found on the Media Tab in Chart Review, in Document Viewer, or as an image in QREADS. If a re-interpretation or overread is required please follow defined workflow. ?? Provider Not In System IMG DIAGNOSTIC IM AGING PROCEDURES IIMS NA from Last 3 Months
--- OUTSIDE RECORDS SUMMARY | 2023-12-31 15:13 | XMS_ITS | Encounter Summary ---
Author Organization [facility] Address [address] [place] [address] Care Team Providers Care Tool Crib Manager Name Role Phone Unavailable Primary Care Provider Unavailabl e Reason for Visit * Radiation Therapy (Routine) - Authorized Specialty Diagnoses / Procedures Referred By Lizet moyer Referred To Contact Diagnoses 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) Procedures Prior Auth Rad Tx [place] IMRT SIMPLE RI GUIDANCE FOR LOC RAD TX RI IMRT RADIOTHERAPY PLAN IMRT Kerry Morris M.D. [address] [place] [phone] [facility] Referral ID Status Reason Start Date Expiration Date V isits Requested Visits Authorized [id number] Authorized 12/07/2023 12/01/2024 15 15 Encounter Details Date Type Department Care Team (Late st Contact Info) Description 12/10/2023 3:30 PM CDT Hospital Encounter Department of Radiation Oncology in [place], [place] [address] [place] [phone] Kerry Morris M.D. [address] [place] [phone] Social History Tobacco Use Types Packs/Day Years [...]
--- OUTSIDE RECORDS SUMMARY | 2023-12-31 15:13 | XMS_ITS | Encounter Summary ---
Author Organization [facility] Address [address] [place] [address] Care Team Providers Care Medical Transcriptionist Name Role Phone Unavailable Primary Care Provider Unavailabl e Reason for Visit * Radiation Therapy (Routine) - Authorized Specialty Diagnoses / Procedures Referred By Lizet moyer Referred To Contact Diagnoses 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) Procedures Prior Auth Rad Tx CT IMRT SIMPLE CT GUIDANCE FOR LOC RAD TX CT IMRT RADIOTHERAPY PLAN IMRT Kerry Morris M.D. [address] [place] [phone] [facility] Referral ID Status Reason Start Date Expiration Date V isits Requested Visits Authorized [id number] Authorized 12/07/2023 12/01/2024 15 15 Encounter Details Date Type Department Care Team (Late st Contact Info) Description 12/09/2023 3:05 PM CDT Hospital Encounter Department of Radiation Oncology in [place], [place] [address] [place] [phone] Kerry Morris M.D. [address] [place] [phone] Social History Tobacco Use Types Packs/Day Years [...]
--- OUTSIDE RECORDS SUMMARY | 2023-12-31 15:13 | XMS_ITS | Encounter Summary ---
Author Organization [facility] Address [address] [place] [address] Care Team Providers Care Cane Pusher Name Role Phone Unavailable Primary Care Provider Unavailabl e Reason for Referral * Radiation Therapy (Routine) - Closed Specialty Diagnoses / Procedures Referred By Lizet moyer Referred To Contact Diagnoses 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) Procedures Initial Rad Onc Treatment Planning CT Simulation Kerry Morris M.D. [address] [place] [address] [facility] Referral ID Status Reason Start Date Expiration Date Visits Re quested Visits Authorized [id number] Closed 10/28/2023 10/27/2024 1 1 Reason for Visit * Radiation Therapy (Routine) - Closed Specialty Diagnoses / Procedures Referred By Lizet moyer Referred To Contact Diagnoses 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) Procedures Initial Rad Onc Treatment Planning CT Simulation Kerry Morris M.D. [address] [place] [address] [facility] Region Referral ID Status Reason Start Date Expiration Date Visits Re quested Visits Authorized [id number] Closed 10/28/2023 10/27/2024 1 1 Encounter Details Date Type Department Care Team (Latest Contact Info) Description 11/25/2023 2:00 PM CDT - 11/25/2023 4:56 PM CDT Hospital Encounter Department of Radiation Oncology in [address] [address] Kerry Morris M.D. [address] [place] [address] Malignant Neoplasm Of Breast Upper Outer Quadrant [...] mouth. 10/14/2023 documented as of this encounter Procedure Notes * Mayda Cuello, RTT - 11/25/2023 2:00 PM CDTAssociated Order(s): Initial Rad Onc Treatment Planning CT Simulation Pre-Procedure Diagnose(s): 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) Post-Procedure Diagnose(s): 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) Initial Rad Onc Treatment Planning CT Simulation Performed by: Kerry Morris M.D. Authorized by: Kerry Morris M.D. Simulation was performed under physician supervision based on physician order in preparation for radiation therapy. Physician was immediately available to provide assistance and direction throughout the procedure. Written consent for treatment was completed or confirmed. The patient was appropriately identified and placed in the treatment position using the necessary immobilization to ensure a reproducible treatment position. Reference johnson were placed to facilitate marking of isocenter. Area scanned:Neck and Chest Contrast used for the simulation procedure: None Patient position:head first supine and arms up Custom immobilization: Vac-matthew Motion management: Breath hold scan Bolus: Yes CT guidance: Following positioning of the patient, a series of slices was obtained to be utilized in treatment planning. CT images were transferred to the T[employer]or[employer] treatment planning system, after a reference isocenter was determined and marked. Segmentation and treatment planning will take place prior to treatment delivery. Patient set up and imaging was appropriate and completed without incident. Telesales Specialist use:No Associated attestation - Kerry Morris M.D. - 11/25/2023 4:55 PM CDT I was present during all critical and aragon portions of the procedure(s) and immediately [facility] entire duration. See note for details. documented in this encounter Plan of Treatment Not on file documented as of this encounter Procedures Procedure Name Priority Date/Time Associated Diagnosis Comments INITIAL RAD ONC TREATMENT PLANNING CT SIMULATION Routine 11/25/2023 2:00 PM CDT 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) documented in this encounter Results * Initial Rad Onc Treatment Planning CT Simulation (11/25/2023 2:00 PM CDT) Narrative ALEX VARGAS - 11/25/2023 2:00 PM CDT Mayda Cuello, RTT ? 11/25/2023 ??2:58 PM Initial Rad Onc Treatment Planning CT Simulation Performed by: Kerry Morris M.D. Authorized by: Kerry Morris M.D. ?? Kerry Morris M.D. RADIATION ONCOLOG Y ORDERABLES ALEX VARGAS na documented in this encounter Visit Diagnoses Diagnosis 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) documented in this encounter
--- OUTSIDE RECORDS SUMMARY | 2023-12-31 15:13 | XMS_ITS | Encounter Summary ---
Author Organization [facility] Address [address] [place] [address] Care Team Providers Care Learning And Development Specialist Name Role Phone Unavailable Primary Care Provider [...] PLAN IMRT Kerry Morris M.D. [address] [place] [phone] [facility] Referral ID Status Reason Start Date Expiration Date V isits Requested Visits Authorized [id number] Authorized 12/07/2023 12/01/2024 15 15 Encounter Details Date Type Department Care Team (Late st Contact Info) Description 12/28/2023 3:12 PM CDT Hospital Encounter Department of Radiation Oncology in [place], [place] [address] [place] [phone] Kerry Morris M.D. [address] [place] [phone] Social History Tobacco Use Types Packs/Day Years [...]
--- OUTSIDE RECORDS SUMMARY | 2023-12-31 15:13 | XMS_ITS | Encounter Summary ---
Author Organization [facility] Address [address] [place] [address] Care Team Providers Care Vehicle Upholsterer Name Role Phone Unavailable Primary Care Provider Unavailabl e Reason for Visit * Radiation Therapy (Routine) - Authorized Specialty Diagnoses / Procedures Referred By Lizet moyer Referred To Contact Diagnoses 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) Procedures Prior Auth Rad Tx [place] IMRT SIMPLE [place] GUIDANCE FOR LOC RAD TX [place] IMRT RADIOTHERAPY PLAN IMRT Kerry Morris M.D. [address] [place] [phone] [facility] Referral ID Status Reason Start Date Expiration Date V isits Requested Visits Authorized [id number] Authorized 12/07/2023 12/01/2024 15 15 Encounter Details Date Type Department Care Team (Late st Contact Info) Description 12/17/2023 3:08 PM CDT Hospital Encounter Department of Radiation Oncology in [place], [place] [address] [place] [phone] Kerry Morris M.D. [address] [place] [phone] Social History Tobacco Use Types Packs/Day Years [...]
--- OUTSIDE RECORDS SUMMARY | 2023-12-31 15:13 | XMS_ITS ---
Author Organization [facility] Address [address] [place] [address] Care Team Providers Care Director Of Community Education Name Role Phone Unavailable Unavailable Unavailable Surgery Details Not on file Complications Check Surgery Details section. Procedure Estimated Blood Loss Check Surgery Details section. Procedure Findings Check Surgery Details section. Procedure Specimens Taken Check Surgery Details section.
--- OUTSIDE RECORDS SUMMARY | 2023-12-31 15:13 | XMS_ITS | Encounter Summary ---
Author Organization [facility] Address [address] [place] [id number] Care Team Providers Care Pipe Covering Molder Name Role Phone Unavailable Primary Care Provider Unavailabl e Reason for Referral * Outpatient (Routine) - Authorized Specialty Diagnoses / Procedures Referred By Lizet moyer Referred To Contact Radiation Oncology Kerry Morris M.D. [address] [place] [phone] [facility] Region Referral ID Status Reason Start Date Expiration Date V isits Requested Visits Authorized [id number] Authorized 10/28/2023 04/28/2025 10 10 Reason for Visit * Outpatient (Routine) - Authorized Specialty Diagnoses / Procedures Referred By Lizet moyer Referred To Contact Radiation Oncology Kerry Morris M.D. [address] [place] [phone] [facility] Region Referral ID Status Reason Start Date Expiration Date V isits Requested Visits Authorized [id number] Authorized 10/28/2023 04/28/2025 10 10 Encounter Details Date Type Department Care Team (Latest Contact Info) Description 12/21/2023 2:49 PM CDT - 12/21/2023 3:07 PM CDT Hospital Encounter Department of Radiation Oncology in [place], [place] [address] [place] [phone] Kerry Morris M.D. [address] [place] [phone] Shanda Thurston R.N. [address] [place] [phone] Malignant Neoplasm Of Breast Upper Outer Quadrant [...] this encounter Progress Notes * Shanda Thurston R.N. - 12/21/2023 3:15 PM CDT I re applied Mepitel as needed today. Two scattered areas of dermatitis to left axilla. A few smallareas of pink toned skin to left axilla and to the left chest wall region. documented in this encounter Plan of Treatment Scheduled Referrals Name Type Priority Associated Diagnoses Order Schedule Radiation Oncology nurse visit (clinic) Outpatient Referral Routine Once for 1 Occurrences starting 12/21/2023 until 12/21/2023 documented as of this encounter Visit Diagnoses Diagnosis 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)- Primary documented in this encounter
--- OUTSIDE RECORDS SUMMARY | 2023-12-31 15:13 | XMS_ITS | Encounter Summary ---
Author Organization [facility] Address [address] [place] [address] Care Team Providers Care Pick Up Attendant Name Role Phone Unavailable Primary Care Provider Unavailabl e Reason for Visit * Radiation Therapy (Routine) - Authorized Specialty Diagnoses / Procedures Referred By Lizet moyer Referred To Contact Diagnoses 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) Procedures Prior Auth Rad Tx WA IMRT SIMPLE WA GUIDANCE FOR LOC RAD TX WA IMRT RADIOTHERAPY PLAN IMRT Kerry Morris M.D. [address] [place] [phone] [facility] Referral ID Status Reason Start Date Expiration Date V isits Requested Visits Authorized [id number] Authorized 12/07/2023 12/01/2024 15 15 Encounter Details Date Type Department Care Team (Late st Contact Info) Description 12/24/2023 3:04 PM CDT Hospital Encounter Department of Radiation Oncology in [place], [place] [address] [place] [phone] Kerry Morris M.D. [address] [place] [phone] Social History Tobacco Use Types Packs/Day Years [...]
--- OUTSIDE RECORDS SUMMARY | 2023-12-31 15:13 | XMS_ITS | Encounter Summary ---
Author Organization [facility] Address [address] [place] [address] Care Team Providers Care Overedge Machine Operator Name Role Phone Unavailable Primary Care Provider Unavailabl e Reason for Referral * Radiation Therapy (Routine) - Authorized Specialty Diagnoses / Procedures Referred By Bijalac t Referred To Contact Diagnoses 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) Procedures Management Visit Kerry Morris M.D. [address] [place] [phone] [facility] Region Referral ID Status Reason Start Date Expiration Date V isits Requested Visits Authorized [id number] Authorized 10/28/2023 10/27/2024 10 10 Reason for Visit * Radiation Therapy (Routine) - Authorized Specialty Diagnoses / Procedures Referred By Lizet moyer Referred To Contact Diagnoses 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) Procedures Management Visit Kerry Morris M.D. [address] [place] [address] [facility] Region Referral ID Status Reason Start Date Expiration Date V isits Requested Visits Authorized [id number] Authorized 10/28/2023 10/27/2024 10 10 Encounter Details Date Type Department Care Team (Latest Contact Info) Description 12/10/2023 3:33 PM CDT - 12/10/2023 4:45 PM CDT Hospital Encounter Department of Radiation Oncology in [place] [id number] [place] [phone] M[address] [place] [phone] Malignant Neoplasm Of Breast Upper Outer Quadrant [...] Pressure - - Pulse - - Temperature 36.2 ??C (97.1 ??F) 12/10/2023 3:59 PM CD T Respiratory Rate - - Oxygen Saturation - - Inhaled Oxygen Concentration - - Weight 92.7 kg (204 lb 5.9 oz) 12/10/2023 3:59 P M CDT Height - - Body [...] as of this encounter Progress Notes * Spencer Lane M.D. - 12/10/2023 4:00 PM CDT SUBJECTIVE CHIEF COMPLAINT/REASON FOR VISIT Evaluation for side effects while receiving radiation treatment for 1. 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) SUPERVISED BY: Spencer Lane M.D. HISTORY OF PRESENT ILLNESS Miss Alanis Gates is a 53 y.o. female with Clinical stage IB (cT2, cN1, cM0, G2, ER+, ME+, HER2+)invasive ductal carcinoma of the left breast s/p neoadjuvant TCHP followed by bilateral mastectomies and left axillary sentinel lymph node biopsy on October 06, 2023, ypT1b, pN0 who is now undergoing radiation therapy. Treatment Course: 1xBreast Plan ID Fractions Dose / Fraction (cGy) Dose Treated (cGy) Dose Planned (cGy) First Treatment Last Treatment Elapsed Days [id number] 12/08/2023 12/10/2023 2 Course Summary 12/08/2023 12/10/2023 2 The patient was seen and examined today with Dr. Lane. The patient reports to be feeing well overall. She denies any side effects from radiation at this time. She is applying Mometasone and lotion to areas in the treatment field that are not covered by Mepitel. She has no other issues or concerns at this time. PATIENT REPORTED SYMPTOM SCREEN: FATIGUE (Scale: 0 = no fatigue; 10 = worst fatigue you can imagine): 0 PAIN (Scale: 0 = no pain; 10 = worst pain you can imagine): 0 OVERALL QUALITY OF LIFE (Scale: 0 = as bad as can be; 10 = as good as can be): OBJECTIVE Temp 36.2 ??C (Temporal) Wt 92.7 kg PHYSICAL EXAMINATION General: Alert and oriented, in no apparent distress. Skin: No erythema noted. Mepitel intact ASSESSMENT / PLAN #1 Clinical stage IB (cT2, cN1, cM0, G2, ER+, ME+, HER2+) invasive ductal carcinoma of the left [...] treatment field that areoutside the Mepitel border. She will continue with radiation treatment as planned. She can contact our care team with any questions or concerns. Signed by: Polly Moon R.N. 12/10/2023 4:35 PM CDT ATTESTATION FOR MANAGEMENT VISIT I saw and evaluated the patient and participated in the aragon portions of the service including medical decision making as noted above. I reviewed the documentation of Ms. Polly Moon RN and agree with the findings and plan. The patient appears well on exam. We will continue with radiation as planned and monitor weekly. Spencer Lane M.D., 12/10/2023 documented in this encounter Plan of Treatment Scheduled Orders Name Type Priority Associated Diagnoses Orde r Schedule Management Visit Radiation Oncology Routine 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) Once for 1 Occurrences starting 12/10/2023 until 12/10/2023 documented as of this encounter Visit Diagnoses Diagnosis 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) documented in this encounter
--- OUTSIDE RECORDS SUMMARY | 2023-12-31 15:13 | XMS_ITS | Encounter Summary ---
Author Organization [facility] Address [address] [place] [address] Care Team Providers Care Party Plan Sales Consultant Name Role Phone Unavailable Primary Care Provider Unavailabl e Reason for Referral * Outpatient (Routine) - Closed Specialty Diagnoses / Procedures Referred By Lizet moyer Referred To Contact Radiation Oncology Hollie Vaughan P.A.-C., M.S. [address] [place] [phone] Kerry Morris M.D. [address] [place] [phone] Referral ID Status Reason Start Date Expiration Date Visits Re quested Visits Authorized [id number] Closed 11/04/2023 05/05/2025 1 1 Scheduling Instructions with sim Reason for Visit * Appointment Request (Routine) - Closed Specialty Diagnoses / Procedures Referred By Lizet moyer Referred To Contact Radiation Oncology Diagnoses Malignant Neoplasm Of Unspecified Site Of Laterality Unknown Female Breast (HCC) Tomasa Britt M.D. [address] [place] [address] Referral ID Status Reason Start Date Expiration Date Visits Re quested Visits Authorized [id number] Closed 10/21/2023 10/20/2024 1 1 Encounter Details Date Type Department Care Team (Latest Contact Info) Description 11/04/2023 1:00 PM CDT - 11/04/2023 3:45 PM CDT Hospital Encounter Department of Radiation Oncology in [place], [place] [address] [place] [phone] [place] [phone] Malignant Neoplasm Of Breast Upper Outer Quadrant [...] Sign Reading Time Taken Comments Blood Pressure 129/70 11/04/2023 1:03 PM CDT Pulse 97 11/04/2023 1:03 PM CDT Temperature 36 ??C (96.8 ??F) 11/04/2023 1:03 PM CDT Respiratory Rate - - Oxygen Saturation - - Inhaled Oxygen Concentration - - Weight 92.1 kg (203 lb 0.7 oz) 11/04/2023 1:03 P M CDT Height - - Body Mass Index - - documented in this encounter Medications at Time of Discharge Medication Sig Dispensed Refills Start Date End Date venlafaxine XR (EFFEXOR-XR) 37.5 mg 24 hr capsule Take by mouth. 10/14/2023 documented as of this encounter Consult Notes * Hollie Vaughan P.A.-C., M.S. - 11/04/2023 1:00 PM CDT SUBJECTIVE REQUESTING PROVIDER Tomasa Britt M.D. CHIEF COMPLAINT/REASON FOR CONSULT 1. 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 HISTORY OF PRESENT ILLNESS Miss Alanis Gates is a 52-year-old female with invasive ductal carcinoma of the left breast, who presents today for an opinion regarding the role of radiation therapy in the management of the patient's disease. Her oncologic history is as follows: Oncology History Malignant Neoplasm Of Breast Upper [...] CORE BIOPSY: 1. Invasive ductal carcinoma a. [place] grade: II of III; Mirian score: 7 [...] lymph node biopsy, excision of wire localized prevously biopsied left lymph node Surgeon: Bishnu Segura [...] - Breast Ancillary Testing Hormone Receptors (per [id number]): Estrogen receptor: Positive (98%, strong staining) Progesterone receptor: Positive (68%, moderate staining) HER2 by IHC (per [id number]): Positive (3+) HER2 by FISH (per [id number]): Positive HER2/CEP17 ratio: 4.28 HER2 signals/cell: 6.86 [...] of no special type (ductal) Histologic Grade ([place] Histologic Score): Glandular (Acinar) / Tubular Differentiation: [...] metastases with pathologic complete response Residual Cancer Como (RCB) Calculation: Primary Tumor Bed: Greatest Dimension of Primary Tumor Bed Area (Millimeters): 13 mm Second Greatest Dimension of Primary Tumor Bed Area (Millimeters): 10 mm Percentage of Overall Cancer Cellularity: 1 % Percentage of Cancer that is in situ Disease: 0 % Lymph Nodes: Number of Positive Lymph Nodes: 0 Diameter of Largest Jonathan Metastasis (Millimeters): 0 mm RCB Calculations: Residual Cancer Como: 0.86 Residual Cancer Como Class: RCB-I MARGINS Margin Status for Invasive Carcinoma: All margins negative for invasive carcinoma Distance from Invasive Carcinoma to Closest Margin: Greater than: 10 mm Closest Margin(s) to Invasive Carcinoma: >10 mm from all margins REGIONAL LYMPH NODES Regional Lymph Node Status: : All regional lymph nodes negative for tumor Total Number of Lymph Nodes Examined (sentinel and non-sentinel): 7 Number of [place] Nodes Examined: 3 pTNM CLASSIFICATION (AJCC 8th [...] 11/02/2023 - Biological/Targeted/Hormone Therapy Adjuvant TDM 1/Kadcyla 11/09/2023 - Radiation Therapy Radiation Therapy Treatment Details (Noted on 10/28/2023) Site: Left Chest wall Technique: No technique specified Goal: Curative Planned Treatment Start Date: 11/09/2023 INTERVAL HISTORY: The patient was seen and examined today with Dr. Morris. The patient reports improved energy levels. She is riding bike 30 minutes per day. She reports thatchrise started her new chemotherapy treatment on Thursday and has been tolerating this well overall. Shereports continuing to heal overall following surgery. She has persistent tenderness primarily in the left axillary region. She also reports decreased left arm range of motion and a feeling of cordingin the left upper arm. She is scheduled to start therapy tomorrow for range of motion as well as lymphedema measurements. She currently denies lymphedema of the arms. She denies any surgical incisionhealing concerns. She denies shortness of breath or cough. She states that she is not planning on re constructive surgery. The patient denies a history of prior radiation therapy, connective tissue disorders, or inflammatory bowel disease. Her ECOG performance status is 1. MEDICAL HISTORY Past Medical History: Diagnosis Date Anxiety Depression 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) Raynaud's Disease SURGICAL HISTORY Past Surgical History: Procedure Laterality Date MASTECTOMY Bilateral with left axillary sentinel lymph node biopsy WISDOM TOOTH EXTRACTION FAMILY HISTORY Family History Problem Relation Name Age of Onset Lung cancer Mother Breast cancer Aunt Maternal aunts x 5 Skin cancer Niece SOCIAL HISTORY Social History Socioeconomic History Marital status: Single Tobacco Use Smoking status: Former Current packs/day: 0.00 Types: Cigarettes Quit date: 05/2023 Years since quittin.5 Tobacco comments: Smoked up to 2 packs per weekend for 30 years. Substance and Sexual Activity Alcohol use: Not Currently Comment: Previous binge drinking on the weekends. Social History Narrative She lives with her friend, Bobbi. 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 OBJECTIVE BP 129/70 (BP Location: Right arm, Patient Position: Sitting, Cuff Size: Regular) Pulse 97 Temp36 ??C (Temporal) Wt 92.1 kg PHYSICAL EXAMINATION General: Alert and oriented, in no apparent distress. The patient is here today with her friend, Bobbi. Heart: Regular rate and rhythm. Lungs: Clear to auscultation bilaterally. Extremities: Decreased left arm range of motion. ASSESSMENT / PLAN #1 Clinical stage IB (cT2, cN1, cM0, G2, ER+, DC+, HER2+) invasive ductal carcinoma of the left breast s/p neoadjuvant TCHP followed by bilateral mastectomies and left axillary sentinel lymph node biopsy on October 06, 2023, ypT1b, pN0 #2 Adjuvant TDM1/Kadcyla initiated on November 02, 2023 I had a discussion with the patient and her friend regarding her breast cancer diagnosis including information regarding her staging, grade, and hormone receptors. We reviewed her oncologic history as detailed above. The patient confirmed that she is not planning on breast reconstructive surgery. We also had a detailed discussion regarding the risks, benefits, and alternatives of radiotherapy in this setting. Dr. Morris offered radiation therapy to the left chest wall in 15 or 25 fractions. I discussed the logistics as well as the acute and chronic side effects of radiotherapy. The acute side effects are common and include, but are not limited to, fatigue, radiation dermatitis, chest wall swelling and discomfort, and possible sore throat. Long-term side effects include, but are not limited to, skin changes and texture changes of the chest wall, pulmonary scarring, radiation pneumonitis, increased risk of rib fracture with significant trauma, lymphedema, small increased risk of coronary artery disease, very small risk of nerve injury to the brachial plexus, hypothyroidism, and a very small risk of secondary malignancy. The use of Mepitel, mometasone cream, and a moisturizing lotion applied to the skin within the treatment field during treatment was discussed. The patient was provided with a printed handout of information on Mepitel. The patient was provided with a written summary of recommendations. Her questions were answered to her verbalized satisfaction. The patient was offered referral for a consultation with our social work faculty member, but declined at this time. The patient currently has decreased left arm range of motion. She is scheduled to initiate physicaltherapy tomorrow. We discussed allowing additional time for her to attend therapy and improve her range of motion prior to proceeding with radiation therapy. Dr. Morris also met with the patient today, please see her attestation for details. After their discussion it was agreed to schedule a return visit with planned CT simulation here in a couple of weeks, after the patient has improved left arm range of motion. The use of Mepitel and mometasone will be discussed further at that visit. A prescription for mometasone was not prescribed today. The patient was provided with our contact information. She will contact us with questions or concerns. She verbally expressed her understanding of the plan. EDUCATION: Ready to learn, no apparent learning barriers were identified; learning preferences include listening. Explained diagnosis and treatment plan; patient expressed understanding of the content. PRIMARY PROVIDER Devi Rubin DO I personally spent 65 minutes in care of the patient today. Time includes both non face to face andface to face patient care. Signed by: Hollie Vaughan P.A.-C., M.S. 11/04/2023 2:32 PM CDT [facility] [address] [place] [address] Associated attestation - Kerry Morris M.D. - 11/04/2023 3:45 PM CDT RADIATION ONCOLOGY CONSULT I saw and evaluated the patient and participated in the aragon portions of the service. I reviewed thedocumentation of Ms. Hollie Vaughan PA-C, and agree with the findings and plan. Please see Ms. Cooperf's detailed note for the patient's initial presentation and work-up. Briefly, Miss Gates is a very pleasant 52 year old who underwent neoadjuvant chemotherapy for her ER/DC and HER2 positive left sided breast cancer. She presents now to discuss radiation options after having undergone bilateral mastectomies. I have independently reviewed her imaging, operative and pathology reports. Briefly, at initial diagnosis she had a grade 2 invasive ductal carcinoma with no angiolymphatic invasion that was ER/DC and HER2+. She had axillary biopsy that confirmed lymph node involvementand at least 3 lymph nodes were enlarged on her MRI. She then received neoadjuvant therapy. Genetic testing was negative. She underwent bilateral mastectomy on October 06, 2023. She was found to have a 10mm focus of IDC, G1 and a 1mm microinvasive left breast cancer remaining. Margins were negative. Allseven lymph nodes removed were negative for carcinoma. RCB Class 1. She does not want reconstruction in the future, but is concerned about her appearance after the mastectomies. She states that she is more concave than the thought she would be. On exam, she appears well. She has cervical, supra/infraclavicular, or axillary adenopathy. She still has a small left axillary seroma. Her breasts are surgically absent with no masses, lumps, or worrisome skin changes. She does have moderate extra tissue with some tissue loss, and induration on her well healing scars. We discussed the findings above and below in this note with the patient and her friend. We discussed her treatment alternatives including observation vs adjuvant radiation therapy. I would favor adjuvant radiation therapy given her young age, at least three lymph nodes were initially involved and that she still had residual breast tumor despite the excellent response to chemotherapy. We discussedvarious radiation options including 15 vs 25 fractions. I don't think she needs a boost to her mastectomy scar. I also explained proton therapy and that this will be plan B if we can't achieve a goodphoton plan. She is aware this is only done in [place]. We discussed the rationale, risks, side effects and goals of radiation therapy. We discussed the rationale, risks, side effects and adjuvant goals of radiation therapy. We discussed the acute as wellas intermediate risks, including, but not limited to fatigue, skin erythema/desquamation, sore throat,fibrosis of the breast/chest wall, lymphedema, small risks of bone fracture, radiation pneumonitis,cardiac disease, brachial plexopathy and secondary malignancies. We discussed possibly utilizing a breath hold technique for treatment if this is better. Her arm is still quite tight and she wonders if she has a cord. She states that she has a PT/lymphedema appointment tomorrow. We are going to delay her simulation for a couple of weeks to give her time to work on her arm exercises. She will return for a visit and we will make final decisions on dose, but are leaning towards 15 fractions. We discussed Mepitel and Mometasone cream. My thanks to Waldemar Lo Meland, and [...] stage IB (cT2, cN1, cM0, G2, ER+, DC+, HER2+) invasive ductal carcinoma of the left breast s/p neoadjuvant TCHP followed by bilateral mastectomies and left axillary sentinel lymph node biopsy on October 06, 2023, ypT1b, pN0 #2 Adjuvant TDM1/Kadcyla initiated on November 02, 2023 Signed by: Kerry Morris M.D.11/04/23 documented in this encounter Plan of Treatment Scheduled Referrals Name Type Priority Associated Diagnoses Orde r Schedule Radiation Oncology office visit (clinic) Outpatient Referral Routine Expected: 11/18/2023, Expires: 02/03/2025 documented as of this encounter Visit Diagnoses Diagnosis 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)- Primary documented in this encounter
--- OUTSIDE RECORDS SUMMARY | 2023-12-31 15:14 | XMS_ITS | Encounter Summary ---
Author Organization [facility] Address [address] [place] [id number] Care Team Providers Care Pony Cylinder Press Operator Name Role Phone Unavailable Primary Care Provider Unavailabl e Reason for Referral * Outpatient (Routine) - Closed Specialty Diagnoses / Procedures Referred By Lizet moyer Referred To Contact Radiation Oncology Kerry Morris M.D. [address] [place] [address] [facility] Region Referral ID Status Reason Start Date Expiration Date Visits Re quested Visits Authorized [id number] Closed 10/28/2023 04/28/2025 1 1 * Outpatient (Routine) - Authorized Specialty Diagnoses / Procedures Referred By Lizet moyer Referred To Contact Radiation Oncology Kerry Morris M.D. [address] [place] [address] [facility] Region Referral ID Status Reason Start Date Expiration Date V isits Requested Visits Authorized [id number] Authorized 10/28/2023 04/28/2025 10 10 * Specialty Diagnoses / Procedures Referred By Contac t Referred To Contact Hollie Vaughan P.A.-C., M.S. [address] [place] [phone] [facility] Region Referral ID Status Reason Start Date Expiration Date Visits Re quested Visits Authorized * Radiation Therapy (Routine) - Authorized Specialty Diagnoses / Procedures Referred By Lizet t Referred To Contact Diagnoses 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) Procedures Management Visit Kerry Morris M.D. [address] [place] [address] [facility] Region Referral ID Status Reason Start Date Expiration Date V isits Requested Visits Authorized [id number] Authorized 10/28/2023 10/27/2024 10 10 * Radiation Therapy (Routine) - Authorized Specialty Diagnoses / Procedures Referred By Lizet moyer Referred To Contact Diagnoses 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) Procedures Prior Auth Rad Tx CT RADTN TX DEL >=[address] GUIDANCE FOR LOC RAD TX CT 3D RAD THER ISODOSE FIELD PLAN 3D Kerry Morris M.D. [address] [place] [address] [facility] Radiation Oncology at [address] [phone] Referral ID Status Reason Start Date Expiration Date V isits Requested Visits Authorized [id number] Authorized 11/09/2023 05/31/2024 30 30 * Radiation Therapy (Routine) - Closed Specialty Diagnoses / Procedures Referred By Lizet moyer Referred To Contact Diagnoses 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) Procedures Initial Rad Onc Treatment Planning CT Simulation Kerry Morris M.D. [address] [place] [address] [facility] Region Referral ID Status Reason Start Date Expiration Date Visits Re quested Visits Authorized [id number] Closed 10/28/2023 10/27/2024 1 1 Encounter Details Date Type Department Care Team (Late st Contact Info) Description 10/28/2023 Orders Only Department of Radiation Oncology in [place], [place] [address] [place] [address] Hollie Vaughan P.A.-C., M.S. [address] [place] [address] Malignant Neoplasm Of Breast Upper Outer Quadrant [...] Scheduled Orders Name Type Priority Associated Diagnoses Order Schedule Prior Auth Rad Tx Radiation Oncology Routine 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) Ordered: 10/28/2023 Management Visit Radiation Oncology Routine 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) 10 Occurrences starting 10/28/2023 until 10/27/2024 Scheduled Referrals Name Type Priority Associated Diagnoses Order Schedule Radiation Oncology - Nurse education visit (clinic) Outpatient Referral Routine 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) Expected: 10/28/2023 (Approximate), Expires: 10/27/2024 Radiation Oncology nurse visit (clinic) Outpatient Referral Routine 10 Occurrenc es starting 10/28/2023 until 10/27/2024 Radiation Oncology nurse visit (clinic) Outpatient Referral Routine Expected: (Approximate), Expires: 01/27/2025 documented as of this encounter Results * Initial Rad Onc Treatment Planning CT Simulation (11/25/2023 2:00 PM CDT) Narrative ALEX VARGAS - 11/25/2023 2:00 PM CDT Mayda Cuello, RTT ? 11/25/2023 ??2:58 PM Initial Rad Onc Treatment Planning CT Simulation Performed by: Kerry Morris M.D. Authorized by: Kerry Morris M.D. ?? Kerry Morris M.D. RADIATION ONCOLOG Y ORDERABLES Performing Organization Address City/State/[facility] de Phone Number [place] documented in this encounter Visit Diagnoses Diagnosis 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)- Primary 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) documented in this encounter
--- OUTSIDE RECORDS SUMMARY | 2023-12-31 15:14 | XMS_ITS | Clinical Summary ---
Author Organization [facility] Address [place], [place] [address] Care Team Providers Care Manager Systems Name Role Phone Devi Rubin Primary Care Provider Allergies Active Allergy Reactions Criticality Noted Date Comments Minocycline Other - Describe In Comment Field 09/14/2023 Bivalve like she had the flu Medications Medication Sig Dispensed Refills Start Date End Date Status Graduated Compression StockingsIndicat ions:Uncomplicat ed varicose veins For personal use. Length: thigh Strength: 20-30 mmHg Circumference in cm: For thigh: Ankle 25cm, Calf 37cm, Thigh 51cm, Thigh to Ankle length 54cm. 1 Packet 3 Active LORazepam (ATIVAN) 0.5 mg tabIndications:G AD (generalized anxiety disorder),Diffic ulty sleeping,Feeling worried Take 1 Tablet (0.5 mg) by mouth at bedtime if needed for Anxiety. 20 Tablet 3 Active prochlorperazine (COMPAZINE) 10 mg tablet Take 10 mg by mouth every 8 hours if needed for Nausea/Vomiting. 3 Active ondansetron (ZOFRAN) 4 mg tablet TAKE 1 TABLET BY MOUTH EVERY 8 HOURS NEEDED FOR NAUSEA AND VOMITING 3 Active prochlorperazine (COMPAZINE) 10 mg tablet Take 10 mg by mouth every 8 hours if needed. 3 Active PERTUZUMAB IV Inject intravenous. Active TRASTUZUMAB IV Inject 6 mg/kg intravenous. Active trastuzumab-dkst (OGIVRI IV) Inject 8 mg/kg intravenous. Active fosaprepitant (EMEND) 150 mg injection Inject 150 mg intravenous one time. Active palonosetron HCl (PALONOSETRON IV) Inject 0.25 mg intravenous. Active CARBOPLATIN IV Inject 750 mg intravenous. Active DOCETAXEL IV Inject intravenous. Active PEGFILGRASTIM SUBQ Inject 6 mg subcutaneous. Active Dextromethorphan HBr 5 mg/5 mL syrp Take by mouth. 3 Active ibuprofen (ADVIL; MOTRIN) 800 mg tablet Take 800 mg by mouth every 8 hours if needed for Pain. 3 Active loratadine (CLARITIN) 10 mg tablet Take 10 mg by mouth once daily. 4 Active docusate (COLACE) 100 mg capsule Take 100 mg by mouth once daily if needed for Constipation. 3 Active loperamide (IMODIUM) 2 mg capsule Take by mouth. 3 Active venlafaxine (EFFEXOR XR) 37.5 mg Extended-Release capsuleIndicatio ns:REYNALDO (generalized anxiety disorder) TAKE 1 CAPSULE BY MOUTH EVERY DAY WITH FOOD 90 Capsule 4 Active venlafaxine (EFFEXOR XR) 37.5 mg Extended-Release capsuleIndicatio ns:REYNALDO (generalized anxiety disorder) TAKE 1 CAPSULE BY MOUTH EVERY DAY WITH FOOD 90 Capsule 4 12/16/19 24 Discontinued Active Problems Problem Noted Date Diagnosed Date [...] Encounters Date Type Department Care Team Description 12/14/2023 Refill [facility] [address] [place] [address] Marina Harris PA Refill Request (Venlafaxine) 10/29/2023 2:00 PM CDT Ancillary Procedure [facility] [address] [place] [address] 10/13/2023 Refill [facility] [address] [facility] [place] [address] Marina Harris PA Refill Request (Venlafaxine) 10/12/2023 3:30 PM CDT Office Visit [facility] [address] [place] [address] Bishnu Segura MD Post-op (Bilateral mastectomy-left axillary sentinel node biopsy-excision of previously biopsied left axillary node 10/06/23) 10/12/2023 Orders Only [facility] [address] [place] [address] Bishnu Segura MD 1 scan: (1-Ord) [facility], LEFT AXILLARY LYMPH NODE WIRE LOCALIZATION, 10/06/2023 10/11/2023 Travel 10/06/2023 6:00 AM CDT Office Visit [facility] [address] [place] [address] Bishnu Segura MD Surgery Scheduled 10/06/2023 Orders Only [facility] Scanner 1 scan: (1-Ord) [facility], XRAY-BREAST LEFT SPECIMEN, 10/06/2023 10/06/2023 Orders Only [facility] Scanner 1 scan: (1-Ord) [place], XRAY-BREAST LT SPECIMEN RADIOGRAPH, 10/06/2023 10/06/2023 Orders Only [facility] Scanner 1 scan: (1-Ord) [place], RIGHT PROPHYLACTIC MASTECTOMY, LEFT THERAPEUTIC MASTECTOMY, 10/06/2023 10/06/2023 Lab Requisition [facility] [phone] Bishnu Segura MD 10/06/2023 Lab Requisition [facility] [phone] Bishnu Segura MD 10/06/2023 Lab Requisition [facility] [phone] Bishnu Segura MD from Last 3 Months Immunizations Name Administration [...] Used Date Smoking Tobacco: Former Cigarettes 0.3 24.6 S tarted: 06/01/1999 Smokeless Tobacco: Never Tobacco [...] Sign Reading Time Taken Comments Blood Pressure 129/88 10/12/2023 3:33 PM CDT Pulse 124 10/12/2023 3:33 PM CDT Temperature 36.6 ??C (97.8 ??F) 08/12/2023 4:18 PM CD T Respiratory Rate 16 04/27/2023 8:52 AM CONFERENCE INTERPRETER Oxygen Saturation 98% 10/12/2023 3:33 PM CDT Inhaled Oxygen Concentration - - Weight 88.8 kg (195 lb 11.2 oz) 10/12/2023 3:33 PM CDT Height 170.2 cm (5' 7) 09/22/2023 1:45 PM CDT Body Mass Index 30.65 09/22/2023 1:45 PM CDT Plan of Treatment Health Maintenance Due Date Last Done Comments HIV for age 15-65 11/25/1987 Colonoscopy through age 75 2017 Zoster (shingles) series for age 50+ (2 of 2) 05/18/2023 03/23/2023 COVID-19 vaccine series ( season) 2023 05/02/2023, 08/25/2022, 05/23/2021, Additional history exists Influenza for age 50-64 01/31/2024 05/14/2023, 05/14 Depression screening for age 12+ 07/09/2024 07/09/2023, 07/08/2023, 06/16/2023, Additional history exists BMI (ht and wt on same day) for age 18+ 09/21/2024 09/22/2023, 06/04/2023, 03/23/2023, Additional history exists Mammogram for age 45-75 10/05/2024 10/06/19 24, 04/13/2023, 03/30/2023 Lipids for age 45-75 03/23/2028 03/23/2023, 04/26/20 Pap test for age 21-65 03/23/2028 03/23/2023, 2022 Tetanus booster 10/26/2031 10/25/2021 Tdap Completed 10/25/2021 Hepatitis C screening for ag e 18-79 Completed 03/23/2023 Pneumococcal series for age 6-64 Completed 03/23/20 Procedures Procedure Name Priority Date/Time Associated Diagnosis Comments ECHO TTE COMPLETE W CONTRAST Routine 10/29/2023 3:02 PM CDT Encounter for therapeutic drug level monitoring LAB TRACKING EVENT Routine 10/06/2023 11 :39 AM CDT PATH TISSUE EXAM Routine 10/06/2023 11:2 9 AM CDT CG HER2 BREAST Routine 10/06/2023 11:29 AM CDT CYTOGENETICS MALIGNANT TISSUE Routine 10/06/2023 11:29 AM CDT SCAN-RADIOLOGY REPORT 10/06/2023 12:00 AM CDT SCAN-MAMMOGRAPHY REPORT 10/06/2023 12:00 AM CDT BREAST LOCALIZATION WIRE PLACEMENT Routine 10/06/2023 12:00 AM CDT Invasive ductal carcinoma of breast, female, left (HC) SCAN-OPERATIVE/PROCED URE REPORT 10/06/2023 12:00 AM CDT ANTI HCV Routine 03/23/2023 11:48 AM CDT Need for hepatitis C screening test LIPID PANEL W REFLEX MEASURED LDL Routine 03/23/2023 11:48 AM CDT Screening cholesterol level HPV THIN PREP Routine 03/23/2023 11:19 AM CDT Screening for cervical cancer from Last 3 Months or Most Recently Relevant to Health Maintenance Results * ECHO TTE COMPLETE W CONTRAST (10/29/2023 3:02 PM CDT) AORTIC VALVE MEAN PG 2 mmHg EJECTION FRACTION 57 % LVEDD 4.0 cm EJECTION FRACTION 60 - 65% Anatomical Region Laterality Modality Ultrasound 10/29/2023 2:03 PM CDT Narrative 10/29/2023 3:48 PM CDT ECHOCARDIOGRAM ALANIS LORA ? Accession#: ?? [id number] : ?1970 52 years Study Date: ?? 10/29/2023 2:03:50 PM Gender: F ?BP: ? 117/80 mmHg Height: 170.00 cm ?BSA: ?2.00 m? ? ? Weight: 89.00 kg ? Tech: ? MJJ ? Referring MD: DINA QUIGLEY Site: ? [facility] Reading Location: MOBILE-OP Patient Location: Outpatient. Procedure: 2D w/ Contrast, Color Doppler and Spectral Doppler. Indication for study: Encounter for therapeutic drug level monitoring Cardiac Rhythm: Normal sinus.Study quality: Fair. Imaging limitations: This study was subject to imaging limitations due to mastectomy. Final Impressions: 1. Normal LV size, normal wall thickness, normal global systolic function with an estimated EF of 60 - 65%. 2. Right ventricular cavity size is normal, global systolic RV function is normal. 3. No significant valve disease detected. 4. Echo contrast was administered to enhance visualization of all left ventricular segments. Comparison Compared to prior exam report of 08/14/2023, there has been no significant change. Chamber [...] is normal in structure. Tricuspid regurgitation is trace regurgitation. The pulmonic valve is normal. No pulmonary regurgitation. Pulmonary veins show a normal flow pattern. Masses, Effusion, Shunts There is no pericardial effusion. The inferior vena cava is normal sized, respiratory size variation greater than 50%. No left to right shunting was detected by limited color flow Doppler interrogation of the interatrial septum. MEASUREMENTS AND CALCULATIONS 2-D Measurements and LV Function: LVID (d) 4.0 cm LV FS% (2D) ?? 33 % LVID (s) 2.7 cm LVOT diameter 1.9 cm IVS (d) ??1.1 cm HR ?85 bpm LVPW (d) 1.3 cm Ao Sinus 3.6 cm Asc Ao ?? 3.0 cm LA ? 3.1 cm Diastology: Mitral ?Tissue Doppler ?Pulmonary veins E Peak 1.0 m/s ??e', Septum ? 0.10 m/s Pulm s ?41.9 cm/s A Peak 0.9 m/s ??e', Lateral ?0.10 m/s Pulm d ?28.6 cm/s E/A ?1.0 ?E/e' Average ?? 9.88 ? Pulm s/d ratio ??1.47 DT ? 192 msec Aortic Valve: Vmax ? 1.0 m/s ??PRISCILA (V) ?? 2.89 cm? ? ? VTI ?0.18 m ?? PRISCILA (I) ?? 3.06 cm? ? ? LVOT V max 1.0 m/s ??Max PG ?4 mmHg LVOT VTI ?? 0.19 m ?? Mean PG ?? 2 mmHg SV ? 55 ml ?Dim Index 1.08 SV index ?? 27 ml/m? ? ? CO ?4.7 l/min ?CI ?2.3 l/min/m? ? ? Mitral Valve: MVA ? 4.0 cm? ? ? MV P 1/2 ??56 msec MV Mean G 3 mmHg MV VTI ?0.21 m Tricuspid Valve and estimated PA pressures: TAPSE 1.7 cm Contrast documentation: 3 ml diluted Definity, lot #[id number], [facility]# [id number] was administered peripherally to enhance visualization of all left ventricular segments. . This study was interpreted by an [facility] accredited facility. CC: [facility]. ??Final ?? Procedure Note Rodríguez Mas MD - 10/29/2023 ECHOCARDIOGRAM ALANIS LORA : 1970 52 years Study Date: 10/29/2023 2:03:50 PM Gender: F BP: 117/80 mmHg Height: 170.00 cm BSA: 2.00 m? ? ? Weight: 89.00 kg Tech: ROSALIE Referring MD: DINA QUIGLEY Site: [facility] Reading Location: MOBILE-OP Patient Location: Outpatient. Procedure: 2D w/ Contrast, Color Doppler and Spectral Doppler. Indication for study: Encounter for therapeutic drug level monitoring Cardiac Rhythm: Normal sinus.Study quality: Fair. Imaging limitations: This study was subject to imaging limitations due tomastectomy. Final Impressions: 1. Normal LV size, normal wall thickness, normal global systolic functionwith an estimated EF of 60 - 65%. 2. Right ventricular cavity size is normal, global systolic RV functionis normal. 3. No significant valve disease detected. 4. Echo contrast was administered to enhance visualization of all leftventricular segments. Comparison Compared to prior exam report of 08/14/2023, there has been no significantchange. Chamber Sizes [...] valve is normal instructure. Tricuspid regurgitation is trace regurgitation. The pulmonicvalve is normal. No pulmonary regurgitation. Pulmonary veins show a normalflow pattern. Masses, Effusion, Shunts There is no pericardial effusion. The inferior vena cava is normal sized,respiratory size variation greater than 50%. No left to right shunting wasdetected by limited color flow Doppler interrogation of the interatrialseptum. MEASUREMENTS AND CALCULATIONS 2-D Measurements and LV Function: LVID (d) 4.0 cm LV FS% (2D) 33 % LVID (s) 2.7 cm LVOT diameter 1.9 cm IVS (d) 1.1 cm HR 85 bpm LVPW (d) 1.3 cm Ao Sinus 3.6 cm Asc Ao 3.0 cm LA 3.1 cm Diastology: Mitral Tissue Doppler Pulmonary veins E Peak 1.0 m/s e', Septum 0.10 m/s Pulm s 41.9 cm/s A Peak 0.9 m/s e', Lateral 0.10 m/s Pulm d 28.6 cm/s E/A 1.0 E/e' Average 9.88 Pulm s/d ratio 1.47 DT 192 msec Aortic Valve: Vmax 1.0 m/s PRISCILA (V) 2.89 cm? ? ? VTI 0.18 m PRISCILA (I) 3.06 cm? ? ? LVOT V max 1.0 m/s Max PG 4 mmHg LVOT VTI 0.19 m Mean PG 2 mmHg SV 55 ml Dim Index 1.08 SV index 27 ml/m? ? ? CO 4.7 l/min CI 2.3 l/min/m? ? ? Mitral Valve: MVA 4.0 cm? ? ? MV P 1/2 56 msec MV Mean G 3 mmHg MV VTI 0.21 m Tricuspid Valve and estimated PA pressures: TAPSE 1.7 cm Contrast documentation: 3 ml diluted Definity, lot #[id number], [facility]#[id number] was administered peripherally to enhance visualization of allleft ventricular segments. . This study was interpreted by an [facility] accredited facility. CC: [facility] Final Dina Quigley MD ECHO ORD * LAB TRACKING EVENT (10/06/2023 11:39 AM CDT) Other (Other) Client Collect / Unknown 10/06/2023 11:39 AM CDT 10/06/2023 9:52 PM CDT Bishnu Segura MD LAB BILL ONLY Performing Organization Address City/[facility]/ZIP Co de Phone Number [facility] [address] [place] [address], * CG HER2 BREAST (10/06/2023 11:29 AM CDT) Other (Right Breast) 10/06/2023 11:29 AM CDT 10/13/2023 12:18 PM CDT Bishnu Segura MD LABORATORY Performing Organization Address City/[facility]/ZIP Co de Phone Number [facility] [address] [place] [address], * CYTOGENETICS MALIGNANT TISSUE STUDIES (10/06/2023 11:29 AM CDT) RFR Breast Cancer 10/19/2023 1:51 PM CDT [facility] TEST & RESULT SUMMARY HER2 FISH Breast: See pathology report [id number]. See comments. 10/19/2023 1:51 PM CDT [facility] _ 10/19/2023 1:51 PM CDT [facility] COMMENTS This record is used as an internal laboratory test designed for workflow purposes only. 10/19/2023 1:51 PM CDT [facility] SOURCE LEFT BREAST (Paraffin Slides 2UNS BLK F8) [id number] LEFT BREAST (Paraffin Slides 2 uns, 1 H&E block F8 additional slides) [id number] 10/19/2023 1:51 PM CDT [facility] Other (Right Breast) 10/06/2023 11:29 AM CDT 10/13/2023 12:18 PM CDT Bishnu Segura MD LABORATORY [facility] [address] [place] [address], * PATH TISSUE EXAM (10/06/2023 11:29 AM CDT) Case Report Pathology Report ?Case: [id number] ? Authorizing Provider: ??Bishnu Segura MD ?Collected: ? 10/06/2023 1129 ? Ordering Location: ? [facility] ?Received: ?10/07/2023 0829 ? Pathologist: ? Telly, Tere Roberto Carlos, MD ? Specimens: ?? A) - Right Breast ? B) - Left Axillary Trenary Lymph Node 1 ? C) - Left Axillary Trenary Lymph Node 2 ? D) - Left Axillary Trenary Lymph Node 3 ? E) - Left Axillary Lymph Node Regional Resection ? F) - Left Breast ? 10/20/2023 7:42 AM CDT [facility] Amendment 10/20/2023 - Amendment issued to incorporate ancillary HER2 FISH studies. 10/20/2023 7:42 AM [facility] [employer] LABORATORY-C ENTRAL LABORATORY Final Diagnosis A) RIGHT BREAST, MASTECTOMY: 1. Atypical lobular [...] NEOADJUVANT THERAPY: 1. Multifocal invasive ductal carcinoma ?? a. Tumor #1: Invasive ductal carcinoma ?- Size: 10 x 7 mm ?- Mirian grade I of III ?- Breast Ancillary Testing ?Hormone Receptors (per [id number]): ?Estrogen receptor: Positive (98%, strong staining) ?Progesterone receptor: Positive (68%, moderate staining) ?HER2 by IHC (per [id number]): Positive (3+) ?HER2 by FISH (per [id number]): Positive ?HER2/CEP17 ratio: 4.28 ?HER2 signals/cell: 6.86 ?CEP17 signals/cell: 1.60 ?Repeat HER2 IHC (F8): HER2 by IHC: Equivocal (2+ by manual morphometry) ?HER2 by FISH (F8): Positive, see comment ? HER2/CEP17 ratio: 3.76 ? HER2 signals/cell: 5.64 ? CEP17 signals/cell: 1.50 ? - ??Biopsy site is associated with tumor ? b. Tumor #2: Microinvasive carcinoma (location lateral to main mass) ?- Size: 1 mm ?- [place] grade: Deferred ?- Breast Ancillary Testing: Deferred 2. DCIS: Not identified 3. Margins: Negative see synoptic 4. Surrounding breast with atypical lobular hyperplasia (ALH) 10/20/2023 7:42 AM CDT [facility] [employer] LABORATORY-C ENTRAL LABORATORY Amendment electronically signed by Tere Varner MD on 10/20/2023 at 7:42 AM Comment B-F) The residual tumor in the mastectomy appears better differentiated than the original tumor (core biopsy [id number]).?? The residual tumor spans 13 x 10 mm (measurement spans both foci of tumor).??There is <1% residual tumor cellularity. There is background fibrous scarring and inflammatory debris (tumor bed) which includes areas where tumor is no longer present. The fibrosis measures approximately 25 x 15 mm and is located around tumor #1. Examination of the lymph nodes reveals no metastatic tumor. One lymph node has focal fibrous scarring near the capsule. While the changes are not histologically definitive, they could represent scarring due to biopsy site, scarring due to treatment effect, or fibrosis due to an unrelated event. The biopsy clip was not identified; however, the lymph node with the fibrosis (part B) is the sentinel node that was localized preoperatively. HER2 testing was repeated on tumor #1 due to the morphologic differences between the pretreatment and posttreatment tumor. MD [place] residual cancer burden RCB is 0.86 (RCB-I). B) HER2 COMMENT This invasive cancer is POSITIVE for HER2 by current ASCO/CAP guidelines but has a low level of increased HER2 signals (4-6) and a HER2:CEP17 ratio > or = 2.0. Although there is limited data to suggest benefit of HER2-targeted therapy in this setting, these patients were considered eligible for the first generation of trastuzumab trials. Clinical correlation with other patient factors and the pathologic features of the patient's cancer (including HER2 by IHC) should be used in this setting when considering treatment with HER2 targeted therapies. HER2 FISH results were interpreted by Dr. Goodson. 10/20/2023 7:42 AM [facility] [employer] LABORATORY-C ENTRAL LABORATORY Clinical Information 1.2 cm left breast mass by ultrasound (2.5 cm mass by MRI). Neoadjuvant therapy administered. 10/20/2023 7:42 AM [facility] [employer] [facility] Gross Description A) Received fresh, labeled with the patient's name and right breast stitch at 12:00, is a 1305 gram, 24 (M-L) x 23 (S-I) x 5 (A-P) cm oriented right breast simple mastectomy specimen without attached axillary contents. There is an attached 22 x 11 cm portion of skin with a 1.5 x 1.3 cm everted nipple and 5 x 3.5 cm surrounding areola. No skin scars or lesions are identified. The specimen is inked: Anterior-superior : Blue Anterior-inferior : Red Posterior: Black The tissue is sectioned to reveal 60% yellow, lobulated adipose tissue and 40% fibrous tissue. No lymph nodes are identified grossly. Independent Living Instructor sections are submitted: 1. ??Nipple, perpendicular and en face base 2. ??1.5 cm subjacent to nipple 3-4. ??Upper outer quadrant 5-6. ??Lower outer quadrant 7-8. ??Upper inner quadrant 9-10. ??Lower inner quadrant Time removed from patient: 1055 Time placed in formalin: 1120 Date removed and placed in formalin: 10/06/2023 Cold ischemic time < 60 minutes. The specimen was fixed in formalin for a minimum of 6 hours and not longer than 72 hours. B) Received fresh labeled with the patient's name and left sentinel lymph node #1, is a 4 x 3 x 1.5 cm lymph node and fatty tissue which is sectioned and entirely sampled for frozen microscopy on 3 blocks. Entirely submitted: 1-3. ??Frozen section remnant, 1 lymph node 4. ??Adipose tissue Time removed from patient: 139 Time placed in formalin: 1239 Date removed and placed in formalin: 10/06/2023 Cold ischemic time < 60 minutes. The specimen was fixed in formalin for a minimum of 6 hours and not longer than 72 hours. C) Received fresh labeled with the patient's name and left sentinel lymph node #2, is a 1.5 x 0.4 cm lymph node entirely sampled for frozen microscopy on 1 block. Entirely submitted: 1. ??Frozen section remnant, 1 lymph node 2. ??Adipose tissue Time removed from patient: 1148 Time placed in formalin: 1239 Date removed and placed in formalin: 10/06/2023 Cold ischemic time < 60 minutes. The specimen was fixed in formalin for a minimum of 6 hours and not longer than 72 hours. D) Received fresh labeled with the patient's name and sentinel node #3, is a 2 x 1 x 1 cm lymph node entirely sampled for frozen microscopy on 1 block, subsequently submitted in 1 cassette. Time removed from patient: 12:00 Time placed in formalin: 1239 Date removed and placed in formalin: 10/06/2023 Cold ischemic time < 60 minutes. The specimen was fixed in formalin for a minimum of 6 hours and not longer than 72 hours. E) Received fresh labeled with the patient's name and left additional axillary filiberto tissue, is a 4 x 2.3 x 0.8 cm aggregate lobulated adipose tissues which contains 4 possible lymph nodes. ??The apparent lymph nodes measure between 0.2 and 1.3 cm greatest dimension. ?? Entirely submitted: 1. ??1 lymph node bisected 2. ??1 lymph node, 4 slices 3. ??1 lymph node, 5 slices 4. ??1 possible lymph node in toto 5. ??Adipose tissue to include additional possible lymph nodes Time removed from patient: 1210 Time placed in formalin: 1240 Date removed and placed in formalin: 10/06/2023 Cold ischemic time < 60 minutes. The specimen was fixed in formalin for a minimum of 6 hours and not longer than 72 hours. F) Received fresh, labeled with the patient's name and left breast stitch superior, is a 1320 gram, 25 (M-L) x 24 (S-I) x 4 (A-P) cm oriented left breast simple mastectomy specimen without attached axillary contents. There is an attached 24 x 14 cm portion of skin with a 1.5 x 1.5 cm everted nipple and 4.5 x 4.5 cm surrounding areola. No skin scars or lesions are identified. The specimen is inked: Anterior-superior : Blue Anterior-inferior : Red Posterior: Black Sectioning reveals a 2.5 (SI) x 2 (ML) x 1.5 (AP) cm tumor bed at 1:00, 10 cm from the nipple with an embedded ring-shaped metallic marking clip. ??The tumor bed is 0.5 cm from superior-anterior margin, 0.8 cm from posterior and at least 11 cm from the anterior-inferior margin. ??A discrete biopsy site is not seen. ??A discrete solid suspicious component is not identified. The remaining cut surfaces consist of 60% yellow, lobulated adipose tissue and 40% fibrous tissue. No lymph nodes are identified grossly. Independent Living Instructor sections are submitted: 1. ??Nipple, perpendicular and en face base 2. ??1.5 cm subjacent to nipple 3. ??Tumor bed slice 1 lateral edge without margin 4. ??Tumor bed slice 2 without margin 5. ??Tumor bed slice 3 without margin 6-7. ??Tumor bed slice 4 without margin, yellow ink on bisected edges 8-9. ??Tumor bed slice 5 with posterior margin, yellow ink and bisected edges 10-11. ??Tumor bed slice 6 with anterior-superior margin (F10), yellow ink and bisected edges 12. ??Tumor bed slice 7 medial edge without margin 13-14. ??Lateral and medial bracketing sections without margin The distance between the lateral and medial bracketing sections is 2 cm 15. ??Additional anterior-superior margin and anterior-inferior margin 16. ??Upper outer quadrant 17. ??Lower outer quadrant 18. ??Upper inner quadrant 19. ??Lower inner quadrant Time removed from patient: 1155 Time placed in formalin: 1236 Date removed and placed in formalin: 10/06/2023 Cold ischemic time < 60 minutes. The specimen was fixed in formalin for a minimum of 6 hours and not longer than 72 hours. DPL 10/07/2023 10/20/2023 7:42 AM CDT [facility] Intraoperative Consultation A) RIGHT BREAST, MASTECTOMY, INTRAOPERATIVE CONSULTATION (Gross Evaluation Only): 1. No visible or palpable lesions 2. The mastectomy specimen is 1305 grams Tosin Chinchilla MD., 10/06/2023 11:20 AM B) LYMPH NODE, LEFT AXILLARY SENTINEL, BIOPSY, INTRAOPERATIVE CONSULTATION WITH FROZEN SECTION: [Number of frozen sections prepared: 3] 1. A single lymph node is identified and is negative for malignancy C) LYMPH NODE, LEFT AXILLARY SENTINEL, BIOPSY, INTRAOPERATIVE CONSULTATION WITH FROZEN SECTION: [Number of frozen sections prepared: 1] 1. A single lymph node is identified and is negative for malignancy D) LYMPH NODE, LEFT AXILLARY SENTINEL, BIOPSY, INTRAOPERATIVE CONSULTATION WITH FROZEN SECTION: [Number of frozen sections prepared: 1] 1. A single lymph node is identified and is negative for malignancy Tosin Chinchilla MD., 10/06/2023 12:39 PM F) LEFT BREAST, MASTECTOMY, INTRAOPERATIVE CONSULTATION (Gross Evaluation Only): 1. ??No visible or palpable lesions 2. The mastectomy specimen is 1320 grams Tosin Chinchilla MD., 10/06/2023 12:36 PM ??Intraoperative consultation, which may have included frozen section preparation, gross specimen examination, and/or cytology touch imprints/smears, was performed by a pathologist during the surgical procedure. ??This testing was performed at: [address] [address] 10/20/2023 7:42 AM [facility] [employer] Microscopic Description The final diagnosis is based on microscopic examination of appropriate sections of all specimens. B) Cytokeratin AE1/AE3 immunostains were used to evaluate for metastatic tumor. F) In order to quantify the residual remaining invasive carcinoma, the following immunostains were performed: P63 (loss around invasive tumor), SMMS/myosin (loss around invasive tumor), cytokeratin AE1/AE3 (highlights individual tumor cells). 10/20/2023 7:42 AM [facility] [employer] Cytogenetics Summary Cytogenetic testing has been ordered and will be reported separately. 10/20/2023 7:42 AM [facility] [employer] SYNOPTIC REPORTING INVASIVE CARCINOMA OF THE BREAST: Resection INVASIVE CARCINOMA OF THE BREAST: RESECTION - B, C, D, E, F 8th Edition - Protocol posted: 02/18/2023 SPECIMEN ?? Procedure: ?Total mastectomy ?? Specimen Laterality: ?Left TUMOR ?? Tumor Site: ?Clock position ?? : ?1 o'clock Tumor Site: ?Distance from nipple (Centimeters): 13 cm Histologic Type: ?Invasive carcinoma of no special type (ductal) Histologic Grade (Mirian Histologic Score): ? Glandular (Acinar) / Tubular Differentiation: ?Score 2 ?? Nuclear Pleomorphism: ?Score 2 ?? Mitotic Rate: ?Score 1 ?? Overall Grade: ?Grade 1 (scores of 3, 4 or 5) Tumor Size: ?Greatest dimension of largest invasive focus (Millimeters): 10 mm ?? Additional Dimension (Millimeters): ?7 mm Tumor Focality: ?Multiple foci of invasive carcinoma ?? Number of Foci: ?2 ?? Sizes of Individual Foci in Millimeters (mm): ?Tumor #1: 10 mm, tumor #2: 1 mm Ductal Carcinoma In Situ (DCIS): ?Not identified Lymphatic and / or Vascular Invasion: ?Not identified Dermal Lymphatic and / or Vascular Invasion: ?Not identified Treatment Effect in the Breast: ?Probable or definite response to presurgical therapy in the invasive carcinoma Treatment Effect in the Lymph Nodes: ?No lymph node metastases. Fibrous scarring or histiocytic aggregates, possibly related to prior lymph node metastases with pathologic complete response Residual Cancer [place] (RCB) Calculation: ? Primary Tumor Bed: ? Greatest Dimension of Primary Tumor Bed Area (Millimeters): ?13 mm ? Second Greatest Dimension of Primary Tumor Bed Area (Millimeters): ?10 mm ? Percentage of Overall Cancer Cellularity: ?1 % ? Percentage of Cancer that is in situ Disease: ?0 % ?? Lymph Nodes: ? Number of Positive Lymph Nodes: ?0 ? Diameter of Largest Filiberto Metastasis (Millimeters): ?0 mm ?? RCB Calculations: ? Residual Cancer [place]: ?0.86 ? Residual Cancer [place] Class: ?RCB-I MARGINS Margin Status for Invasive Carcinoma: ?All margins negative for invasive carcinoma ?? Distance from Invasive Carcinoma to Closest Margin: ?Greater than: 10 mm ?? Closest Margin(s) to Invasive Carcinoma: ?>10 mm from all margins REGIONAL LYMPH NODES Regional Lymph Node Status: ? : ?All regional lymph nodes negative for tumor ?? Total Number of Lymph Nodes Examined (sentinel and non-sentinel): ?7 ?? Number of Trenary Nodes Examined: ?3 pTNM CLASSIFICATION (AJCC 8th Edition) ?? Reporting of pT, pN, and (when applicable) pM categories is based on information available to the pathologist at the time the report is issued. As per the AJCC (Chapter 1, 8th Ed.) it is the managing physician? s responsibility to establish the final pathologic stage based upon all pertinent information, including but potentially not limited to this pathology report. Modified Classification: ?y pT Category: ?pT1b T Suffix: ?(m) pN Category: ?pN0 Comment(s): ?Tumor 1: F6/F8, tumor #2: F4 Breast Biomarker Reporting Template BREAST BIOMARKER REPORTING TEMPLATE - F Protocol posted: 05/13/2023 ?? Test(s) Performed: ? HER2 by Immunohistochemis try: ?Equivocal (Score 2+) ? Percentage of Cells with Uniform Intense Complete Membrane Staining: ?0 % ? Test Type: ?Laboratory-deve loped test ? Primary Antibody: ?4B5 ?? Test(s) Performed: ? HER2 by in situ Hybridization: ?Positive (amplified) ? Number of Observers: ?2 ? Number of Invasive Tumor Cells Counted: ?25 cells ? Method: ?Dual probe assay ? Average Number of HER2 Signals per Cell: ?5.64 ? Average Number of CEP17 Signals per Cell: ?1.5 ? HER2 / CEP17 Ratio: ?3.76 ? Aneusomy: ?Not identified ? Heterogeneous Signals: ?Not identified ? Test Type: ?Food and Drug Administration (FDA) cleared (test / vendor): [employer] ?? Cold Ischemia and Fixation Times: ?Meet requirements specified in latest version of the ASCO / CAP Guidelines ?? Testing Performed on Block Number(s): ?F8 METHODS ?? Fixative: ?Formalin ?? Image Analysis: ?Not performed ?? Comment(s): ?The FDA approved [employer] DNA Probe Kit was developed and its performance characteristics determined by [employer]. ??This test incorporates minor modifications to protocol and validated by the [facility] to yield equivocal or superior performance. This FISH test uses a multiplex probe stain procedure. 10/20/2023 7:42 AM CDT [facility] Additional Information Patients with breast cancers [...] not result in eligibility currently). Interpret[facility] at [facility] - [address], [place] [address] 10/20/2023 7:42 AM CDT [facility] Other (Right Breast) 10/06/2023 11:29 AM CDT 10/07/2023 8:29 AM CDT Specimen (specimen) (Left Axillary Trenary Lymph Node 1) 10/06/2023 11:38 AM CDT 10/07/2023 8:29 AM CDT Specimen (specimen) (Left Axillary Trenary Lymph Node 2) 10/06/2023 11:46 AM CDT 10/07/2023 8:29 AM CDT Specimen (specimen) (Left Axillary Trenary Lymph Node 3) 10/06/2023 11:55 AM CDT 10/07/2023 8:29 AM CDT Specimen (specimen) (Left Axillary Lymph Node Regional Resection) 10/06/2023 11:55 AM CDT 10/07/2023 10:21 AM CDT Specimen (specimen) (Left Breast) 10/06/2023 11:55 AM CDT 10/07/2023 10:21 AM CDT Bishun Segura MD PATHOLOGY/CYTOLOGY [facility] [address] [place] [address], * SCAN-RADIOLOGY REPORT (10/06/2023 12:00 AM CDT) Anatomical Region Laterality Modality Other Scanner OTHER * SCAN-OPERATIVE/PROCEDURE REPORT (10/06/2023 12:00 AM CDT) Scanner OTHER * SCAN-MAMMOGRAPHY REPORT (10/06/2023 12:00 AM CDT) Anatomical Region Laterality Modality Other Scanner OTHER * BREAST LOCALIZATION WIRE PLACEMENT (10/06/2023 12:00 AM CDT) Anatomical Region Laterality Modality Other Bishnu Segura MD IMAGING * (ABNORMAL) LIPID PANEL W REFLEX MEASURED LDL (03/23/2023 11:48 AM CDT) CHOLESTEROL,TOTAL 219(H) 100 - 199 mg/dL 03/23/2023 5:09 PM CDT [facility] Comment: Cholesterol, Total Reference Ranges Desirable <200 mg/dL Borderline 200-239 mg/dL High >=240 mg/dL TRIGLYCERIDES 163(H) <150 mg/dL 03/23/2023 5:09 PM CDT [facility] HDL CHOLESTEROL 60 >40 mg/dL 5:09 PM CDT [facility] NON-HDL CHOLESTEROL 159(H) <145 mg/dl 03/23/2023 5:09 PM CDT [facility] CHOL/HDL RATIO 3.65 <4.50 03/23/2023 5:09 PM CDT [facility] LDL CHOLESTEROL 126 <=130 mg/dL 03/23/2023 5:09 PM CDT [facility] VLDL CHOLESTEROL 33(H) <=30 mg/dL 03/23/2023 5:09 PM CDT [facility] PROVIDER ORDERED STATUS RANDOM 03/23/2023 5:09 PM CDT [facility] Blood BLOOD SPECIMEN / Unknown Venipuncture / Unknown 03/23/2023 11:48 AM CDT 03/23/2023 11:48 AM CDT Devi Rubin DO CHEMISTRY Performing Organization Address City/[facility] Co de Phone Number [facility] [address] [place] [address], [place] * ANTI HCV (03/23/2023 11:48 AM CDT) HEPATITIS C ANTIBODY Non-Reacti ve Non-React mckay 03/23/2023 5:08 PM CDT [facility] Comment:Please note, per www [...] Rubin DO SEND OUTS Performing Organization Address City/[facility]/ZIP Co de Phone Number [facility] [address] [place] [id number], [place] * HPV HIGH RISK (03/23/2023 11:19 AM CDT) TYPE 16 Negative Negative 03/25/2023 2:07 PM CDT [facility] TYPE 18 Negative Negative 03/25/2023 2:07 PM CDT [facility] OTHER HIGH RISK TYPES Negative Negative 03/25/2023 2:07 PM CDT [facility] Other (Cervical) Non-Blood / Unknown 03/23/2023 11:19 AM CDT 03/23/2023 4:26 PM CDT Narrative [facility] - 03/25/2023 2:07 PM CDT HPV types 16, 18, 31, 33, 35, 39, 45, 51, 52, 56, 58, 59, 66 and 68 DNA were undetectable or below the pre-set threshold. Methodology: Laly Reji 4800 HPV Test Devi Rubin DO MICROBIOLOGY [facility] [address] [place] [id number], from Last 3 Months or Most Recently Relevant to Health Maintenance Care Teams Manager Systems Relationship Specialty [place] [id number] [place] [address] PCP - General Family Practice 03/30/23
--- NOTE | 2023-12-31 15:30 | CRLHL7_ITS ---
For Patients: As a result of the Century Cures Act, medical imaging exams and procedure reports are released immediately into your electronic medical record. You may view this report before your referring provider. If you have questions, please contact your health care provider. DXA BONE MINERAL DENSITY STUDY Current height (in): 67.0. Weight (lb): 202.0. Menopause age: 53. Ethnicity: White. Reason for exam: Breast cancer. 1. Have you had a previous hip or vertebral fracture? No. 2. Have you had any fractures during your adult life which did not result from significant trauma (e.g., auto accident)? Yes. 3. Did either of your parents have a hip fracture? No. 4. Do you smoke? No. 5. Have you ever taken Glucocorticoids? No. 6. Do you have rheumatoid arthritis? No. 7. Do you have secondary osteoporosis? No. 8. Do you drink 3 or more alcoholic drinks per day? No. 9. Are you being treated for osteoporosis? No. 10. Have you ever taken any of the following medications: Actonel, Evista, Fosamax, Miacalcin, Reclast, Boniva, Forteo, HRT (i.e. estrogen/hormone therapy), Protelos, Prolia, Vitamin D, Calcium, other ??? please specify. ANSWER: Yes, vitamin D, calcium. 11. Do you have any of the following medical conditions: Anorexia or bulimia, asthma or emphysema, end stage renal disease, hyperparathyroidism, any seizure disorders, cancer, inflammatory bowel diseases, hysterectomy, other ??? please specify. ANSWER: Yes, breast cancer. 12. What was your maximum height (inches)? 67. 13. Do you perform weight bearing exercise regularly? Yes. 14. Do you regularly consume dairy products? Yes. 15. Do you drink caffeinated beverages? Yes. 16. At what age did your period start? 19. 17. Are you premenopausal? No. 18. How many full-term pregnancies have you had? 0. 19. Have you ever missed your period for more than 6 months in a row (not including or menopause)? No. TECHNIQUE: Bone mineral density study was performed using the [employer]. FINDINGS: The results of the study expressed as bone mineral density (BMD) are as follows: Lumbar spine L1 to L4: BMD: 1.357 g/cm2. T-score: 2.8. Z-score: 3.6 Neck Left: BMD: 0.865 g/cm2. T-score: 0.1. Z-score: 0.9 Right: BMD: 0.931 g/cm2. T-score: 0.7. Z-score: 1.5 Total Left: BMD: 1.008 g/cm2. T-score: 0.5. Z-score: 1.0 Right: BMD: 1.015 g/cm2. T-score: 0.6. Z-score: 1.1 IMPRESSION: Normal bone density. Kelvin Galo M.D. Diagnostic Radiologist [email or web address] Transcribed: 1:17 pm DW/Dictated by: Kelvin Galo MD @ 01/01/2024 12:11:00 PM (Electronically Signed)
== END 2023-12-31 15:10 | disposition home or self-care (01) ==
LOC: RAD 15:10
PROVIDERS: PCP Family Medicine; Visit Provider Physician Assistant
DX: Z79.811 Long term (current) use of aromatase inhibitors (principal); C50.919 Malignant neoplasm of unspecified site of unspecified female breast
CPT/HCPCS: 77080

== ENCOUNTER 2024-02-08 07:16 | Outpatient (CLI) | payer BC, SELFPAY ==
--- NOTE | 2024-02-08 07:15 | CRLHL7_ITS ---
For Patients: As a result of the Century Cures Act, medical imaging exams and procedure reports are released immediately into your electronic medical record. You may view this report before your referring provider. If you have questions, please contact your health care provider. INDICATION: Headaches. History of breast cancer. COMPARISON: 05/11/2023. TECHNIQUE: Multiplanar T1, T2, FLAIR and diffusion-weighted imaging. Post gadolinium 2 weighted sequences. FINDINGS: Normal brain parenchymal morphology and signal intensity. No intracranial hemorrhage. No abnormal ventricular dilatation. Intracranial vascular flow voids are preserved. No mass effect. No midline shift. No restricted diffusion to suggest acute ischemia. No susceptibility artifact of remote hemorrhage. No abnormal enhancement or enhancing lesions within the brain parenchyma. Bilateral orbits are unremarkable. Stable partially empty sella. Visualized paranasal sinuses and mastoid air cells are unremarkable. IMPRESSION: 1. No interval change. 2. No acute intracranial abnormality. 3. Normal brain parenchymal morphology and signal intensity. 4. No abnormal enhancement or enhancing lesions. No intracranial metastases Dictated by Mendoza Darling MD @ 02/08/2024 10:44:21 AM (Electronically Signed)
--- OUTSIDE RECORDS SUMMARY | 2024-02-08 07:18 | XMS_ITS | Clinical Summary ---
Author Organization [facility] Address [address] [place] [address] Care Team Providers Care Dip Dyer Name Role Phone Unavailable Primary Care Provider Unavailabl e Source Comments Patient records contain information from all sites at [facility]. For routine questions regarding patient records, call [phone] during business hours, M-F 8:00 AM - 5:00 PM Central Time. Record requests for emergency care only can be directed to [phone] at any time.[facility] Allergies Active Allergy Reactions Criticality Noted Date Comments Minocycline Other (see comments) 09/14/2023 [place] like she had the flu Medications Medication [...] from 04/20/2023:Stage IB(cT2, cN1, cM0, G2, ER+, VA+, HER2+) - Unsigned Pathologic stage from 10/06/2023: ypT1b, pN0(sn), cM0, G1, ER+, VA+, HER2+ - Unsigned Encounters Date Type Department Care Team Description 12/28/2023 3:12 PM CDT - 12/28/2023 11:59 PM CDT Hospital Encounter Department of Radiation Oncology in [address] [address] Kerry Morris M.D. Discharge Disposition: Home or Self Care 12/28/2023 Documentation Department of Radiation Oncology in [address] [address] Kerry Morris M.D. 12/25/2023 3:13 PM CDT - 12/25/2023 11:59 PM CDT Hospital Encounter Department of Radiation Oncology in [address] [address] Kerry Morris M.D. Discharge Disposition: Home or Self Care 12/24/2023 3:04 PM CDT - 12/24/2023 11:59 PM CDT Hospital Encounter Department of Radiation Oncology in [address] [address] Kerry Morris M.D. Discharge Disposition: Home or Self Care 12/23/2023 3:30 PM CDT - 12/23/2023 11:59 PM CDT Hospital Encounter Department of Radiation Oncology in [address] [address] Kerry Morris M.D. Discharge Disposition: Home or Self Care 12/23/2023 2:50 PM CDT - 12/23/2023 3:29 PM CDT Hospital Encounter Department of Radiation Oncology in [address] [phone] Kerry Morris M.D. 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 Discharge Disposition: Home or Self Care 12/21/2023 3:08 PM CDT - 12/21/2023 11:59 PM CDT Hospital Encounter Department of Radiation Oncology in [address] [address] Kerry Morris M.D. Discharge Disposition: Home or Self Care 12/21/2023 2:49 PM CDT - 12/21/2023 3:07 PM CDT Hospital Encounter Department of Radiation Oncology in [address] [address] Kerry Morris M.D. Grieman, Kari A, R.N. 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) (Primary Dx) 12/18/2023 3:03 PM CDT - 12/18/2023 11:59 PM CDT Hospital Encounter Department of Radiation Oncology in [address] [address] Kerry Morris M.D. Discharge Disposition: Home or Self Care 12/17/2023 3:08 PM CDT - 12/17/2023 11:59 PM CDT Hospital Encounter Department of Radiation Oncology in [address] [address] Kerry Morris M.D. Discharge Disposition: Home or Self Care 12/16/2023 3:01 PM CDT - 12/16/2023 4:16 PM CDT Hospital Encounter Department of Radiation Oncology in [address] [address] Kerry Morris M.D. 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) 12/16/2023 3:01 PM CDT - 12/16/2023 11:59 PM CDT Hospital Encounter Department of Radiation Oncology in [address] [address] Kerry Morris M.D. Discharge Disposition: Home or Self Care 12/15/2023 3:19 PM CDT - 12/15/2023 11:59 PM CDT Hospital Encounter Department of Radiation Oncology in [address] [address] Kerry Morris M.D. Discharge Disposition: Home or Self Care 12/15/2023 2:48 PM CDT - 12/15/2023 3:18 PM CDT Hospital Encounter Department of Radiation Oncology in [address] [address] Kerry Morris M.D. Grieman, Kari A, RHollyNHolly 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) Discharge Disposition: Home or Self Care 12/14/2023 3:02 PM CDT - 12/14/2023 11:59 PM CDT Hospital Encounter Department of Radiation Oncology in [address] [address] Kerry Morris M.D. Discharge Disposition: Home or Self Care 12/11/2023 1:37 PM CDT - 12/11/2023 11:59 PM CDT Hospital Encounter Department of Radiation Oncology in [address] [address] Kerry Morris M.D. Discharge Disposition: Home or Self Care 12/10/2023 3:33 PM CDT - 12/10/2023 4:45 PM CDT Hospital Encounter Department of Radiation Oncology in [address] [address] M[address] 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) 12/10/2023 3:30 PM CDT - 12/10/2023 3:32 PM CDT Hospital Encounter Department of Radiation Oncology in [address] [address] Kerry Morris M.D. Discharge Disposition: Home or Self Care 12/09/2023 3:05 PM CDT - 12/09/2023 4:21 PM CDT Hospital Encounter Department of Radiation Oncology in [address] [address] Kerry Morris M.D. Retterath, Chelsey A, R.N. 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) (Primary Dx) 12/09/2023 3:05 PM CDT - 12/09/2023 11:59 PM CDT Hospital Encounter Department of Radiation Oncology in [address] [address] Kerry Morris M.D. Discharge Disposition: Home or Self Care 12/08/2023 2:00 PM CDT - 12/08/2023 11:59 PM CDT Hospital Encounter Department of Radiation Oncology in [address] [address] Kerry Morris M.D. Discharge Disposition: Home or Self Care 12/02/2023 Orders Only Department of Radiation Oncology in [address] [phone] Kerry Morris M.D. 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) (Primary Dx) 11/25/2023 2:00 PM CDT - 11/25/2023 4:56 PM CDT Hospital Encounter Department of Radiation Oncology in [address] [address] Kerry Morris M.D. 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) 11/25/2023 1:06 PM CDT - 11/25/2023 1:59 PM CDT Hospital Encounter Department of Radiation Oncology in [address] [address] Kerry Morris M.D. Malignant Neoplasm Of Breast [...] Name Priority Date/Time Associated Diagnosis Comments ARIA COURSE COMPLETE TREATMENT INFORMATION Routine 12/28/2023 3:34 PM CDT ARIA DAILY TREATMENT INFORMATION Routine 12/28/2023 3:34 [...] Left (HCC) OUTSIDE MG MAMMOGRAM Routine 10/06/2023 12:05 PM CDT from Last 3 Months or Most Recently Relevant to Health Maintenance Results * Aria Course Complete Treatment Information (12/28/2023 3:34 PM CDT) Course ID [id number] JOHNSON ARIA Course Start Date 4 16:05 CDT JOHNSON ARIA Course End Date 4 12:15 CDT JOHNSON ARIA First Treatment Date 4 14:30 CDT JOHNSON ARIA Last Treatment Date 4 15:34 CDT JOHNSON ARIA Treatment Elapsed Days 20 JOHNSON ARIA Reference Point [id number] JOHNSON ARIA Dosage Given to Date cGy 4005 JOHNSON ARIA Plan ID [id number] JOHNSON ARIA Fractions Treated to Date 5 JOHNSON ARIA Planned Total Fractions 5 JOHNSON ARIA Prescribed Dose Per Fraction 267 JOHNSON ARIA Prescription Dose in cGy 1335 JOHNSON ARIA Plan Primary Reference Point [id number] JOHNSON ARIA Plan ID [id number] JOHNSON ARIA Fractions Treated to Date 10 JOHNSON ARIA Planned Total Fractions 10 JOHNSON ARIA Prescribed Dose Per Fraction 267 JOHNSON ARIA Prescription Dose in cGy 2670 JOHNSON ARIA Plan Primary Reference Point [id number] JOHNSON ARIA 12/28/2023 3:34 PM CDT Provider Not In System RADIATION ONCOLOG Y ORDERABLES ALEX VARGAS na * Aria Daily Treatment Information (12/28/2023 3:34 PM CDT) Only the most recent of15 resultswithin the time period is included. Course ID [id number] JOHNSON ARIA Course Start Date 4 16:05 CDT JOHNSON ARIA First Treatment Date 4 14:30 CDT JOHNSON ARIA Last Treatment Date 4 15:34 CDT JOHNSON ARIA Treatment Elapsed Days 20 JOHNSON ARIA Reference Point [id number] JOHNSON ARIA Dosage Given to Date cGy 4005 JOHNSON ARIA Session Dosage Given 267 JOHNSON ARIA Plan ID [id number] JOHNSON ARIA Fractions Treated to Date 5 JOHNSON ARIA Planned Total Fractions 5 JOHNSON ARIA Prescribed Dose Per Fraction 267 JOHNSON ARIA Prescription Dose in cGy 1335 JOHNSON ARIA Plan Primary Reference Point [id number] JOHNSON ARIA 12/28/2023 3:34 PM CDT Provider Not In System RADIATION ONCOLOG Y ORDERABLES Performing Organization Address [facility] Co de Phone Number ALEX VARGAS na * Initial Rad Onc Treatment Planning CT Simulation (11/25/2023 2:00 PM CDT) [facility]ative [facility]25/[facility] 2:00 PM CDT Mayda Cuello, RTT ? 11/25/2023 ??2:58 PM Initial Rad Onc Treatment Planning CT Simulation Performed by: Kerry Morris M.D. Authorized by: Kerry Morris M.D. ?? Kerry Morris M.D. RADIATION ONCOLOG Y ORDERABLES Performing Organization Address [facility] de Phone Number ALEX VARGAS na * MM surgical specimen LT-Outside Mammogram (10/06/2023 12:05 PM CDT) Narrative [facility] - 10/28/2023 8:19 AM CDT [...] System IMG BI PROCEDURES Performing Organization Address City/[facility] Co de Phone Number [facility] NA from Last 3 Months or Most Recently Relevant to Health Maintenance
--- OUTSIDE RECORDS SUMMARY | 2024-02-08 07:18 | XMS_ITS ---
Author Organization [facility] Address [address] [place] [address] Care Team Providers Care Preschool Assistant Name Role Phone Unavailable Primary Care Provider Unavailabl e Active Problems Problem Noted Date Diagnosed Date Malignant Neoplasm Of Breast Upper Outer Quadrant Female Left 10/28/2023 Cancer Staging:Clinical stage from 04/20/2023:Stage IB(cT2, cN1, cM0, G2, ER+, UT+, HER2+) - Unsigned Pathologic stage from 10/06/2023: ypT1b, pN0(sn), cM0, G1, ER+, UT+, HER2+ - Unsigned Current Oncology Plans No current plan information found. Past Plans No past plan information found. Radiation Treatments * Plan Last Treated On Elapsed Days Fractions Treated Prescribed Fraction Dose Prescribed Total Dose [id number] 12/28/2023 20 5 of 5 267 cGy 1,335 cGy [id number] 12/21/2023 13 10 of 10 267 cGy 2,670 cGy Reference Point Last Treated On Elapsed Days Session Dose Total Dose [id number] 12/28/2023 20 267 cGy 4,005 cGy
--- OUTSIDE RECORDS SUMMARY | 2024-02-08 07:18 | XMS_ITS | Encounter Summary ---
Author Organization [facility] Address [address] [place] [address] Care Team Providers Care Dial Brusher Name Role Phone Unavailable Primary Care Provider Unavailabl e Reason for Referral * Radiation Therapy (Routine) - Authorized Specialty Diagnoses / Procedures Referred By Lizet moyer Referred To Contact Diagnoses 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) Procedures Management Visit Kerry Morris M.D. [address] [place] [address] [facility] Region Referral ID Status Reason Start Date Expiration Date V isits Requested Visits Authorized [id number] Authorized 10/28/2023 10/27/2024 10 10 Reason for Visit * Radiation Therapy (Routine) - Authorized Specialty Diagnoses / Procedures Referred By Lizet moyer Referred To Contact Diagnoses 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) Procedures Management Visit Kerry Morris M.D. [address] [place] [address] [facility] Region Referral ID Status Reason Start Date Expiration Date V isits Requested Visits Authorized [id number] Authorized 10/28/2023 10/27/2024 10 10 Encounter Details Date Type Department Care Team (Latest Contact Info) Description 12/16/2023 3:01 PM CDT - 12/16/2023 4:16 PM CDT Hospital Encounter Department of Radiation Oncology in [place] [id number] [place] [phone] Kerry Morris M.D. [address] [place] [address] Malignant Neoplasm Of Breast Upper Outer Quadrant [...] stage IB (cT2, cN1, cM0, G2, ER+, HI+, HER2+)invasive ductal carcinoma of the left breast s/p neoadjuvant TCHP followed by bilateral mastectomies and left axillary sentinel lymph node biopsy on October 06, 2023, ypT1b, pN0 who is now undergoing radiation therapy. Treatment Course: 1xBreast Plan ID Fractions Dose / Fraction (cGy) Dose Treated (cGy) Dose Planned (cGy) First Treatment Last Treatment Elapsed Days [id number] 12/08/2023 12/16/2023 8 Course [...] stage IB (cT2, cN1, cM0, G2, ER+, HI+, HER2+) invasive ductal carcinoma of the left [...]
--- OUTSIDE RECORDS SUMMARY | 2024-02-08 07:18 | XMS_ITS | Encounter Summary ---
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 [address] [place] [address] [facility] Referral ID Status Reason Start Date Expiration Date V isits Requested Visits Authorized [id number] Authorized 12/07/2023 12/01/2024 15 15 Encounter Details Date Type Department Care Team (Latest Contact Info) Description 12/25/2023 3:13 PM CDT - 12/25/2023 11:59 PM CDT Hospital Encounter Department of Radiation Oncology in [place], [place] [address] [place] [phone] Kerry Morris M.D. [address] [place] [phone] Discharge Disposition: Home or Self Care Social [...] mouth. 10/14/2023 documented as of this encounter Plan of Treatment Not on file documented as of this encounter Visit Diagnoses Not on filedocumented in this encounter
--- OUTSIDE RECORDS SUMMARY | 2024-02-08 07:18 | XMS_ITS ---
Author Organization [facility] Address [address] [place] [address] Care Team Providers Care Siebel Solution Architect Name Role Phone Unavailable Unavailable Unavailable Surgery Details Not on file Complications Check Surgery Details section. Procedure Estimated Blood Loss Check Surgery Details section. Procedure Findings Check Surgery Details section. Procedure Specimens Taken Check Surgery Details section.
--- OUTSIDE RECORDS SUMMARY | 2024-02-08 07:18 | XMS_ITS | Encounter Summary ---
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 [address] [place] [address] [facility] Referral ID Status Reason Start Date Expiration Date V isits Requested Visits Authorized [id number] Authorized 12/07/2023 12/01/2024 15 15 Encounter Details Date Type Department Care Team (Latest Contact Info) Description 12/22/2023 3:28 PM CDT - 12/22/2023 11:59 PM CDT Hospital Encounter Department of Radiation Oncology in [place], [place] [address] [place] [phone] Kerry Morris M.D. [address] [place] [phone] Discharge Disposition: Home or Self Care Social [...]
--- OUTSIDE RECORDS SUMMARY | 2024-02-08 07:18 | XMS_ITS | Encounter Summary ---
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 [address] [place] [address] [facility] Region Referral ID Status Reason Start Date Expiration Date V isits Requested Visits Authorized [id number] Authorized 10/28/2023 10/27/2024 10 10 Encounter Details Date Type Department Care Team (Latest Contact Info) Description 12/23/2023 2:50 PM CDT - 12/23/2023 3:29 PM CDT Hospital Encounter Department of Radiation Oncology in [place] [address] [place] [phone] Kerry Morris M.D. [address] [place] [address] Malignant Neoplasm Of Breast Upper Outer Quadrant [...] stage IB (cT2, cN1, cM0, G2, ER+, ID+, HER2+)invasive ductal carcinoma of the left breast s/p neoadjuvant TCHP followed by bilateral mastectomies and left axillary sentinel lymph node biopsy on October 06, 2023, ypT1b, pN0 who is now undergoing radiation therapy. Treatment Course: 1xBreast Plan ID Fractions Dose / Fraction (cGy) Dose Treated (cGy) Dose Planned (cGy) First Treatment Last Treatment Elapsed Days [id number] 267 [id number] 12/08/2023 12/21/2023 13 [id number] 12/22/2023 12/22/2023 0 Treatment Site Summary [id number] [...] stage IB (cT2, cN1, cM0, G2, ER+, ID+, HER2+) invasive ductal carcinoma of the left [...] She will follow up Dr. Britt at [facility] on January 04, 2024. Follow up with [...]
--- OUTSIDE RECORDS SUMMARY | 2024-02-08 07:18 | XMS_ITS | Encounter Summary ---
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 [address] [place] [address] [facility] Referral ID Status Reason Start Date Expiration Date V isits Requested Visits Authorized [id number] Authorized 12/07/2023 12/01/2024 15 15 Encounter Details Date Type Department Care Team (Latest Contact Info) Description 12/24/2023 3:04 PM CDT - 12/24/2023 11:59 PM CDT Hospital Encounter Department of Radiation Oncology in [place], [place] [address] [place] [phone] Kerry Morris M.D. [address] [place] [phone] Discharge Disposition: Home or Self Care Social [...]
--- OUTSIDE RECORDS SUMMARY | 2024-02-08 07:18 | XMS_ITS | Encounter Summary ---
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 [address] [place] [address] [facility] Referral ID Status Reason Start Date Expiration Date V isits Requested Visits Authorized [id number] Authorized 12/07/2023 12/01/2024 15 15 Encounter Details Date Type Department Care Team (Latest Contact Info) Description 12/28/2023 3:12 PM CDT - 12/28/2023 11:59 PM CDT Hospital Encounter Department of Radiation Oncology in [place], [place] [address] [place] [phone] Kerry Morris M.D. [address] [place] [phone] Discharge Disposition: Home or Self Care Social [...]
--- OUTSIDE RECORDS SUMMARY | 2024-02-08 07:18 | XMS_ITS | Encounter Summary ---
Author Organization [facility] Address [address] [place] [address] Care Team Providers Care Plastic Tubing Insulation Supervisor Name Role Phone Unavailable Primary Care Provider Unavailabl e Reason for Referral * Outpatient (Routine) - Authorized Specialty Diagnoses / Procedures Referred By Lizet moyer Referred To Contact Radiation Oncology Kerry Morris M.D. [address] [place] [address] [facility] Region Referral ID Status Reason Start Date Expiration Date V isits Requested Visits Authorized [id number] Authorized 10/28/2023 04/28/2025 10 10 Reason for Visit * Outpatient (Routine) - Authorized Specialty Diagnoses / Procedures Referred By Lizet moyer Referred To Contact Radiation Oncology Kerry Morris M.D. [address] [place] [address] [facility] Region Referral ID Status Reason Start Date Expiration Date V isits Requested Visits Authorized [id number] Authorized 10/28/2023 04/28/2025 10 10 Encounter Details Date Type Department Care Team (Latest Contact Info) Description 12/21/2023 2:49 PM CDT - 12/21/2023 3:07 PM CDT Hospital Encounter Department of Radiation Oncology in [place], [place] [address] [place] [phone] Kerry Morris M.D. [address] [place] [phone] Shanda Thurston R.N. [address] [place] [address] Malignant Neoplasm Of Breast Upper Outer Quadrant [...]
--- OUTSIDE RECORDS SUMMARY | 2024-02-08 07:18 | XMS_ITS | Encounter Summary ---
Author Organization [facility] Address [address] [place] [address] Care Team Providers Care Inspector Circuitry Negative Name Role Phone Unavailable Primary Care Provider Unavailabl e Reason for Referral * Specialty Diagnoses / Procedures Referred By Lizet moyer Referred To Contact Hollie Vaughan P.A.-C., M.S. [address] [place] [phone] [facility] Region Referral ID Status Reason Start Date Expiration Date Visits Re quested Visits Authorized Encounter Details Date Type Department Care Team (Latest Contact Info) Description 12/15/2023 2:48 PM CDT - 12/15/2023 3:18 PM CDT Hospital Encounter Department of Radiation Oncology in [place], [place] [address] [place] [phone] Kerry Morris M.D. [address] [place] [phone] Shanda Thurston RBoni [address] [place] [phone] Malignant Neoplasm Of Breast Upper Outer Quadrant [...]
--- OUTSIDE RECORDS SUMMARY | 2024-02-08 07:18 | XMS_ITS | Encounter Summary ---
Author Organization [facility] Address [address] [place] [address] Care Team Providers Care Leadership Development Manager Name Role Phone Unavailable Primary Care [...] RADIOTHERAPY PLAN IMRT Kerry Morris M.D. [address] [place] [address] [facility] Referral ID Status Reason Start Date Expiration Date V isits Requested Visits Authorized [id number] Authorized 12/07/2023 12/01/2024 15 15 Encounter Details Date Type Department Care Team (Latest Contact Info) Description 12/17/2023 3:08 PM CDT - 12/17/2023 11:59 PM CDT Hospital Encounter Department of Radiation Oncology in [place], [place] [address] [place] [phone] Kerry Morris M.D. [address] [place] [phone] Discharge Disposition: Home or Self Care Social [...]
--- OUTSIDE RECORDS SUMMARY | 2024-02-08 07:18 | XMS_ITS | Encounter Summary ---
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 [address] [place] [address] [facility] Referral ID Status Reason Start Date Expiration Date V isits Requested Visits Authorized [id number] Authorized 12/07/2023 12/01/2024 15 15 Encounter Details Date Type Department Care Team (Latest Contact Info) Description 12/15/2023 3:19 PM CDT - 12/15/2023 11:59 PM CDT Hospital Encounter Department of Radiation Oncology in [place], [place] [address] [place] [phone] Kerry Morris M.D. [address] [place] [phone] Discharge Disposition: Home or Self Care Social [...]
--- OUTSIDE RECORDS SUMMARY | 2024-02-08 07:18 | XMS_ITS | Encounter Summary ---
Author Organization [facility] Address [address] [place] [address] Care Team Providers Care Pipe Straightener Name Role Phone Unavailable Primary Care Provider Unavailabl e Encounter Details Date Type Department Care Team (Late st Contact Info) Description 12/28/2023 Documentation Department of Radiation Oncology in [place], [place] [address] [place] [phone] Kerry Morris M.D. [address] [place] [phone] Social History Tobacco Use Types Packs/Day Years [...] on file documented as of this encounter Miscellaneous Notes * Radiation Completion Notes - Shanda Thurston R.N. - 12/28/2023 11:59 PM CDT DIAGNOSIS: 1. 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 Treatment Intent: Curative Concomitant Therapy: TDM1/Kadcyla Single Plan Treatment Course: 1xBreast Plan ID Fractions Dose / Fraction (cGy) Dose Treated (cGy) Dose Planned (cGy) First Treatment Last Treatment Elapsed Days [id number] 12/08/2023 12/21/2023 13 [id number] 267 1335 1335 12/22/2023 12/28/2023 6 Treatment Site Summary [id number] 12/08/2023 12/28/2023 20 Course Summary 12/08/2023 12/28/2023 20 Radiation Modality: Photons CLINICAL SUMMARY Miss Alanis Gates completed radiation treatment as planned without interruptions. The course of treatment was tolerated well. The patient experienced toxicities of grade 1 dermatitis and esophagitis during radiation treatment. TREATMENT RESPONSE: Response to treatment will be determined by post-treatment imaging and/or laboratory work. RECOMMENDED FOLLOW UP: Primary Medical Oncologist. She will follow up Dr. Britt at [facility] on January 04, 2024. 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
--- OUTSIDE RECORDS SUMMARY | 2024-02-08 07:18 | XMS_ITS | Referral Summary ---
Author Organization [facility] Address [address] [place] [address] Care Team Providers Care Engineering Psychologist Name Role Phone Unavailable Primary Care Provider Unavailabl e Source Comments Patient records contain information from all sites at [facility]. For routine questions regarding patient records, call [phone] during business hours, M-F 8:00 AM - 5:00 PM Central Time. Record requests for emergency care only can be directed to [phone] at any time.[facility] Encounters Date Type Department Care Team Description 12/28/2023 Documentation Department of Radiation Oncology in [address] [address] Kerry Morris M.D. 12/28/2023 3:12 PM CDT - 12/28/2023 11:59 PM CDT Hospital Encounter Department of Radiation Oncology in [address] [address] Kerry Morris M.D. Discharge Disposition: Home or Self Care 12/25/2023 3:13 PM CDT - 12/25/2023 11:59 PM CDT Hospital Encounter Department of Radiation Oncology in [address] [address] Kerry Morris M.D. Discharge Disposition: Home or Self Care 12/24/2023 3:04 PM CDT - 12/24/2023 11:59 PM CDT Hospital Encounter Department of Radiation Oncology in [address] [address] Kerry Morris M.D. Discharge Disposition: Home or Self Care 12/23/2023 2:50 PM CDT - 12/23/2023 3:29 PM CDT Hospital Encounter Department of Radiation Oncology in [address] [address] Kerry Morris M.D. 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 Discharge Disposition: Home or Self Care 12/22/2023 3:28 PM CDT - 12/22/2023 11:59 PM CDT Hospital Encounter Department of Radiation Oncology in [address] [address] Kerry Morris M.D. Discharge Disposition: Home or Self Care 12/21/2023 2:49 PM CDT - 12/21/2023 3:07 PM CDT Hospital Encounter Department of Radiation Oncology in [address] [address] Kerry Morris M.D. 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 Discharge Disposition: Home or Self Care 12/18/2023 3:03 PM CDT - 12/18/2023 11:59 PM CDT Hospital Encounter Department of Radiation Oncology in [address] [address] Kerry Morris M.D. Discharge Disposition: Home or Self Care 12/17/2023 3:08 PM CDT - 12/17/2023 11:59 PM CDT Hospital Encounter Department of Radiation Oncology in [address] [address] Kerry Morris M.D. Discharge Disposition: Home or Self Care 12/16/2023 3:01 PM CDT - 12/16/2023 4:16 PM CDT Hospital Encounter Department of Radiation Oncology in [address] [address] Kerry Morris M.D. 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 Discharge Disposition: Home or Self Care 12/15/2023 2:48 PM CDT - 12/15/2023 3:18 PM CDT Hospital Encounter Department of Radiation Oncology in [address] [address] Kerry Morris M.D. 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 Discharge Disposition: Home or Self Care 12/14/2023 3:02 PM CDT - 12/14/2023 11:59 PM CDT Hospital Encounter Department of Radiation Oncology in [address] [address] Kerry Morris M.D. Discharge Disposition: Home or Self Care 12/11/2023 1:37 PM CDT - 12/11/2023 11:59 PM CDT Hospital Encounter Department of Radiation Oncology in [address] [address] Kerry Morris M.D. Discharge Disposition: Home or Self Care 12/10/2023 3:33 PM CDT - 12/10/2023 4:45 PM CDT Hospital Encounter Department of Radiation Oncology in [address] [address] M[address]D. 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 Discharge Disposition: Home or Self Care 12/09/2023 3:05 PM CDT - 12/09/2023 4:21 PM CDT Hospital Encounter Department of Radiation Oncology in [address] [address] Kerry Morris M.D. 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 Discharge Disposition: Home or Self Care 12/08/2023 2:00 PM CDT - 12/08/2023 11:59 PM CDT Hospital Encounter Department of Radiation Oncology in [address] [address] Kerry Morris M.D. Discharge Disposition: Home or Self Care 12/02/2023 Orders Only Department of Radiation Oncology in [address] [address] Kerry Morris M.D. 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) (Primary Dx) from Last 3 Months Allergies Active Allergy Reactions Criticality Noted Date Comments Minocycline Other (see comments) 09/14/2023 [place] like she had the flu Medications Medication [...] from 04/20/2023:Stage IB(cT2, cN1, cM0, G2, ER+, MD+, HER2+) - Unsigned Pathologic stage from 10/06/2023: [id number], pN0(sn), cM0, G1, ER+, MD+, HER2+ - Unsigned Social History Tobacco Use [...] Elapsed Days 20 J[facility]ON ARIA Reference Point [id number] [facility] Dosage Given to Date cGy 4005 J[facility] ARIA Plan ID [id number] [facility] Fractions Treated to Date 5 J[facility] ARIA Planned Total Fractions 5 J[facility] Prescribed Dose Per Fraction 267 J[facility] ARIA Prescription Dose in cGy 1335 J[facility] ARIA Plan Primary Reference Point [id number] [facility] Plan ID [id number] [facility] Fractions Treated to Date 10 J[facility]A Planned Total Fractions 10 J[facility] Prescribed Dose Per Fraction 267 J[facility] ARIA Prescription Dose in cGy 2670 J[facility] ARIA Plan Primary Reference Point [id number] [facility]A 12/28/2023 3:34 PM CDT Provider Not In System RADIATION ONCOLOG Y ORDERABLES Performing Organization Address City/State/[facility] Co de Phone Number ALEX VARGAS na * Aria Daily Treatment Information (12/28/2023 3:34 PM CDT) Only the most recent of15 resultswithin the time period is included. Course ID [id number] JOHNSON ARIA Course Start Date 4 16:05 CDT JOH[facility]ON ARIA First Treatment Date 4 14:30 CDT JOH[facility]ON ARIA Last Treatment Date 4 15:34 CDT [facility] Treatment Elapsed Days 20 J[facility] Reference Point [id number] J[facility] Dosage Given to Date cGy 4005 J[facility]ON ARIA Session Dosage Given 267 JOH[facility]ON ARIA Plan ID [id number] [facility] Fractions Treated to Date 5 J[facility]ON ARIA Planned Total Fractions 5 J[facility]A Prescribed Dose Per Fraction 267 JOH[facility]ON ARIA Prescription Dose in cGy 1335 JOH[facility]ON ARIA Plan Primary Reference Point [id number] [facility] ARIA 12/28/2023 3:34 PM CDT Provider Not In System RADIATION ONCOLOG Y ORDERABLES Performing Organization Address [facility] de Phone Number ALEX VARGAS na * Initial Rad Onc Treatment Planning CT Simulation (11/25/2023 2:00 PM CDT) Narrative JOHNSON ARIA - 11/25/2023 2:00 PM CDT Mayda Cuello, RTT ? 11/25/2023 ??2:58 PM Initial Rad Onc Treatment Planning CT Simulation Performed by: Kerry Morris M.D. Authorized by: Kerry Morris M.D. ?? Kerry Morris M.D. RADIATION ONCOLOG Y ORDERABLES ALEX VARGAS na * MM surgical specimen [...] Provider Not In System IMG BI PROCEDURES [facility] NA from Last 3 Months or Most Recently Relevant to Health Maintenance
--- OUTSIDE RECORDS SUMMARY | 2024-02-08 07:18 | XMS_ITS | Encounter Summary ---
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 [address] [place] [address] [facility] Referral ID Status Reason Start Date Expiration Date V isits Requested Visits Authorized [id number] Authorized 12/07/2023 12/01/2024 15 15 Encounter Details Date Type Department Care Team (Latest Contact Info) Description 12/21/2023 3:08 PM CDT - 12/21/2023 11:59 PM CDT Hospital Encounter Department of Radiation Oncology in [place], [place] [address] [place] [phone] Kerry Morris M.D. [address] [place] [phone] Discharge Disposition: Home or Self Care Social [...]
--- OUTSIDE RECORDS SUMMARY | 2024-02-08 07:18 | XMS_ITS | Encounter Summary ---
Author Organization 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 [address] [place] [address] [facility] Referral ID Status Reason Start Date Expiration Date V isits Requested Visits Authorized [id number] Authorized 12/07/2023 12/01/2024 15 15 Encounter Details Date Type Department Care Team (Latest Contact Info) Description 12/18/2023 3:03 PM CDT - 12/18/2023 11:59 PM CDT Hospital Encounter Department of Radiation Oncology in [place], [place] [address] [place] [address] Kerry Morris M.D. [address] [place] [address] Discharge Disposition: Home or Self Care Social [...]
--- OUTSIDE RECORDS SUMMARY | 2024-02-08 07:18 | XMS_ITS | Encounter Summary ---
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 [address] [place] [address] [facility] Referral ID Status Reason Start Date Expiration Date V isits Requested Visits Authorized [id number] Authorized 12/07/2023 12/01/2024 15 15 Encounter Details Date Type Department Care Team (Latest Contact Info) Description 12/23/2023 3:30 PM CDT - 12/23/2023 11:59 PM CDT Hospital Encounter Department of Radiation Oncology in [place], [place] [address] [place] [address] Krery Morris M.D. [address] [place] [phone] Discharge Disposition: Home or Self Care Social [...]
--- OUTSIDE RECORDS SUMMARY | 2024-02-08 07:18 | XMS_ITS | Encounter Summary ---
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 [address] [place] [address] [facility] Referral ID Status Reason Start Date Expiration Date V isits Requested Visits Authorized [id number] Authorized 12/07/2023 12/01/2024 15 15 Encounter Details Date Type Department Care Team (Latest Contact Info) Description 12/16/2023 3:01 PM CDT - 12/16/2023 11:59 PM CDT Hospital Encounter Department of Radiation Oncology in [place], [place] [address] [place] [address] Kerry Morris M.D. [address] [place] [phone] Discharge Disposition: Home or Self Care Social [...]
--- OUTSIDE RECORDS SUMMARY | 2024-02-08 07:19 | XMS_ITS | Encounter Summary ---
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 [address] [place] [address] [facility] Referral ID Status Reason Start Date Expiration Date V isits Requested Visits Authorized [id number] Authorized 12/07/2023 12/01/2024 15 15 Encounter Details Date Type Department Care Team (Latest Contact Info) Description 12/11/2023 1:37 PM CDT - 12/11/2023 11:59 PM CDT Hospital Encounter Department of Radiation Oncology in [place], [place] [address] [place] [phone] Kerry Morris M.D. [address] [place] [phone] Discharge Disposition: Home or Self Care Social [...]
--- OUTSIDE RECORDS SUMMARY | 2024-02-08 07:19 | XMS_ITS | Encounter Summary ---
Author Organization [facility] Address [address] [place] [address] Care Team Providers Care Belt Puncher Name Role Phone Unavailable Primary Care Provider Unavailabl e Reason for Referral * Outpatient (Routine) - Closed Specialty Diagnoses / Procedures Referred By Lizet moyer Referred To Contact Radiation Oncology Hollie Vaughan P.A.-C., M.S. [address] [place] [phone] Kerry Morris M.D. [address] [place] [phone] Referral ID Status Reason Start Date Expiration Date Visits Re quested Visits Authorized [id number] Closed 11/04/2023 05/05/2025 1 1 Scheduling Instructions with sim Reason for Visit * Appointment Request (Routine) - Closed Specialty Diagnoses / Procedures Referred By Lizet moyer Referred To Contact Radiation Oncology Diagnoses Malignant Neoplasm Of Unspecified Site Of Laterality Unknown Female Breast (HCC) Tomasa Britt M.D. [address] [place] [address] Referral ID Status Reason Start Date Expiration Date Visits Re quested Visits Authorized [id number] Closed 10/21/2023 10/20/2024 1 1 Encounter Details Date Type Department Care Team (Latest Contact Info) Description 11/04/2023 1:00 PM CDT - 11/04/2023 3:45 PM CDT Hospital Encounter Department of Radiation Oncology in [place], [place] [address] [place] [phone] [place] [address] Malignant Neoplasm Of Breast Upper Outer Quadrant [...] Outer Quadrant Female Left (HCC) SUPERVISED BY: Keryr Morris M.D. HISTORY OF PRESENT ILLNESS Miss [...] - Size: 10 x 7 mm - [place] grade I of III - Breast Ancillary Testing Hormone Receptors (per [id number]): Estrogen receptor: Positive (98%, strong staining) Progesterone receptor: Positive (68%, moderate staining) HER2 by IHC (per [id number]): Positive (3+) HER2 by FISH (per [id number]): Positive HER2/CEP17 ratio: 4.28 HER2 signals/cell: 6.86 [...] metastases with pathologic complete response Residual Cancer [place] (RCB) Calculation: Primary Tumor Bed: Greatest Dimension of Primary Tumor Bed Area (Millimeters): 13 mm Second Greatest Dimension of Primary Tumor Bed Area (Millimeters): 10 mm Percentage of Overall Cancer Cellularity: 1 % Percentage of Cancer that is in situ Disease: 0 % Lymph Nodes: Number of Positive Lymph Nodes: 0 Diameter of Largest Jonathan Metastasis (Millimeters): 0 mm RCB Calculations: Residual Cancer [place]: 0.86 Residual Cancer [place] Class: RCB-I MARGINS Margin Status for Invasive Carcinoma: All margins negative for invasive carcinoma Distance from Invasive Carcinoma to Closest Margin: Greater than: 10 mm Closest Margin(s) to Invasive Carcinoma: >10 mm from all margins REGIONAL LYMPH NODES Regional Lymph Node Status: : All regional lymph nodes negative for tumor Total Number of Lymph Nodes Examined (sentinel and non-sentinel): 7 Number of [place] Nodes Examined: 3 pTNM CLASSIFICATION (AJCC 8th [...] 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 OBJECTIVE BP 129/70 (BP Location: Right arm, [...] referral for a consultation with our social media senior associate, but declined at this time. The patient [...] M.S. 11/04/2023 2:[address] [facility] [address] [place] [address] Associated attestation - Kerry Morris M.D. - [...] old who underwent neoadjuvant chemotherapy for her ER/ME and HER2 positive left sided breast cancer. She presents now to discuss radiation options after having undergone bilateral mastectomies. I have independently reviewed her imaging, operative and pathology reports. Briefly, at initial diagnosis she had a grade 2 invasive ductal carcinoma with no angiolymphatic invasion that was ER/ME and HER2+. She had axillary biopsy that [...] is aware this is only done in [place]. We discussed the rationale, risks, side effects and goals of radiation therapy. We discussed the rationale, risks, side effects and adjuvant goals of radiation therapy. We discussed the acute as wellas exterminator risks, including, but not limited to fatigue, [...]
--- OUTSIDE RECORDS SUMMARY | 2024-02-08 07:19 | XMS_ITS | Encounter Summary ---
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 [address] [place] [address] [facility] Region Referral ID Status Reason Start Date Expiration Date Visits Re quested Visits Authorized [id number] Closed 10/28/2023 10/27/2024 1 1 Encounter Details Date Type Department Care Team (Latest Contact Info) Description 11/25/2023 2:00 PM CDT - 11/25/2023 4:56 PM CDT Hospital Encounter Department of Radiation Oncology in [address] [address] Kerry Morris M.D. [address] [place] [address] Malignant Neoplasm Of Breast Upper Outer Quadrant [...] planning. CT images were transferred to the [employer]pex Guard treatment planning system, after a reference isocenter was determined and marked. Segmentation and treatment planning will take place prior to treatment delivery. Patient set up and imaging was appropriate and completed without incident. Postal Service Window Clerk use:No Associated attestation - Kerry Morris M.D. - 11/25/2023 4:55 PM CDT I was present during all critical and aragon portions of the procedure(s) and immediately [facility] entire duration. See note for [...]
--- OUTSIDE RECORDS SUMMARY | 2024-02-08 07:19 | XMS_ITS | Encounter Summary ---
Author Organization [facility] Address [address] [place] [address] Care Team Providers Care Ammunition And Explosives Handler Name Role Phone Unavailable Primary Care Provider Unavailabl e Encounter Details Date Type Department Care Team (Latest Contact Info) Description 12/08/2023 2:00 PM CDT - 12/08/2023 11:59 PM CDT Hospital Encounter Department of Radiation Oncology in [place], [place] [address] [place] [address] Kerry Morris M.D. [address] [place] [address] Discharge Disposition: Home or Self Care Social [...]
--- OUTSIDE RECORDS SUMMARY | 2024-02-08 07:19 | XMS_ITS | Encounter Summary ---
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 [address] [place] [address] [facility] Region Referral ID Status Reason Start Date Expiration Date V isits Requested Visits Authorized [id number] Authorized 10/28/2023 10/27/2024 10 10 Reason for Visit * Radiation Therapy (Routine) - Authorized Specialty Diagnoses / Procedures Referred By Lizet moyer Referred To Contact Diagnoses 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) Procedures Management Visit Kerry Morris M.D. [address] [place] [address] [facility] Region Referral ID Status Reason Start Date Expiration Date V isits Requested Visits Authorized [id number] Authorized 10/28/2023 10/27/2024 10 10 Encounter Details Date Type Department Care Team (Latest Contact Info) Description 12/10/2023 3:33 PM CDT - 12/10/2023 4:45 PM CDT Hospital Encounter Department of Radiation Oncology in [place], [place] [address] [place] [phone] M[address] [place] [address] Malignant Neoplasm Of Breast Upper Outer Quadrant [...] Quadrant Female Left (HCC) SUPERVISED BY: Spencer Lnae M.D. HISTORY OF PRESENT ILLNESS Miss Alanis [...] (cGy) First Treatment Last Treatment Elapsed Days [id number] [phone] 12/08/2023 12/10/2023 2 Course Summary 12/08/2023 12/10/2023 [...]
--- OUTSIDE RECORDS SUMMARY | 2024-02-08 07:19 | XMS_ITS | Encounter Summary ---
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 [address] [place] [address] [facility] Referral ID Status Reason Start Date Expiration Date V isits Requested Visits Authorized [id number] Authorized 12/07/2023 12/01/2024 15 15 Encounter Details Date Type Department Care Team (Latest Contact Info) Description 12/09/2023 3:05 PM CDT - 12/09/2023 11:59 PM CDT Hospital Encounter Department of Radiation Oncology in [place], [place] [address] [place] [phone] Kerry Morris M.D. [address] [place] [phone] Discharge Disposition: Home or Self Care Social [...]
--- OUTSIDE RECORDS SUMMARY | 2024-02-08 07:19 | XMS_ITS | Encounter Summary ---
Author Organization [facility] Address [address] [place] [address] Care Team Providers Care Team Guide Name Role Phone Unavailable Primary Care Provider Unavailabl e Reason for Referral * Outpatient (Routine) - Closed Specialty Diagnoses / Procedures Referred By Liezt moyer Referred To Contact Radiation Oncology Kerry Morris M.D. 200 [place] [address] [facility] Referral ID Status Reason Start Date Expiration Date Visits Re quested Visits Authorized [id number] Closed 10/28/2023 04/28/2025 1 1 Reason for Visit * Outpatient (Routine) - Closed Specialty Diagnoses / Procedures Referred By Lizet moyer Referred To Contact Radiation Oncology Kerry Morris M.D. [address] [place] [phone] [facility] Region Referral ID Status Reason Start Date Expiration Date Visits Re quested Visits Authorized [id number] Closed 10/28/2023 04/28/2025 1 1 Encounter Details Date Type Department Care Team (Latest Contact Info) Description 12/09/2023 3:05 PM CDT - 12/09/2023 4:21 PM CDT Hospital Encounter Department of Radiation Oncology in [place], [place] [address] [place] [phone] Kerry Morris M.D. [address] [place] [phone] Polly Moon R.N. [address] [place] [address] Malignant Neoplasm Of Breast Upper Outer Quadrant [...]
--- OUTSIDE RECORDS SUMMARY | 2024-02-08 07:19 | XMS_ITS | Encounter Summary ---
Author Organization [facility] Address [address] [place] [address] Care Team Providers Care Milk Runner Name Role Phone Unavailable Primary Care Provider Unavailabl e Reason for Visit * Radiation Therapy (Routine) - Authorized Specialty Diagnoses / Procedures Referred By Lizet moyer Referred To Contact Diagnoses 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) Procedures Prior Auth Rad Tx MD IMRT SIMPLE MD GUIDANCE FOR LOC RAD TX MD IMRT RADIOTHERAPY PLAN IMRT Kerry Morris M.D. [address] [place] [address] [facility] Referral ID Status Reason Start Date Expiration Date V isits Requested Visits Authorized [id number] Authorized 12/07/2023 12/01/2024 15 15 Encounter Details Date Type Department Care Team (Latest Contact Info) Description 12/10/2023 3:30 PM CDT - 12/10/2023 3:32 PM CDT Hospital Encounter Department of Radiation Oncology in [place], [place] [address] [place] [phone] Kerry Morris M.D. [address] [place] [phone] Discharge Disposition: Home or Self Care Social [...]
--- OUTSIDE RECORDS SUMMARY | 2024-02-08 07:19 | XMS_ITS | Encounter Summary ---
Author Organization [facility] Address [address] [place] [address] Care Team Providers Care House Principal Name Role Phone Unavailable Primary Care Provider Unavailabl e Reason for Referral * Radiation Therapy (Routine) - Authorized Specialty Diagnoses / Procedures Referred By Lizet moyer Referred To Contact Diagnoses 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) Procedures Prior Auth Rad Tx [place] IMRT SIMPLE [place] GUIDANCE FOR LOC RAD [place] IMRT RADIOTHERAPY PLAN IMRT Kerry Morris M.D. [address] [place] [phone] [facility] Referral ID Status Reason Start Date Expiration Date V isits Requested Visits Authorized [id number] Authorized 12/07/2023 12/01/2024 15 15 Encounter Details Date Type Department Care Team (Late st Contact Info) Description 12/02/2023 Orders Only Department of Radiation Oncology in [place], [place] [address] [place] [phone] Kerry Morris M.D. [address] [place] [phone] Malignant Neoplasm Of Breast Upper Outer Quadrant [...]
--- OUTSIDE RECORDS SUMMARY | 2024-02-08 07:19 | XMS_ITS | Clinical Summary ---
Author Organization [employer] [facility] Address [place], [place] [address] Care Team Providers Care Roading Engineer Name Role Phone Devi Rubin Primary Care Provider Allergies Active Allergy Reactions Criticality Noted Date Comments Minocycline Other - Describe In Comment Field 09/14/2023 Rutherford like she had the flu Medications Medication [...] mg Extended-Release capsuleIndications :REYNALDO (generalized anxiety disorder) TAKE 1 CAPSULE BY MOUTH EVERY DAY WITH FOOD 90 Capsule 12/16/2023 Active Active Problems Problem Noted Date Diagnosed Date REYNALDO (generalized anxiety disorder) 06/04/2023 Invasive ductal carcinoma of breast, left 2022 Pap smear for cervical cancer screening 03/31/20 23 Overview (03/31/2023): 03/2023 NIL/HPV negative Plan: Pap/HPV due 03/2028 Anxiety 04/28/2021 Hypertriglyceridemia 04/28/2021 Overview (03/24/2023): ASCVD 10 year risk 5%. Alcohol abuse 03/19/2019 Overview (04/28/2021): 8-10 beers weekends Uncomplicated varicose veins 09/16/2013 Overview (07/30/2021): Identified By: Mariya Paul Resolved Problems Problem Noted Date Diagnosed Date Resolved Date Abdominal pain, RUQ (right upper quadrant) 09/17/2017 04/28/2021 ETOH abuse 03/16/2009 09/17/2017 Major depressive disorder, r ecurrent episode, unspecified 09/08/2008 09/17/2017 Overview (09/17/2017): On celexa and effexor in the past Encounters Date Type Department Care Team Description 12/31/2023 Orders Only [facility] Scanner 1 scan: (1-Ord) [facility], DEXA AXIAL SKELETON, 12/31/2023 12/14/2023 Ref[place] [facility] [address] [place] [address] Marina Harris PA Refill Request (Venlafaxine) from Last 3 Months Immunizations Name Administration [...] Used Date Smoking Tobacco: Former Cigarettes 0.3 24.7 S tarted: 06/01/1999 Smokeless Tobacco: Never Tobacco [...] T Respiratory Rate 16 04/27/2023 8:52 AM RECREATION LEADER Oxygen Saturation 98% 10/12/2023 3:33 PM CDT Inhaled Oxygen Concentration - - Weight 88.8 kg (195 lb 11.2 oz) 10/12/2023 3:33 PM CDT Height 170.2 cm (5' 7) 09/22/2023 1:45 PM CDT Body Mass Index 30.65 09/22/2023 1:45 PM CDT Plan of Treatment Upcoming Encounters Date Type Department Care Team (Late st Contact Info) Description 02/08/2024 8:00 AM CDT Ancillary Procedure [facility] [address] [place] [address] Health Maintenance Due Date Last Done Comments HIV for age 15-65 11/25/1987 Colonoscopy through age 75 2017 Zoster (shingles) series for age 50+ (2 of 2) 05/18/2023 03/23/2023 COVID-19 vaccine series (2022- season) 2024 05/02/2023, 08/25/2022, 05/23/2021, Additional history exists Influenza [...] Procedure Name Priority Date/Time Associated Diagnosis Comments SCAN-BONE DENSITOMETRY DEXA 12/31/2023 12:00 AM CDT SCAN-MAMMOGRAPHY REPORT 10/06/2023 12:00 AM CDT ANTI HCV Routine 03/23/2023 11:48 AM CDT Need for hepatitis C screening test LIPID PANEL W REFLEX MEASURED LDL Routine 03/23/2023 11:48 AM CDT Screening cholesterol level HPV THIN PREP Routine 03/23/2023 11:19 AM CDT Screening for cervical cancer from Last 3 Months or Most Recently Relevant to Health Maintenance Results * SCAN-BONE DENSITOMETRY DEXA (12/31/2023 12:00 AM CDT) Anatomical Region Laterality Modality Other Scanner OTHER * SCAN-MAMMOGRAPHY REPORT (10/06/2023 12:00 AM CDT) Anatomical Region Laterality Modality Other Scanner OTHER * (ABNORMAL) LIPID PANEL W REFLEX MEASURED LDL (03/23/2023 11:48 AM CDT) CHOLESTEROL,TOTAL 219(H) 100 - 199 mg/dL 03/23/2023 5:09 PM CDT [facility] Comment: Cholesterol, Total Reference Ranges Desirable <200 mg/dL Borderline 200-239 mg/dL High >=240 mg/dL TRIGLYCERIDES 163(H) <150 mg/dL 03/23/2023 5:09 PM CDT [facility] HDL CHOLESTEROL 60 >40 mg/dL 5:09 PM CDT [facility] NON-HDL CHOLESTEROL 159(H) <145 mg/dl 03/23/2023 5:09 PM CDT [facility] CHOL/HDL RATIO 3.65 <4.50 03/23/2023 5:09 PM CDT [facility] LDL CHOLESTEROL 126 <=130 mg/dL 03/23/2023 5:09 PM CDT [facility] VLDL CHOLESTEROL 33(H) <=30 mg/dL 03/23/2023 5:09 PM CDT [facility] PROVIDER ORDERED STATUS RANDOM 03/23/2023 5:09 PM CDT [facility] Blood BLOOD SPECIMEN / Unknown Venipuncture / Unknown 03/23/2023 11:48 AM CDT 03/23/2023 11:48 AM CDT Devi Rubin DO CHEMISTRY [facility] [address] [place] [address], * ANTI HCV (03/23/2023 11:48 AM CDT) HEPATITIS C ANTIBODY Non-Reacti ve Non-React mckay 03/23/2023 5:08 PM CDT [facility] Comment:Please note, per www [...] AM CDT 03/23/2023 11:48 AM CDT Devi Marge Rubin DO SEND OUTS Performing Organization Address [facility]/ZIP Co de Phone Number [facility] [address] [place] [address], * HPV HIGH RISK (03/23/2023 11:19 AM CDT) TYPE 16 Negative Negative 03/25/2023 2:07 PM CDT [facility] TYPE 18 Negative Negative 03/25/2023 2:07 PM CDT [facility] OTHER HIGH RISK TYPES Negative Negative 03/25/2023 2:07 PM CDT [facility] Other (Cervical) Non-Blood / Unknown 03/23/2023 11:19 AM CDT 03/23/2023 4:26 PM CDT Narrative [facility] - 03/25/2023 2:07 PM CDT HPV types 16, 18, 31, 33, 35, 39, 45, 51, 52, 56, 58, 59, 66 and 68 DNA were undetectable or below the pre-set threshold. Methodology: Laly Reji 4800 HPV Test Devi Marge Rubin DO MICROBIOLOGY Performing Organization Address [facility]/ZIP Co de Phone Number [facility] [address] [place] [address], from Last 3 Months or Most Recently Relevant to Health Maintenance Care Teams Roading Engineer Relationship Specialty [place] [address] [address] [place], [place] [phone] PCP - General Family Practice 03/30/23
--- OUTSIDE RECORDS SUMMARY | 2024-02-08 07:19 | XMS_ITS | Encounter Summary ---
Author Organization [facility] Address [address] [place] [address] Care Team Providers Care Shot Man Name Role Phone Unavailable Primary Care Provider Unavailabl e Reason for Referral * Outpatient (Routine) - Closed Specialty Diagnoses / Procedures Referred By Contac t Referred To Contact Radiation Oncology Hollie Vaughan P.A.-C., M.SHolly [address] [place] [phone] Kerry Morris M.D. [address] [place] [phone] Referral ID Status Reason Start Date Expiration Date Visits Re quested Visits Authorized [id number] Closed 11/04/2023 05/05/2025 1 1 Scheduling Instructions with sim Reason for Visit * Outpatient (Routine) - Closed Specialty Diagnoses / Procedures Referred By Contac t Referred To Contact Radiation Oncology Hollie Vaughan P.A.-C., M.SHolly [address] [place] [phone] Kerry Morris M.D. [address] [place] [phone] Referral ID Status Reason Start Date Expiration Date Visits Re quested Visits Authorized [id number] Closed 11/04/2023 05/05/2025 1 1 Encounter Details Date Type Department Care Team (Latest Contact Info) Description 11/25/2023 1:06 PM CDT - 11/25/2023 1:59 PM CDT Hospital Encounter Department of Radiation Oncology in [place], [place] [address] [place] [phone] Kerry Morris M.D. [address] [place] [phone] Malignant Neoplasm Of Breast Upper Outer Quadrant [...] CDT RADIATION ONCOLOGY FOLLOW UP VISIT Supervising Tax Investigator: Dr. Kerry Morris CHIEF COMPLAINT/REASON FOR VISIT Visit prior to simulation scan SUBJECTIVE VISIT DIAGNOSIS #Clinical stage IB (cT2, cN1, cM0, G2, ER+, AR+, HER2+) invasive ductal carcinoma of the left [...] carcinoma a. Mirian grade: II of III; Houston score: 7 of 9 b. Angio-lymphatic invasion: [...] - Breast Ancillary Testing Hormone Receptors (per [id number]): Estrogen receptor: Positive (98%, strong staining) Progesterone receptor: Positive (68%, moderate staining) HER2 by IHC (per [id number]): Positive (3+) HER2 by FISH (per [id number]): Positive HER2/CEP17 ratio: 4.28 HER2 signals/cell: 6.86 [...] metastases with pathologic complete response Residual Cancer Grover (RCB) Calculation: Primary Tumor Bed: Greatest Dimension of Primary Tumor Bed Area (Millimeters): 13 mm Second Greatest Dimension of Primary Tumor Bed Area (Millimeters): 10 mm Percentage of Overall Cancer Cellularity: 1 % Percentage of Cancer that is in situ Disease: 0 % Lymph Nodes: Number of Positive Lymph Nodes: 0 Diameter of Largest Jonathan Metastasis (Millimeters): 0 mm RCB Calculations: Residual Cancer Grover: 0.86 Residual Cancer Grover Class: RCB-I MARGINS Margin Status for Invasive Carcinoma: All margins negative for invasive carcinoma Distance from Invasive Carcinoma to Closest Margin: Greater than: 10 mm Closest Margin(s) to Invasive Carcinoma: >10 mm from all margins REGIONAL LYMPH NODES Regional Lymph Node Status: : All regional lymph nodes negative for tumor Total Number of Lymph Nodes Examined (sentinel and non-sentinel): 7 Number of Rome Nodes Examined: 3 pTNM CLASSIFICATION (AJCC 8th [...] to go back to work at the [employer] on December 08. OBJECTIVE BP 134/78 (BP [...] stage IB (cT2, cN1, cM0, G2, ER+, AR+, HER2+) invasive ductal carcinoma of the left [...] with photons, we will refer her to [place] for proton therapy. Miss Gates will meet the rest of our team as she goes through simulation, daily treatments, and weekly management visits. Patient seen for the service of Dr. Kerry Morris Signed by: Tuyet Ivy MD Resident Physician Department of Radiation Oncology Please don't hesitate to contact me with questions or discussion! Text Pager: [phone] Associated attestation - Kerry Morris M.D. - [...] neoadjuvant chemotherapy and bilateral mastectomies for her ER/AR and HER2 positive left sided breast cancer. [...] We discussed the acute as well as prison risks, including, but not limited to fatigue, [...] stage IB (cT2, cN1, cM0, G2, ER+, AR+, HER2+) invasive ductal carcinoma of the left [...] 11/25/2023 3:48 PM CDT Radiation Oncology [facility] [address] [place], [place] [phone] documented in this encounter Plan of Treatment Scheduled Referrals Name Type Priority Associated Diagnoses Order Schedule Radiation Oncology office visit (clinic) Outpatient Referral Routine Once for 1 Occurrences starting 11/25/2023 until 11/25/2023 documented as of this encounter Visit Diagnoses Diagnosis 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)- Primary documented in this encounter
--- OUTSIDE RECORDS SUMMARY | 2024-02-08 07:19 | XMS_ITS | Encounter Summary ---
Author Organization [facility] Address [address] [place] [address] Care Team Providers Care Industrial Nurse Name Role Phone Unavailable Primary Care Provider Unavailabl e Reason for Visit * Radiation Therapy (Routine) - Authorized Specialty Diagnoses / Procedures Referred By Lizet moyer Referred To Contact Diagnoses 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) Procedures Prior Auth Rad Tx [place] IMRT SIMPLE [place] GUIDANCE FOR LOC RAD TX AL IMRT RADIOTHERAPY PLAN IMRT Kerry Morris M.D. [address] [place] [phone] [facility] Referral ID Status Reason Start Date Expiration Date V isits Requested Visits Authorized [id number] Authorized 12/07/2023 12/01/2024 15 15 Encounter Details Date Type Department Care Team (Latest Contact Info) Description 12/14/2023 3:02 PM CDT - 12/14/2023 11:59 PM CDT Hospital Encounter Department of Radiation Oncology in [place], [place] [address] [place] [phone] Kerry Morris M.D. [address] [place] [phone] Discharge Disposition: Home or Self Care Social [...]
--- NOTE | 2024-02-08 09:03 | PC.NURSE ---
1ml definity administered via IV that was in place from CT scan. Blood return checked and flushed without resistance. Patient tolerated well and IV was discontinued and catheter intact.
[2024-02-08] MEDS: PERFLUTREN LIPID MICROSPHERES 2 ML VIAL IV (09:04)
== END 2024-02-08 07:17 | disposition home or self-care (01) ==
LOC: MRI 07:16
PROVIDERS: PCP Family Medicine; Visit Provider Physician Assistant
DX: R51.9 Headache, unspecified (principal); Z85.3 Personal history of malignant neoplasm of breast; Z51.81 Encounter for therapeutic drug level monitoring; Z79.899 Other long term (current) drug therapy; R55 Syncope and collapse; C50.919 Malignant neoplasm of unspecified site of unspecified female breast
CPT/HCPCS: 70553; 93306; A9575; Q9957

== ENCOUNTER 2024-03-12 08:55 | Emergency (ER) | payer BC, SELFPAY ==
[2024-03-12 09:01] VITALS: BP 139/89; PULSE 93; RESP 18; TEMP 36.4; O2SAT 97; BMI 32.3
--- NOTE | 2024-03-12 09:19 | ED_ITS ---
HPI - General Adult General Chief complaint: Skin/Abscess/Foreign Body Stated complaint: Rash on left arm Time Seen by Provider: 03/12/24 09:11 History of Present Illness HPI narrative: Patient is a 53-year-old woman who recently completed radiation chemotherapy for left-sided breast cancer presents with an irregular rash on the left arm. She has some early vesicles on the posterior aspect of the left upper arm as well as more reddened area of erythema on the forearm both anteriorly and posteriorly. Symptoms been present for the last 24 hours. She does have significant pain but has significant itching. No skin breakdown no fevers no chills no night sweats no cough no shortness of breath no deep swelling. Patient is had 1 of 2 of her shingles vaccinations. Related Data Home Medications ?Medication ?Instructions ?Recorded ?Confirmed ibuprofen 800 mg tablet 800 - 1,000 mg PO Q8H PRN 04/29/23 02/22/24 docusate sodium 100 mg capsule 100 mg PO DAILY PRN 05/21/23 02/22/24 (Colace) loperamide 2 mg capsule (Imodium 2 - 4 mg PO Q2-3H PRN 05/21/23 02/22/24 A-D) venlafaxine 37.5 mg 37.5 mg PO DAILY 07/06/23 02/22/24 capsule,extended release 24 hr (Effexor XR) clindamycin phosphate 1 % lotion 1 applic topical DAILY PRN 11/23/23 02/22/24 magnesium oxide 400 mg PO BID 02/11/24 02/22/24 Previous Rx's ?Medication ?Instructions ?Recorded prochlorperazine maleate 10 mg 10 mg PO Q8H PRN nausea and 07/27/23 tablet (Compazine) vomiting #60 tabs ondansetron HCl 4 mg tablet 4 mg PO Q8H PRN nausea and 12/14/23 vomiting #60 tabs lorazepam 0.5 mg tablet (Ativan) 0.5 mg PO QHS PRN sleep #30 tabs 01/04/24 cephalexin 500 mg capsule 500 mg PO TID 7 days #21 caps 03/12/24 valacyclovir 1 gram tablet 1,000 mg PO Q8H #30 tabs 03/12/24 Allergies Allergy/AdvReac Type Severity Reaction Status Date / Time minocycline Allergy felt like Verified 02/22/24 08:17 she had the flu Review of Systems Status of ROS: Reports: 10 or more systems reviewed and unremarkable except as noted in History and below [facility] Medical History Anemia ?D64.9 - Anemia, unspecified (ICD-10) History of tobacco use disorder ?Z87.891 - Personal history of nicotine dependence (ICD-10) History of alcohol abuse ?F10.11 - Alcohol abuse, in remission (ICD-10) History of depression ?Z86.59 - Personal history of other mental and behavioral disorders (ICD-10) Surgical History S/P bilateral mastectomy ?Z90.13 - Acquired absence of bilateral breasts and nipples (ICD-10) Social History What is your current living situation?: I presently have a place to live Problems where you live: no known problems Problems where you live details: none In the past 12 months, utilities in danger of being shut off: no In past 12 months, lack of transportation kept you from medical appts, meetings, work, or getting things needed for daily living: no In the past 12 mos, have been you worried that your food would run out before you had money to buy more?: never true In the past 12 mos, the food you bought just didn't last and you didn't have money to buy more?: never true Highest level of school completed/degree received: Bachelor's degree Smoking Status: Former smoker What tobacco products do you use: cigarettes Years smoked: 30 Smoking quit date/years: <= 15 years ago Do you use any of these nicotine containing products: None Second hand tobacco smoke exposure: No How often do you have a drink containing alcohol: never How many standard drinks containing alcohol do you have on a typical day: 1 or 2 How often do you have six or more drinks on one occasion: Never AUDIT-C Alcohol total score: 0 Non-prescribed substance use: denies use Caffeine: Yes How often does anyone, including family, friends and others, physically hurt you : never How often does anyone, including family, friends and others, insult or talk down to you: never How often does anyone, including family, friends and others, threaten you with harm: never How often does anyone, including family, friends and others, scream or curse at you: never service: No Exam Narrative: Exam Narrative: EXAM GENERAL: Patient appears comfortable and well. EYES: No scleral icterus. LYMPH: No supraclavicular or cervical lymphadenopathy. SKIN: Skin lesions and erythema as described above consistent with early shingles. EXT: No dependent lower extremity pedal edema. HEART: Regular rate and rhythm with no murmurs, rubs, or gallops. LUNGS: Clear to auscultation bilaterally with no crackles or wheezes. ABD: Soft, non tender, non distended. PSYCH: Good eye contact, speech is not pressured. Const: Vital Signs, click to edit/add: Vital Signs - 24 hr 03/12/24 09:01 Temperature 97.6 F Pulse Rate [Right Pulse Oximeter] 93 Respiratory Rate 18 Blood Pressure [Ri ght Upper Arm] 139/89 Pulse Oximetry 97 Oxygen Delivery Me thod Room Air Course Course ED Course: Patient seen and examined. Vital Signs Vital signs: Initial Vital Signs Temperature 97.6 F 03/12/24 09:01 Temperature Source Temporal Artery Scan 03/12/24 09:01 Pulse Rate 93 03/12/24 09:01 Respiratory Rate 18 03/12/24 09:01 Blood Pressure 139/89 03/12/24 09:01 Blood Pressure Mean 105 03/12/24 09:01 Blood Pressure Position Sitting 03/12/24 09:01 Pulse Oximetry 97 03/12/24 09:01 Oxygen Delivery Method Room Air 03/12/24 09:01 Vital Signs Temperature 97.6 F 03/12/24 09:01 Pulse Rate 93 03/12/24 09:01 Respiratory Rate 18 03/12/24 09:01 Blood Pressure 139/89 03/12/24 09:01 Pulse Oximetry 97 03/12/24 09:01 Oxygen Delivery Method Room Air 03/12/24 09:01 Temperature 97.6 F 03/12/24 09:01 Pulse Rate 93 03/12/24 09:01 Respiratory Rate 18 03/12/24 09:01 Blood Pressure 139/89 03/12/24 09:01 Pulse Oximetry 97 03/12/24 09:01 Oxygen Delivery Method Room Air 03/12/24 09:01 Medical Decision Making MDM Narrative Medical decision making narrative: Patient is a 53-year-old woman who presents with redness irregularly down the left arm. This has the appearance of early shingles. She has some worsening of the erythema as we go distally into the forearm. No signs of systemic infection noted. At this point I will treat her for shingles with valacyclovir as well as possible early secondary infection with Keflex. Does have an appointment to follow up with her oncologist and 48 hours. I instructed her on care for arm in the interim. Differential diagnosis includes but not limited to allergic reaction cellulitis shingles contact dermatitis. Discharge Plan Discharge Clinical Impression: Herpes zoster Patient Disposition: Home, Self-Care Condition: Stable Instructions: Shingles (ED) Additional Instructions: Valacyclovir as directed Keflex as directed Symptomatic treatment with calamine lotion Follow-up with your oncologist on Thursday Activity Level: No Restrictions Discharge Diet: Regular Prescriptions: New valacyclovir 1 gram tablet 1,000 mg PO Q8H Qty: 30 2RF cephalexin 500 mg capsule 500 mg PO TID 7 Days Qty: 21 0RF No Action ibuprofen 800 mg tablet 800 - 1,000 mg PO Q8H PRN venlafaxine [Effexor XR] 37.5 mg capsule,extended release 24hr 37.5 mg PO DAILY prochlorperazine maleate [Compazine] 10 mg tablet 10 mg PO Q8H PRN (Reason: nausea and vomiting) Qty: 60 0RF ondansetron HCl 4 mg tablet 4 mg PO Q8H PRN (Reason: nausea and vomiting) Qty: 60 0RF lorazepam [Ativan] 0.5 mg tablet 0.5 mg PO QHS PRN (Reason: sleep) Qty: 30 0RF clindamycin phosphate 1 % lotion 1 applic topical DAILY PRN docusate sodium [Colace] 100 mg capsule 100 mg PO DAILY PRN loperamide [Imodium A-D] 2 mg capsule 2 - 4 mg PO Q2-3H PRN Rx Instructions: administer after each loose stool until symptoms controlled; do not exceed 8 mg per 24 hrs magnesium oxide 400 mg magnesium capsule 400 mg PO BID Follow Up/Referrals: Devi Rubin DO [Primary Care Provider] - Stand Alone [facility] Info Inst[facility]
--- OUTSIDE RECORDS SUMMARY | 2024-03-12 09:45 | XMS_ITS | Encounter Summary ---
Author Organization [facility] Address [address] [place] [address] Care Team Providers Care Client Relation Specialist Name Role Phone Unavailable Primary Care Provider Unavailabl e Reason for Visit * Radiation Therapy (Routine) - Authorized Specialty Diagnoses / Procedures Referred By Lizet moyer Referred To Contact Diagnoses 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) Procedures Prior Auth Rad Tx IN IMRT SIMPLE IN GUIDANCE FOR LOC RAD TX IN IMRT RADIOTHERAPY PLAN IMRT Kerry Morris M.D. [address] [place] [address] Phone: tel: fax: [facility] Referral ID Status Reason Start Date Expiration Date V isits Requested Visits Authorized [id number] Authorized 12/07/2023 12/01/2024 15 15 Encounter Details Date Type Department Care Team (Latest Contact Info) Description 12/22/2023 3:28 PM CDT - 12/22/2023 11:59 PM CDT Hospital Encounter Department of Radiation Oncology in [place], [place] [address] [place] [phone] Kerry Morris M.D. 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
--- OUTSIDE RECORDS SUMMARY | 2024-03-12 09:45 | XMS_ITS | Encounter Summary ---
Author Organization [facility] Address [address] [place] [id number] Care Team Providers Care Electrical Electronics Engineers Name Role Phone Unavailable Primary Care Provider Unavailabl e Reason for Visit * Radiation Therapy (Routine) - Authorized Specialty Diagnoses / Procedures Referred By Lizet moyer Referred To Contact Diagnoses 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) Procedures Prior Auth Rad Tx [place] IMRT SIMPLE [place] GUIDANCE FOR LOC RAD TX [place] IMRT RADIOTHERAPY PLAN IMRT Kerry Morris M.D. [address] [place] [address] Phone: tel: fax: [facility] Referral ID Status Reason Start Date Expiration Date V isits Requested Visits Authorized [id number] Authorized 12/07/2023 12/01/2024 15 15 Encounter Details Date Type Department Care Team (Latest Contact Info) Description 12/11/2023 1:37 PM CDT - 12/11/2023 11:59 PM CDT Hospital Encounter Department of Radiation Oncology in [place], [place] [address] [place] [phone] Kerry Morris M.D. 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
--- OUTSIDE RECORDS SUMMARY | 2024-03-12 09:45 | XMS_ITS | Encounter Summary ---
Author Organization [facility] Address [address] [place] [address] Care Team Providers Care Arcade Game Technician Name Role Phone Unavailable Primary Care Provider Unavailabl e Reason for Referral * Radiation Therapy (Routine) - Authorized Specialty Diagnoses / Procedures Referred By Lizet moeyr Referred To Contact Diagnoses 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) Procedures Management Visit Kerry Morris M.D. [address] [place] [address] Phone: tel: fax: [facility] Region Referral ID Status Reason Start Date Expiration Date V isits Requested Visits Authorized [id number] Authorized 10/28/2023 10/27/2024 10 10 Reason for Visit * Radiation Therapy (Routine) - Authorized Specialty Diagnoses / Procedures Referred By Lizet moyer Referred To Contact Diagnoses 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) Procedures Management Visit Kerry Morris M.D. [address] [place] [address] Phone: tel: fax: [facility] Region Referral ID Status Reason Start Date Expiration Date V isits Requested Visits Authorized [id number] Authorized 10/28/2023 10/27/2024 10 10 Encounter Details Date Type Department Care Team (Latest Contact Info) Description 12/23/2023 2:50 PM CDT - 12/23/2023 3:29 PM CDT Hospital Encounter Department of Radiation Oncology in [address] [phone] Kerry Morris M.D. 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 We anticipate [...] stage IB (cT2, cN1, cM0, G2, ER+, OK+, HER2+)invasive ductal carcinoma of the left breast s/p neoadjuvant TCHP followed by bilateral mastectomies and left axillary sentinel lymph node biopsy on October 06, 2023, [id number], pN0 who is now undergoing radiation therapy. Treatment Course: 1xBreast Plan ID Fractions Dose / Fraction (cGy) Dose Treated (cGy) Dose Planned (cGy) First Treatment Last Treatment Elapsed Days [id number] 12/08/2023 12/21/2023 13 [id number] [phone] 12/22/2023 12/22/2023 0 Treatment Site Summary [id number] 12/08/2023 12/22/2023 14 Course Summary 12/08/2023 12/22/2023 [...] stage IB (cT2, cN1, cM0, G2, ER+, OK+, HER2+) invasive ductal carcinoma of the left [...] She will follow up Dr. Britt at [facility] on January 04, 2024. Follow [...]
--- OUTSIDE RECORDS SUMMARY | 2024-03-12 09:45 | XMS_ITS | Encounter Summary ---
Author Organization [facility] Address [address] [place] [address] Care Team Providers Care Glue Bone Drier Name Role Phone Unavailable Primary Care Provider Unavailabl e Reason for Visit * Radiation Therapy (Routine) - Authorized Specialty Diagnoses / Procedures Referred By Lizet moyer Referred To Contact Diagnoses 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) Procedures Prior Auth Rad Tx [place] IMRT SIMPLE [place] GUIDANCE FOR LOC RAD TX ND IMRT RADIOTHERAPY PLAN IMRT Kerry Morris M.D. [address] [place] [address] Phone: tel: fax: [facility] Referral ID Status Reason Start Date Expiration Date V isits Requested Visits Authorized [id number] Authorized 12/07/2023 12/01/2024 15 15 Encounter Details Date Type Department Care Team (Latest Contact Info) Description 12/16/2023 3:01 PM CDT - 12/16/2023 11:59 PM CDT Hospital Encounter Department of Radiation Oncology in [place], [place] [address] [place] [phone] Kerry Morris M.D. 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
--- OUTSIDE RECORDS SUMMARY | 2024-03-12 09:45 | XMS_ITS | Encounter Summary ---
Author Organization [facility] Address [address] [place] [address] Care Team Providers Care Coin Box Inspector Name Role Phone Unavailable Primary Care Provider Unavailabl e Reason for Visit * Radiation Therapy (Routine) - Authorized Specialty Diagnoses / Procedures Referred By Lizet moyer Referred To Contact Diagnoses 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) Procedures Prior Auth Rad Tx OR IMRT SIMPLE OR GUIDANCE FOR LOC RAD TX OR IMRT RADIOTHERAPY PLAN IMRT Kerry Morris M.D. [address] [place] [address] Phone: tel: fax: [facility] Referral ID Status Reason Start Date Expiration Date V isits Requested Visits Authorized [id number] Authorized 12/07/2023 12/01/2024 15 15 Encounter Details Date Type Department Care Team (Latest Contact Info) Description 12/24/2023 3:04 PM CDT - 12/24/2023 11:59 PM CDT Hospital Encounter Department of Radiation Oncology in [place], [place] [address] [place] [phone] Kerry Morirs M.D. 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
--- OUTSIDE RECORDS SUMMARY | 2024-03-12 09:45 | XMS_ITS | Encounter Summary ---
Author Organization [facility] Address [address] [place] [address] Care Team Providers Care Field Service Coordinator Name Role Phone Unavailable Primary Care Provider Unavailabl e Reason for Visit * Radiation Therapy (Routine) - Authorized Specialty Diagnoses / Procedures Referred By Lizet moyer Referred To Contact Diagnoses 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) Procedures Prior Auth Rad Tx [place] IMRT SIMPLE [place] GUIDANCE FOR LOC RAD TX [place] IMRT RADIOTHERAPY PLAN IMRT Kerry Morris M.D. [address] [place] [address] Phone: tel: fax: [facility] Referral ID Status Reason Start Date Expiration Date V isits Requested Visits Authorized [id number] Authorized 12/07/2023 12/01/2024 15 15 Encounter Details Date Type Department Care Team (Latest Contact Info) Description 12/28/2023 3:12 PM CDT - 12/28/2023 11:59 PM CDT Hospital Encounter Department of Radiation Oncology in [place], [place] [address] [place] [phone] Kerry Morris M.D. 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
--- OUTSIDE RECORDS SUMMARY | 2024-03-12 09:45 | XMS_ITS | Encounter Summary ---
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 [address] [place] [address] Phone: tel: fax: [facility] Referral ID Status Reason Start Date Expiration Date V isits Requested Visits Authorized [id number] Authorized 12/07/2023 12/01/2024 15 15 Encounter Details Date Type Department Care Team (Latest Contact Info) Description 12/18/2023 3:03 PM CDT - 12/18/2023 11:59 PM CDT Hospital Encounter Department of Radiation Oncology in [place], [place] [address] [place] [phone] Kerry Morris M.D. 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
--- OUTSIDE RECORDS SUMMARY | 2024-03-12 09:45 | XMS_ITS | Encounter Summary ---
Author Organization [facility] Address [address] [place] [address] Care Team Providers Care Reading Aide Name Role Phone Unavailable Primary Care Provider Unavailabl e Reason for Referral * Specialty Diagnoses / Procedures Referred By Lizet moyer Referred To Contact Diagnoses 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) Hollie Vaughan P.A.-C., M.S. [address] [place] [phone] Phone: tel: fax: [facility] Referral ID Status Reason Start Date Expiration Date Visits Re quested Visits Authorized Encounter Details Date Type Department Care Team (Latest Contact Info) Description 12/15/2023 2:48 PM CDT - 12/15/2023 3:18 PM CDT Hospital Encounter Department of Radiation Oncology in [place], [place] [address] [place] [phone] Kerry Morris M.D. 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
--- OUTSIDE RECORDS SUMMARY | 2024-03-12 09:45 | XMS_ITS | Clinical Summary ---
Author Organization [facility] Address [address] [place] [address] Care Team Providers Care Furnace Firer Name Role Phone Unavailable Primary Care Provider Unavailabl e Source Comments Patient records contain information from all sites at [facility]. For routine questions regarding patient records, call [phone] during business hours, M-F 8:00 AM - 5:00 PM Central Time. Record requests for emergency care only can be directed to [phone] at any time.[facility] Allergies Active Allergy Reactions Criticality Noted Date Comments Minocycline Other (see comments) 09/14/2023 [place] like she had the flu Medications venlafaxine XR (EFFEXOR-XR) 37.5 mg 24 hr capsule Take by mouth. 4 Active mometasone (Elocon) 0.1 % cream Apply 1 Application topically 2 (two) times a day. Apply to areas of exposed skin outside of the Mepitel on the left-sided chest wall. 45 g 4 Active Active Problems Problem Noted Date Diagnosed Date Malignant Neoplasm Of Breast Upper Outer Quadrant Female Left 10/28/2023 Cancer Staging:Clinical stage from 04/20/2023:Stage IB(cT2, cN1, cM0, G2, ER+, UT+, HER2+) - Unsigned Pathologic stage from 10/06/2023: ypT1b, pN0(sn), cM0, G1, ER+, UT+, HER2+ - Unsigned Encounters Date Type Department Care Team Description 03/11/2024 Clinical Communication Department of Radiation Oncology in [place], [place] [address] [place] [address] Kerry Morris M.D. 12/28/2023 3:12 PM CDT - 12/28/2023 11:59 PM CDT Hospital Encounter Department of Radiation Oncology in [address] [address] Kerry Morris M.D. Discharge Disposition: Home or Self Care 12/28/2023 Documentation Department of Radiation Oncology in [address] [address] Kerry Morris M.D. 12/25/2023 3:13 PM CDT - 12/25/2023 11:59 PM CDT Hospital Encounter Department of Radiation Oncology in [address] [address] Kerry Morris M.D. Discharge Disposition: Home or Self Care 12/24/2023 3:04 PM CDT - 12/24/2023 11:59 PM CDT Hospital Encounter Department of Radiation Oncology in [address] [address] Kerry Morris M.D. Discharge Disposition: Home or Self Care 12/23/2023 3:30 PM CDT - 12/23/2023 11:59 PM CDT Hospital Encounter Department of Radiation Oncology in [address] [address] Kerry Morris M.D. Discharge Disposition: Home or Self Care 12/23/2023 2:50 PM CDT - 12/23/2023 3:29 PM CDT Hospital Encounter Department of Radiation Oncology in [address] [address] Kerry Morris M.D. 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) 12/22/2023 3:28 PM CDT - 12/22/2023 11:59 PM CDT Hospital Encounter Department of Radiation Oncology in [address] [address] Kerry Morris M.D. Discharge Disposition: Home or Self Care 12/21/2023 3:08 PM CDT - 12/21/2023 11:59 PM CDT Hospital Encounter Department of Radiation Oncology in [address] [address] Kerry Morris M.D. Discharge Disposition: Home or Self Care 12/21/2023 2:49 PM CDT - 12/21/2023 3:07 PM CDT Hospital Encounter Department of Radiation Oncology in [address] [address] Kerry Morris M.D. Grieman, Kari A, RHollyNHolly 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) (Primary Dx) 12/18/2023 3:03 PM CDT - 12/18/2023 11:59 PM CDT Hospital Encounter Department of Radiation Oncology in [address] [address] Kerry Morris M.D. Discharge Disposition: Home or Self Care 12/17/2023 3:08 PM CDT - 12/17/2023 11:59 PM CDT Hospital Encounter Department of Radiation Oncology in [address] [address] Kerry Morris M.D. Discharge Disposition: Home or Self Care 12/16/2023 3:01 PM CDT - 12/16/2023 4:16 PM CDT Hospital Encounter Department of Radiation Oncology in [address] [address] Kerry Morris M.D. 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) 12/16/2023 3:01 PM CDT - 12/16/2023 11:59 PM CDT Hospital Encounter Department of Radiation Oncology in [address] [address] Kerry Morris M.D. Discharge Disposition: Home or Self Care 12/15/2023 3:19 PM CDT - 12/15/2023 11:59 PM CDT Hospital Encounter Department of Radiation Oncology in [address] [address] Kerry Morris M.D. Discharge Disposition: Home or Self Care 12/15/2023 2:48 PM CDT - 12/15/2023 3:18 PM CDT Hospital Encounter Department of Radiation Oncology in [address] [address] Kerry Morris M.D. Grieman, Kari A, RHollyNHolly 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) Discharge Disposition: Home or Self Care 12/14/2023 3:02 PM CDT - 12/14/2023 11:59 PM CDT Hospital Encounter Department of Radiation Oncology in [address] [address] Kerry Morris M.D. Discharge Disposition: Home or Self Care 12/11/2023 1:37 PM CDT - 12/11/2023 11:59 PM CDT Hospital Encounter Department of Radiation Oncology in [address] [address] Kerry Morris M.D. 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.] TREATMENT INFORMATION Routine 12/11/2023 1:55 PM CDT OUTSIDE MG MAMMOGRAM Routine 10/06/2023 12:05 PM CDT from Last 3 Months or Most Recently Relevant to Health Maintenance Results * Aria Course Complete Treatment Information (12/28/2023 3:34 PM CDT) [facility] Course ID 1xBreast TIGER ARIA Course Start Date 4 16:05 CDT [facility] Course End Date 4 12:15 CDT TIGER ARIA First Treatment Date 4 14:30 CDT JOHNSON ARIA Last Treatment Date 4 15:34 CDT JOHNSON ARIA Treatment Elapsed Days 20 JOHNSON ARIA Reference Point [id number] JOHNSON ARIA Dosage Given to Date cGy 4005 JOHNSON ARIA Plan ID [id number] L JOHNSON ARIA Fractions Treated to Date 5 JOHNSON ARIA Planned Total Fractions 5 JOHNSON ARIA Prescribed Dose Per Fraction 267 JOHNSON ARIA Prescription Dose in cGy 1335 JOHNSON ARIA Plan Primary Reference Point [id number] JOHNSON ARIA Plan ID [id number] JOHNSON ARIA Fractions Treated to Date 10 JOHNSON ARIA Planned Total Fractions 10 JOHNSON ARIA Prescribed Dose Per Fraction 267 JOHNSON ARIA Prescription Dose in cGy 2670 JOHNSON ARIA Plan Primary Reference Point [id number] JOHNSON ARIA 12/28/2023 3:34 PM CDT us Provider Not In System RADIATION ONCOLOGY ORDERA BLES Final Result ALEX VARGAS na * Aria Daily Treatment Information (12/28/2023 3:34 PM CDT) Only the most recent of12 resultswithin the time period is included. Course ID 1xBreast JOHNSON ARIA Course Start Date 4 16:05 CDT JOHNSON ARIA First Treatment Date 4 14:30 CDT JOHNSON ARIA Last Treatment Date 4 15:34 CDT JOHNSON ARIA Treatment Elapsed Days 20 JOHNSON ARIA Reference Point [id number] JOHNSON ARIA Dosage Given to Date cGy 4005 JOHNSON ARIA Session Dosage Given 267 JOHNSON ARIA Plan ID [id number] JOHNSON ARIA Fractions Treated to Date 5 JOHNSON ARIA Planned Total Fractions 5 JOHNSON ARIA Prescribed Dose Per Fraction 267 JOHNSON ARIA Prescription Dose in cGy 1335 JOHNSON ARIA Plan Primary Reference Point [id number] JOHNSON ARIA 12/28/2023 3:34 PM CDT us Provider Not In System RADIATION ONCOLOGY ORDERA BLES Final Result ALEX VARGAS na * MM surgical specimen [...] is required please follow defined workflow. ?? us Provider Not In System IMG BI PROCEDURES Final R esult IIMS NA from Last 3 Months or Most Recently Relevant to Health Maintenance Insurance [facility]
--- OUTSIDE RECORDS SUMMARY | 2024-03-12 09:45 | XMS_ITS | Encounter Summary ---
Author Organization [facility] Address [address] [place] [address] Care Team Providers Care Motion Picture Camera Operator Name Role Phone Unavailable Primary Care Provider Unavailabl e Encounter Details Date Type Department Care Team (Late st Contact Info) Description 12/28/2023 Documentation Department of Radiation Oncology in [place], [place] [address] [place] [phone] Kerry Morris M.D. 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 Britt at [facility] on January 04, 2024. Signed by: Shanda Thurston R.N., 01/18/2024 11:25 AM CDT [facility] [address] [place] [address] Cosigned by Kerry Morris M.D. at 01/18/2024 4:40 PM CDT documented in this encounter Plan of Treatment Not on file documented as of this encounter Visit Diagnoses Diagnosis 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)- Primary documented in this encounter
--- OUTSIDE RECORDS SUMMARY | 2024-03-12 09:45 | XMS_ITS | Encounter Summary ---
Author Organization [facility] Address [address] [place] [address] Care Team Providers Care Field Marketer Name Role Phone Unavailable Primary Care Provider Unavailabl e Reason for Visit * Radiation Therapy (Routine) - Authorized Specialty Diagnoses / Procedures Referred By Lizet moyer Referred To Contact Diagnoses 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) Procedures Prior Auth Rad Tx OK IMRT SIMPLE OK GUIDANCE FOR LOC RAD TX OK IMRT RADIOTHERAPY PLAN IMRT Kerry Morris M.D. [address] [place] [address] Phone: tel: fax: [facility] Referral ID Status Reason Start Date Expiration Date V isits Requested Visits Authorized [id number] Authorized 12/07/2023 12/01/2024 15 15 Encounter Details Date Type Department Care Team (Latest Contact Info) Description 12/14/2023 3:02 PM CDT - 12/14/2023 11:59 PM CDT Hospital Encounter Department of Radiation Oncology in [place], [place] [address] [place] [phone] Kerry Morris M.D. 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
--- OUTSIDE RECORDS SUMMARY | 2024-03-12 09:45 | XMS_ITS | Encounter Summary ---
Author Organization [facility] Address [address] [place] [address] Care Team Providers Care Dispensary Clerk Name Role Phone Unavailable Primary Care Provider Unavailabl e Reason for Visit * Radiation Therapy (Routine) - Authorized Specialty Diagnoses / Procedures Referred By Lizet moyer Referred To Contact Diagnoses 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) Procedures Prior Auth Rad Tx SD IMRT SIMPLE SD GUIDANCE FOR LOC RAD TX SD IMRT RADIOTHERAPY PLAN IMRT Kerry Morris M.D. [address] [place] [address] Phone: tel: fax: [facility] Referral ID Status Reason Start Date Expiration Date V isits Requested Visits Authorized [id number] Authorized 12/07/2023 12/01/2024 15 15 Encounter Details Date Type Department Care Team (Latest Contact Info) Description 12/25/2023 3:13 PM CDT - 12/25/2023 11:59 PM CDT Hospital Encounter Department of Radiation Oncology in [place], [place] [address] [place] [phone] Kerry Morris M.D. 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
--- OUTSIDE RECORDS SUMMARY | 2024-03-12 09:45 | XMS_ITS | Encounter Summary ---
Author Organization [facility] Address [address] [place] [address] Care Team Providers Care Associate Field Service Engineer Name Role Phone Unavailable Primary Care Provider Unavailabl e Encounter Details Date Type Department Care Team (Late st Contact Info) Description 03/11/2024 Clinical Communication Department of Radiation Oncology in [place], [place] [address] [place] [phone] Kerry Morris M.D. 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 - 03/11/2024 11:34 PM CDT Miss Gates called me contact center consultant this evening. She states that her arm that was treated developed lymphedema. On Thursday a garbage can fell on her hand and she has a small sore on her arm. The reason she called today is that she has developed redness on her forearm and patchy areas on her upper arm.She feels well and has no fever or chills. I told her that I am worried about cellulitis. She has no systemic symptoms. I asked her to take a permanent marker and yuriy the edges of the redness on theforearm. If it is worse tomorrow, she should go to an urgent care or ER to rule out cellulitis. Sheknows what symptoms to look out for tonight to go to the ER tonight (fever/chills, confusion or pain in the arm). She does live with someone who can yuriy her arm and watch her this evening. She was appreciative. She does have an appointment with Dr. Britt on Thursday. documented in this encounter Plan of Treatment Not on file documented as of this encounter Visit Diagnoses Not on filedocumented in this encounter
--- OUTSIDE RECORDS SUMMARY | 2024-03-12 09:45 | XMS_ITS ---
Author Organization [facility] Address [address] [place] [address] Care Team Providers Care Graphic Design Manager Name Role Phone Unavailable Primary Care Provider Unavailabl e Active Problems Problem Noted Date Diagnosed Date Malignant Neoplasm Of Breast Upper Outer Quadrant Female Left 10/28/2023 Cancer Staging:Clinical stage from 04/20/2023:Stage IB(cT2, cN1, cM0, G2, ER+, LA+, HER2+) - Unsigned Pathologic stage from 10/06/2023: ypT1b, pN0(sn), cM0, G1, ER+, LA+, HER2+ - Unsigned Current Oncology Plans No current plan information found. Past Plans No past plan information found. Radiation Treatments * Plan Last Treated On Elapsed Days Fractions Treated Prescribed Fraction Dose Prescribed Total Dose [id number] 12/28/2023 20 5 of 5 267 cGy 1,335 cGy [id number] 12/21/2023 13 10 of 10 267 cGy 2,670 cGy Reference Point Last Treated On Elapsed Days Session Dose Total Dose [id number] 12/28/2023 20 267 cGy 4,005 cGy
--- OUTSIDE RECORDS SUMMARY | 2024-03-12 09:45 | XMS_ITS | Referral Summary ---
Author Organization [facility] Address [address] [place] [address] Care Team Providers Care Siding Mechanic Name Role Phone Unavailable Primary Care Provider Unavailabl e Source Comments Patient records contain information from all sites at [facility]. For routine questions regarding patient records, call [phone] during business hours, M-F 8:00 AM - 5:00 PM Central Time. Record requests for emergency care only can be directed to [phone] at any time.[facility] Encounters Date Type Department Care Team Description 03/11/2024 Clinical Communication Department of Radiation Oncology in [address] [address] Kerry Morris M.D. 12/28/2023 Documentation Department of Radiation Oncology in [address] [address] Kerry Morris M.D. 12/28/2023 3:12 PM CDT - 12/28/2023 11:59 PM CDT Hospital Encounter Department of Radiation Oncology in [address] [address] Kerry Morris M.D. Discharge Disposition: Home or Self Care 12/25/2023 3:13 PM CDT - 12/25/2023 11:59 PM CDT Hospital Encounter Department of Radiation Oncology in [address] [address] Kerry Morris M.D. Discharge Disposition: Home or Self Care 12/24/2023 3:04 PM CDT - 12/24/2023 11:59 PM CDT Hospital Encounter Department of Radiation Oncology in [address] [address] Kerry Morris M.D. Discharge Disposition: Home or Self Care 12/23/2023 2:50 PM CDT - 12/23/2023 3:29 PM CDT Hospital Encounter Department of Radiation Oncology in [address] [address] Kerry Morris M.D. 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) 12/23/2023 3:30 PM CDT - 12/23/2023 11:59 PM CDT Hospital Encounter Department of Radiation Oncology in [address] [address] Kerry Morris M.D. Discharge Disposition: Home or Self Care 12/22/2023 3:28 PM CDT - 12/22/2023 11:59 PM CDT Hospital Encounter Department of Radiation Oncology in [address] [address] Kerry Morris M.D. Discharge Disposition: Home or Self Care 12/21/2023 2:49 PM CDT - 12/21/2023 3:07 PM CDT Hospital Encounter Department of Radiation Oncology in [address] [address] Kerry Morris M.D. Grieman, Kari A RHollyNHolly 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) (Primary Dx) 12/21/2023 3:08 PM CDT - 12/21/2023 11:59 PM CDT Hospital Encounter Department of Radiation Oncology in [address] [address] Kerry Morris M.D. Discharge Disposition: Home or Self Care 12/18/2023 3:03 PM CDT - 12/18/2023 11:59 PM CDT Hospital Encounter Department of Radiation Oncology in [address] [address] Kerry Morris M.D. Discharge Disposition: Home or Self Care 12/17/2023 3:08 PM CDT - 12/17/2023 11:59 PM CDT Hospital Encounter Department of Radiation Oncology in [address] [address] Kerry Morris M.D. Discharge Disposition: Home or Self Care 12/16/2023 3:01 PM CDT - 12/16/2023 4:16 PM CDT Hospital Encounter Department of Radiation Oncology in [address] [address] Kerry Morris M.D. 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) 12/16/2023 3:01 PM CDT - 12/16/2023 11:59 PM CDT Hospital Encounter Department of Radiation Oncology in [address] [address] Kerry Morris M.D. Discharge Disposition: Home or Self Care 12/15/2023 2:48 PM CDT - 12/15/2023 3:18 PM CDT Hospital Encounter Department of Radiation Oncology in [address] [address] Kerry Morris M.D. Grieman, Kari A, RHollyNHolly 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) Discharge Disposition: Home or Self Care 12/15/2023 3:19 PM CDT - 12/15/2023 11:59 PM CDT Hospital Encounter Department of Radiation Oncology in [address] [address] Kerry Morris M.D. Discharge Disposition: Home or Self Care 12/14/2023 3:02 PM CDT - 12/14/2023 11:59 PM CDT Hospital Encounter Department of Radiation Oncology in [place], [place] [address] [place] [address] Kerry Morris M.D. Discharge Disposition: Home or Self Care 12/11/2023 1:37 PM CDT - 12/11/2023 11:59 PM CDT Hospital Encounter Department of Radiation Oncology in [place], [place] [address] [place] [phone] Kerry Morris M.D. 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 Gender Identity Not on file Sexual Orientation [...] Elapsed Days 20 JOHNSON ARIA Reference Point [id number] JOHNSON ARIA Dosage Given to Date cGy 4005 JOHNSON ARIA Plan ID [id number] JOHNSON ARIA Fractions Treated to Date 5 JOHNSON ARIA Planned Total Fractions 5 JOHNSON ARIA Prescribed Dose Per Fraction 267 JOHNSON ARIA Prescription Dose in cGy 1335 JOHNSON ARIA Plan Primary Reference Point [id number] JOHNSON ARIA Plan ID [id number] JOHNSON ARIA Fractions Treated to Date 10 JOHNSON ARIA Planned Total Fractions 10 JOHNSON ARIA Prescribed Dose Per Fraction 267 JOHNSON ARIA Prescription Dose in cGy 2670 JOHNSON ARIA Plan Primary Reference Point [id number] JOHNSON ARIA 12/28/2023 3:34 PM CDT us Provider Not In System RADIATION ONCOLOGY ORDERA BLES Final Result JOHNSON ARIA na * Aria Daily Treatment Information (12/28/2023 3:34 PM CDT) Only the most recent of12 resultswithin the time period is included. Course ID 1xBreast JOHNSON ARIA Course Start Date 4 16:05 CDT JOHNSON ARIA First Treatment Date 4 14:30 CDT JOHNSON ARIA Last Treatment Date 4 15:34 CDT JOHNSON ARIA Treatment Elapsed Days 20 JOHNSON ARIA Reference Point [id number] JOHNSON ARIA Dosage Given to Date cGy 4005 JOHNSON ARIA Session Dosage Given 267 JOHNSON ARIA Plan ID [id number] L JOHNSON ARIA Fractions Treated to Date 5 JOHNSON ARIA Planned Total Fractions 5 JOHNSON ARIA Prescribed Dose Per Fraction 267 JOHNSON ARIA Prescription Dose in cGy 1335 JOHNSON ARIA Plan Primary Reference Point [id number] JOHNSON ARIA 12/28/2023 3:34 PM CDT us Provider Not In System RADIATION ONCOLOGY ORDERA BLES Final Result Performing Organization Address City/[facility] Co de Phone Number ALEX VARGAS na [...] System IMG BI PROCEDURES Final R esult Performing Organization Address City/[facility] Co de Phone Number IINE NA from Last 3 Months or Most Recently Relevant to Health Maintenance Insurance [facility]
--- OUTSIDE RECORDS SUMMARY | 2024-03-12 09:45 | XMS_ITS | Encounter Summary ---
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 [address] [place] [address] Phone: tel: fax: Health System Referral ID Status Reason Start Date Expiration Date V isits Requested Visits Authorized [id number] Authorized 12/07/2023 12/01/2024 15 15 Encounter Details Date Type Department Care Team (Latest Contact Info) Description 12/21/2023 3:08 PM CDT - 12/21/2023 11:59 PM CDT Hospital Encounter Department of Radiation Oncology in [place], [place] [address] [place] [phone] Kerry Morris M.D. 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
--- OUTSIDE RECORDS SUMMARY | 2024-03-12 09:45 | XMS_ITS | Encounter Summary ---
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 [address] [place] [address] Phone: tel: fax: [facility] Referral ID Status Reason Start Date Expiration Date V isits Requested Visits Authorized [id number] Authorized 12/07/2023 12/01/2024 15 15 Encounter Details Date Type Department Care Team (Latest Contact Info) Description 12/15/2023 3:19 PM CDT - 12/15/2023 11:59 PM CDT Hospital Encounter Department of Radiation Oncology in [place], [place] [address] [place] [phone] Kerry Morris M.D. 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
--- OUTSIDE RECORDS SUMMARY | 2024-03-12 09:45 | XMS_ITS | Encounter Summary ---
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 [address] [place] [address] Phone: tel: fax: [facility] Referral ID Status Reason Start Date Expiration Date V isits Requested Visits Authorized [id number] Authorized 12/07/2023 12/01/2024 15 15 Encounter Details Date Type Department Care Team (Latest Contact Info) Description 12/23/2023 3:30 PM CDT - 12/23/2023 11:59 PM CDT Hospital Encounter Department of Radiation Oncology in [place], [place] [address] [place] [phone] Kerry Morris M.D. 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
--- OUTSIDE RECORDS SUMMARY | 2024-03-12 09:45 | XMS_ITS ---
Author Organization [facility] Address [address] [place] [address] Care Team Providers Care Fabric Inspector Name Role Phone Unavailable Unavailable Unavailable Surgery Details Not on file Complications Check Surgery Details section. Procedure Estimated Blood Loss Check Surgery Details section. Procedure Findings Check Surgery Details section. Procedure Specimens Taken Check Surgery Details section.
--- OUTSIDE RECORDS SUMMARY | 2024-03-12 09:45 | XMS_ITS | Encounter Summary ---
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 [address] [place] [address] Phone: tel: fax: [facility] Region Referral ID Status Reason Start Date Expiration Date V isits Requested Visits Authorized [id number] Authorized 10/28/2023 10/27/2024 10 10 Encounter Details Date Type Department Care Team (Latest Contact Info) Description 12/16/2023 3:01 PM CDT - 12/16/2023 4:16 PM CDT Hospital Encounter Department of Radiation Oncology in [address] [phone] Kerry Morris M.D. 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 Treatment Course: 1xBreast Plan ID Fractions Dose / Fraction (cGy) Dose Treated (cGy) Dose Planned (cGy) First Treatment Last Treatment Elapsed Days [id number] 12/08/2023 12/16/2023 8 Course [...] stage IB (cT2, cN1, cM0, G2, ER+, MI+, HER2+) invasive ductal carcinoma of the left [...]
--- OUTSIDE RECORDS SUMMARY | 2024-03-12 09:45 | XMS_ITS | Encounter Summary ---
Author Organization [facility] Address [address] [place] [address] Care Team Providers Care Running Instructor Name Role Phone Unavailable Primary Care Provider Unavailabl e Reason for Referral * Outpatient (Routine) - Authorized Specialty Diagnoses / Procedures Referred By Lizet moyer Referred To Contact Radiation Oncology Kerry Morris M.D. [address] [place] [address] Phone: tel: [facility] Region Referral ID Status Reason Start Date Expiration Date V isits Requested Visits Authorized [id number] Authorized 10/28/2023 04/28/2025 10 10 Reason for Visit * Outpatient (Routine) - Authorized Specialty Diagnoses / Procedures Referred By Lizet moyer Referred To Contact Radiation Oncology Kerry Morris M.D. [address] [place] [address] Phone: tel: fax[facility] Region Referral ID Status Reason Start Date Expiration Date V isits Requested Visits Authorized [id number] Authorized 10/28/2023 04/28/2025 10 10 Encounter Details Date Type Department Care Team (Latest Contact Info) Description 12/21/2023 2:49 PM CDT - 12/21/2023 3:07 PM CDT Hospital Encounter Department of Radiation Oncology in [place], [place] [address] [place] [phone] Kerry Morris M.D. [address] [place] [phone] Shanda Thurston R.N. 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
--- OUTSIDE RECORDS SUMMARY | 2024-03-12 09:45 | XMS_ITS | Encounter Summary ---
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 [address] [place] [address] Phone: tel: fax: [facility] Referral ID Status Reason Start Date Expiration Date V isits Requested Visits Authorized [id number] Authorized 12/07/2023 12/01/2024 15 15 Encounter Details Date Type Department Care Team (Latest Contact Info) Description 12/17/2023 3:08 PM CDT - 12/17/2023 11:59 PM CDT Hospital Encounter Department of Radiation Oncology in [place], [place] [address] [place] [phone] Kerry Morris M.D. 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
--- OUTSIDE RECORDS SUMMARY | 2024-03-12 09:46 | XMS_ITS | Encounter Summary ---
Author Organization 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 [address] [place] [address] Phone: tel: fax: [facility] Referral ID Status Reason Start Date Expiration Date V isits Requested Visits Authorized [id number] Authorized 12/07/2023 12/01/2024 15 15 Encounter Details Date Type Department Care Team (Latest Contact Info) Description 12/09/2023 3:05 PM CDT - 12/09/2023 11:59 PM CDT Hospital Encounter Department of Radiation Oncology in [place], [place] [address] [place] [phone] Kerry Morris M.D. [address] [place] [address] Discharge Disposition: Home or Self Care Social [...] on file Legal Sex Female 6:46 PM TIE IN HAND Gender Identity Not on file Sexual Orientation [...]
--- OUTSIDE RECORDS SUMMARY | 2024-03-12 09:46 | XMS_ITS | Encounter Summary ---
Author Organization [facility] Address [address] [place] [address] Care Team Providers Care Watch Train Assembler Name Role Phone Unavailable Primary Care Provider Unavailabl e Reason for Referral * Outpatient (Routine) - Closed Specialty Diagnoses / Procedures Referred By Lizet moyer Referred To Contact Radiation Oncology Kerry Morris M.D. [address] [place] [address] Phone: tel: [facility] Region Referral ID Status Reason Start Date Expiration Date Visits Re quested Visits Authorized [id number] Closed 10/28/2023 04/28/2025 1 1 Reason for Visit * Outpatient (Routine) - Closed Specialty Diagnoses / Procedures Referred By Lizet moyer Referred To Contact Radiation Oncology Kerry Morris M.D. [address] [place] [address] Phone: tel: fax: [facility] Region Referral ID Status Reason Start Date Expiration Date Visits Re quested Visits Authorized [id number] Closed 10/28/2023 04/28/2025 1 1 Encounter Details Date Type Department Care Team (Latest Contact Info) Description 12/09/2023 3:05 PM CDT - 12/09/2023 4:21 PM CDT Hospital Encounter Department of Radiation Oncology in [place], [place] [address] [place] [phone] Kerry Morris M.D. [address] [place] [phone] Polly oMon R.N. 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
--- OUTSIDE RECORDS SUMMARY | 2024-03-12 09:46 | XMS_ITS | Encounter Summary ---
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 [address] [place] [address] Phone: tel: fax: [facility] Region Referral ID Status Reason Start Date Expiration Date V isits Requested Visits Authorized [id number] Authorized 10/28/2023 10/27/2024 10 10 Encounter Details Date Type Department Care Team (Latest Contact Info) Description 12/10/2023 3:33 PM CDT - 12/10/2023 4:45 PM CDT Hospital Encounter Department of Radiation Oncology in [address] [phone] M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 Treatment Course: 1xBreast Plan ID Fractions Dose / Fraction (cGy) Dose Treated (cGy) Dose Planned (cGy) First Treatment Last Treatment Elapsed Days [id number] 12/08/2023 12/10/2023 2 Course Summary 12/08/2023 12/10/2023 [...] stage IB (cT2, cN1, cM0, G2, ER+, [place]+, HER2+) invasive ductal carcinoma of the left [...]
--- OUTSIDE RECORDS SUMMARY | 2024-03-12 09:46 | XMS_ITS | Encounter Summary ---
Author Organization [facility] Address [address] [place] [address] Care Team Providers Care Technical Staff Assistant Name Role Phone Unavailable Primary Care [...] RADIOTHERAPY PLAN IMRT Kerry Morris M.D. [address] [place] [address] Phone: tel: fax: [facility] Referral ID Status Reason Start Date Expiration Date V isits Requested Visits Authorized [id number] Authorized 12/07/2023 12/01/2024 15 15 Encounter Details Date Type Department Care Team (Latest Contact Info) Description 12/10/2023 3:30 PM CDT - 12/10/2023 3:32 PM CDT Hospital Encounter Department of Radiation Oncology in [place], [place] [address] [place] [phone] Kerry Morris M.D. 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
--- OUTSIDE RECORDS SUMMARY | 2024-03-12 09:46 | XMS_ITS | Encounter Summary ---
Author Organization [facility] Address [address] [place] [address] Care Team Providers Care Ceramic Maker Demonstrator Name Role Phone Unavailable Primary Care Provider Unavailabl e Encounter Details Date Type Department Care Team (Latest Contact Info) Description 12/08/2023 2:00 PM CDT - 12/08/2023 11:59 PM CDT Hospital Encounter Department of Radiation Oncology in [place], [place] [address] [place] [phone] Kerry Morris M.D. 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
--- OUTSIDE RECORDS SUMMARY | 2024-03-12 09:46 | XMS_ITS | Clinical Summary ---
Author Organization [facility] Address [place], [place] [address] Care Team Providers Care Mobile Patrol Officer Name Role Phone Devi Rubin Primary Care Provider Allergies Active Allergy Reactions Criticality Noted Date Comments Minocycline Other - Describe In Comment Field 09/14/2023 [place] like she had the flu Medications Medication [...] Encounters Date Type Department Care Team Description 02/08/2024 8:00 AM CDT Ancillary Procedure [facility] [address] [place] [address] 02/08/2024 Orders Only [facility] Scanner 1 scan: (1-Ord) COEUR D ALENE, MR HEAD/BRAIN WO/W CON, 02/08/2024 12/31/2023 Orders Only [facility] Scanner 1 scan: (1-Ord) [facility], DEXA AXIAL SKELETON, 12/31/2023 12/14/2023 Refill [facility] [address] [place] [address] Marina Harris PA Refill Request (Venlafaxine) from [...] Used Date Smoking Tobacco: Former Cigarettes 0.3 24.8 S tarted: 06/01/1999 Smokeless Tobacco: Never Tobacco [...] T Respiratory Rate 16 04/27/2023 8:52 AM HARDNESS TESTER Oxygen Saturation 98% 10/12/2023 3:33 PM CDT [...] 05/18/2023 03/23/2023 COVID-19 vaccine series ( season) 2024 05/02/2023, 08/25/2022, 05/23/2021, Additional [...] Comments ECHO TTE COMPLETE W CONTRAST Routine 02/08/2024 9:00 AM CDT Encounter for therapeutic drug level monitoring SCAN-MRI INTERPRETATION 02/08/2024 12:00 AM CDT SCAN-BONE DENSITOMETRY DEXA 12/31/2023 12:00 AM CDT SCAN-MAMMOGRAPHY REPORT 10/06/2023 12:00 AM CDT ANTI HCV Routine 03/23/2023 11:48 AM CDT Need for hepatitis C screening test LIPID PANEL W REFLEX MEASURED LDL Routine 03/23/2023 11:48 AM CDT Screening cholesterol level HPV HIGH RISK Routine 03/23/2023 11:19 AM CDT Screening for cervical cancer from Last 3 Months or Most Recently Relevant to Health Maintenance Results * ECHO TTE COMPLETE W CONTRAST (02/08/2024 9:00 AM CDT) AORTIC VALVE MEAN PG 2 mmHg EJECTION FRACTION 73 % LVEDD 4.4 cm Anatomical Region Laterality Modality Ultrasound 02/08/2024 8:12 AM CDT Narrative 02/08/2024 9:23 AM CDT ECHOCARDIOGRAM ALANIS LORA ? Accession#: ?? [id number] : ?1970 53 years Study Date: ?? 02/08/2024 8:12:46 AM Gender: F ?BP: ? 129/84 mmHg Height: 170.00 cm ?BSA: ?2.00 m? ? ? Weight: 89.00 kg ? Tech: ? MCK ? Referring MD: DINA QUIGLEY Site: ? [facility] Reading Location: Mobile-OP Patient Location: Outpatient. Procedure: 2D w/ Contrast, Color Doppler and Spectral Doppler. Indication for study: Encounter for therapeutic drug level monitoring Cardiac Rhythm: Normal sinus.Study quality: Fair. Imaging limitations: This study was subject to imaging limitations due to mastectomy. Final Impressions: 1. Normal left ventricular size, normal wall thickness, normal global systolic function, calculated EF of 73 %. 2. Right ventricular cavity size is normal, global systolic RV function is normal. 3. No pericardial effusion. 4. No significant valve disease detected. 5. Echo contrast was administered to enhance visualization of all left ventricular segments. Chamber Sizes and Function Normal left ventricular size, normal wall thickness, normal global systolic function, calculated EF of 73 %. No definite resting regional wall motion abnormality seen. Left atrial size is normal. Right ventricular cavity size is normal, global systolic RV function is normal. The right atrium is normal. Right atrial volume index is 10 ml/m? ? ?. Right atrial area is [...] 2-D Measurements and LV Function: LVID (d) 4.4 cm Planimetered EF 73 % LVID (s) 2.5 cm LV FS% (2D) ? 43 % IVS (d) ??1.0 cm LVOT diameter ?? 2.0 cm LVPW (d) 1.0 cm HR ?80 bpm Ao Sinus 3.6 cm LA Vol index ?12 ml/m2 Asc Ao ?? 3.1 cm RA Vol index ?10 ml/m2 LA ? 3.0 cm RA area ? 12 cm?RV Max 4C (d) ?? 3.6 cm Diastology: Mitral ?Tissue Doppler E Peak 0.7 m/s ??e', Septum ? 0.07 m/s A Peak 0.8 m/s ??e', Lateral ?0.07 m/s E/A ?0.9 ?E/e' Average ?? 9.83 DT ? 198 msec Aortic Valve: Vmax ? 1.0 m/s ??PRISCILA (V) ?? 2.92 cm? ? ? VTI ?0.18 m ?? PRISCILA (I) ?? 3.06 cm? ? ? LVOT V max 1.0 m/s ??Max PG ?4 mmHg LVOT VTI ?? 0.18 m ?? Mean PG ?? 2 mmHg SV ? 56 ml ?Dim Index 1.01 SV index ?? 28 ml/m? ? ? CO ?4.5 l/min ?CI ?2.2 l/min/m? ? ? Mitral Valve: MVA ?3.8 cm? ? ? MV P 1/2 57 msec Tricuspid Valve and estimated PA pressures: TAPSE 2.1 cm Contrast documentation: 1 ml diluted Definity, lot #[id number], [facility]# [id number] was administered peripherally to enhance visualization of all left ventricular segments. . This study was interpreted by an [facility] accredited facility. CC: [facility] (med [facility]) [facility]. ??Final ?? Procedure Note Aguila Guzman MD - 02/08/2024 ECHOCARDIOGRAM ALANIS LORA : 1970 53 years Study Date: 02/08/2024 8:12:46 AM Gender: F BP: 129/84 mmHg Height: 170.00 cm BSA: 2.00 m? ? ? Weight: 89.00 kg Tech: [facility] Referring MD: DINA QUIGLEY Site: [facility] Reading Location: Mobile-OP Patient Location: Outpatient. Procedure: 2D w/ Contrast, Color Doppler and Spectral Doppler. Indication for study: Encounter for therapeutic drug level monitoring Cardiac Rhythm: Normal sinus.Study quality: Fair. Imaging limitations: This study was subject to imaging limitations due tomastectomy. Final Impressions: 1. Normal left ventricular size, normal wall thickness, normal globalsystolic function, calculated EF of 73 %. 2. Right ventricular cavity size is normal, global systolic RV functionis normal. 3. No pericardial effusion. 4. No significant valve disease detected. 5. Echo contrast was administered to enhance visualization of all leftventricular segments. Chamber Sizes and Function Normal left ventricular size, normal wall thickness, normal globalsystolic function, calculated EF of 73 %. No definite resting regionalwall motion abnormality seen. Left atrial size is normal. Rightventricular cavity size is normal, global systolic RV function is normal.The right atrium is normal. Right atrial volume index is 10 ml/m? ? ?. Rightatrial area is 12 cm? ? ?. The pulmonary artery is of normal size and origin.The sinus of Valsalva is normal sized. The ascending aorta is normalsized. Valves, RV Pressures and Diastolic Function The aortic valve is normal in structure and trileaflet, no stenosis and noregurgitation. The mitral valve is normal in structure, no mitralregurgitation. Normal diastolic function. The tricuspid valve is normal instructure. Tricuspid regurgitation is trace regurgitation. The pulmonicvalve is normal. No pulmonary regurgitation. Masses, Effusion, Shunts There is no pericardial effusion. The inferior vena cava is normal sized,respiratory size variation greater than 50%. No left to right shunting wasdetected by limited color flow Doppler interrogation of the interatrialseptum. MEASUREMENTS AND CALCULATIONS 2-D Measurements and LV Function: LVID (d) 4.4 cm Planimetered EF 73 % LVID (s) 2.5 cm LV FS% (2D) 43 % IVS (d) 1.0 cm LVOT diameter 2.0 cm LVPW (d) 1.0 cm HR 80 bpm Ao Sinus 3.6 cm LA Vol index 12 ml/m2 Asc Ao 3.1 cm RA Vol index 10 ml/m2 LA 3.0 cm RA area 12 cm? ? ? RV Max 4C (d) 3.6 cm Diastology: Mitral Tissue Doppler E Peak 0.7 m/s e', Septum 0.07 m/s A Peak 0.8 m/s e', Lateral 0.07 m/s E/A 0.9 E/e' Average 9.83 DT 198 msec Aortic Valve: Vmax 1.0 m/s PRISCILA (V) 2.92 cm? ? ? VTI 0.18 m PRISCILA (I) 3.06 cm? ? ? LVOT V max 1.0 m/s Max PG 4 mmHg LVOT VTI 0.18 m Mean PG 2 mmHg SV 56 ml Dim Index 1.01 SV index 28 ml/m? ? ? CO 4.5 l/min CI 2.2 l/min/m? ? ? Mitral Valve: MVA 3.8 cm? ? ? MV P 1/2 57 msec Tricuspid Valve and estimated PA pressures: TAPSE 2.1 cm Contrast documentation: 1 ml diluted Definity, lot #[id number], [facility]#[id number] was administered peripherally to enhance visualization of allleft ventricular segments. . This study was interpreted by an [facility] accredited facility. CC: [facility] (med records) [facility]. Final Dina Quigley MD ECHO ORD * SCAN-MRI INTERPRETATION (02/08/2024 12:00 AM CDT) Anatomical Region Laterality Modality Other Scanner OTHER * SCAN-BONE DENSITOMETRY DEXA (12/31/2023 12:00 AM CDT) Anatomical Region Laterality Modality Other Scanner OTHER * SCAN-MAMMOGRAPHY REPORT (10/06/2023 12:00 AM CDT) Anatomical Region Laterality Modality Other Scanner OTHER * (ABNORMAL) LIPID PANEL W REFLEX MEASURED LDL (03/23/2023 11:48 AM CDT) CHOLESTEROL,TOTAL 219(H) 100 - 199 mg/dL 03/23/2023 5:09 PM CDT [facility] [employer] [facility] Comment: Cholesterol, Total Reference Ranges Desirable <200 mg/dL Borderline 200-239 mg/dL High >=240 mg/dL TRIGLYCERIDES 163(H) <150 mg/dL 03/23/2023 5:09 PM CDT [facility] [employer] [facility] HDL CHOLESTEROL 60 >40 mg/dL 5:09 PM CDT [facility] NON-HDL CHOLESTEROL 159(H) <145 mg/dl 03/23/2023 5:09 PM CDT [facility] CHOL/HDL RATIO 3.65 <4.50 03/23/2023 5:09 PM CDT [facility] LDL CHOLESTEROL 126 <=130 mg/dL 03/23/2023 5:09 PM CDT [facility] VLDL CHOLESTEROL 33(H) <=30 mg/dL 03/23/2023 5:09 PM CDT [facility] PROVIDER ORDERED STATUS RANDOM 03/23/2023 5:09 PM CDT [facility] Blood BLOOD SPECIMEN / Unknown Venipuncture / Unknown 03/23/2023 11:48 AM CDT 03/23/2023 11:48 AM CDT Devi Rubin DO CHEMISTRY Performing Organization Address [facility] Co de Phone Number [facility] [address] [place] [address], * ANTI HCV (03/23/2023 11:48 AM CDT) HEPATITIS C ANTIBODY Non-Reacti ve Non-React mckay 03/23/2023 5:08 PM CDT [facility] Comment:Please note, per www [...] Rubin DO SEND OUTS Performing Organization Address [facility]/ZIP Co de Phone Number [facility] [address] [place] [address], * HPV HIGH RISK (03/23/2023 11:19 AM CDT) TYPE 16 Negative Negative 03/25/2023 2:07 PM CDT [facility] TYPE 18 Negative Negative 03/25/2023 2:07 PM CDT [facility] OTHER HIGH RISK TYPES Negative Negative 03/25/2023 2:07 PM CDT [facility] Other (Cervical) Non-Blood / Unknown 03/23/2023 11:19 AM CDT 03/23/2023 4:26 PM CDT Narrative [facility] - 03/25/2023 2:07 PM CDT HPV types 16, 18, 31, 33, 35, 39, 45, 51, 52, 56, 58, 59, 66 and 68 DNA were undetectable or below the pre-set threshold. Methodology: Laly Reji 4800 HPV Test Devi Rubin DO MICROBIOLOGY [facility] [address] [place] [address], from Last 3 Months or Most Recently Relevant to Health Maintenance Care Teams Mobile Patrol Officer Relationship Specialty [place] [id number] [place] [address] PCP - General Family Practice 03/30/23
== END 2024-03-12 09:52 | disposition home or self-care (01) ==
PROVIDERS: Emergency Provider Internal Medicine; PCP Family Medicine
DX: B02.9 Zoster without complications (principal)
CPT/HCPCS: 99283

== ENCOUNTER 2024-04-22 08:42 | Outpatient (CLI) | payer BC, SELFPAY ==
--- OUTSIDE RECORDS SUMMARY | 2024-04-22 08:44 | XMS_ITS ---
Author Organization [facility] Address [address] [place] [address] Care Team Providers Care Grants Assistant Name Role Phone Unavailable Primary Care Provider Unavailabl e Active Problems Problem Noted Date Diagnosed Date Malignant Neoplasm Of Breast Upper Outer Quadrant Female Left 10/28/2023 Cancer Staging:Clinical stage from 04/20/2023:Stage IB(cT2, cN1, cM0, G2, ER+, AK+, HER2+) - Unsigned Pathologic stage from 10/06/2023: ypT1b, pN0(sn), cM0, G1, ER+, AK+, HER2+ - Unsigned Current Oncology Plans No current plan information found. Past Plans No past plan information found. Radiation Treatments * Plan Last Treated On Elapsed Days Fractions Treated Prescribed Fraction Dose Prescribed Total Dose [id number] 12/28/2023 20 5 of 5 267 cGy 1,335 cGy [id number] 12/21/2023 13 10 of 10 267 cGy 2,670 cGy Reference Point Last Treated On Elapsed Days Session Dose Total Dose [id number] 12/28/2023 20 267 cGy 4,005 cGy
--- OUTSIDE RECORDS SUMMARY | 2024-04-22 08:44 | XMS_ITS | Clinical Summary ---
Author Organization [facility] Address [address] [place] [address] Care Team Providers Care Button Station Worker Name Role Phone Unavailable Primary Care Provider Unavailabl e Source Comments Patient records contain information from all sites at [facility]. For routine questions regarding patient records, call [phone] during business hours, M-F 8:00 AM - 5:00 PM Central Time. Record requests for emergency care only can be directed to [phone] at any time.[facility] Allergies Active Allergy Reactions Criticality Noted Date Comments Minocycline Other (see comments) 09/14/2023 [place] like she had the flu Medications venlafaxine [...] from 04/20/2023:Stage IB(cT2, cN1, cM0, G2, ER+, [place]+, HER2+) - Unsigned Pathologic stage from 10/06/2023: ypT1b, pN0(sn), cM0, G1, ER+, [place]+, HER2+ - Unsigned Encounters Date Type Department Care Team Description 03/11/2024 Clinical Communication Department of Radiation Oncology in [place], [place] [address] [place] [address] Kerry Morris M.D. 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 Gender Identity Not on file Sexual Orientation Not on file Last Filed Vital Signs Vital Sign Reading Time Taken Comments Blood Pressure 134/78 11/25/2023 1:20 PM CDT Pulse 89 11/25/2023 1:20 PM CDT Temperature 35.3 C (95.6 F) 12/23/2023 3:08 PM CDT Respiratory Rate - - Oxygen Saturation - - Inhaled Oxygen Concentration - - Weight 93 kg (205 lb 0.4 oz) 12/23/2023 3:08 PM CDT Height - - Body Mass Index - - Plan of Treatment Health Maintenance Due Date Last Done Comments CT Colonography 1970 Cervical/Vaginal Cancer Screening 1970 Cologuard 1970 Colonoscopy 1970 Colorectal Cancer Screening 1970 FIT 1970 HIV Screening 1970 Hepatitis C Screening 1970 Hepatitis B Vaccines (1 of 3 - 19+ 3-dose series) 11/25/1991 Zoster Vaccines (2 of 2) 05/18/2023 03/23/2023 Depression Screening (Annual PHQ-2) 06/01/2023 COVID-19 Vaccine (2023- season) 2024 05/02/2023, 08/25/2022, 05/23/2021, Additional history exists Influenza Vaccine (#1) 2024 05/14/2023 Fasting Glucose for Diabetes Screening 08/11/2026 08/12/2023, 10/25/2021, 04/26/2021 Lipid (Cholesterol) Screening 03/23/2028 03/23/2023, 04/26/2021 DTaP,Tdap,and Td Vaccines (2 - Td or Tdap) 10/26/2031 10/25/2021 Pneumococcal vaccine (0-64 years) Completed 03/23/2023 Mammogram Discontinued 10/06/2023, 050 11/2023, 10/06/2023, Additional history exists HPV Vaccines Aged Out No longer eligi ble based on patient's age to complete this topic IPV Vaccines Aged Out No longer eligi ble based on patient's age to complete this topic Procedures Procedure Name Priority Date/Time Associated Diagnosis Comments OUTSIDE MG MAMMOGRAM Routine 10/06/2023 12:05 PM CDT from Last 3 Months or Most Recently Relevant to Health Maintenance Results * MM surgical specimen LT-Outside Mammogram (10/06/2023 [...] overread is required please follow defined workflow. us Provider Not In System IMG BI PROCEDURES Final R esult IIMS NA from Last 3 Months or Most Recently Relevant to Health Maintenance Insurance [facility]
--- OUTSIDE RECORDS SUMMARY | 2024-04-22 08:44 | XMS_ITS | Referral Summary ---
Author Organization [facility] Address [address] [place] [address] Care Team Providers Care Sliver Handler Name Role Phone Unavailable Primary Care Provider Unavailabl e Source Comments Patient records contain information from all sites at [facility]. For routine questions regarding patient records, call [phone] during business hours, M-F 8:00 AM - 5:00 PM Central Time. Record requests for emergency care only can be directed to [phone] at any time.[facility] Encounters Date Type Department Care Team Description 03/11/2024 Clinical Communication Department of Radiation Oncology in [place], [place] [address] [place] [phone] Kerry Morris M.D. 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 If a re-interpretation or overread is required please follow defined workflow. us Provider Not In System IMG BI PROCEDURES Final R esult IIMS NA from Last 3 Months or Most Recently Relevant to Health Maintenance Insurance [facility]
--- OUTSIDE RECORDS SUMMARY | 2024-04-22 08:44 | XMS_ITS ---
Author Organization [facility] Address [address] [place] [address] Care Team Providers Care Regional Account Executive Name Role Phone Unavailable Unavailable Unavailable Surgery Details Not on file Complications Check Surgery Details section. Procedure Estimated Blood Loss Check Surgery Details section. Procedure Findings Check Surgery Details section. Procedure Specimens Taken Check Surgery Details section.
--- OUTSIDE RECORDS SUMMARY | 2024-04-22 08:45 | XMS_ITS | Encounter Summary ---
Author Organization [facility] Address [address] [place] [address] Care Team Providers Care Stand Grinder Name Role Phone Unavailable Primary Care Provider Unavailabl e Encounter Details Date Type Department Care Team (Late st Contact Info) Description 12/28/2023 Documentation Department of Radiation Oncology in [place], [place] [address] [place] [phone] Kerry Morris M.D. 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 Britt at [facility] on January 04, 2024. Signed by: Shanda [place] R.N., 01/18/2024 11:25 AM CDT [facility] [address] [place] [address] Cosigned by Kerry Morris M.D. at 01/18/2024 4:40 PM CDT documented in this encounter Plan of Treatment Not on file documented as of this encounter Visit Diagnoses Diagnosis 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)- Primary documented in this encounter
--- OUTSIDE RECORDS SUMMARY | 2024-04-22 08:45 | XMS_ITS | Clinical Summary ---
Author Organization [employer] [facility] Address [place], [place] [address] Care Team Providers Care Barbering Teacher Name Role Phone Devi Rubin Primary Care Provider Allergies Active Allergy Reactions Criticality Noted Date Comments Minocycline Other - Describe In Comment Field 09/14/2023 [place] like she had the flu Medications Medication [...] Encounters Date Type Department Care Team Description 04/22/2024 Travel 04/22/2024 Refill [facility] [address] [place] [address] Marina Harris PA Refill Request (Venlafaxine) 02/08/2024 8:00 AM CDT Ancillary Procedure [facility] [address] [place] [address] 02/08/2024 Orders Only [facility] Scanner 1 scan: (1-Ord) [place], MR HEAD/BRAIN WO/W CON, 02/08/2024 from Last 3 Months Immunizations Name Administration [...] Used Date Smoking Tobacco: Former Cigarettes 0.3 24.9 S tarted: 06/01/1999 Smokeless Tobacco: Never Tobacco Cessation:Counseling Given: Not Answered Comments:some on weekends, 1/2 pack Alcohol Use Standard Drinks/Week Comments Not Currently 0 (1 standard drink = 0.6 oz pur e alcohol) 6-16 drinks on weekends PHQ-2 Answer Date Recorded PHQ-2 TOTAL SCORE 0 07/09/2023 Social Connections Answer Date Recorded Do you often feel lonely or isolated from those around you? 0 09/22/2023 Financial Resource Strain Answer Date R ecorded Difficulty of Paying Living Expenses 3 09/22/2023 Difficulty of Paying Living Expenses Not on file 09/22/2023 Food Insecurity Answer Date Recorded Do you worry your food will run out before you are able to buy more? 1 09/22/2023 Transportation Needs Answer Date Record ed Does lack of transportation keep you from medica l appointments? 1 09/22/2023 Does lack of transportation keep you from work, meetings or getting things that you need? 1 09/22/2023 Housing Stability Answer Date Recorded What is your housing situation today? 1 09/22/2023 Sex and Gender Information Value [...] 124 10/12/2023 3:33 PM CDT Temperature 36.6 C (97.8 F) 08/12/2023 4:18 PM CDT Respiratory Rate 16 04/27/2023 8:52 AM HIDE PULLER Oxygen Saturation 98% 10/12/2023 3:33 PM CDT Inhaled Oxygen Concentration - - Weight 88.8 kg (195 lb 11.2 oz) 10/12/2023 3:33 PM CDT Height 170.2 cm (5' 7) 09/22/2023 1:45 PM CDT Body Mass Index 30.65 09/22/2023 1:45 PM CDT Plan of Treatment Upcoming Encounters Date Type Department Care Team (Late st Contact Info) Description 04/22/2024 9:00 AM HIDE PULLER Ancillary Procedure [facility] [address] [place] [address] Health Maintenance Due Date Last Done Comments HIV for age 15-65 11/25/1987 Colonoscopy through age 75 2017 Zoster (shingles) series for age 50+ (2 of 2) 05/18/2023 03/23/2023 COVID-19 vaccine series (2023- season) 2024 05/02/2023, 08/25/2022, 05/23/2021, Additional [...] monitoring SCAN-MRI INTERPRETATION 02/08/2024 12:00 AM CDT SCAN-MAMMOGRAPHY REPORT 10/06/2023 12:00 [...] 02/08/2024 9:23 AM CDT ECHOCARDIOGRAM ALANIS LORA : 1970 53 years Study Date: 02/08/2024 8:12:46 AM Gender: F BP: 129/84 mmHg Height: 170.00 cm BSA: 2.00 m Weight: 89.00 kg Tech: FLORENCIO Referring MD: DINA QUIGLEY Site: [facility] Reading Location: Mobile-OP Patient Location: [...] normal. Right atrial volume index is 10 ml/m . Right atrial area is 12 cm . The pulmonary artery is of normal size [...] ml/m2 LA 3.0 cm RA area 12 cm RV Max 4C (d) 3.6 cm Diastology: Mitral Tissue Doppler E Peak 0.7 m/s e', Septum 0.07 m/s A Peak 0.8 m/s e', Lateral 0.07 m/s E/A 0.9 E/e' Average 9.83 DT 198 msec Aortic Valve: Vmax 1.0 m/s PRISCILA (V) 2.92 cm VTI 0.18 m PRISCILA (I) 3.06 cm LVOT V max 1.0 m/s Max PG 4 mmHg LVOT VTI 0.18 m Mean PG 2 mmHg SV 56 ml Dim Index 1.01 SV index 28 ml/m CO 4.5 l/min CI 2.2 l/min/m Mitral Valve: MVA 3.8 cm MV P 1/2 57 msec Tricuspid Valve and estimated PA pressures: TAPSE 2.1 cm Contrast documentation: 1 ml diluted Definity, lot #[id number], [facility]# [id number] was administered peripherally to enhance visualization of all left ventricular segments. . This study was interpreted by an [facility] accredited facility. CC: [employer] ([facility]) [facility]. Final Procedure Note Aguila Guzman MD - 02/08/2024 ECHOCARDIOGRAM ALANIS LORA : 1970 53 years Study Date: 02/08/2024 8:12:46 AM Gender: F BP: 129/84 mmHg Height: 170.00 cm BSA: 2.00 m Weight: 89.00 kg Tech: FLORENCIO Referring MD: DINA QUIGLEY Site: [facility] Reading Location: Mobile-OP Patient Location: [...] normal. Right atrial volume index is 10 ml/m . Rightatrial area is 12 cm . The pulmonary artery is of normal size [...] ml/m2 LA 3.0 cm RA area 12 cm RV Max 4C (d) 3.6 cm Diastology: Mitral Tissue Doppler E Peak 0.7 m/s e', Septum 0.07 m/s A Peak 0.8 m/s e', Lateral 0.07 m/s E/A 0.9 E/e' Average 9.83 DT 198 msec Aortic Valve: Vmax 1.0 m/s PRISCILA (V) 2.92 cm VTI 0.18 m PRISCILA (I) 3.06 cm LVOT V max 1.0 m/s Max PG 4 mmHg LVOT VTI 0.18 m Mean PG 2 mmHg SV 56 ml Dim Index 1.01 SV index 28 ml/m CO 4.5 l/min CI 2.2 l/min/m Mitral Valve: MVA 3.8 cm MV P 1/2 57 msec Tricuspid Valve and estimated PA pressures: TAPSE 2.1 cm Contrast documentation: 1 ml diluted Definity, lot #[id number], [facility]#[id number] was administered peripherally to enhance visualization of allleft ventricular segments. . This study was interpreted by an [facility] accredited facility. CC: [employer] ([facility]) [facility]. Final Dina Quigley MD ECHO ORD * SCAN-MRI INTERPRETATION (02/08/2024 12:00 AM CDT) Anatomical Region Laterality Modality Other Scanner OTHER * SCAN-MAMMOGRAPHY REPORT (10/06/2023 12:00 AM CDT) Anatomical Region Laterality Modality Other Scanner OTHER * (ABNORMAL) LIPID PANEL W REFLEX MEASURED LDL (03/23/2023 11:48 AM CDT) CHOLESTEROL,TOTAL 219(H) 100 - 199 mg/dL 03/23/2023 5:09 PM CDT [facility] Comment: Cholesterol, Total Reference Ranges Desirable <200 mg/dL Borderline 200-239 mg/dL High >=240 mg/dL TRIGLYCERIDES 163(H) <150 mg/dL 03/23/2023 5:09 PM CDT [facility] HDL CHOLESTEROL 60 >40 mg/dL 5:09 PM CDT [facility] NON-HDL CHOLESTEROL 159(H) <145 mg/dl 03/23/2023 5:09 PM CDT [facility] CHOL/HDL RATIO 3.65 <4.50 03/23/2023 5:09 PM CDT [facility] LDL CHOLESTEROL 126 <=130 mg/dL 03/23/2023 5:09 PM CDT [facility] VLDL CHOLESTEROL 33(H) <=30 mg/dL 03/23/2023 5:09 PM CDT [facility] PROVIDER ORDERED STATUS RANDOM 03/23/2023 5:09 PM CDT [facility] Blood BLOOD SPECIMEN / Unknown Venipuncture / Unknown 03/23/2023 11:48 AM CDT 03/23/2023 11:48 AM CDT Devi Rubin DO CHEMISTRY Performing Organization Address City/State/[facility] Co de Phone Number [facility] [address] [place] [address], * ANTI HCV (03/23/2023 11:48 AM CDT) HEPATITIS C ANTIBODY Non-Reacti ve Non-React mckay 03/23/2023 5:08 PM CDT [facility] Comment:Please note, per www .CDC.gov: If [...] AM CDT Devi Rubin DO SEND OUTS [facility] [address] [place] [phone], * HPV HIGH RISK (03/23/2023 11:19 AM CDT) TYPE 16 Negative Negative 03/25/2023 2:07 PM CDT [facility] TYPE 18 Negative Negative 03/25/2023 2:07 PM CDT [facility] OTHER HIGH RISK TYPES Negative Negative 03/25/2023 2:07 PM CDT [facility] Other (Cervical) Non-Blood / Unknown 03/23/2023 11:19 AM CDT 03/23/2023 4:26 PM CDT Narrative [facility] - 03/25/2023 2:07 PM CDT HPV types 16, 18, 31, 33, 35, 39, 45, 51, 52, 56, 58, 59, 66 and 68 DNA were undetectable or below the pre-set threshold. Methodology: Laly Reji 4800 HPV Test Devi Rubin DO MICROBIOLOGY Performing Organization Address [facility]/ZIP Co de Phone Number [facility] [address] [place] [phone], from Last 3 Months or Most Recently Relevant to Health Maintenance Care Teams Barbering Teacher Relationship Specialty [place] [address] [place] [address] PCP - General Family Practice 03/30/23
--- OUTSIDE RECORDS SUMMARY | 2024-04-22 08:45 | XMS_ITS | Encounter Summary ---
Author Organization [facility] Address [address] [place] [address] Care Team Providers Care Automatic Washer Mechanic Name Role Phone Unavailable Primary Care Provider Unavailabl e Encounter Details Date Type Department Care Team (Late st Contact Info) Description 03/11/2024 Clinical Communication Department of Radiation Oncology in [place], [place] [address] [place] [phone] Kerry Morris M.D. 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 - 03/11/2024 11:34 PM CDT Miss Gates called me oil pump station operator chief this evening. She states that her arm [...]
[2024-04-22] MEDS: PERFLUTREN LIPID MICROSPHERES 2 ML VIAL IVP (10:24)
== END 2024-04-22 08:43 | disposition home or self-care (01) ==
LOC: RAD 08:43
PROVIDERS: PCP Family Medicine; Visit Provider Physician Assistant
DX: C50.912 Malignant neoplasm of unspecified site of left female breast (principal); I34.0 Nonrheumatic mitral (valve) insufficiency
CPT/HCPCS: 93306; 93308; 93321; 93325; Q9957

== ENCOUNTER 2024-04-25 10:30 | Outpatient (RCR) | payer BC, SELFPAY ==
--- NOTE | 2023-10-27 12:54 | URNOTE ---
Request received for authorization for Ado-Trastuzumab (Kadcyla) ([id number]). Prior authorization is approved per [facility] for date range 11/02/2023 to 10/31/2024.
[2023-10-29 15:11] LABS: Basophils Percent Auto 0.8 % (0.0-3.0); Eosinophils Percent Auto 4.2 % (0.0-7.0); Hematocrit 30.2 % (33.0-51.0); Hemoglobin* 10.4 gm/dL (12.0-16.0); Lymphocytes Percent Auto 31.3 % (20-44); Mean Corpuscular HGB Conc 34 gm/dL (32-36); Mean Corpuscular Hemoglobin 34 pg (26-34); Mean Corpuscular Volume 99 fL (80-100); Monocytes Percent Auto 10.8 % (0.0-11.0); Neutrophils Percent Auto 52.9 % (42.0-72.0); Platelet Count* 234 K/uL (140-440); Red Blood Count 3.06 m/uL (4.00-5.20)
[2023-10-29 15:14] LABS: Slide Review Reflex No
[2023-10-29 15:22] LABS: Albumin* 4.1 g/dL (3.3-5.0); Chloride* 105 mmol/L (96-114); Potassium* 3.8 mmol/L (3.6-5.1); Sodium* 137 mmol/L (135-149)
[2023-10-29 15:24] LABS: Bilirubin Total* 0.5 mg/dL (0.1-1.5); Creatinine* 1.2 mg/dL (0.5-1.5); Estimated Glomerular Filt Rate 55 ml/min
[2023-10-29 15:25] LABS: Alanine Aminotransferase* 85 U/L (4-35); Alkaline Phosphatase* 71 U/L (40-150); Anion Gap 5 mEq/L (7-15); Aspartate Amino Transferase* 45 U/L (12-35); Blood Urea Nitrogen* 24 mg/dL (7-30); Calcium* 8.6 mg/dL (8.4-10.6); Carbon Dioxide* 27 mmol/L (20-32); Glucose* 96 mg/dL (60-115); Total Protein* 7.5 g/dL (6.0-8.3)
[2023-10-29 15:44] LABS: HCG Quantitative* < 2.39 mIU/mL
--- NOTE | 2023-10-30 16:04 | ONC.NURNOTE ---
Reviewed with pt via phone her labs results and Echo results are WNL and ok for treatment Thursday. EF continues to be 60-65%, consistent with previous echoes 07/2023 and 05/2023. Pt verbalizes understanding.
[2023-11-02 10:33] VITALS: BP 135/85; PULSE 82; RESP 17; TEMP 35.7; O2SAT 98
[2023-11-02] MEDS: ONDANSETRON 2 MG/ML inj 8 MG IVP (11:06)
[2023-11-02] MEDS: dexAMETHasone 10 MG in 0.9 % SODIUM CHLORIDE 100 ml 100 ML 404 MG IVPB (11:10)
[2023-11-23 08:55] LABS: Basophils Absolute Auto 0.03 K/uL (0.00-0.30); Basophils Percent Auto 0.6 % (0.0-3.0); Eosinophils Absolute Auto 0.21 K/uL (0.00-0.50); Eosinophils Percent Auto 4.5 % (0.0-7.0); Hematocrit 32.7 % (33.0-51.0); Hemoglobin* 11.2 gm/dL (12.0-16.0); Immature Granulocytes Abs Auto 0.01 K/uL (0.00-0.30); Immature Granulocytes Pct Auto 0.2 %; Lymphocytes Absolute Auto 1.27 K/uL (0.90-2.90); Lymphocytes Percent Auto 27.3 % (20-44); Mean Corpuscular HGB Conc 34 gm/dL (32-36); Mean Corpuscular Hemoglobin 33 pg (26-34); Mean Corpuscular Volume 97 fL (80-100); Monocytes Percent Auto 13.7 % (0.0-11.0); Neutrophils Percent Auto 53.7 % (42.0-72.0); Platelet Count* 312 K/uL (140-440); Red Blood Count 3.37 m/uL (4.00-5.20); White Blood Count* 4.66 K/uL (4.50-11.00)
[2023-11-23 08:57] LABS: Slide Review Reflex No
[2023-11-23 09:09] LABS: Albumin* 4.5 g/dL (3.3-5.0); Chloride* 103 mmol/L (96-114)
[2023-11-23 09:10] LABS: Potassium* 3.8 mmol/L (3.6-5.1); Sodium* 137 mmol/L (135-149)
[2023-11-23 09:12] LABS: Anion Gap 10 mEq/L (7-15); Aspartate Amino Transferase* 51 U/L (12-35); Bilirubin Total* 0.5 mg/dL (0.1-1.5); Blood Urea Nitrogen* 20 mg/dL (7-30); Carbon Dioxide* 24 mmol/L (20-32); Creatinine* 0.9 mg/dL (0.5-1.5); Estimated Glomerular Filt Rate 78 ml/min; Total Protein* 7.7 g/dL (6.0-8.3)
[2023-11-23 09:13] LABS: Alanine Aminotransferase* 80 U/L (4-35); Alkaline Phosphatase* 85 U/L (40-150); Calcium* 9.4 mg/dL (8.4-10.6); Glucose* 108 mg/dL (60-115)
[2023-11-23 09:52] LABS: HCG Quantitative* < 2.39 mIU/mL
[2023-11-23] MEDS: ONDANSETRON 2 MG/ML inj 8 MG IVP (10:39)
[2023-11-23] MEDS: dexAMETHasone 10 MG in 0.9 % SODIUM CHLORIDE 100 ml 100 ML 404 MG IVPB (10:39)
[2023-11-23] MEDS: SODIUM CHLORIDE 0.9 % (FLUSH) 10 ML SYRINGE IVF (10:40)
[2023-11-23] MEDS: HEPARIN 500 UNIT/5 ML SYRINGE IVF (10:40)
[2023-12-14 09:35] LABS: Basophils Percent Auto 1.3 % (0.0-3.0); Eosinophils Percent Auto 3.1 % (0.0-7.0); Hematocrit 34.7 % (33.0-51.0); Hemoglobin* 11.8 gm/dL (12.0-16.0); Lymphocytes Percent Auto 25.2 % (20-44); Mean Corpuscular HGB Conc 34 gm/dL (32-36); Mean Corpuscular Hemoglobin 32 pg (26-34); Mean Corpuscular Volume 95 fL (80-100); Monocytes Percent Auto 14.7 % (0.0-11.0); Neutrophils Percent Auto 55.7 % (42.0-72.0); Platelet Count* 269 K/uL (140-440); RDW Coefficient of Variation % 11.8 % (11.5-15.5); Red Blood Count 3.65 m/uL (4.00-5.20); White Blood Count* 3.89 K/uL (4.50-11.00)
[2023-12-14 09:37] LABS: Slide Review Reflex No
[2023-12-14 09:49] LABS: Albumin* 4.5 g/dL (3.3-5.0); Chloride* 102 mmol/L (96-114); Sodium* 137 mmol/L (135-149)
[2023-12-14 09:50] LABS: Potassium* 4.1 mmol/L (3.6-5.1)
[2023-12-14 09:52] LABS: Alanine Aminotransferase* 51 U/L (4-35); Alkaline Phosphatase* 81 U/L (40-150); Anion Gap 7 mEq/L (7-15); Bilirubin Total* 0.5 mg/dL (0.1-1.5); Blood Urea Nitrogen* 17 mg/dL (7-30); Calcium* 9.7 mg/dL (8.4-10.6); Carbon Dioxide* 28 mmol/L (20-32); Creatinine* 0.9 mg/dL (0.5-1.5); Est. Creatinine Clearance* 71.91; Estimated Glomerular Filt Rate 77 ml/min; Glucose* 103 mg/dL (60-115); Total Protein* 8.3 g/dL (6.0-8.3)
[2023-12-14 09:54] LABS: Aspartate Amino Transferase* 42 U/L (12-35)
[2023-12-14 10:12] LABS: HCG Quantitative* < 2.39 mIU/mL
[2023-12-14] MEDS: ONDANSETRON 2 MG/ML inj 8 MG IVP (10:59)
[2023-12-14] MEDS: SODIUM CHLORIDE 0.9 % (FLUSH) 10 ML SYRINGE IVF ×2 (10:59→12:04)
[2023-12-14] MEDS: dexAMETHasone 10 MG in 0.9 % SODIUM CHLORIDE 100 ml 100 ML 404 MG IVPB (11:00)
[2023-12-14] MEDS: HEPARIN 500 UNIT/5 ML SYRINGE IVF (12:04)
--- NOTE | 2023-12-14 12:09 | PC.PHA ---
Rounded Kadcyla dose to 320 mg due to vial size [facility] rounding [facility]
--- NOTE | 2023-12-14 13:24 | ONC.NURNOTE ---
O2 sats 96-99% while ambulating in hallway. Mirta updated.
--- NOTE | 2023-12-21 10:49 | ONC.NURNOTE ---
Patient called to report that starting Thursday night, she is waking up in the night coughing, 1 or 2 episodes. Once she takes a cough drop, the coughing goes away. No day time coughing. Patient denies chest pain or shortness of breath. She has a runny nose. Covid test was negative. She denies fever. She remembers hearing that Kadcyla can cause lung problems so she felt that she should report this. We discussed ILD/pneumonitis. Patient informed to continue monitoring her symptoms. If her cough worsens, she develops fever and/or shortness of breath, she is to return call to N. Patient verbalizes understanding.
[2024-01-04] MEDS: SODIUM CHLORIDE 0.9 % (FLUSH) 10 ML SYRINGE IVF (08:42)
[2024-01-04 08:48] LABS: Eosinophils Percent Auto 3.1 % (0.0-7.0); Hematocrit 33.8 % (33.0-51.0); Hemoglobin* 11.5 gm/dL (12.0-16.0); Immature Granulocytes Pct Auto 0.3 %; Lymphocytes Percent Auto 19.7 % (20-44); Mean Corpuscular HGB Conc 34 gm/dL (32-36); Mean Corpuscular Hemoglobin 32 pg (26-34); Mean Corpuscular Volume 94 fL (80-100); Neutrophils Percent Auto 60.9 % (42.0-72.0); Platelet Count* 215 K/uL (140-440); RDW Coefficient of Variation % 11.8 % (11.5-15.5); White Blood Count* 3.81 K/uL (4.50-11.00)
[2024-01-04 08:52] LABS: Slide Review Reflex No
[2024-01-04 09:08] LABS: Albumin* 4.6 g/dL (3.3-5.0); Chloride* 103 mmol/L (96-114); Potassium* 3.9 mmol/L (3.6-5.1); Sodium* 137 mmol/L (135-149)
[2024-01-04 09:10] LABS: Creatinine* 0.8 mg/dL (0.5-1.5); Estimated Glomerular Filt Rate 89 ml/min
[2024-01-04 09:11] LABS: Alanine Aminotransferase* 59 U/L (4-35); Alkaline Phosphatase* 76 U/L (40-150); Anion Gap 9 mEq/L (7-15); Aspartate Amino Transferase* 41 U/L (12-35); Bilirubin Total* 0.5 mg/dL (0.1-1.5); Blood Urea Nitrogen* 19 mg/dL (7-30); Carbon Dioxide* 25 mmol/L (20-32); Glucose* 124 mg/dL (60-115); Total Protein* 8.2 g/dL (6.0-8.3)
[2024-01-04 09:12] LABS: Calcium* 9.5 mg/dL (8.4-10.6)
[2024-01-04 09:28] LABS: HCG Quantitative* < 2.39 mIU/mL
[2024-01-04] MEDS: 0.9 % SODIUM CHLORIDE 1000 ml 1,000 ML IV (10:00)
[2024-01-04] MEDS: dexAMETHasone 10 MG in 0.9 % SODIUM CHLORIDE 100 ml 100 ML 404 MG IVPB (10:54)
[2024-01-04] MEDS: ONDANSETRON 2 MG/ML inj 8 MG IVP (10:54)
[2024-01-04] MEDS: HEPARIN 500 UNIT/5 ML SYRINGE IVF (10:55)
[2024-01-25 08:17] LABS: Basophils Percent Auto 1.1 % (0.0-3.0); Eosinophils Percent Auto 3.8 % (0.0-7.0); Hematocrit 32.3 % (33.0-51.0); Hemoglobin* 11.1 gm/dL (12.0-16.0); Immature Granulocytes Pct Auto 0.2 %; Mean Corpuscular HGB Conc 34 gm/dL (32-36); Mean Corpuscular Hemoglobin 32 pg (26-34); Mean Corpuscular Volume 93 fL (80-100); Monocytes Percent Auto 14.2 % (0.0-11.0); Neutrophils Percent Auto 62.7 % (42.0-72.0); Platelet Count* 232 K/uL (140-440); Red Blood Count 3.47 m/uL (4.00-5.20); White Blood Count* 4.44 K/uL (4.50-11.00)
[2024-01-25 08:19] LABS: Slide Review Reflex No
[2024-01-25 08:31] LABS: Albumin* 4.5 g/dL (3.3-5.0); Chloride* 104 mmol/L (96-114); Potassium* 3.8 mmol/L (3.6-5.1); Sodium* 135 mmol/L (135-149)
[2024-01-25 08:33] LABS: Creatinine* 0.8 mg/dL (0.5-1.5); Est. Creatinine Clearance* 77.88; Estimated Glomerular Filt Rate 89 ml/min
[2024-01-25 08:34] LABS: Alanine Aminotransferase* 55 U/L (4-35); Alkaline Phosphatase* 78 U/L (40-150); Anion Gap 8 mEq/L (7-15); Aspartate Amino Transferase* 43 U/L (12-35); Bilirubin Total* 0.4 mg/dL (0.1-1.5); Blood Urea Nitrogen* 19 mg/dL (7-30); Calcium* 9.5 mg/dL (8.4-10.6); Carbon Dioxide* 23 mmol/L (20-32); Glucose* 111 mg/dL (60-115)
[2024-01-25 08:51] LABS: HCG Quantitative* 2.94 mIU/mL
[2024-01-25] MEDS: SODIUM CHLORIDE 0.9 % (FLUSH) 10 ML SYRINGE IVF (09:53)
[2024-01-25] MEDS: ONDANSETRON 2 MG/ML inj 8 MG IVP (09:58)
[2024-01-25] MEDS: dexAMETHasone 10 MG in 0.9 % SODIUM CHLORIDE 100 ml 100 ML 404 MG IVPB (10:01)
--- NOTE | 2024-02-11 13:23 | ONC.NURNOTE ---
Addendum entered by Mary Ann Allison 02/11/24 19:01: Discussed with Dr. Mcfadden and Mirta Alfredo PA-C. I was unable to reach patient. I left her a message to sharing our recommendation to start Magnesium Oxide 400 mg BID to see if that helps her leg pain. Will reassess at her follow up visit on Thursday. Original Note: Patient calls to report worsening neuropathy, primarily in her legs and feet. She states she has been unable to sleep for the last several days because of it. She describes it as extending bilaterally from her calves to her toes, tingling, constant with intermittent sharp zingers. She has tried Ibuprofen and Magnesium lotion with no relief. She has an appointment on Thursday but she is very uncomfortable and wonders if we have any suggestions for how to manage this. I assured her that I would review her concerns with our provider and give her a call back.
[2024-02-15 08:26] VITALS: BP 118/87; PULSE 91; RESP 16; TEMP 35.9; O2SAT 96
[2024-02-15 08:41] LABS: Eosinophils Percent Auto 4.9 % (0.0-7.0); Hematocrit 33.2 % (33.0-51.0); Hemoglobin* 11.1 gm/dL (12.0-16.0); Immature Granulocytes Pct Auto 0.2 %; Lymphocytes Percent Auto 22.6 % (20-44); Mean Corpuscular HGB Conc 33 gm/dL (32-36); Mean Corpuscular Hemoglobin 31 pg (26-34); Mean Corpuscular Volume 94 fL (80-100); Monocytes Percent Auto 16.5 % (0.0-11.0); Neutrophils Percent Auto 54.8 % (42.0-72.0); Platelet Count* 256 K/uL (140-440); RDW Coefficient of Variation % 12.3 % (11.5-15.5); Red Blood Count 3.55 m/uL (4.00-5.20); White Blood Count* 4.11 K/uL (4.50-11.00)
[2024-02-15 08:48] LABS: Slide Review Reflex No
[2024-02-15 08:52] LABS: Albumin* 4.5 g/dL (3.3-5.0)
[2024-02-15 08:53] LABS: Chloride* 102 mmol/L (96-114); Potassium* 3.9 mmol/L (3.6-5.1); Sodium* 138 mmol/L (135-149)
[2024-02-15 08:55] LABS: Anion Gap 9 mEq/L (7-15); Aspartate Amino Transferase* 35 U/L (12-35); Bilirubin Total* 0.5 mg/dL (0.1-1.5); Carbon Dioxide* 27 mmol/L (20-32); Est. Creatinine Clearance* 62.31; Estimated Glomerular Filt Rate 68 ml/min; Total Protein* 8.1 g/dL (6.0-8.3)
[2024-02-15 08:56] LABS: Alanine Aminotransferase* 39 U/L (4-35); Alkaline Phosphatase* 82 U/L (40-150); Blood Urea Nitrogen* 26 mg/dL (7-30); Calcium* 9.9 mg/dL (8.4-10.6); Glucose* 108 mg/dL (60-115)
[2024-02-15 09:13] LABS: HCG Quantitative* 3.17 mIU/mL
[2024-02-15] MEDS: SODIUM CHLORIDE 0.9 % (FLUSH) 10 ML SYRINGE IVF (09:51)
[2024-02-15] MEDS: HEPARIN 500 UNIT/5 ML SYRINGE IVF (09:51)
[2024-02-22 10:07] LABS: HCG Quantitative* 3.37 mIU/mL
[2024-02-22] MEDS: 0.9 % SODIUM CHLORIDE 250 ml IV (10:15)
[2024-02-22] MEDS: SODIUM CHLORIDE 0.9 % (FLUSH) 10 ML SYRINGE IVF ×2 (10:15→11:46)
[2024-02-22] MEDS: ONDANSETRON 2 MG/ML inj 8 MG IVP (10:36)
[2024-02-22] MEDS: dexAMETHasone 10 MG in 0.9 % SODIUM CHLORIDE 100 ml 100 ML 400 MG IVPB (10:36)
[2024-02-22] MEDS: HEPARIN 500 UNIT/5 ML SYRINGE IVF (11:46)
[2024-03-14 08:38] LABS: Basophils Absolute Auto 0.05 K/uL (0.00-0.30); Basophils Percent Auto 1.1 % (0.0-3.0); Eosinophils Absolute Auto 0.21 K/uL (0.00-0.50); Eosinophils Percent Auto 4.5 % (0.0-7.0); Hematocrit 34.5 % (33.0-51.0); Hemoglobin* 11.5 gm/dL (12.0-16.0); Lymphocytes Absolute Auto 1.16 K/uL (0.90-2.90); Lymphocytes Percent Auto 24.7 % (20-44); Mean Corpuscular HGB Conc 33 gm/dL (32-36); Mean Corpuscular Hemoglobin 31 pg (26-34); Mean Corpuscular Volume 94 fL (80-100); Monocytes Percent Auto 13.6 % (0.0-11.0); Neutrophils Absolute Auto 2.63 K/uL (1.7-7.0); Neutrophils Percent Auto 56.1 % (42.0-72.0); Platelet Count* 261 K/uL (140-440); RDW Coefficient of Variation % 12.4 % (11.5-15.5); Red Blood Count 3.68 m/uL (4.00-5.20); White Blood Count* 4.69 K/uL (4.50-11.00)
[2024-03-14 08:44] LABS: Slide Review Reflex No
[2024-03-14 08:54] LABS: Albumin* 4.6 g/dL (3.3-5.0); Chloride* 99 mmol/L (96-114)
[2024-03-14 08:55] LABS: Potassium* 4.1 mmol/L (3.6-5.1); Sodium* 135 mmol/L (135-149)
[2024-03-14 08:57] LABS: Anion Gap 10 mEq/L (7-15); Bilirubin Total* 0.4 mg/dL (0.1-1.5); Carbon Dioxide* 26 mmol/L (20-32); Est. Creatinine Clearance* 62.31; Estimated Glomerular Filt Rate 68 ml/min; Total Protein* 8.2 g/dL (6.0-8.3)
[2024-03-14 08:58] LABS: Alanine Aminotransferase* 54 U/L (4-35); Alkaline Phosphatase* 90 U/L (40-150); Aspartate Amino Transferase* 41 U/L (12-35); Blood Urea Nitrogen* 20 mg/dL (7-30); Calcium* 9.8 mg/dL (8.4-10.6); Glucose* 128 mg/dL (60-115)
[2024-03-14 09:13] LABS: HCG Quantitative* 3.13 mIU/mL
[2024-03-14] MEDS: 0.9 % SODIUM CHLORIDE 250 ml IV (09:47)
[2024-03-14] MEDS: ONDANSETRON 2 MG/ML inj 8 MG IVP (09:47)
[2024-03-14] MEDS: dexAMETHasone 10 MG in 0.9 % SODIUM CHLORIDE 100 ml 100 ML 404 MG IVPB (10:04)
[2024-03-14] MEDS: SODIUM CHLORIDE 0.9 % (FLUSH) 10 ML SYRINGE IVF ×2 (10:42→11:40)
[2024-03-14] MEDS: HEPARIN 500 UNIT/5 ML SYRINGE IVF (11:40)
[2024-04-04 08:05] LABS: Basophils Absolute Auto 0.04 K/uL (0.00-0.30); Basophils Percent Auto 0.7 % (0.0-3.0); Eosinophils Absolute Auto 0.21 K/uL (0.00-0.50); Eosinophils Percent Auto 3.5 % (0.0-7.0); Hematocrit 35.1 % (33.0-51.0); Hemoglobin* 11.7 gm/dL (12.0-16.0); Lymphocytes Percent Auto 13.7 % (20-44); Mean Corpuscular HGB Conc 33 gm/dL (32-36); Mean Corpuscular Hemoglobin 31 pg (26-34); Mean Corpuscular Volume 92 fL (80-100); Monocytes Percent Auto 13.9 % (0.0-11.0); Neutrophils Absolute Auto 4.08 K/uL (1.7-7.0); Neutrophils Percent Auto 68.2 % (42.0-72.0); Platelet Count* 272 K/uL (140-440); RDW Coefficient of Variation % 12.6 % (11.5-15.5); White Blood Count* 5.98 K/uL (4.50-11.00)
[2024-04-04 08:13] LABS: Slide Review Reflex No
[2024-04-04 08:17] LABS: Albumin* 4.5 g/dL (3.3-5.0)
[2024-04-04 08:18] LABS: Chloride* 99 mmol/L (96-114); Sodium* 136 mmol/L (135-149)
[2024-04-04 08:20] LABS: Bilirubin Total* 0.3 mg/dL (0.1-1.5); Creatinine* 1.1 mg/dL (0.5-1.5); Est. Creatinine Clearance* 56.64; Estimated Glomerular Filt Rate 61 ml/min
[2024-04-04 08:21] LABS: Alanine Aminotransferase* 52 U/L (4-35); Alkaline Phosphatase* 100 U/L (40-150); Anion Gap 10 mEq/L (7-15); Aspartate Amino Transferase* 39 U/L (12-35); Blood Urea Nitrogen* 25 mg/dL (7-30); Calcium* 10.3 mg/dL (8.4-10.6); Carbon Dioxide* 27 mmol/L (20-32); Glucose* 111 mg/dL (60-115); Total Protein* 8.2 g/dL (6.0-8.3)
[2024-04-04 08:38] LABS: HCG Quantitative* 4.39 mIU/mL
[2024-04-04] MEDS: ONDANSETRON 2 MG/ML inj 8 MG IVP (09:40)
[2024-04-04] MEDS: dexAMETHasone 10 MG/ML inj IVP (09:40)
[2024-04-04] MEDS: SODIUM CHLORIDE 0.9 % (FLUSH) 10 ML SYRINGE IVF (10:49)
[2024-04-04] MEDS: HEPARIN 500 UNIT/5 ML SYRINGE IVF (10:49)
--- NOTE | 2024-04-15 14:17 | PC.NURSE ---
Received a call from ARJUN Tapiadie repairer forging at [facility]. Per Willie, pt submitted an application to their Community Fund. Because pt is not a resident of [place] nor is she getting treatment at that facility, she is not eligible. RN will update Mary Ann/ARJUN Ward Navigators. manav Thapa with this update. Willie requested a call from ARJUN Reese. Will pass along this message. ARJUN Tapia - [phone]
[2024-04-22 09:19] LABS: Basophils Absolute Auto 0.04 K/uL (0.00-0.30); Basophils Percent Auto 0.6 % (0.0-3.0); Eosinophils Absolute Auto 0.33 K/uL (0.00-0.50); Eosinophils Percent Auto 4.5 % (0.0-7.0); Hemoglobin* 11.8 gm/dL (12.0-16.0); Immature Granulocytes Abs Auto 0.02 K/uL (0.00-0.30); Immature Granulocytes Pct Auto 0.3 %; Lymphocytes Percent Auto 13.1 % (20-44); Mean Corpuscular HGB Conc 33 gm/dL (32-36); Mean Corpuscular Hemoglobin 30 pg (26-34); Mean Corpuscular Volume 91 fL (80-100); Monocytes Percent Auto 9.9 % (0.0-11.0); Neutrophils Absolute Auto 5.21 K/uL (1.7-7.0); Neutrophils Percent Auto 71.6 % (42.0-72.0); Platelet Count* 355 K/uL (140-440); RDW Coefficient of Variation % 12.5 % (11.5-15.5); Red Blood Count 3.94 m/uL (4.00-5.20); White Blood Count* 7.27 K/uL (4.50-11.00)
[2024-04-22 09:31] LABS: Albumin* 4.3 g/dL (3.3-5.0); Chloride* 101 mmol/L (96-114); Potassium* 4.3 mmol/L (3.6-5.1); Slide Review Reflex No; Sodium* 136 mmol/L (135-149)
[2024-04-22 09:33] LABS: Est. Creatinine Clearance* 64.72; Estimated Glomerular Filt Rate 68 ml/min
[2024-04-22 09:34] LABS: Alanine Aminotransferase* 38 U/L (4-35); Alkaline Phosphatase* 119 U/L (40-150); Anion Gap 8 mEq/L (7-15); Aspartate Amino Transferase* 36 U/L (12-35); Bilirubin Total* 0.3 mg/dL (0.1-1.5); Blood Urea Nitrogen* 20 mg/dL (7-30); Calcium* 10.1 mg/dL (8.4-10.6); Carbon Dioxide* 27 mmol/L (20-32); Glucose* 113 mg/dL (60-115); Total Protein* 8.6 g/dL (6.0-8.3)
[2024-04-22 09:51] LABS: HCG Quantitative* 4.82 mIU/mL
[2024-04-25] MEDS: dexAMETHasone 10 MG/ML inj IVP (11:07)
[2024-04-25] MEDS: ONDANSETRON 2 MG/ML inj 8 MG IVP (11:07)
[2024-04-25] MEDS: SODIUM CHLORIDE 0.9 % (FLUSH) 10 ML SYRINGE IVF (14:23)
[2024-04-25] MEDS: HEPARIN 500 UNIT/5 ML SYRINGE IVF (14:23)
== END 2024-04-26 23:59 | disposition home or self-care (01) ==
LOC: CCIC 10:30
PROVIDERS: Clinical Nurse Specialist; Internal Medicine Hematology & Oncology; PCP Family Medicine; Referring Provider Family Medicine; Visit Provider Physician Assistant
DX: Z51.11 Encounter for antineoplastic chemotherapy (principal); C50.912 Malignant neoplasm of unspecified site of left female breast; Z17.0 Estrogen receptor positive status [ER+]; Z51.81 Encounter for therapeutic drug level monitoring; Z79.899 Other long term (current) drug therapy; R74.01 Elevation of levels of liver transaminase levels; I89.0 Lymphedema, not elsewhere classified; Z90.13 Acquired absence of bilateral breasts and nipples; Z87.891 Personal history of nicotine dependence
CPT/HCPCS: 36415; 36591; 80053; 84702; 85025; 93306; 96361; 96367; 96375; 96376; 96413; 96415; 99211; 99215; G0463; J1100; J1642; J2405; J7030; J7050; J9354; Q9957

== ENCOUNTER 2024-05-05 09:30 | Outpatient (RCR) | payer BC, SELFPAY ==
[2024-03-24 09:14] VITALS: BMI 33.3
[2024-05-05 13:33] VITALS: BMI 33.3
== END 2024-09-02 23:59 | disposition home or self-care (01) ==
PROVIDERS: PCP Family Medicine; Referring Provider Internal Medicine Hematology & Oncology; Visit Provider Physician Assistant
DX: I97.2 Postmastectomy lymphedema syndrome (principal); C50.919 Malignant neoplasm of unspecified site of unspecified female breast; R53.1 Weakness; R53.83 Other fatigue; Z51.89 Encounter for other specified aftercare
CPT/HCPCS: 97110; 97112; 97140; 97162; 97165; 97535; X5282

== ENCOUNTER 2024-05-30 13:44 | Outpatient (CLI) | payer BC, SELFPAY ==
--- NOTE | 2024-05-30 13:45 | CRLHL7_ITS ---
For Patients: As a result of the Century Cures Act, medical imaging exams and procedure reports are released immediately into your electronic medical record. You may view this report before your referring provider. If you have questions, please contact your health care provider. CLINICAL HISTORY: breast cancer treatments, amenorrhea, evaluate endometrium TECHNIQUE: 2D farmer scale and color Doppler images were acquired of the pelvis using a transvaginal approach. FINDINGS: Intramural fibroid is present on the right which measures 7 x 5 x 7 millimeters. The uterus measures 5.9 x 3.4 x 4.0 cm. The endometrial lining measures 7.5 mm in thickness. Hyperechoic nodular area within the endometrium measures 6 x 7 x 7 millimeters. The left ovary measures 2.5 x 1.4 x 1.5 cm in size and the right ovary measures 2.3 x 1.5 x 1.8 cm. The ovaries demonstrate normal arterial and venous blood flow on color Doppler analysis. There are no suspicious fluid collections within the cul-de-sac. IMPRESSION: Possible 7 millimeter endometrial polyp. Endometrial thickness 7.5 millimeters. No endometrial fluid. Dictated by Kelvin Galo MD @ 05/31/2024 10:40:02 AM (Electronically Signed)
== END 2024-05-30 13:45 | disposition home or self-care (01) ==
LOC: US 13:45
PROVIDERS: PCP Family Medicine; Visit Provider Internal Medicine Hematology & Oncology
DX: N91.2 Amenorrhea, unspecified (principal); N84.0 Polyp of corpus uteri
CPT/HCPCS: 76830

== ENCOUNTER 2024-07-20 07:04 | Outpatient (CLI) | payer BC, SELFPAY ==
--- NOTE | 2024-07-20 07:15 | CRLHL7_ITS ---
For Patients: As a result of the 21st Century Cures Act, medical imaging exams and procedure reports are released immediately into your electronic medical record. You may view this report before your referring provider. If you have questions, please contact your health care provider. EXAM: MRI OF THE LEFT SHOULDER WITHOUT CONTRAST CLINICAL INDICATION: Shoulder pain. Breast cancer and mastectomy. COMPARISON PLAIN FILMS: None available at time of interpretation. COMPARISON CROSS-SECTIONAL IMAGING STUDIES: None available at time of interpretation. TECHNICAL: Axial, sagittal oblique and coronal oblique T1, PD, PD FS and T2-weighted images. Shoulder surface coil. FINDINGS: ROTATOR CUFF TENDONS AND MUSCLES AND DELTOID: Supraspinatus: No tendinosis, tendon tearing, muscle atrophy or muscle edema. Infraspinatus: No tendinosis, tendon tearing, muscle atrophy or muscle edema. Subscapularis: No tendinosis, tendon tearing, muscle atrophy or muscle edema. Teres Minor: No tendinosis, tendon tearing, muscle atrophy or muscle edema. Deltoid: No muscle atrophy or edema. BURSA: Subacromial-subdeltoid: No abnormal bursal edema, thickening or bursal fluid. BICEPS TENDON, LONG HEAD: The long head of the biceps tendon is appropriately positioned within the bicipital groove without tendon subluxation or dislocation. The biceps cherrie mechanism is intact. The biceps anchor appears grossly intact. There is no significant tendinosis or tendon tearing. CORACOACROMIAL ARCH: Acromial Morphology: Type 1 acromial morphology. No abnormal lateral or anterior downward sloping of the acromion. No significant subacromial spur. No os acromiale. Acromiohumeral Interval: Normal. Coracohumeral Interval: Normal. ACROMIOCLAVICULAR JOINT REGION: AC Joint: No significant arthrosis, inferior hypertrophy, joint space widening, findings of acute injury or AC joint capsulitis. Ligaments: The coracoclavicular ligaments are intact. GLENOHUMERAL JOINT: Joint space: Trace effusion in the glenohumeral joint. No synovitis or loose body. Humeral Head Articular Cartilage: No focal cartilage defect or underlying subchondral marrow changes. Glenoid Articular Cartilage: No focal cartilage defect or underlying subchondral marrow changes. Labrum: No labral tear or paralabral cyst. Alignment: Maintained. Capsule: Thickening and edema in the axillary recess of the joint capsule. Findings in addition to the trace joint effusion nonspecific but can be associated with adhesive capsulitis. OSSEOUS STRUCTURES: No fracture, marrow edema or marrow replacement process. OTHER FINDINGS: There is no abnormality within the suprascapular or spinoglenoid notches nor within the quadrilateral space. No axillary adenopathy or mass. IMPRESSION: 1. Thickening and edema in the axillary recess of the joint capsule with trace joint effusion. Findings are nonspecific but can be associated with adhesive capsulitis. 2. Remainder unremarkable. Dictated by Stephan Wagner MD @ 07/20/2024 12:14:08 PM (Electronically Signed)
== END 2024-07-20 07:05 | disposition home or self-care (01) ==
LOC: MRI 07:05
PROVIDERS: PCP Family Medicine; Visit Provider Internal Medicine Hematology & Oncology
DX: M25.512 Pain in left shoulder (principal); M25.412 Effusion, left shoulder; C50.919 Malignant neoplasm of unspecified site of unspecified female breast
CPT/HCPCS: 73221

== ENCOUNTER 2024-08-29 13:39 | Outpatient (CLI) | payer BC, SELFPAY ==
[2024-08-29] MEDS: PERFLUTREN LIPID MICROSPHERES 2 ML VIAL IVP (14:42)
== END 2024-08-29 13:40 | disposition home or self-care (01) ==
LOC: RAD 13:39
PROVIDERS: PCP Family Medicine; Visit Provider Internal Medicine Hematology & Oncology
DX: C50.919 Malignant neoplasm of unspecified site of unspecified female breast (principal)
CPT/HCPCS: 93306; Q9957

== ENCOUNTER 2024-09-16 06:08 | Day surgery (SDC) | payer BC, SELFPAY ==
[2024-09-16] MEDS: 0.9 % SODIUM CHLORIDE 500 ML 500 ML 100 ML IV (06:15)
[2024-09-16 06:36] VITALS: BP 145/76; PULSE 109; RESP 18; TEMP 36.6; O2SAT 93; BMI 35.2
[2024-09-16] MEDS: SODIUM CHLORIDE 0.9 % (FLUSH) 10 ML SYRINGE IVF (06:40)
[2024-09-16 06:43] LABS: Hemoglobin* 12.9 gm/dL (12.0-16.0)
--- NOTE | 2024-09-16 07:31 | W.PM.H&PU ---
History & Physical Update History & Physical Update H&P Reviewed and patient assessed: No changes noted
[2024-09-16] MEDS: BUPIVACAINE 0.5% 30 ML INJECTION (09:32)
[2024-09-16 09:55] VITALS: BP 132/72; PULSE 86; RESP 16; TEMP 36.4; O2SAT 95
--- NOTE | 2024-09-16 09:56 | P.GYNPRC_ITS ---
Procedure Note Date of procedure: 09/16/24 Will [facility] bill your pro fee for this procedure?: Yes Pre-op diagnosis: Postmenopausal bleeding, thickened endometrium Post-op diagnosis: Postmenopausal bleeding, suspected endometrial polyps Procedure: Hysteroscopy, dilation and curettage Anesthesia: MAC Complications: None Surgeon: Andrés Herrera MD Estimated blood loss (mL): 5 IV fluids (mL): 500 Urine Output (mL): 200 Pathology: specimen obtained, sent to pathology (Endometrial curettings) Condition: stable Disposition: same day Findings: Findings: Speculum exam: cervix, grossly normal w/o abnormal discharge or lesions. Intrauterine cavity: Bilateral cornual openings seen, 2 polypoid lesions noted close to bilateral cornual openings. Otherwise, looked like background atrophic endometrium. Procedure Description: Patient was taken to the OR were MAC anesthesia was administered without difficulty. She was placed in the dorsal lithotomy position with Omar type stirrups. Patient was then prepared and draped in the normal sterile fashion. A bivalved speculum was inserted in the posterior aspect of the vagina. 0.5% Marcaine was injected at 2 and 11 o'clock a total of about 3mL utilized. A single-tooth tenaculum was used to grasp the anterior lip of the cervix. The uterus was carefully sounded to 6 cm. The cervical os was sequentially dilated to accommodate the 5 mm TrueClear hysteroscope using Hegar dilators. A 5 mm 30 degree TrueClear hysteroscope was introduced under direct visualization, and the uterus was distended with normal saline. Findings as above. Soft tissue incisor blade from TrueClear hysteroscope system was introduced under direct visualization and endometrial curettings performed with removal of polypoid lesions. Hysteroscope removed under direct visualization. Tenaculum was removed from the cervix and good hemostasis was noted at puncture sites. Patient tolerated the procedure well. Instrument and sponge counts were correct x2. The patient was awakened from MAC anesthesia and taken to the recovery room in a stable condition. The patient will go home after recovering from anesthesia and meeting all the criteria for discharge. She was given instruction regarding follow-up visit in 2 weeks at [facility] and instructions for pain medication. Fluid deficit: 10mL
[2024-09-16 10:00] VITALS: BP 133/86; PULSE 83; RESP 16; O2SAT 93
--- NOTE | 2024-09-16 10:01 | P.ANES_ITS ---
Anesthesia Charges Start Date/Time Anesthesia Start Date: 09/16/24 Anesthesia Start Time: 09:07 Stop Date/Time Anesthesia Stop Date: 09/16/24 Anesthesia Stop Time: 09:59 Coding CPT Codes CPT Codes: ANESTH HYSTEROSCOPE/GRAPH - 25726 ([id number]) P2 - PATIENT W/MILD SYST DISEASE, QK - CLASSROOM INSTRUCTOR 2-4 CNCRNT ANES PROC, QX - PRESCHOOL ASSISTANT TEACHER SVC W/ MD MED DIRECTION
--- NOTE | 2024-09-16 10:01 | W.ANESCHARGE ---
Anesthesia Charges Start Date/Time Anesthesia Start Date: 09/16/24 Anesthesia Start Time: 09:07 Stop Date/Time Anesthesia Stop Date: 09/16/24 Anesthesia Stop Time: 09:59 Coding CPT Codes CPT Codes: ANESTH HYSTEROSCOPE/GRAPH - 35729 ([id number]) P2 - PATIENT W/MILD SYST DISEASE, QK - CHIEF WRITER 2-4 CNCRNT ANES PROC, QX - UNIT COORDINATOR SVC W/ MD MED DIRECTION
[2024-09-16] MEDS: LACTATED RINGERS 1000 ML 1,000 ML 100 ML IV (10:03)
[2024-09-16 10:15] VITALS: BP 126/60; PULSE 76; RESP 16; O2SAT 96
--- NOTE | 2024-09-16 10:18 | P.ANES_ITS ---
Anesthesia Charges Start Date/Time Anesthesia Start Date: 09/16/24 Anesthesia Start Time: 09:07 Stop Date/Time Anesthesia Stop Date: 09/16/24 Anesthesia Stop Time: 09:59 Coding CPT Codes CPT Codes: ANESTH VAGINAL HYSTERECTOMY - 14951 ([id number]) P2 - PATIENT W/MILD SYST DISEASE, QX - DIRECTOR SOCIAL SVC W/ MD MED DIRECTION, QK - FACILITIES MANAGER 2-4 CNCRNT ANES PROC
--- NOTE | 2024-09-16 10:18 | W.ANESCHARGE ---
Anesthesia Charges Start Date/Time Anesthesia Start Date: 09/16/24 Anesthesia Start Time: 09:07 Stop Date/Time Anesthesia Stop Date: 09/16/24 Anesthesia Stop Time: 09:59 Coding CPT Codes CPT Codes: ANESTH VAGINAL HYSTERECTOMY - 92635 ([id number]) P2 - PATIENT W/MILD SYST DISEASE, QX - CLEARANCE COORDINATOR SVC W/ MD MED DIRECTION, QK - HAZARD WASTE HANDLER 2-4 CNCRNT ANES PROC
[2024-09-16 10:30] VITALS: BP 129/79; PULSE 76; RESP 16; O2SAT 97
[2024-09-16 10:45] VITALS: BP 127/78; PULSE 78; RESP 16; O2SAT 97
== END 2024-09-16 10:56 | disposition home or self-care (01) ==
LOC: OR 06:09
PROVIDERS: PCP Family Medicine; Visit Provider Obstetrics & Gynecology
PROC: 0UDB8ZZ Extraction of Endometrium, Via Natural or Artificial Opening Endoscopic (ICD-10-PCS; CPT 58558; principal; 2024-09-16 08:45)
DX: N95.0 Postmenopausal bleeding (principal); N84.0 Polyp of corpus uteri; R93.89 Abnormal findings on diagnostic imaging of other specified body structures
CPT/HCPCS: 58558; 00944; 00952; 36415; 85018; 88305; C1782; J0665; J1100; J1885; J2250; J2405; J2704; J3010; J3490; J7030; J7120

== ENCOUNTER 2024-09-30 09:00 | Outpatient (RCR) | payer BC, SELFPAY ==
[2024-05-16 09:11] LABS: Basophils Percent Auto 1.1 % (0.0-3.0); Eosinophils Percent Auto 5.5 % (0.0-7.0); Hematocrit 35.5 % (33.0-51.0); Hemoglobin* 11.5 gm/dL (12.0-16.0); Lymphocytes Percent Auto 29.1 % (20-44); Mean Corpuscular HGB Conc 32 gm/dL (32-36); Mean Corpuscular Hemoglobin 30 pg (26-34); Mean Corpuscular Volume 92 fL (80-100); Monocytes Percent Auto 15.1 % (0.0-11.0); Neutrophils Percent Auto 49.2 % (42.0-72.0); Platelet Count* 276 K/uL (140-440); RDW Coefficient of Variation % 13.5 % (11.5-15.5); Red Blood Count 3.87 m/uL (4.00-5.20); White Blood Count* 4.36 K/uL (4.50-11.00)
[2024-05-16 09:12] LABS: Slide Review Reflex No
[2024-05-16 09:25] LABS: Albumin* 4.1 g/dL (3.3-5.0)
[2024-05-16 09:26] LABS: Chloride* 104 mmol/L (96-114); Potassium* 3.7 mmol/L (3.6-5.1); Sodium* 137 mmol/L (135-149)
[2024-05-16 09:28] LABS: Aspartate Amino Transferase* 36 U/L (12-35); Bilirubin Total* 0.4 mg/dL (0.1-1.5); Carbon Dioxide* 26 mmol/L (20-32); Creatinine* 0.9 mg/dL (0.5-1.5); Est. Creatinine Clearance* 71.91; Estimated Glomerular Filt Rate 77 ml/min; Total Protein* 7.7 g/dL (6.0-8.3)
[2024-05-16 09:29] LABS: Alanine Aminotransferase* 38 U/L (4-35); Alkaline Phosphatase* 84 U/L (40-150); Anion Gap 7 mEq/L (7-15); Blood Urea Nitrogen* 17 mg/dL (7-30); Calcium* 9.6 mg/dL (8.4-10.6); Glucose* 113 mg/dL (60-115)
[2024-05-16 09:56] LABS: HCG Quantitative* < 2.39 mIU/mL
[2024-05-16] MEDS: ONDANSETRON 2 MG/ML inj 8 MG IVP (10:26)
[2024-05-16] MEDS: dexAMETHasone 10 MG/ML inj IVP (10:26)
[2024-05-16] MEDS: SODIUM CHLORIDE 0.9 % (FLUSH) 10 ML SYRINGE IVF ×2 (10:45→11:29)
[2024-05-16] MEDS: 0.9 % SODIUM CHLORIDE 500 ML IV (10:45)
[2024-05-16] MEDS: HEPARIN 500 UNIT/5 ML SYRINGE IVF (11:28)
[2024-06-06] MEDS: SODIUM CHLORIDE 0.9 % (FLUSH) 10 ML SYRINGE IVF (08:40)
[2024-06-06 08:49] LABS: Basophils Absolute Auto 0.05 K/uL (0.00-0.30); Eosinophils Absolute Auto 0.17 K/uL (0.00-0.50); Eosinophils Percent Auto 3.5 % (0.0-7.0); Hematocrit 36.3 % (33.0-51.0); Hemoglobin* 11.8 gm/dL (12.0-16.0); Immature Granulocytes Abs Auto 0.01 K/uL (0.00-0.30); Immature Granulocytes Pct Auto 0.2 %; Lymphocytes Absolute Auto 1.35 K/uL (0.90-2.90); Lymphocytes Percent Auto 27.6 % (20-44); Mean Corpuscular HGB Conc 33 gm/dL (32-36); Mean Corpuscular Hemoglobin 30 pg (26-34); Mean Corpuscular Volume 92 fL (80-100); Monocytes Percent Auto 13.1 % (0.0-11.0); Neutrophils Absolute Auto 2.67 K/uL (1.7-7.0); Neutrophils Percent Auto 54.6 % (42.0-72.0); Platelet Count* 248 K/uL (140-440); RDW Coefficient of Variation % 13.7 % (11.5-15.5); Red Blood Count 3.96 m/uL (4.00-5.20); White Blood Count* 4.89 K/uL (4.50-11.00)
[2024-06-06 08:51] LABS: Slide Review Reflex No
[2024-06-06 09:11] LABS: Chloride* 106 mmol/L (96-114)
[2024-06-06 09:12] LABS: Potassium* 4.1 mmol/L (3.6-5.1); Sodium* 138 mmol/L (135-149)
[2024-06-06 09:14] LABS: Anion Gap 6 mEq/L (7-15); Aspartate Amino Transferase* 37 U/L (12-35); Bilirubin Total* 0.3 mg/dL (0.1-1.5); Carbon Dioxide* 26 mmol/L (20-32); Creatinine* 0.8 mg/dL (0.5-1.5); Estimated Glomerular Filt Rate 89 ml/min; Total Protein* 7.4 g/dL (6.0-8.3)
[2024-06-06 09:15] LABS: Alanine Aminotransferase* 39 U/L (4-35); Alkaline Phosphatase* 90 U/L (40-150); Blood Urea Nitrogen* 16 mg/dL (7-30); Calcium* 9.1 mg/dL (8.4-10.6); Glucose* 113 mg/dL (60-115)
[2024-06-06 09:46] LABS: HCG Quantitative* < 2.39 mIU/mL
[2024-06-06] MEDS: dexAMETHasone 10 MG/ML inj IVP (10:47)
[2024-06-06] MEDS: ONDANSETRON 2 MG/ML inj 8 MG IVP (10:48)
[2024-06-06] MEDS: 0.9 % SODIUM CHLORIDE 500 ML IV (11:19)
[2024-06-06] MEDS: HEPARIN 500 UNIT/5 ML SYRINGE IVF (11:20)
[2024-06-27 09:55] LABS: Basophils Percent Auto 0.9 % (0.0-3.0); Eosinophils Percent Auto 3.8 % (0.0-7.0); Hematocrit 36.1 % (33.0-51.0); Hemoglobin* 11.8 gm/dL (12.0-16.0); Mean Corpuscular HGB Conc 33 gm/dL (32-36); Mean Corpuscular Hemoglobin 30 pg (26-34); Mean Corpuscular Volume 91 fL (80-100); Monocytes Percent Auto 13.2 % (0.0-11.0); Neutrophils Percent Auto 53.1 % (42.0-72.0); Platelet Count* 244 K/uL (140-440); RDW Coefficient of Variation % 14.1 % (11.5-15.5); Red Blood Count 3.97 m/uL (4.00-5.20); White Blood Count* 4.48 K/uL (4.50-11.00)
[2024-06-27 10:00] LABS: Slide Review Reflex No
[2024-06-27 10:10] LABS: Albumin* 4.1 g/dL (3.3-5.0)
[2024-06-27 10:11] LABS: Chloride* 104 mmol/L (96-114); Potassium* 3.8 mmol/L (3.6-5.1); Sodium* 136 mmol/L (135-149)
[2024-06-27 10:13] LABS: Anion Gap 7 mEq/L (7-15); Aspartate Amino Transferase* 36 U/L (12-35); Bilirubin Total* 0.4 mg/dL (0.1-1.5); Carbon Dioxide* 25 mmol/L (20-32); Creatinine* 0.9 mg/dL (0.5-1.5); Est. Creatinine Clearance* 71.91; Estimated Glomerular Filt Rate 77 ml/min
[2024-06-27 10:14] LABS: Alanine Aminotransferase* 39 U/L (4-35); Alkaline Phosphatase* 79 U/L (40-150); Blood Urea Nitrogen* 20 mg/dL (7-30); Calcium* 9.4 mg/dL (8.4-10.6); Glucose* 118 mg/dL (60-115); Total Protein* 7.5 g/dL (6.0-8.3)
[2024-06-27 10:36] LABS: HCG Quantitative* < 2.39 mIU/mL
[2024-06-27] MEDS: ONDANSETRON 2 MG/ML inj 8 MG IVP (11:09)
[2024-06-27] MEDS: dexAMETHasone 10 MG/ML inj IVP (11:10)
[2024-06-27] MEDS: HEPARIN 500 UNIT/5 ML SYRINGE IVF (12:15)
[2024-06-27] MEDS: SODIUM CHLORIDE 0.9 % (FLUSH) 10 ML SYRINGE IVF (12:15)
[2024-07-13] MEDS: SODIUM CHLORIDE 0.9 % (FLUSH) 10 ML SYRINGE IVF (14:48)
[2024-07-13] MEDS: HEPARIN 500 UNIT/5 ML SYRINGE IVF (14:48)
[2024-07-13 14:58] LABS: Basophils Absolute Auto 0.06 K/uL (0.00-0.30); Basophils Percent Auto 0.9 % (0.0-3.0); Eosinophils Absolute Auto 0.12 K/uL (0.00-0.50); Eosinophils Percent Auto 1.8 % (0.0-7.0); Hematocrit 37.4 % (33.0-51.0); Hemoglobin* 12.4 gm/dL (12.0-16.0); Immature Granulocytes Abs Auto 0.01 K/uL (0.00-0.30); Immature Granulocytes Pct Auto 0.1 %; Lymphocytes Absolute Auto 1.67 K/uL (0.90-2.90); Lymphocytes Percent Auto 24.7 % (20-44); Mean Corpuscular HGB Conc 33 gm/dL (32-36); Mean Corpuscular Hemoglobin 29 pg (26-34); Mean Corpuscular Volume 89 fL (80-100); Monocytes Percent Auto 12.7 % (0.0-11.0); Neutrophils Absolute Auto 4.05 K/uL (1.7-7.0); Neutrophils Percent Auto 59.8 % (42.0-72.0); Platelet Count* 226 K/uL (140-440); RDW Coefficient of Variation % 13.5 % (11.5-15.5); Red Blood Count 4.22 m/uL (4.00-5.20); Slide Review Reflex No; White Blood Count* 6.77 K/uL (4.50-11.00)
[2024-07-13 15:05] LABS: Albumin* 4.3 g/dL (3.3-5.0); Chloride* 99 mmol/L (96-114)
[2024-07-13 15:06] LABS: Potassium* 3.8 mmol/L (3.6-5.1); Sodium* 133 mmol/L (135-149)
[2024-07-13 15:08] LABS: Alkaline Phosphatase* 83 U/L (40-150); Anion Gap 9 mEq/L (7-15); Aspartate Amino Transferase* 33 U/L (12-35); Bilirubin Total* 0.6 mg/dL (0.1-1.5); Blood Urea Nitrogen* 20 mg/dL (7-30); Carbon Dioxide* 25 mmol/L (20-32); Creatinine* 0.9 mg/dL (0.5-1.5); Est. Creatinine Clearance* 69.23; Estimated Glomerular Filt Rate 77 ml/min; Total Protein* 7.8 g/dL (6.0-8.3)
[2024-07-13 15:09] LABS: Alanine Aminotransferase* 39 U/L (4-35); Calcium* 9.6 mg/dL (8.4-10.6); Glucose* 108 mg/dL (60-115)
[2024-07-13 15:47] LABS: HCG Quantitative* < 2.39 mIU/mL
[2024-07-18 09:43] VITALS: BP 118/83; PULSE 98; RESP 16; TEMP 36.1; O2SAT 95
[2024-07-18] MEDS: ONDANSETRON 2 MG/ML inj 8 MG IVP (10:13)
[2024-07-18] MEDS: dexAMETHasone 10 MG/ML inj IVP (10:23)
[2024-07-18] MEDS: HEPARIN 500 UNIT/5 ML SYRINGE IVF (11:18)
[2024-07-18] MEDS: SODIUM CHLORIDE 0.9 % (FLUSH) 10 ML SYRINGE IVF (11:18)
--- NOTE | 2024-07-21 11:10 | ONC.NURNOTE ---
Pt aware that Dr. Britt will review MRI of shoulder on Thursday (07/25/24). Pt has already read report on portal.
[2024-08-08 12:53] LABS: Basophils Absolute Auto 0.03 K/uL (0.00-0.30); Basophils Percent Auto 0.5 % (0.0-3.0); Eosinophils Absolute Auto 0.12 K/uL (0.00-0.50); Eosinophils Percent Auto 2.1 % (0.0-7.0); Hematocrit 39.1 % (33.0-51.0); Immature Granulocytes Abs Auto 0.01 K/uL (0.00-0.30); Immature Granulocytes Pct Auto 0.2 %; Lymphocytes Absolute Auto 1.54 K/uL (0.90-2.90); Mean Corpuscular HGB Conc 33 gm/dL (32-36); Mean Corpuscular Hemoglobin 30 pg (26-34); Mean Corpuscular Volume 90 fL (80-100); Monocytes Percent Auto 12.6 % (0.0-11.0); Neutrophils Absolute Auto 3.28 K/uL (1.7-7.0); Neutrophils Percent Auto 57.6 % (42.0-72.0); Platelet Count* 267 K/uL (140-440); RDW Coefficient of Variation % 13.5 % (11.5-15.5); Red Blood Count 4.33 m/uL (4.00-5.20)
[2024-08-08 13:06] LABS: Albumin* 4.5 g/dL (3.3-5.0); Chloride* 101 mmol/L (96-114); Potassium* 3.9 mmol/L (3.6-5.1); Sodium* 135 mmol/L (135-149)
[2024-08-08 13:09] LABS: Alanine Aminotransferase* 33 U/L (4-35); Alkaline Phosphatase* 80 U/L (40-150); Anion Gap 10 mEq/L (7-15); Aspartate Amino Transferase* 31 U/L (12-35); Bilirubin Total* 0.5 mg/dL (0.1-1.5); Blood Urea Nitrogen* 27 mg/dL (7-30); Calcium* 9.7 mg/dL (8.4-10.6); Carbon Dioxide* 24 mmol/L (20-32); Est. Creatinine Clearance* 62.31; Estimated Glomerular Filt Rate 68 ml/min; Glucose* 127 mg/dL (60-115); Total Protein* 8.4 g/dL (6.0-8.3)
[2024-08-08 13:22] LABS: Slide Review Reflex No
[2024-08-08 13:30] LABS: HCG Quantitative* < 2.39 mIU/mL
[2024-08-08] MEDS: dexAMETHasone 10 MG/ML inj IVP (14:48)
[2024-08-08] MEDS: ONDANSETRON 2 MG/ML inj 8 MG IVP (14:48)
[2024-08-08] MEDS: SODIUM CHLORIDE 0.9 % (FLUSH) 10 ML SYRINGE IVF (14:49)
[2024-08-08] MEDS: 0.9 % SODIUM CHLORIDE 500 ML IV (14:49)
--- NOTE | 2024-10-13 16:13 | ONC.NURNOTE ---
Call from patients friend Bobbi with an update on her condition. Alanis reports a sore on her shoulder that she is concerned about. She is concerned that it is cancer. Bobbi encouraged to have Alanis schedule an appointment with her PCP for further assessment.
--- NOTE | 2024-10-14 08:15 | ONC.NURNOTE ---
Received message from Erick with [employer] [place] requesting clarification of Kadcyla dosing C1-C4; LM with following info: C1D1 6/3 325 mg C2D1 6 325 mg C3D1 12/13 325 mg C4D1 8/ 320 mg p: [phone] f: [phone] Reference #: [id number]
--- NOTE | 2024-11-03 15:30 | ONC.NURNOTE ---
Call to patient to discuss the plan of care. Patient had been notified of her CT results by Dr. Britt on 11/02. Patient informed that an addended report for the CT scan was now available and the recommendation continues to be for PET/CT and pulmonary consultation for biopsy. 1. Orders for PET/CT and supporting records faxed to [facility] and scheduled for 11/08 at 7:30AM 2. Orders for pulmonary consult faxed to [facility] and consultation scheduled for 11/08 at 11AM. Biopsy date and time TBD based on PET/CT results. 3. We will wait to schedule oncology follow up until we know a biopsy date. Patient verbalizes understanding of plan.
--- NOTE | 2024-11-04 12:34 | ONC.NURNOTE ---
Call from patient to discuss her anxiety. She shares that she is very scared about her recent findings on CT scan and is wondering if we would consider re-filling her Lorazepam. Patient recently saw her PCP and her Effexor dose was increased. Discussed with RAYMUNDO Pennington. Patient informed that we will send #7 tablets to help her through the work up of these new findings. We also discussed non pharmaclogic ways to help her manage this added stress. Patient encouraged to schedule an appointment with her PCP if she feels like she needs additional support managing her anxiety. Patient verbalizes understanding.
--- NOTE | 2024-11-08 16:35 | ONC.NURNOTE ---
Addendum entered by Mary Ann Allison 11/09/24 13:38: Obtained PET/CT results. Follow up scheduled for 11/22 to review results of PET in addition to pulmonary LN biopsy. Patient verbalizes understanding. Original Note: Pt called following Interventional Pulmonology Consult noting her pulmonary lymph node Bx is scheduled 11/17. She expresses relief that Dr. Seymour Springer, tape controlled machine stitcher said he is 99.9% sure the area of concern is fungal and not malignant. Pet CT result pending; visit note scanned.
== END 2024-11-12 23:59 | disposition home or self-care (01) ==
LOC: CCIC 09:00
PROVIDERS: Internal Medicine Hematology & Oncology; Physician Assistant; PCP Family Medicine; Referring Provider Family Medicine; Visit Provider Clinical Nurse Specialist
DX: C50.912 Malignant neoplasm of unspecified site of left female breast (principal); Z17.0 Estrogen receptor positive status [ER+]; Z90.13 Acquired absence of bilateral breasts and nipples; Z79.810 Long term (current) use of selective estrogen receptor modulators (SERMs); R23.2 Flushing; F41.9 Anxiety disorder, unspecified; G62.9 Polyneuropathy, unspecified
CPT/HCPCS: 36415; 36591; 80053; 84702; 85025; 96375; 96413; 99214; 99215; G0463; J1100; J1642; J2405; J7030; J7050; J9354

== ENCOUNTER 2024-10-31 09:51 | Outpatient (CLI) | payer BC, SELFPAY ==
--- NOTE | 2024-10-31 10:00 | CRLHL7_ITS ---
For Patients: As a result of the Century Cures Act, medical imaging exams and procedure reports are released immediately into your electronic medical record. You may view this report before your referring provider. If you have questions, please contact your health care provider. INDICATION: Malignant neoplasm of breast. TECHNIQUE: CT chest, abdomen and pelvis acquired with 111 cc of Isovue 370 IV contrast. COMPARISON: None available. FINDINGS: Chest: Cardiovascular structures: Thoracic aorta and main pulmonary arteries are normal in caliber. Heart size within normal limits. Mediastinum and joceline: Right hilar node measures 15 mm on image 58 of series 2. No additional lymphadenopathy. Lungs: No pneumothorax. Central airways are patent. Right lower lobe 11 mm nodule on image 60 of series 2. Right lower lobe 3 mm nodule on image 61. Left upper lobe 2 mm nodule abuts the major fissure on image 32. Pleura and pericardium: No effusions. Chest wall and axilla: Bilateral mastectomy changes. Right IJ Port-A-Cath. Soft tissues of the thoracic wall are otherwise unremarkable. Abdomen and Pelvis: Liver: Unremarkable. Spleen: Unremarkable. Pancreas: Unremarkable. Gallbladder and bile ducts: Unremarkable. Kidneys: Unremarkable. Adrenal glands: Unremarkable. GI tract: Colonic diverticulosis without evidence of acute diverticulitis. GI tract is otherwise unremarkable. No free air or free fluid. Vascular structures: Unremarkable. Lymph nodes: No pathologic lymphadenopathy. Pelvic Organs: Unremarkable. Bones: No acute or suspicious abnormality. IMPRESSION: 1. Right lower lobe 11 mm nodule and hilar lymphadenopathy, worrisome for breast carcinoma metastasis or bronchogenic carcinoma. PET-CT and/or tissue sampling recommended. 2. No evidence of metastatic disease in the abdomen or pelvis. Dictated by Angelito Jones MD @ 11/01/2024 2:52:53 PM Please note that all CT scans at this facility use dose modulation, iterative reconstruction, and/or weight-based dosing when appropriate to reduce radiation dose to as low as reasonably achievable. Dictated by: Angelito Jones MD @ 11/01/2024 14:53:12 (Electronically Signed)
== END 2024-10-31 09:52 | disposition home or self-care (01) ==
LOC: CT 09:52
PROVIDERS: PCP Family Medicine; Visit Provider Internal Medicine Hematology & Oncology
DX: C50.919 Malignant neoplasm of unspecified site of unspecified female breast (principal); R91.1 Solitary pulmonary nodule; R59.1 Generalized enlarged lymph nodes
CPT/HCPCS: 71260; 74177; Q9967

== ENCOUNTER 2025-02-14 09:01 | Outpatient (RCR) | payer BC, SELFPAY | END 2025-05-08 14:19 | disposition home or self-care (01) | PROVIDERS: PCP Family Medicine; Visit Provider Physician Assistant | DX: C50.919 Malignant neoplasm of unspecified site of unspecified female breast (principal); Z51.89 Encounter for other specified aftercare | CPT/HCPCS: 97161; 97530 ==

== ENCOUNTER 2025-04-03 14:00 | Outpatient (RCR) | payer BC, SELFPAY ==
[2024-11-22] MEDS: SODIUM CHLORIDE 0.9 % (FLUSH) 10 ML SYRINGE IVF (11:58)
[2024-11-22] MEDS: HEPARIN 500 UNIT/5 ML SYRINGE IVF (11:58)
[2025-01-23] MEDS: HEPARIN 500 UNIT/5 ML SYRINGE IVF (15:30)
[2025-01-23] MEDS: SODIUM CHLORIDE 0.9 % (FLUSH) 10 ML SYRINGE IVF (15:30)
--- NOTE | 2025-03-13 13:50 | ONC.NURNOTE ---
CT Chest and [facility] pulmonology notes reviewed with Dr. Britt. Patient informed that we can cancel our CT CAP that was scheduled for 03/31. She will keep her follow up with Dr. Lyles for 04/03. Pulmonology will plan to repeat CT Chest in 6 months and follow up with patient for results. Patient verbalizes understanding of plan.
[2025-04-03] MEDS: SODIUM CHLORIDE 0.9 % (FLUSH) 10 ML SYRINGE IVF (15:10)
[2025-04-03] MEDS: HEPARIN 500 UNIT/5 ML SYRINGE IVF (15:10)
--- NOTE | 2025-04-24 10:02 | ONC.NURNOTE ---
Patient scheduled for port removal 05/01 at [facility] with Dr. Segura. Patient was provided resources regarding breast reconstruction. I offered to assist with referrals, but at this time, patient wants to think about her options and explore insurance coverage. Patient will contact [employer] if she has further questions or concerns.
== END 2025-05-21 23:59 | disposition home or self-care (01) ==
LOC: CCIC 14:00
PROVIDERS: PCP Family Medicine; Referring Provider Family Medicine; Visit Provider Internal Medicine Hematology & Oncology
DX: C50.912 Malignant neoplasm of unspecified site of left female breast (principal); Z17.0 Estrogen receptor positive status [ER+]; F41.9 Anxiety disorder, unspecified; N94.9 Unspecified condition associated with female genital organs and menstrual cycle; Z90.13 Acquired absence of bilateral breasts and nipples; Z51.81 Encounter for therapeutic drug level monitoring; Z79.810 Long term (current) use of selective estrogen receptor modulators (SERMs); Z87.891 Personal history of nicotine dependence
CPT/HCPCS: 99211; 99214; 99215; G0463; J1642